=== PATIENT | male | born 1955 | race Caucasian/White ===

== ENCOUNTER 2019-03-10 09:21 | Outpatient (RCR) | payer MEDICAID, SELFPAY | END 2019-04-04 00:01 | LOC: WOUND 09:21 | PROVIDERS: Family Provider Nurse Practitioner; Visit Provider Surgery | DX: E11.622 Type 2 diabetes mellitus with other skin ulcer (principal); L97.822 Non-pressure chronic ulcer of other part of left lower leg with fat layer exposed | CPT/HCPCS: 99212 ==

== ENCOUNTER → 2019-05-24 13:19 | Outpatient (BNVA) | payer MEDICAID, SELFPAY | PROVIDERS: Family Provider Nurse Practitioner; PCP Nurse Practitioner; Visit Provider Nurse Practitioner | DX: E11.9 Type 2 diabetes mellitus without complications (principal); G47.00 Insomnia, unspecified; N40.0 Benign prostatic hyperplasia without lower urinary tract symptoms | CPT/HCPCS: 80053; 80061; 83036 ==

== ENCOUNTER 2019-05-31 11:53 | Emergency (ER) | payer MEDICAID, SELFPAY ==
[2019-05-31 11:55] VITALS: BP 115/76; PULSE 74; RESP 18; TEMP 36.4; O2SAT 95; BMI 27.1
--- NOTE | 2019-05-31 12:00 | ED_ITS ---
Entered by Kenya Saeed, acting as scribe for Michelle Mccormack MD HPI - Weakness General: Chief complaint: Weakness Stated complaint: WEAKNESS, POSSIBLE FLU Time Seen by Provider: 05/31/19 11:58 Source: patient and EMS Mode of arrival: EMS Limitations: no limitations History of Present Illness: HPI Narrative: 63 yo male presents with generalized weakness. pt states this started a few days ago but worsened this morning. [facility] but they called a ambulance from the parking lot and sent him to the ED. pt has had blurry vision. pt states he has had difficulty walking due to weakness. pt has been exposed to flu and having muscle aches. pt denies any other symptoms at this time. Complaint: generalized weakness Onset (ago): day(s) (2-3 days ago) Duration: progressively worsening Location: generalized Severity: moderate Relieving factors: none Exacerbating factors: movement and exertion Associated symptoms: Reports chills and short of breath; Denies chest pain, easy bruising, headache(s), nausea or vomiting Review of Systems General: Reports: 10 or more systems reviewed and unremarkable except in HPI and below Const: Reports: chills Eyes: Denies: change in vision ENMT: Denies: throat pain Card: Denies: chest pain Resp: Denies: shortness of breath GI: Denies: abdominal pain, nausea, vomiting or change in bowel habits Musc: Reports: muscle weakness Skin/Breast: Denies: rash Neuro: Denies: headache Psych: Denies: hopelessness or suicidal ideation Endo: Denies: excessive urination Marco/Lymph: Denies: easy bruising or easy bleeding All/Imm: Denies: hives PFSH ED PFSH: Medical History (Updated 05/31/19 @ 14:31 by Michelle Mccormack MD) Anxiety disorder BPH (benign prostatic hyperplasia) Controlled diabetes mellitus Dyslipidemia Essential (primary) hypertension GERD (gastroesophageal reflux disease) History of MRSA infection Vitamin D deficiency Surgical History (Updated 05/24/19 @ 13:18 by FÁTIMA Dugan) History of hip surgery right History of inguinal herniorrhaphy right History of vasectomy Social History Smoking and tobacco status: former smoker Second hand smoke exposure: No Smoking risk assessment/counseling performed?: No Alcohol intake: never Desire information about alcohol rehabilitation?: No Counseling given: No Desire information about substance/drug rehabilitation?: No Counseling given: No Adopted: No Lives independently: Yes Household members: other Housing: House Marital status: Single service: No Current occupational status: disabled History of recent travel: No Current gender identity: Male Physical Exam Const: COMMON NORMALS: no apparent distress, oriented x3, alert and well nourished HENMT: COMMON NORMALS: normocephalic and external nose normal HEAD & SCALP: normocephalic NOSE: external nose normal MOUTH: no trismus Eye: COMMON NORMALS: EOMs intact bilaterally and conjunctivae normal CONJUNCTIVA: Yes conjunctivae normal Neck/C-Spine: COMMON NORMALS: full ROM, no lymphadenopathy and supple CERVICAL SPINE: Yes cervical ROM normal Lymph: LYMPHATIC: no lymphadenopathy noted Resp: COMMON NORMALS: normal respiratory effort, no retractions, no use of accessory muscles and clear to auscultation bilaterally EFFORT & INSPECTION: Yes able to speak in complete sentences AUSCULTATION: clear to auscultation bilaterally Cardio: COMMON NORMALS: regular rate and regular rhythm RATE: regular rate RHYTHM: regular rhythm GI: COMMON NORMALS: normal to inspection, nondistended, normoactive bowel sounds, soft to palpation, non-tender and no masses INSPECTION: Yes normal to inspection AUSCULTATION: Yes normoactive bowel sounds PALPATION: Yes soft, No guarding and No rigid Back/Pelvis: OTHER: Normal range of motion Neuro: COMMON NORMALS: oriented x3 and CN's II-XII intact bilaterally SENSORIUM/ORIENTATION: Yes alert SPEECH: speech normal Psych: COMMON NORMALS: mental status grossly normal Skin: COMMON NORMALS: no rashes or lesions noted GENERAL SKIN EXAM: no rashes or lesions noted Course Vital Signs: Vital signs: Vital Signs Temperature 97.6 F 05/31/19 11:55 Pulse Rate 74 05/31/19 11:55 Respiratory Rate 18 05/31/19 11:55 Blood Pressure 115/76 05/31/19 11:55 Pulse Oximetry 95 05/31/19 11:55 MDM - Weakness MDM Narrative: Medical decision making narrative: 1350 updated patient on his test results. He is alert and oriented x3 no distress. He states he feels like he cannot go home winter has been rough on him and he is interested in pursuing long-term care facility. He uses a cane and feels like he cannot take care of himself very well alone his son lives in [place]. Will discuss with case management Case management came down to speak with the patient and now he has a friend that is here with him that says he will take care of him until arrangements can be made for him to go live with his son in [place] permanently. Will discharge this patient with his friend. Lab Data: Labs: Lab Results 05/31/19 05/31/19 05/31/19 Range/Units 12:26 12:26 12:31 WBC 7.8 (4.0-10.0) 10^3/ uL RBC 5.21 (4.1-5.3) 10^6/u L Hgb 14.9 (11.7-16.6) g/dL Hct 46.1 (42.0-52.0) % MCV 88.5 (80-94) fL MCH 28.6 (28.0-34.0) pg MCHC 32.3 (30.0-36.0) g/dL RDW 14.5 (12.1-15.1) % Plt Count 214 (130-400) 10^3/c mm MPV 10.4 (7.4-10.4) fL Total Counted 100 (0-100) Segmented Neutroph ils 63 % Lymphocytes (Manua l) 29 % Monocytes (Manual) 8.0 % Absolute Monocytes 0.6 (0.1-0.6) 10^3/c mm Platelet Estimate Normal (Normal) Sodium 141 (136-145) mmol/L Potassium 3.6 (3.5-5.1) mmol/L Chloride 102 (98-107) mmol/L Carbon Dioxide 24 (22-29) mmol/L Anion Gap 18.6 (5-19) BUN 22 (8-23) mg/dL Creatinine 0.8 (0.7-1.2) mg/dL GFR Calculation 98.3 (90-130) mL/min Glucose 136 H (65-115) mg/dL Calcium 10.0 (8.5-10.5) mg/dL Total Bilirubin 0.6 (0.15-1.2) mg/dL AST 13 (0-40) U/L ALT 17 (0-41) U/L Alkaline Phosphata se 87 (40-130) IU/L Total Protein 6.8 (6.6-8.7) g/dL Albumin 4.1 (3.5-5.2) g/dL Globulin 2.7 (1.3-4.6) g/dL Influenza Type A A g Negative (Negative) POC Influenza B Ag Negative (Negative) Imaging Data^: CXR: Radiologist's impression: [address] [address] XRay Report Signed Patient: Randy German #: [id number] : 8Acct#:[id number] Age/Sex: 63 / MADM Date: 05/31/19 Loc: ERRoom/Bed: Attending Dr: Ordering Provider/Ordering MD: Michelle Mccormack MD Date of Service: 05/31/19 Procedure(s): XR chest 1V portable [id number] Accession Number(s): [id number] Report Number: [id number] PROCEDURE INFORMATION: Exam: XR Chest, 1 View Exam date and time: 05/31/2019 12:36 PM Age: 63 years old Clinical indication: Cough and shortness of breath; Additional info: Cough, SOA TECHNIQUE: Imaging protocol: XR of the chest Views: 1 view. COMPARISON: CR Chest 1 [place] [id number] 12/24/2018 4:07 AM FINDINGS: Lungs: Somewhat reduced lung volumes with bibasilar bronchovascular crowding. Stable 1.4 cm right upper lobe nodule. Probable minor curvilinear atelectasis left lung base laterally. Pleural space: Unremarkable. No pleural effusion. No pneumothorax. Heart/Mediastinum: Unremarkable. No cardiomegaly. Bones/joints: Unremarkable. XR/XR chest 1V portable [id number] IMPRESSION: Stable 1.4 cm right upper lobe nodule. Probable minor atelectasis left lung base. Dictated By:Jose Rosado MD Signed By:Jose Rosado Date/Time:05/31/19 8089 Discharge Plan Discharge Patient Disposition: Home, Self-Care Clinical Impression: Muscle pain, Malaise Condition: Stable Prescriptions: No Action (DME) insulin syringe-needle U-100 [Easy Comfort Insulin Syringe] 0.5 mL 31 gauge x 5/16 syringe See Rx Instructions .ROUTE .MEDSUPPLY Qty: 10 RF: 0 magnesium oxide 400 mg magnesium capsule 400 mg PO TID RF: 0 methenamine hippurate 1 gram tablet 1 gm PO BID RF: 0 (DME) blood-glucose meter [Precision Xtra Monitor] Misc See Rx Instructions .ROUTE .MEDSUPPLY Qty: 1 RF: 0 Lantus U-100 Insulin 100 unit/mL solution 25 unit SUBCUT DAILY Qty: 10 RF: 5 zolpidem [Ambien] 10 mg tablet 10 mg PO .at bedtime Qty: 30 RF: 5 tamsulosin 0.4 mg capsule 0.4 mg PO BID Qty: 60 RF: 5 aspirin 81 mg Tablet,Delayed Release (Dr/Ec) 81 mg PO DAILY RF: 0 dexamethasone 0.5 mg Tablet 0.5 mg PO DAILY RF: 0 Vitamin C 500 mg Tablet Extended Release 500 mg PO DAILY RF: 0 Probiotic 1 cap PO DAILY RF: 0 Lantus U-100 Insulin 25 units INJECTION DAILY RF: 0 Referrals: Adela Alaniz, TIMBER MANAGEMENT ASSISTANT-C [Primary Care Provider] - Patient Instructions: Weakness (ED), Fatigue (ED) Coding Level of Care Code ED Metal Technician for Chg Fwd Exam Comprehensive The documentation recorded by the Christophe hastings Bridget Annette, accurately reflects the service I personally performed and the decisions made by Easton arriaga Megan, MD May 31, 2019 11:53
--- NOTE | 2019-05-31 12:12 | PC.NURSE ---
Patient c/o severe pain all over, states feet, back, legs, and chest all hurting, this started at sometime yesterday, patient was unsure of actual onset.
--- NOTE | 2019-05-31 12:14 | XRR_ITS ---
PROCEDURE INFORMATION: Exam: XR Chest, 1 View Exam date and time: 05/31/2019 12:36 PM Age: 63 years old Clinical indication: Cough and shortness of breath; Additional info: Cough, SOA TECHNIQUE: Imaging protocol: XR of the chest Views: 1 view. COMPARISON: CR Chest 1 [place] [id number] 12/24/2018 4:07 AM FINDINGS: Lungs: Somewhat reduced lung volumes with bibasilar bronchovascular crowding. Stable 1.4 cm right upper lobe nodule. Probable minor curvilinear atelectasis left lung base laterally. Pleural space: Unremarkable. No pleural effusion. No pneumothorax. Heart/Mediastinum: Unremarkable. No cardiomegaly. Bones/joints: Unremarkable. XR/XR chest 1V portable [id number] IMPRESSION: Stable 1.4 cm right upper lobe nodule. Probable minor atelectasis left lung base.
[2019-05-31] MEDS: sodium chloride 0.9% 1,000 ML 999 ML IV (12:24)
[2019-05-31] MEDS: ibuprofen 600 mg Tablet PO (12:24)
[2019-05-31 12:44] LABS: Hematocrit 46.1 % (42.0-52.0); Hemoglobin 14.9 g/dL (11.7-16.6); Mean Corpuscular HGB Conc 32.3 g/dL (30.0-36.0); Mean Corpuscular Hemoglobin 28.6 pg (28.0-34.0); Mean Corpuscular Volume 88.5 fL (80-94); Mean Platelet Volume 10.4 fL (7.4-10.4); Platelet Count 214 10^3/cmm (130-400); Red Blood Count 5.21 10^6/uL (4.1-5.3); Red Cell Distribution Width 14.5 % (12.1-15.1); White Blood Count 7.8 10^3/uL (4.0-10.0)
[2019-05-31 12:56] LABS: Alanine Aminotransferase 17 U/L (0-41); Albumin Level 4.1 g/dL (3.5-5.2); Alkaline Phosphatase 87 IU/L (40-130); Anion Gap 18.6 (5-19); Aspartate Amino Transferase 13 U/L (0-40); Blood Urea Nitrogen 22 mg/dL (8-23); Carbon Dioxide 24 mmol/L (22-29); Chloride 102 mmol/L (98-107); Globulin 2.7 g/dL (1.3-4.6); Glomerular Filtration Rate 98.3 mL/min (90-130); Glucose 136 mg/dL (65-115); Potassium 3.6 mmol/L (3.5-5.1); Sodium 141 mmol/L (136-145); Total Bilirubin 0.6 mg/dL (0.15-1.2); Total Protein 6.8 g/dL (6.6-8.7)
[2019-05-31 13:10] LABS: Influenza A by IFA Negative (Negative); Influenza B by IFA Negative (Negative)
[2019-05-31 13:17] LABS: Absolute Segmented Neutrophil 4.9 10/cmm (1.6-7.1); Lymphocytes 29 %; Monocytes Absolute 0.6 10^3/cmm (0.1-0.6); Platelet Estimate Normal (Normal); Segmented Neutrophils 63 %; Total Cells Counted 100 (0-100)
--- NOTE | 2019-05-31 14:21 | PC.SOCIAL ---
Was called to go see patient in ER 9 for SNF placement. Went in to speak with patient and he states he is not wanting to go to SNF at this time. Patient's friend, Randy Bolden ([phone]) is at bedside. They state the plan is for patient to go home with friend at this time, then they will be working on getting patient to a SNF in [place], where patient's son Gerry lives. Patient comes from home where he lives alone. He sees Adela Alaniz as his PCP as was last seen in the clinic about 2 weeks ago. He drives himself at time, but in the last few weeks, his friends have been taking him places. Patient has a cane, walker, and w/c at home. He currently has no in-home or HH services. I advised the patient and friend Randy to make sure and call/visit the Medicaid office (or equivalent) in [place] as he has [place] Medicaid and it will need to be switched to [place]'s version of Medicaid before he will be able to get into a SNF there. They appreciate the guidance. Updated provider of the plan and she is in agreeance. No other SS needs identified at this time.
[2019-05-31 15:23] VITALS: BP 144/77; PULSE 86; RESP 16; O2SAT 98
== END 2019-05-31 15:24 | disposition home or self-care (01) ==
PROVIDERS: Emergency Provider Emergency Medicine; Family Provider Nurse Practitioner; PCP Nurse Practitioner
DX: M79.10 Myalgia, unspecified site (principal); R53.81 Other malaise; E78.5 Hyperlipidemia, unspecified; I10 Essential (primary) hypertension; E11.9 Type 2 diabetes mellitus without complications; Z87.891 Personal history of nicotine dependence; Z79.4 Long term (current) use of insulin
CPT/HCPCS: 36415; 71045; 80053; 85007; 85027; 87804; 96360; 99281; 99283; J7030

== ENCOUNTER 2019-06-03 07:41 | Inpatient (IN) | payer MEDICAID, SELFPAY ==
[2019-06-03 07:47] VITALS: BP 114/84; PULSE 85; RESP 18; TEMP 36.5; O2SAT 96; BMI 27.1
--- NOTE | 2019-06-03 07:48 | ED_ITS ---
Entered by Kenya Saeed, acting as scribe for Yoan Ramos DO Documented by User: FERMÍN David 06/03/19 11:27 HPI - Psych General: Chief Complaint: Psychiatric Symptoms Stated Complaint: SI Time Seen by Provider: 06/03/19 07:49 Source: patient Mode of arrival: EMS Limitations: no limitations History of Present Illness: HPI Narrative: Patient is a 63-year-old male who presents to ED today with complaints of suicidal ideations. Patient tells me he suffers from chronic pain and lives alone and states the winter has gotten to me . He states earlier this morning he tried to cut his throat with a knife. He has sustained 2 small lacerations to the left anterior neck from this. Patient denies previous suicide attempts. He states he does not trust himself to go home and not harm himself. complaint: suicidal ideation Onset (ago): hour(s) History of same: No Associated psychiatric symptoms: depression Associated symptoms: Reports depression and suicidal ideation Review of Systems Const: Denies: fever, chills, body aches, change in appetite, change in weight, fatigue or malaise Eyes: Denies: change in vision or blurry vision ENMT: Denies: throat pain, enlarged tonsils or painful swallowing Card: Denies: chest pain, palpitations, irregular heart rhythm, edema, swelling of feet/ankles, lightheadedness, syncope or pre-syncope Resp: Denies: shortness of breath, productive cough, coughing up blood or chest congestion GI: Denies: abdominal pain, nausea, vomiting or diarrhea : Denies: flank pain, difficulty urinating, painful urination, urinary frequency or urinary urgency Musc: Reports: back pain (chronic ) and joint pain (chronic bilateral shoulder pain, chronic R hip pain, chronic L knee pain); Denies: neck pain Skin/Breast: Reports: other (two small superficial lacerations to L anterior neck ); Denies: rash Neuro: Denies: headache, numbness in extremities, weakness in extremities or changes in sensation Psych: Reports: depression and suicidal ideation COUNTS INCLUDE 234 BEDS AT THE [facility] ED PFSH: Medical History (Updated 06/04/19 @ 12:56 by Keaton Velez MD) Anxiety disorder BPH (benign prostatic hyperplasia) Chronic arthritis Chronic insomnia Controlled diabetes mellitus Dyslipidemia Essential (primary) hypertension GERD (gastroesophageal reflux disease) History of MRSA infection Suicidal ideation Superficial laceration of skin Vitamin D deficiency Surgical History (Updated 05/24/19 @ 13:18 by FÁTIMA Dugan) History of hip surgery right History of inguinal herniorrhaphy right History of vasectomy Social History Smoking and tobacco status: never smoked Second hand smoke exposure: No Smoking risk assessment/counseling performed?: No Alcohol intake: never Desire information about alcohol rehabilitation?: No Counseling given: No Desire information about substance/drug rehabilitation?: No Counseling given: No Adopted: No Lives independently: Yes Household members: other Housing: House Marital status: Single service: No Current occupational status: disabled History of recent travel: No Current gender identity: Male Physical Exam Const: COMMON NORMALS: no apparent distress, average body habitus, oriented x3, no limitations, alert and well nourished HENMT: COMMON NORMALS: normocephalic and head/scalp atraumatic HEAD & SCALP: normocephalic and atraumatic Neck/C-Spine: COMMON NORMALS: full ROM, no lymphadenopathy and no meningeal signs OTHER: two small 1-1.5cm superficial lacerations to L anterior neck that were irrigated and closed with tissue adhesive Resp: COMMON NORMALS: normal respiratory effort and clear to auscultation bilaterally AUSCULTATION: clear to auscultation bilaterally Cardio: COMMON NORMALS: regular rate and regular rhythm RATE: regular rate RHYTHM: regular rhythm Neuro: PILLO COMA SCALE: document GCS findings Pillo coma scale eye opening: Spontaneous Pillo coma scale verbal response: Orientated Pillo coma scale motor response: Obey commands Pillo coma scale total score: 15 COMMON NORMALS: oriented x3, moves all extremities, no focal motor deficits and no sensory deficits noted SENSORIUM/ORIENTATION: Yes alert MENINGEAL SIGNS: Yes no meningeal signs Psych: COMMON NORMALS: mental status grossly normal, cooperative, affect normal, speech normal and activity/motor behavior normal ATTITUDE: Yes calm SPEECH: Yes normal speech MEMORY/COGNITION: Yes memory grossly intact and Yes cognition grossly intact INSIGHT: fair JUDGEMENT: fair MDM - Psych MDM Narrative: Medical decision making narrative: Pt has DPOA (his sister). She was contacted and agrees with plan to send patient to [facility]. Lab Data: Labs: Lab Results 06/03/19 06/03/19 06/03/19 Range/Units 08:16 08:16 08:16 WBC 8.6 (4.0-10.0) 10^3/ uL RBC 4.98 (4.1-5.3) 10^6/u L Hgb 14.0 (11.7-16.6) g/dL Hct 43.0 (42.0-52.0) % MCV 86.3 (80-94) fL MCH 28.1 (28.0-34.0) pg MCHC 32.6 (30.0-36.0) g/dL RDW 14.5 (12.1-15.1) % Plt Count 167 (130-400) 10^3/c mm MPV 9.8 (7.4-10.4) fL Neut % (Auto) 62.8 % Lymph % (Auto) 27.7 % Page % (Auto) 8.1 % Eos % (Auto) 0.8 % Baso % (Auto) 0.3 % Neut # (Auto) 5.4 (1.8-7.7) 10^3/u L Lymph # (Auto) 2.4 (0.8-4.8) 10^3/u L Page # (Auto) 0.7 (0.2-0.9) 10^3/u L Eos # (Auto) 0.1 (0.0-0.8) 10^3/u L Baso # (Auto) 0.0 (0.0-0.1) 10^3/u L Nucleated RBC % (a uto) 0 % Nucleated RBCs # 0.0 /100WBC Sodium 140 (136-145) mmol/L Potassium 3.0 L (3.5-5.1) mmol/L Chloride 103 (98-107) mmol/L Carbon Dioxide 25 (22-29) mmol/L Anion Gap 15.0 (5-19) BUN 13 (8-23) mg/dL Creatinine 0.6 L (0.7-1.2) mg/dL GFR Calculation 137.0 H (90-130) mL/min Glucose 95 (65-115) mg/dL Calcium 9.4 (8.5-10.5) mg/dL Magnesium 2.0 (1.7-2.3) mg/dL Total Bilirubin 0.9 (0.15-1.2) mg/dL AST 13 (0-40) U/L ALT 16 (0-41) U/L Alkaline Phosphata se 81 (40-130) IU/L Total Protein 6.6 (6.6-8.7) g/dL Albumin 3.6 (3.5-5.2) g/dL Globulin 3.0 (1.3-4.6) g/dL Salicylates < 0.3 L (3-10) mg/dL Urine Opiates Scre en (Negative) ng/mL Acetaminophen < 5.0 L (10-30) ug/mL Ur Barbiturates Sc reen (Negative) ng/mL Ur Phencyclidine S crn (Negative) ng/mL Ur Amphetamines Sc reen (Negative) ng/mL U Benzodiazepines Scrn (Negative) ng/mL Urine Cocaine Scre en (Negative) ng/mL U Marijuana (THC) Screen (Negative) ng/mL Ethyl Alcohol < 10 (0-10) mg/dL 06/03/19 Range/Units 10:25 WBC (4.0-10.0) 10^3/ uL RBC (4.1-5.3) 10^6/u L Hgb (11.7-16.6) g/dL Hct (42.0-52.0) % MCV (80-94) fL MCH (28.0-34.0) pg MCHC (30.0-36.0) g/dL RDW (12.1-15.1) % Plt Count (130-400) 10^3/c mm MPV (7.4-10.4) fL Neut % (Auto) % Lymph % (Auto) % Page % (Auto) % Eos % (Auto) % Baso % (Auto) % Neut # (Auto) (1.8-7.7) 10^3/u L Lymph # (Auto) (0.8-4.8) 10^3/u L Page # (Auto) (0.2-0.9) 10^3/u L Eos # (Auto) (0.0-0.8) 10^3/u L Baso # (Auto) (0.0-0.1) 10^3/u L Nucleated RBC % (a uto) % Nucleated RBCs # /100WBC Sodium (136-145) mmol/L Potassium (3.5-5.1) mmol/L Chloride (98-107) mmol/L Carbon Dioxide (22-29) mmol/L Anion Gap (5-19) BUN (8-23) mg/dL Creatinine (0.7-1.2) mg/dL GFR Calculation (90-130) mL/min Glucose (65-115) mg/dL Calcium (8.5-10.5) mg/dL Magnesium (1.7-2.3) mg/dL Total Bilirubin (0.15-1.2) mg/dL AST (0-40) U/L ALT (0-41) U/L Alkaline Phosphata se (40-130) IU/L Total Protein (6.6-8.7) g/dL Albumin (3.5-5.2) g/dL Globulin (1.3-4.6) g/dL Salicylates (3-10) mg/dL Urine Opiates Scre en Negative (Negative) ng/mL Acetaminophen (10-30) ug/mL Ur Barbiturates Sc reen Negative (Negative) ng/mL Ur Phencyclidine S crn Negative (Negative) ng/mL Ur Amphetamines Sc reen Negative (Negative) ng/mL U Benzodiazepines Scrn Positive H (Negative) ng/mL Urine Cocaine Scre en Negative (Negative) ng/mL U Marijuana (THC) Screen Positive H (Negative) ng/mL Ethyl Alcohol (0-10) mg/dL Discharge Plan Discharge Patient Disposition: Xfer Psychiatric Hosp Clinical Impression: Suicidal ideation, Superficial laceration of skin Condition: Stable Discharge Date/Time: 06/03/19 12:02 Coding Level of Care Code ED Edger Technician for Chg Fwd Exam Detailed Documented by User: Yoan Ramos DO 06/07/19 08:46 HPI - Psych General: Chief Complaint: Psychiatric Symptoms Stated Complaint: SI Time Seen by Provider: 06/03/19 07:49 PFS ED PFS: Medical History (Updated 06/04/19 @ 12:56 by Keaton Velez MD) Anxiety disorder BPH (benign prostatic hyperplasia) Chronic arthritis Chronic insomnia Controlled diabetes mellitus Dyslipidemia Essential (primary) hypertension GERD (gastroesophageal reflux disease) History of MRSA infection Suicidal ideation Superficial laceration of skin Vitamin D deficiency Surgical History (Updated 05/24/19 @ 13:18 by FÁTIMA Dugan) History of hip surgery right History of inguinal herniorrhaphy right History of vasectomy Social History Smoking and tobacco status: never smoked Second hand smoke exposure: No Smoking risk assessment/counseling performed?: No Alcohol intake: never Desire information about alcohol rehabilitation?: No Counseling given: No Desire information about substance/drug rehabilitation?: No Counseling given: No Adopted: No Lives independently: Yes Household members: other Housing: House Marital status: Single service: No Current occupational status: disabled History of recent travel: No Current gender identity: Male MDM - Psych Lab Data: Labs: Lab Results 06/03/19 06/03/19 06/03/19 Range/Units 08:16 08:16 08:16 WBC 8.6 (4.0-10.0) 10^3/ uL RBC 4.98 (4.1-5.3) 10^6/u L Hgb 14.0 (11.7-16.6) g/dL Hct 43.0 (42.0-52.0) % MCV 86.3 (80-94) fL MCH 28.1 (28.0-34.0) pg MCHC 32.6 (30.0-36.0) g/dL RDW 14.5 (12.1-15.1) % Plt Count 167 (130-400) 10^3/c mm MPV 9.8 (7.4-10.4) fL Neut % (Auto) 62.8 % Lymph % (Auto) 27.7 % Page % (Auto) 8.1 % Eos % (Auto) 0.8 % Baso % (Auto) 0.3 % Neut # (Auto) 5.4 (1.8-7.7) 10^3/u L Lymph # (Auto) 2.4 (0.8-4.8) 10^3/u L Page # (Auto) 0.7 (0.2-0.9) 10^3/u L Eos # (Auto) 0.1 (0.0-0.8) 10^3/u L Baso # (Auto) 0.0 (0.0-0.1) 10^3/u L Nucleated RBC % (a uto) 0 % Nucleated RBCs # 0.0 /100WBC Sodium 140 (136-145) mmol/L Potassium 3.0 L (3.5-5.1) mmol/L Chloride 103 (98-107) mmol/L Carbon Dioxide 25 (22-29) mmol/L Anion Gap 15.0 (5-19) BUN 13 (8-23) mg/dL Creatinine 0.6 L (0.7-1.2) mg/dL GFR Calculation 137.0 H (90-130) mL/min Glucose 95 (65-115) mg/dL Calcium 9.4 (8.5-10.5) mg/dL Magnesium 2.0 (1.7-2.3) mg/dL Total Bilirubin 0.9 (0.15-1.2) mg/dL AST 13 (0-40) U/L ALT 16 (0-41) U/L Alkaline Phosphata se 81 (40-130) IU/L Total Protein 6.6 (6.6-8.7) g/dL Albumin 3.6 (3.5-5.2) g/dL Globulin 3.0 (1.3-4.6) g/dL Salicylates < 0.3 L (3-10) mg/dL Urine Opiates Scre en (Negative) ng/mL Acetaminophen < 5.0 L (10-30) ug/mL Ur Barbiturates Sc reen (Negative) ng/mL Ur Phencyclidine S crn (Negative) ng/mL Ur Amphetamines Sc reen (Negative) ng/mL U Benzodiazepines Scrn (Negative) ng/mL Urine Cocaine Scre en (Negative) ng/mL U Marijuana (THC) Screen (Negative) ng/mL Ethyl Alcohol < 10 (0-10) mg/dL 06/03/19 Range/Units 10:25 WBC (4.0-10.0) 10^3/ uL RBC (4.1-5.3) 10^6/u L Hgb (11.7-16.6) g/dL Hct (42.0-52.0) % MCV (80-94) fL MCH (28.0-34.0) pg MCHC (30.0-36.0) g/dL RDW (12.1-15.1) % Plt Count (130-400) 10^3/c mm MPV (7.4-10.4) fL Neut % (Auto) % Lymph % (Auto) % Page % (Auto) % Eos % (Auto) % Baso % (Auto) % Neut # (Auto) (1.8-7.7) 10^3/u L Lymph # (Auto) (0.8-4.8) 10^3/u L Page # (Auto) (0.2-0.9) 10^3/u L Eos # (Auto) (0.0-0.8) 10^3/u L Baso # (Auto) (0.0-0.1) 10^3/u L Nucleated RBC % (a uto) % Nucleated RBCs # /100WBC Sodium (136-145) mmol/L Potassium (3.5-5.1) mmol/L Chloride (98-107) mmol/L Carbon Dioxide (22-29) mmol/L Anion Gap (5-19) BUN (8-23) mg/dL Creatinine (0.7-1.2) mg/dL GFR Calculation (90-130) mL/min Glucose (65-115) mg/dL Calcium (8.5-10.5) mg/dL Magnesium (1.7-2.3) mg/dL Total Bilirubin (0.15-1.2) mg/dL AST (0-40) U/L ALT (0-41) U/L Alkaline Phosphata se (40-130) IU/L Total Protein (6.6-8.7) g/dL Albumin (3.5-5.2) g/dL Globulin (1.3-4.6) g/dL Salicylates (3-10) mg/dL Urine Opiates Scre en Negative (Negative) ng/mL Acetaminophen (10-30) ug/mL Ur Barbiturates Sc reen Negative (Negative) ng/mL Ur Phencyclidine S crn Negative (Negative) ng/mL Ur Amphetamines Sc reen Negative (Negative) ng/mL U Benzodiazepines Scrn Positive H (Negative) ng/mL Urine Cocaine Scre en Negative (Negative) ng/mL U Marijuana (THC) Screen Positive H (Negative) ng/mL Ethyl Alcohol (0-10) mg/dL Discharge Plan Discharge Patient Disposition: Xfer Psychiatric Hosp Clinical Impression: Suicidal ideation, Superficial laceration of skin Condition: Stable Discharge Date/Time: 06/03/19 12:02 Coding Level of Care Code ED Edger Technician for Chg Fwd Exam Detailed The documentation recorded by the Christophe hastings Bridget Annette, accurately reflects the service I personally performed and the decisions made by Richard arriaga Curtis L, Jun 03, 2019 07:41
[2019-06-03 07:55] VITALS: BP 109/88; PULSE 88; RESP 17; O2SAT 98
[2019-06-03 08:21] LABS: Basophils % 0.3 %; Eosinophils # 0.1 10^3/uL (0.0-0.8); Eosinophils % 0.8 %; Lymphocytes # 2.4 10^3/uL (0.8-4.8); Lymphocytes % 27.7 %; Mean Corpuscular HGB Conc 32.6 g/dL (30.0-36.0); Mean Corpuscular Hemoglobin 28.1 pg (28.0-34.0); Mean Corpuscular Volume 86.3 fL (80-94); Mean Platelet Volume 9.8 fL (7.4-10.4); Monocytes # 0.7 10^3/uL (0.2-0.9); Monocytes % 8.1 %; Neutrophils # 5.4 10^3/uL (1.8-7.7); Neutrophils % 62.8 %; Nucleated Red Blood Cells % 0 %; Platelet Count 167 10^3/cmm (130-400); Red Blood Count 4.98 10^6/uL (4.1-5.3); Red Cell Distribution Width 14.5 % (12.1-15.1); White Blood Count 8.6 10^3/uL (4.0-10.0)
[2019-06-03 08:42] LABS: Alanine Aminotransferase 16 U/L (0-41); Albumin Level 3.6 g/dL (3.5-5.2); Alkaline Phosphatase 81 IU/L (40-130); Aspartate Amino Transferase 13 U/L (0-40); Blood Urea Nitrogen 13 mg/dL (8-23); Calcium 9.4 mg/dL (8.5-10.5); Carbon Dioxide 25 mmol/L (22-29); Chloride 103 mmol/L (98-107); Glucose 95 mg/dL (65-115); Sodium 140 mmol/L (136-145); Total Bilirubin 0.9 mg/dL (0.15-1.2); Total Protein 6.6 g/dL (6.6-8.7)
[2019-06-03 08:44] LABS: Acetaminophen < 5.0 ug/mL (10-30); Alcohol Level < 10 mg/dL (0-10); Salicylate < 0.3 mg/dL (3-10)
[2019-06-03] MEDS: acetaminophen 500 mg Tablet 1000 MG PO (09:43)
[2019-06-03 11:02] LABS: Amphetamines Screen Urine Negative (Negative); Barbiturates Screen Urine Negative (Negative); Benzodiazepines Screen Urine Positive (Negative); Cocaine Screen Urine Negative (Negative); Opiate Screen Urine Negative (Negative); PCP Screen Urine Negative (Negative); THC Screen Urine Positive (Negative)
[2019-06-03 11:35] VITALS: BP 104/72; PULSE 69; RESP 18; O2SAT 96
[2019-06-03 12:30] VITALS: BP 114/74; PULSE 77; RESP 18; TEMP 36.7; O2SAT 96
[2019-06-03 14:00] VITALS: BP 114/74; PULSE 77; RESP 18; TEMP 36.7; O2SAT 95
[2019-06-03] MEDS: magnesium oxide 400 mg tablet PO ×2 (14:00→20:39)
[2019-06-03] MEDS: hyDROXYzine 25 mg Capsule 50 MG PO (14:00)
[2019-06-03 16:46] LABS: Glucose Point of Care 79 mg/dL (70-110)
[2019-06-03] MEDS: tamsulosin 0.4 mg Capsule PO (17:46)
[2019-06-03 22:00] VITALS: BP 123/84; PULSE 69; RESP 18; TEMP 37.1; O2SAT 97
[2019-06-04] MEDS: acetaminophen 325 mg Tablet 650 MG PO ×3 (02:07→17:52)
--- NOTE | 2019-06-04 02:09 | PC.NURSE ---
TYLENOL 650 MG PO GIVEN FOR PAIN IN BACK AND KNEES.
[2019-06-04 06:00] VITALS: BP 97/63; PULSE 86; RESP 16; TEMP 36.9; O2SAT 91
[2019-06-04 06:00] LABS: Glucose Point of Care 95 mg/dL (70-110)
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
[2019-06-04] MEDS: tamsulosin 0.4 mg Capsule PO ×2 (08:31→17:52)
[2019-06-04] MEDS: hyDROXYzine 25 mg Capsule 50 MG PO ×2 (08:31→22:55)
[2019-06-04] MEDS: magnesium oxide 400 mg tablet PO ×3 (08:31→21:31)
[2019-06-04] MEDS: aspirin 81 mg EC Tablet PO (08:31)
[2019-06-04] MEDS: NON-FORMULARY MEDICATION (Ascorbic Acid (Vitamin C) [Vitamin C] 500 MG) 500 EACH PO (08:34)
[2019-06-04] MEDS: PROBIOTIC 1 EACH PO (08:34)
[2019-06-04] MEDS: dexamethasone 4 mg Tablet 2 MG PO (11:09)
[2019-06-04 11:53] LABS: Glucose Point of Care 91 mg/dL (70-110)
[2019-06-04 13:35] VITALS: BP 108/70; PULSE 99; RESP 18; TEMP 37.3; O2SAT 96
[2019-06-04 16:53] LABS: Glucose Point of Care 113 mg/dL (70-110)
[2019-06-04 21:27] VITALS: BP 124/78; PULSE 104; RESP 18; TEMP 36.7; O2SAT 95
[2019-06-04] MEDS: insulin glargine 100 units/1 mL 25 UNIT SUBCUT ×2 (21:30→21:56)
--- NOTE | 2019-06-04 22:56 | PC.NURSE ---
PRN VISTARIL VISTARIL 50 MG PO PER PT C/O ANXIETY. WILL CONTINUE TO MONITOR FOR MEDICATION EFFECTIVENESS.
--- NOTE | 2019-06-05 | PC.NURSE ---
PRN VISTARIL FOLLOW UP MEDICATION EFFECTIVE. PATIENT LYING IN BED RESTING. RESPIRATIONS EVEN AND UNLABORED.
[2019-06-05 06:00] VITALS: BP 116/81; PULSE 70; RESP 20; TEMP 36.4; O2SAT 97
[2019-06-05 06:11] LABS: Glucose Point of Care 133 mg/dL (70-110)
[2019-06-05] MEDS: NON-FORMULARY MEDICATION (Ascorbic Acid (Vitamin C) [Vitamin C] 500 MG) 500 EACH PO (08:42)
[2019-06-05] MEDS: dexamethasone 4 mg Tablet 2 MG PO (08:43)
[2019-06-05] MEDS: aspirin 81 mg EC Tablet PO (08:43)
[2019-06-05] MEDS: tamsulosin 0.4 mg Capsule PO ×2 (08:43→17:15)
[2019-06-05] MEDS: PROBIOTIC 1 EACH PO (08:43)
[2019-06-05] MEDS: magnesium oxide 400 mg tablet PO ×2 (08:44→14:51)
[2019-06-05 14:00] VITALS: BP 119/82; PULSE 84; RESP 18; TEMP 36.8; O2SAT 92
--- NOTE | 2019-06-05 14:46 | P.PN_ITS ---
Subjective NPU Subjective: Interval history: Randy presents today reporting that he is doing okay. He reports that he is tolerating the antidepressant and is feeling optimistic about things going forward. He feels like part of the issue was that it was winter and he was hold up in his house and he feels like that with spring coming he will be able to get out and be more active and be able to avoid a repeat of his situation. He endorsed feeling the Ambien was part of the problem now having a couple nights off of that he feels a little better. Mental Status Exam MSE Comments: This is a well-nourished well-developed white male with limited dress grooming and eye contact. No abnormal movements except for psychomotor retardation. Cooperative with exam in no acute distress. Speech was decreased rate and volume. Mood described as a little better, affect congruent. Thought process organized. Thought content: Patient denied any suicidal or homicidal ideation, there were no delusions reported noted, he denied any auditory or visual hallucinations. Attention and concentration were intact and memory appeared mostly reliable but none were formally tested. He is alert and oriented ?3. Insight and judgment are improving. Vitals/I&O/Wt Last Vital Signs Temperature 97.6, pulse 70, respirations 20, pulse ox 97%, blood pressure 116/81. Home Medications blood-glucose meter #1 each 05/24/19 [History Confirmed 06/03/19] insulin glargine 100 unit/mL subcutaneous solution 25 unit SUBCUT DAILY #10 ml 05/24/19 [Rx Confirmed 06/03/19] insulin syringe-needle U-100 0.5 mL 31 gauge x 16 #10 each 05/24/19 [History Confirmed 06/03/19] magnesium oxide 400 mg PO TID cap 05/24/19 [History Confirmed 06/03/19] methenamine hippurate 1 gram tablet 1 gm PO BID 05/24/19 [History Confirmed 06/03/19] tamsulosin 0.4 mg capsule 0.4 mg PO BID #60 cap 05/24/19 [Rx Confirmed 06/03/19] Probiotic 1 cap PO DAILY 05/31/19 [History Confirmed 06/03/19] ascorbic acid (vitamin C) [Vitamin C] 500 mg PO DAILY 05/31/19 [History Confirmed 06/03/19] aspirin 81 mg PO DAILY 05/31/19 [History Confirmed 06/03/19] dexamethasone 2 mg PO DAILY 05/31/19 [History Confirmed 06/04/19] Ambien 10 mg PO BEDTIME 06/03/19 [History Confirmed 06/03/19] Active Medications Acetaminophen (Tylenol) 650 mg PO Q4H PRN PRN Reason: MILD PAIN Last Admin: 06/06/19 02:03 Dose: 650 mg Documented by: Aspirin (Aspirin Ec) 81 mg PO DAILY [facility] Last Admin: 06/05/19 08:43 Dose: 81 mg Documented by: Benztropine Mesylate (Cogentin) 1 mg PO BID PRN PRN Reason: Mild Extrapyramidal symptoms Camphor/Menthol/Phenol (Blistex) 1 applic TOPICAL Q1H PRN PRN Reason: DRYNESS Dexamethasone (Decadron) 2 mg PO DAILY [facility] Last Admin: 06/05/19 08:43 Dose: 2 mg Documented by: Diphenhydramine HCl (Benadryl) 50 mg IM ONCE PRN PRN Reason: Severe Extrapyramidal Symptoms Diphenhydramine HCl (Benadryl) 50 mg IM Q4H PRN PRN Reason: Severe Aggression Doxepin HCl (Sinequan) 10 mg PO BEDTIME [facility] Last Admin: 06/05/19 20:42 Dose: 10 mg Documented by: Fluoxetine HCl (Prozac) 20 mg PO DAILY [facility] Haloperidol (Haldol) 5 mg PO Q4H PRN PRN Reason: AGITATION Haloperidol Lactate (Haldol Inj) 5 mg IM Q4H PRN PRN Reason: Severe Aggression Hydroxyzine Pamoate (Vistaril) 50 mg PO Q6H PRN PRN Reason: ANXIETY Last Admin: 06/04/19 22:55 Dose: 50 mg Documented by: Insulin Glargine (Lantus) 25 unit SUBCUT BEDTIME [facility] Last Admin: 06/05/19 20:47 Dose: 25 unit Documented by: Loperamide HCl (Imodium Capsule) 2 mg PO Q6H PRN PRN Reason: DIARRHEA Lorazepam (Ativan) 2 mg IM Q4H PRN PRN Reason: Severe Aggression Magnesium Oxide (Magox) 400 mg PO TID [facility] Last Admin: 06/06/19 02:00 Dose: 400 mg Documented by: Nicotine (Nicoderm 21 Mg Patch) 1 patch TRANSDERMA DAILY PRN PRN Reason: NICOTINE WITHDRAWAL Nicotine Polacrilex (Nicorette) 2 mg BUCCAL Q2H PRN PRN Reason: NICOTINE WITHDRAWAL Non-Formulary Medication (Methenamine Hippurate) 1 gm PO BID [facility] Last Admin: 06/05/19 17:15 Dose: 1 gm Documented by: Non-Formulary Medication (Probiotic) 1 cap PO DAILY [facility] Last Admin: 06/05/19 08:43 Dose: 1 cap Documented by: Non-Formulary Medication (Ascorbic Acid (Vitamin C) [Vitamin C]) 500 mg PO DAILY [facility] Last Admin: 06/05/19 08:42 Dose: 500 mg Documented by: Olanzapine (Zyprexa Zydis) 5 mg PO Q4H PRN PRN Reason: Agitation/Psychosis Ondansetron HCl (Zofran) 4 mg PO Q6H PRN PRN Reason: NAUSEA AND VOMITING Tamsulosin HCl (Flomax) 0.4 mg PO BID [facility] Last Admin: 06/05/19 17:15 Dose: 0.4 mg Documented by: Data NPU : 06/03/19 08:16 06/03/19 08:16 A&P Additional A&P Information This is a 63-year-old white male with a recent history of depression against the backdrop of multiple medical comorbidities, isolation and poor sleep who presents off of any antidepressants and with reports of limited efficacy of his sleep-related. 1. Continue current medication. 2. Encourage individual, group and milieu therapy. 3. Continue every 15 minute checks for safety. Involuntary Hold Information 96 Hour Hold: 96 Hour Involuntary Admission: No Attestations NPU Medical Necessity Statement*: Inpatient hospitalization is medically necessary and the clinically appropriate intervention at this time. We will monitor medications and make changes indicated. Likely length of stay 1-3 days. Coding Level of Care Code Acute Human Resources Director for Imelda Rojas
[2019-06-05] MEDS: fluoxetine 20 mg Capsule PO (14:50)
[2019-06-05 18:51] LABS: Glucose Point of Care 191 mg/dL (70-110)
[2019-06-05] MEDS: doxepin 10 mg Capsule PO (20:42)
[2019-06-05] MEDS: insulin glargine 100 units/1 mL 25 UNIT SUBCUT (20:47)
[2019-06-05] MEDS: acetaminophen 325 mg Tablet 650 MG PO (20:51)
[2019-06-05 21:52] VITALS: BP 136/92; PULSE 74; RESP 17; TEMP 36.5; O2SAT 95
[2019-06-05] MEDS: trazodone 50 mg Tablet PO (22:10)
[2019-06-06] MEDS: trazodone 50 mg Tablet PO ×2 (02:00→20:54)
[2019-06-06] MEDS: magnesium oxide 400 mg tablet PO ×4 (02:00→20:52)
[2019-06-06] MEDS: acetaminophen 325 mg Tablet 650 MG PO ×2 (02:03→21:02)
[2019-06-06 05:17] LABS: Glucose Point of Care 108 mg/dL (70-110)
[2019-06-06 06:00] VITALS: BP 109/78; PULSE 62; RESP 17; TEMP 36.5; O2SAT 96
[2019-06-06] MEDS: tamsulosin 0.4 mg Capsule PO ×2 (09:19→17:51)
[2019-06-06] MEDS: fluoxetine 20 mg Capsule PO (09:19)
[2019-06-06] MEDS: dexamethasone 4 mg Tablet 2 MG PO (09:19)
[2019-06-06] MEDS: aspirin 81 mg EC Tablet PO (09:19)
[2019-06-06] MEDS: PROBIOTIC 1 EACH PO (09:20)
[2019-06-06] MEDS: NON-FORMULARY MEDICATION (Ascorbic Acid (Vitamin C) [Vitamin C] 500 MG) 500 EACH PO (09:20)
--- NOTE | 2019-06-06 11:09 | P.PN_ITS ---
Subjective NPU Subjective: Interval history: Brandon is feeling okay. He endorses having a protrusion in his abdominal area. Hospitalist consult was made, and it was determined that he has a umbilical hernia. Plan was made to get him a binder upon discharge and set him up with appropriate follow-up. We began discussing discharge in relation to his situation which is become clear he has been through before which is that he could go to some kind of skilled or even assisted living circumstance but economics are what he fights against. Mental Status Exam MSE Comments: This is a well-nourished well-developed white male with limited dress grooming and eye contact. No abnormal movements except for psychomotor retardation. Cooperative with exam in no acute distress. Speech was decreased rate and volume. Mood described as a fine, affect congruent and still subdued. Thought process organized. Thought content: Patient denied any suicidal or homicidal ideation, there were no delusions reported noted, he denied any auditory or visual hallucinations. Attention and concentration were intact and memory appeared mostly reliable but none were formally tested. He is alert and oriented ?3. Insight and judgment are improving. Vitals/I&O/Wt Last Vital Signs Temperature 97.7, pulse 62, respirations 17, pulse ox 96%, blood pressure 109/78. Data NPU : 06/03/19 08:16 06/03/19 08:16 A&P Additional A&P Information This is a 63-year-old white male with a recent history of depression against the backdrop of multiple medical comorbidities, isolation and poor sleep who presents off of any antidepressants and with reports of limited efficacy of his sleep-related. 1. Continue current medication. 2. Encourage individual, group and milieu therapy. 3. Continue every 15 minute checks for safety. 4. Need to explore discharge options outside of him going home. Involuntary Hold Information 96 Hour Hold: 96 Hour Involuntary Admission: No Attestations NPU Medical Necessity Statement*: Inpatient hospitalization is medically necessary and the clinically appropriate intervention at this time. We will monitor medications and make changes indicated. Likely length of stay 1-2 days. Coding Level of Care Code Acute Hotel Supplies Salesperson for Imelda Rojas
[2019-06-06 13:46] LABS: Glucose Point of Care 156 mg/dL (70-110)
[2019-06-06 14:00] VITALS: BP 130/86; PULSE 71; RESP 20; TEMP 37.2; O2SAT 97
--- NOTE | 2019-06-06 16:27 | PM.HP ---
Providers/Chief Complaint Admitting Physician: Keaton Velez MD Primary Care Provider: FÁTIMA Dugan Chief Complaint: SI History of Present Illness Randy German is a 63 year old male Medications/Allergies Home Medications Medication Instructions Recorded Confirmed Last Taken Type Ambien 10 mg PO BEDTIME 06/03/19 06/03/19 06/02/19 History Allergies Allergy/AdvReac Type Severity Reaction Status Date / Time hydromorphone [From Dilaudid] Allergy ADR-Confusi Verified 05/16/19 16:18 on Penicillins Allergy ALGY-Rash Verified 05/16/19 16:18 codeine AdvReac ADR-Nausea Verified 05/16/19 16:18 PFSH Acute PFSH: Medical History (Updated 06/04/19 @ 12:56 by Keaton Velez MD) Anxiety disorder BPH (benign prostatic hyperplasia) Chronic arthritis Chronic insomnia Controlled diabetes mellitus Dyslipidemia Essential (primary) hypertension GERD (gastroesophageal reflux disease) History of MRSA infection Suicidal ideation Superficial laceration of skin Vitamin D deficiency Surgical History (Updated 05/24/19 @ 13:18 by FÁTIMA Dugan) History of hip surgery right History of inguinal herniorrhaphy right History of vasectomy Social History Smoking and tobacco status: never smoked Second hand smoke exposure: No Smoking risk assessment/counseling performed?: No Alcohol intake: never Desire information about alcohol rehabilitation?: No Counseling given: No Desire information about substance/drug rehabilitation?: No Counseling given: No Adopted: No Lives independently: Yes Household members: other Housing: House Marital status: Single service: No Current occupational status: disabled History of recent travel: No Current gender identity: Male Vitals/I&O/Wt Last Vital Signs Temp 98.9 F 06/06/19 14:00 Pulse 71 06/06/19 14:00 Resp 20 H 06/06/19 14:00 BP 130/86 06/06/19 14:00 Pulse Ox 97 06/06/19 14:00 Data : 06/03/19 08:16 06/03/19 08:16 Coding Level of Care Code Acute Top Taper Machine for Imelda Rojas
[2019-06-06 16:55] LABS: Glucose Point of Care 107 mg/dL (70-110)
[2019-06-06] MEDS: hyDROXYzine 25 mg Capsule 50 MG PO (20:52)
[2019-06-06] MEDS: doxepin 10 mg Capsule PO (20:52)
[2019-06-06] MEDS: insulin glargine 100 units/1 mL 25 UNIT SUBCUT (21:19)
[2019-06-06 21:32] VITALS: BP 127/86; PULSE 73; RESP 20; TEMP 36.8; O2SAT 94
[2019-06-07 06:00] VITALS: BP 127/81; PULSE 61; RESP 20; TEMP 36.6; O2SAT 95
[2019-06-07 06:21] LABS: Glucose Point of Care 84 mg/dL (70-110)
[2019-06-07] MEDS: magnesium oxide 400 mg tablet PO ×2 (09:16→21:13)
[2019-06-07] MEDS: dexamethasone 4 mg Tablet 2 MG PO (09:17)
[2019-06-07] MEDS: acetaminophen 325 mg Tablet 650 MG PO ×2 (09:18→17:08)
[2019-06-07] MEDS: fluoxetine 20 mg Capsule PO (09:18)
[2019-06-07] MEDS: tamsulosin 0.4 mg Capsule PO ×2 (09:19→17:08)
[2019-06-07] MEDS: aspirin 81 mg EC Tablet PO (09:19)
--- NOTE | 2019-06-07 12:16 | P.PN_ITS ---
Subjective NPU Subjective: Interval history: Brandon presents today being very somatically focused. We had a conversation about his situation as well as held connecting with the social workers and essentially we agreed that where he is a simply this; he does not like the option that he has which is the surrender all of his autonomy and control and go to some facility versus going home and being alone. With all the risk factors for worsening physical and mental health circumstances including concerns for lethality. He endorsed that he would do what ever we thought was best but in some ways he is trying to abdicate his role in the decision making. We agreed that we would not plan for discharge tomorrow. Mental Status Exam MSE Comments: This is a well-nourished well-developed white male with limited dress grooming and eye contact. No abnormal movements except for psychomotor retardation. Cooperative with exam in no acute distress. Speech was decreased rate and volume. Mood described as i don't know what to do, affect congruent and still subdued. Thought process organized. Thought content: Patient denied any suicidal or homicidal ideation, there were no delusions reported noted, he denied any auditory or visual hallucinations. Attention and concentration were intact and memory appeared mostly reliable but none were formally tested. He is alert and oriented ?3. Insight and judgment are limited. Vitals/I&O/Wt Last Vital Signs Temp 97.7 F 06/07/19 22:00 Pulse 67 06/07/19 22:00 Resp 17 06/07/19 22:00 BP 129/84 06/07/19 22:00 Pulse Ox 95 06/07/19 22:00 Home Medications blood-glucose meter #1 each 05/24/19 [History Confirmed 06/03/19] insulin glargine 100 unit/mL subcutaneous solution 25 unit SUBCUT DAILY #10 ml 05/24/19 [Rx Confirmed 06/03/19] insulin syringe-needle U-100 0.5 mL 31 gauge x 08/18 #10 each 05/24/19 [History Confirmed 06/03/19] magnesium oxide 400 mg PO TID cap 05/24/19 [History Confirmed 06/03/19] methenamine hippurate 1 gram tablet 1 gm PO BID 05/24/19 [History Confirmed 06/03/19] tamsulosin 0.4 mg capsule 0.4 mg PO BID #60 cap 05/24/19 [Rx Confirmed 06/03/19] Probiotic 1 cap PO DAILY 05/31/19 [History Confirmed 06/03/19] ascorbic acid (vitamin C) [Vitamin C] 500 mg PO DAILY 05/31/19 [History Confirmed 06/03/19] aspirin 81 mg PO DAILY 05/31/19 [History Confirmed 06/03/19] dexamethasone 2 mg PO DAILY 05/31/19 [History Confirmed 06/04/19] Ambien 10 mg PO BEDTIME 06/03/19 [History Confirmed 06/03/19] Active Medications Acetaminophen (Tylenol) 650 mg PO Q4H PRN PRN Reason: MILD PAIN Last Admin: 06/07/19 17:08 Dose: 650 mg Documented by: Aspirin (Aspirin Ec) 81 mg PO DAILY [facility] Last Admin: 06/07/19 09:19 Dose: 81 mg Documented by: Benztropine Mesylate (Cogentin) 1 mg PO BID PRN PRN Reason: Mild Extrapyramidal symptoms Camphor/Menthol/Phenol (Blistex) 1 applic TOPICAL Q1H PRN PRN Reason: DRYNESS Dexamethasone (Decadron) 2 mg PO DAILY [facility] Last Admin: 06/07/19 09:17 Dose: 2 mg Documented by: Diphenhydramine HCl (Benadryl) 50 mg IM ONCE PRN PRN Reason: Severe Extrapyramidal Symptoms Diphenhydramine HCl (Benadryl) 50 mg IM Q4H PRN PRN Reason: Severe Aggression Doxepin HCl (Sinequan) 10 mg PO BEDTIME [facility] Last Admin: 06/07/19 21:13 Dose: 10 mg Documented by: Fluoxetine HCl (Prozac) 20 mg PO DAILY [facility] Last Admin: 06/07/19 09:18 Dose: 20 mg Documented by: Haloperidol (Haldol) 5 mg PO Q4H PRN PRN Reason: AGITATION Haloperidol Lactate (Haldol Inj) 5 mg IM Q4H PRN PRN Reason: Severe Aggression Hydroxyzine Pamoate (Vistaril) 50 mg PO Q6H PRN PRN Reason: ANXIETY Last Admin: 06/07/19 17:10 Dose: 50 mg Documented by: Insulin Glargine (Lantus) 25 unit SUBCUT BEDTIME [facility] Last Admin: 06/07/19 21:31 Dose: 25 unit Documented by: Loperamide HCl (Imodium Capsule) 2 mg PO Q6H PRN PRN Reason: DIARRHEA Magnesium Oxide (Magox) 400 mg PO TID [facility] Last Admin: 06/07/19 21:13 Dose: 400 mg Documented by: Nicotine (Nicoderm 21 Mg Patch) 1 patch TRANSDERMA DAILY PRN PRN Reason: NICOTINE WITHDRAWAL Nicotine Polacrilex (Nicorette) 2 mg BUCCAL Q2H PRN PRN Reason: NICOTINE WITHDRAWAL Non-Formulary Medication (Methenamine Hippurate) 1 gm PO BID [facility] Last Admin: 06/07/19 17:12 Dose: 1 gm Documented by: Non-Formulary Medication (Probiotic) 1 cap PO DAILY [facility] Last Admin: 06/07/19 10:00 Dose: Not Given Documented by: Non-Formulary Medication (Ascorbic Acid (Vitamin C) [Vitamin C]) 500 mg PO DAILY [facility] Last Admin: 06/07/19 10:00 Dose: Not Given Documented by: Olanzapine (Zyprexa Zydis) 5 mg PO Q4H PRN PRN Reason: Agitation/Psychosis Ondansetron HCl (Zofran) 4 mg PO Q6H PRN PRN Reason: NAUSEA AND VOMITING Tamsulosin HCl (Flomax) 0.4 mg PO BID [facility] Last Admin: 06/07/19 17:08 Dose: 0.4 mg Documented by: Trazodone HCl (Desyrel) 50 - 100 mg PO BEDTIME PRN PRN Reason: SLEEP Last Admin: 06/07/19 21:30 Dose: 50 mg Documented by: Data NPU : 06/03/19 08:16 06/03/19 08:16 A&P Additional A&P Information This is a 63-year-old white male with a recent history of depression against the backdrop of multiple medical comorbidities, isolation and poor sleep who presents off of any antidepressants and with reports of limited efficacy of his sleep-related. 1. Continue current medication. 2. Encourage individual, group and milieu therapy. 3. Continue every 15 minute checks for safety. 4. Need to explore discharge options outside of him going home. Involuntary Hold Information 96 Hour Hold: 96 Hour Involuntary Admission: No Attestations NPU Medical Necessity Statement*: Inpatient hospitalization is medically necessary and the clinically appropriate intervention at this time. We will monitor medications and make changes indicated. Likely length of stay 1-2 days.Tentative plan for discharge tomorrow. Coding Level of Care Code Acute Legal Support Manager for Imelda Rojas
[2019-06-07 14:00] VITALS: BP 127/81; PULSE 61; RESP 20; TEMP 36.6; O2SAT 95
--- NOTE | 2019-06-07 15:38 | PM.CONSULT ---
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 He had expressed concerns today about noticing abdominal swelling and umblicus pointing outwards for which I was asked to evaluate him. Examination was consistent with an abdominal hernia. Patient states that he is aware of having a hernia, however he never noticed how bad it was. Today he had a good chance to look in the mirror and realized that his abdomen was very distended and this is what got him concerned. He had previously never noticed his umbilicus to be pointing outwards. He denies any complaints of abdominal pain, color changes over the skin, bowel movements are unchanged over baseline, hernia is easily reducible without any signs of incarceration or SBO. He has had surgeries in the past including for an inguinal hernia on the right side. Multiple striae are noted over his abdomen and on pointing out specifically he states his weight has fluctuated significantly over the past years. He was on steroids for an extended. Of time for fungal meningitis, presumably cryptococcal meningitis and states he had lost a lot of weight during this time which accounted for the abdominal striate. He was previously told that there are muscle defects in his abdominal muscles. He also wears an abdominal binder from time to time, however states he did not know the indication, but may be for a known hernia. Review of Systems General: Reports: 10 or more systems reviewed and unremarkable except in HPI and below Const: Denies: fever, chills or body aches Eyes: Denies: change in vision, blurry vision or photophobia ENMT: Reports: hoarseness; Denies: throat pain, enlarged tonsils, painful swallowing or nasal congestion Card: Denies: chest pain, palpitations, irregular heart rhythm, edema, swelling of feet/ankles, lightheadedness, pre-syncope, shortness of breath on exertion or shortness of breath when lying down Resp: Denies: shortness of breath, productive cough, non-productive cough, wheezing, stridor, pain on inspiration, change in phlegm color, coughing up blood or chest congestion GI: Denies: abdominal pain, nausea, vomiting, vomiting blood, coffee grounds in vomit, difficulty swallowing, heartburn/indigestion, diarrhea, constipation, cramping, change in stool character, blood in stool or black tarry stool : Denies: flank pain, painful urination, urinary frequency, urinary urgency, urinary hesitancy or blood in urine Musc: Denies: neck pain, back pain, extremity pain, joint swelling, joint warmth or deformity Neuro: Denies: headache, numbness in extremities, weakness in extremities, changes in sensation, difficulty walking, frequent falls, dizziness, vertigo, behavioral changes, slurred speech or seizure-like activity Psych: Denies: anxiety, depression, suicidal ideation or homicidal ideation Endo: Denies: excessive urination, excessive thirst, tired all the time, cold intolerance or hot flashes Marco/Lymph: Denies: easy bruising or easy bleeding Meds/Allergies Home Medications and Allergies Home Medications Medication Instructions Recorded Confirmed Type blood-glucose meter #1 each 05/24/19 06/03/19 History insulin syringe-needle U-100 0.5 #10 each 05/24/19 06/03/19 History mL 31 gauge x 5/16 magnesium oxide 400 mg PO TID cap 05/24/19 06/03/19 History methenamine hippurate 1 gram tablet 1 gm PO BID 05/24/19 06/03/19 History Probiotic 1 cap PO DAILY 05/31/19 06/03/19 History ascorbic acid (vitamin C) [Vitamin 500 mg PO DAILY 05/31/19 06/03/19 History C] aspirin 81 mg PO DAILY 05/31/19 06/03/19 History dexamethasone 2 mg PO DAILY 05/31/19 06/04/19 History Ambien 10 mg PO BEDTIME 06/03/19 06/03/19 History Allergies Allergy/AdvReac Type Severity Reaction Status Date / Time hydromorphone [From Dilaudid] Allergy ADR-Confusi Verified 05/16/19 16:18 on Penicillins Allergy ALGY-Rash Verified 05/16/19 16:18 codeine AdvReac ADR-Nausea Verified 05/16/19 16:18 Current Medications Current Medications Generic Name Dose Route Start Last Admin Trade Name Freq PRN Reason Stop Dose Admin Acetaminophen 650 mg 06/03/19 11:58 06/07/19 09:18 Tylenol PO 650 mg Q4H PRN Administration MILD PAIN Aspirin 81 mg 06/04/19 09:00 06/07/19 09:19 Aspirin Ec PO 81 mg DAILY [facility] Administration Dexamethasone 2 mg 06/04/19 10:45 06/07/19 09:17 Decadron PO 2 mg DAILY [facility] Administration Doxepin HCl 10 mg 06/05/19 21:00 06/06/19 20:52 Sinequan PO 10 mg BEDTIME [facility] Administration Fluoxetine HCl 20 mg 06/06/19 09:00 06/07/19 09:18 Prozac PO 20 mg DAILY [facility] Administration Hydroxyzine Pamoate 50 mg 06/03/19 11:58 06/06/19 20:52 Vistaril PO 50 mg Q6H PRN Administration ANXIETY Insulin Glargine 25 unit 06/03/19 21:00 06/06/19 21:19 Lantus SUBCUT 25 unit BEDTIME [facility] Administration Magnesium Oxide 400 mg 06/03/19 15:00 06/07/19 15:10 Magox PO Not Given TID [facility] Non-Formulary Medication 1 gm 06/03/19 18:00 06/07/19 09:22 Methenamine Hippurate PO Not Given BID [facility] Non-Formulary Medication 1 cap 06/04/19 09:00 06/07/19 10:00 Probiotic PO Not Given DAILY [facility] Non-Formulary Medication 500 mg 06/04/19 09:00 06/07/19 10:00 Ascorbic Acid (Vitamin C) [Vitamin C] PO Not Given DAILY [facility] Tamsulosin HCl 0.4 mg 06/03/19 18:00 06/07/19 09:19 Flomax PO 0.4 mg BID [facility] Administration Trazodone HCl 50 - 100 mg 06/06/19 20:15 06/06/19 20:54 Desyrel PO 50 mg BEDTIME PRN Administration SLEEP PFSH Acute PFSH: Medical History Anxiety disorder BPH (benign prostatic hyperplasia) Chronic arthritis Chronic insomnia Controlled diabetes mellitus Dyslipidemia Essential (primary) hypertension GERD (gastroesophageal reflux disease) History of MRSA infection Suicidal ideation Superficial laceration of skin Vitamin D deficiency Surgical History History of hip surgery right History of inguinal herniorrhaphy right History of vasectomy Family History Grandmother Diabetes Denies family history of Bleeding disorder Social History Smoking and tobacco status: never smoked Second hand smoke exposure: No Smoking risk assessment/counseling performed?: No Alcohol intake: never Desire information about alcohol rehabilitation?: No Counseling given: No Desire information about substance/drug rehabilitation?: No Counseling given: No Adopted: No Lives independently: Yes Household members: other Housing: House Marital status: Single service: No Current occupational status: disabled History of recent travel: No Current gender identity: Male Vitals/I&O/Wt Last Vital Signs Temp 97.8 F 06/07/19 06:00 Pulse 61 06/07/19 06:00 Resp 20 H 06/07/19 06:00 BP 127/81 06/07/19 06:00 Pulse Ox 95 06/07/19 06:00 Physical Exam Narrative: EXAM NARRATIVE: GEN: Awake, alert and oriented, no acute distress CVS: S1S2 N RS: CTA B/L Abd: Soft, bowel sounds heard, distended with multiple intestine loops palpable in midline with patient in a standing position. These loops are also visible when patient coughs. Hernia is completely reducible on lying down. There is no abdominal pain. There are no incarcerated or obstructed loops of bowel. umblicus pointing out in a standing position and upon coughing, however completely reducible on lying down. No overlying skin changes. 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 He is completely asymptomatic from this point of view. He was just concerned because he was unaware of how prominent the hernia is at this point. For now recommend wearing his abdominal belt and we will try to arrange one for him while he is here inpatient. Overall since this is cosmetically significant, patient will benefit from surgical correction as an outpatient. This may be arranged upon discharge. Educated as to signs of obstruction and/or incarceration. IN case of pain, recurrent vomiting, absence of bowel movements or flatus, color changes, warmth, patient is to return to ER. Acknowldeg understanding Status: Acute Code(s): K43.9 - Ventral hernia without obstruction or gangrene Consult Attestations Medical Necessity Statement: per admitting team Coding Level of Care Code Acute Typecasting Machine Operator for Chg Fwd Diagnoses Abdominal wall hernia K43.9
[2019-06-07 16:44] LABS: Glucose Point of Care 126 mg/dL (70-110)
[2019-06-07] MEDS: hyDROXYzine 25 mg Capsule 50 MG PO (17:10)
[2019-06-07] MEDS: doxepin 10 mg Capsule PO (21:13)
[2019-06-07] MEDS: trazodone 50 mg Tablet PO (21:30)
--- NOTE | 2019-06-07 21:30 | PC.NURSE ---
Pt given HS meds doxepin, mag ox, lantus and trazadone this noc.
[2019-06-07] MEDS: insulin glargine 100 units/1 mL 25 UNIT SUBCUT (21:31)
[2019-06-07 22:00] VITALS: BP 129/84; PULSE 67; RESP 17; TEMP 36.5; O2SAT 95
[2019-06-08 06:00] VITALS: BP 97/63; PULSE 65; RESP 17; TEMP 36.8; O2SAT 95
[2019-06-08 06:17] LABS: Glucose Point of Care 86 mg/dL (70-110)
[2019-06-08] MEDS: NON-FORMULARY MEDICATION (Ascorbic Acid (Vitamin C) [Vitamin C] 500 MG) 500 EACH PO (09:27)
[2019-06-08] MEDS: PROBIOTIC 1 EACH PO (09:28)
[2019-06-08] MEDS: tamsulosin 0.4 mg Capsule PO (09:29)
[2019-06-08] MEDS: dexamethasone 4 mg Tablet 2 MG PO (09:29)
[2019-06-08] MEDS: magnesium oxide 400 mg tablet PO (09:29)
[2019-06-08] MEDS: fluoxetine 20 mg Capsule PO (09:29)
[2019-06-08] MEDS: aspirin 81 mg EC Tablet PO (09:29)
[2019-06-08] MEDS: acetaminophen 325 mg Tablet 650 MG PO (09:46)
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
[2019-06-08 11:11] VITALS: BP 97/63; PULSE 65; RESP 17; TEMP 36.8; O2SAT 95
[2019-06-08 11:12] VITALS: BP 97/63; PULSE 65; RESP 17; TEMP 36.8; O2SAT 95
--- NOTE | 2019-06-08 11:49 | PC.SOCIAL ---
Medicaid ride called, milk pickup driver time between now and 2:40pm. Trip ID# [id number].
[2019-06-08] MEDS: hyDROXYzine 25 mg Capsule 50 MG PO (12:30)
== END 2019-06-08 12:38 | disposition home or self-care (01) | DRG 881 ==
LOC: ER 10:46 → NP 11:46
PROVIDERS: Admitting Provider Psychiatry & Neurology Psychiatry; Emergency Provider Physician Assistant; Family Provider Nurse Practitioner; PCP Nurse Practitioner; Visit Provider Psychiatry & Neurology Psychiatry
DX: F32.9 Major depressive disorder, single episode, unspecified (principal); K46.9 Unspecified abdominal hernia without obstruction or gangrene; K42.9 Umbilical hernia without obstruction or gangrene; Z79.82 Long term (current) use of aspirin; Z79.899 Other long term (current) drug therapy; Z88.0 Allergy status to penicillin; Z88.5 Allergy status to narcotic agent; N40.0 Benign prostatic hyperplasia without lower urinary tract symptoms; E78.5 Hyperlipidemia, unspecified; I10 Essential (primary) hypertension; K21.9 Gastro-esophageal reflux disease without esophagitis; K43.9 Ventral hernia without obstruction or gangrene; S11.91XA Laceration without foreign body of unspecified part of neck, initial encounter; X78.9XXA Intentional self-harm by unspecified sharp object, initial encounter; G89.29 Other chronic pain; F51.04 Psychophysiologic insomnia; E11.9 Type 2 diabetes mellitus without complications; Z79.4 Long term (current) use of insulin
CPT/HCPCS: 12345; 36415; 36416; 80053; 80306; 80307; 82962; 83735; 85025; 96372; 97110; 97116; 97161; 97530; 99284; J1815; J8540

== ENCOUNTER 2019-06-03 07:41 | Emergency (ER) | payer MEDICAID, SELFPAY | END 2019-06-03 12:02 | disposition admitted as inpatient to this hospital (09) | LOC: ER 07-03 11:12 | PROVIDERS: Emergency Provider Physician Assistant; Family Provider Nurse Practitioner; PCP Nurse Practitioner | DX: R45.851 Suicidal ideations (principal); S11.91XA Laceration without foreign body of unspecified part of neck, initial encounter; W26.0XXA Contact with knife, initial encounter; N40.0 Benign prostatic hyperplasia without lower urinary tract symptoms; E11.9 Type 2 diabetes mellitus without complications; I10 Essential (primary) hypertension; E78.5 Hyperlipidemia, unspecified; K21.9 Gastro-esophageal reflux disease without esophagitis; Z86.14 Personal history of Methicillin resistant Staphylococcus aureus infection; F32.9 Major depressive disorder, single episode, unspecified | CPT/HCPCS: 36415; 80053; 80306; 80307; 83735; 85025; 99284; 99285 ==

== ENCOUNTER 2019-07-18 12:35 | Observation (INO) | payer MEDICAID, SELFPAY ==
[2019-07-18] VITALS (7 sets, daily range): BP systolic 80–115; BP diastolic 52–79; PULSE 72–179; RESP 16–20; TEMP 36.4–37.6; O2SAT 94–97; BMI 27.1
--- NOTE | 2019-07-18 12:40 | W.ED.ABDPA2 ---
HPI - Abdominal Pain General: Chief Complaint: Abdominal Pain Stated Complaint: ABD PAIN/POSS SEIZURE Time Seen by Provider: 07/18/19 12:36 History of Present Illness: Associated Symptoms: Reports change in bowel habits, constipation and nausea Review of Systems General: Reports: 10 or more systems reviewed and unremarkable except in HPI and below GI: Reports: abdominal pain, nausea, constipation and change in bowel habits PFSH ED PFSH: Medical History Anxiety disorder BPH (benign prostatic hyperplasia) Chronic arthritis Chronic insomnia Controlled diabetes mellitus Dyslipidemia Essential (primary) hypertension GERD (gastroesophageal reflux disease) History of MRSA infection Suicidal ideation Superficial laceration of skin Vitamin D deficiency Surgical History History of hip surgery right History of inguinal herniorrhaphy right History of vasectomy Family History Grandmother Diabetes Denies family history of Bleeding disorder Social History Smoking and tobacco status: former smoker Second hand smoke exposure: No Smoking risk assessment/counseling performed?: No Alcohol intake: never Desire information about alcohol rehabilitation?: No Counseling given: No Desire information about substance/drug rehabilitation?: No Counseling given: No Adopted: No Lives independently: Yes Household members: other Housing: House Marital status: Single service: No Current occupational status: disabled History of recent travel: No Current gender identity: Male Physical Exam Const: COMMON NORMALS: no apparent distress, average body habitus, oriented x3, no limitations, healthy appearing, alert and well nourished HENMT: COMMON NORMALS: normocephalic, head/scalp atraumatic, hearing grossly normal bilaterally, external ears normal, EAC's normal, TM's normal bilaterally, external nose normal, nasal mucous membranes and turbinates normal, moist oral mucous membranes, oropharynx normal, dentition normal and gingiva normal HEAD & SCALP: normocephalic and atraumatic NOSE: external nose normal and nasal mucous membranes and turbinates normal EXTERNAL EAR: Yes external ears normal EXTERNAL AUDITORY CANAL: EAC's normal TYMPANIC MEMBRANE: TM's normal bilaterally Eye: COMMON NORMALS: PERRL, EOMs intact bilaterally, conjunctivae normal, no scleral icterus, no papilledema, normal visual ma by confrontation and fundi normal bilaterally CONJUNCTIVA: Yes conjunctivae normal PUPIL: Yes PERRL DIRECT OPHTHALMOSCOPY: Yes no papilledema and Yes fundi normal bilaterally Neck/C-Spine: COMMON NORMALS: full ROM, no lymphadenopathy, supple, no meningeal signs, no JVD, thyroid normal and no carotid bruits THYROID: thyroid normal Chest: COMMONS NORMALS: inspection of chest normal and palpation of chest normal Resp: COMMON NORMALS: normal respiratory effort, no retractions, no use of accessory muscles, clear to auscultation bilaterally and percussion normal AUSCULTATION: clear to auscultation bilaterally PERCUSSION: percussion normal Cardio: COMMON NORMALS: no JVD, regular rate, regular rhythm, S1 normal heart sound, S2 normal heart sound, no gallops, no clicks, no murmurs, no rub and peripheral pulses 2+ throughout RATE: regular rate RHYTHM: regular rhythm HEART SOUNDS: S1 normal and S2 normal PERIPHERAL PULSES: pulses 2+ throughout GI: COMMON NORMALS: no hepatosplenomegaly, no masses and no bruits INSPECTION: Yes abdominal distension and No fluid wave present AUSCULTATION: Yes hypoactive bowel sounds PALPATION: Yes firm and Yes no hepatosplenomegaly PERCUSSION: dullness to percussion and no fluid wave : COMMON NORMALS: Yes no CVA tenderness BLADDER/KIDNEY EXAM: Yes no CVA tenderness Back/Pelvis: COMMON NORMALS: no CVA tenderness, thoracic and lumbar spine normal to inspection, no thoracic nor lumbar tenderness, thoraco-lumbar ROM normal and straight leg raise negative bilaterally Extremity: COMMON NORMALS: normal to inspection, full ROM, normal capillary refill, no joint enlargement, no clubbing, cyanosis or edema, no calf tenderness and no pedal edema Neuro: COMMON NORMALS: oriented x3 SENSORIUM/ORIENTATION: Yes alert MENINGEAL SIGNS: Yes no meningeal signs Skin: COMMON NORMALS: no rashes or lesions noted, no wounds, skin turgor normal, no jaundice, no petechiae and no mottling GENERAL SKIN EXAM: no rashes or lesions noted and turgor normal Course Vital Signs: Vital signs: Vital Signs Temperature 97.8 F 07/18/19 12:42 Pulse Rate 179 H 04/14/20 12:42 Respiratory Rate 20 H 07/18/19 12:42 Blood Pressure 102/56 07/18/19 12:42 Pulse Oximetry 96 07/18/19 12:42 MDM - Abdominal Pain Lab Data: Labs: Lab Results 07/18/19 07/18/19 07/18/19 Range/Units 12:50 12:52 12:52 WBC 9.6 (4.0-10.0) 10^3/ uL RBC 5.43 H (4.1-5.3) 10^6/u L Hgb 15.8 (11.7-16.6) g/dL Hct 48.0 (42.0-52.0) % MCV 88.4 (80-94) fL MCH 29.1 (28.0-34.0) pg MCHC 32.9 (30.0-36.0) g/dL RDW 13.9 (12.1-15.1) % Plt Count 210 (130-400) 10^3/c mm MPV 9.9 (7.4-10.4) fL Neut % (Auto) 53.5 % Lymph % (Auto) 37.0 % Blanco % (Auto) 7.8 % Eos % (Auto) 0.7 % Baso % (Auto) 0.6 % Neut # (Auto) 5.1 (1.8-7.7) 10^3/u L Lymph # (Auto) 3.5 (0.8-4.8) 10^3/u L Blanco # (Auto) 0.8 (0.2-0.9) 10^3/u L Eos # (Auto) 0.1 (0.0-0.8) 10^3/u L Baso # (Auto) 0.1 (0.0-0.1) 10^3/u L Nucleated RBC % (a uto) 0 % Nucleated RBCs # 0.0 /100WBC Specimen Type Arterial Sample Site Radial, right ABG pH 7.51 H (7.35-7.45) ABG pCO2 23.0 L (35-45) mmHg ABG pO2 82.1 (80.0-100.0) mmH g ABG HCO3 18.2 L (22-26) mmol/L ABG Base Excess -2.7 L (-2.0-2.0) mmol/ L Gael Test Pos Hematocrit 47.5 (42-52) % O2 Delivery Device Room air Procurement Specialist ID broma Sodium 135 L (136-145) mmol/L Potassium 4.1 (3.5-5.1) mmol/L Chloride 96 L (98-107) mmol/L Carbon Dioxide 22 (22-29) mmol/L Anion Gap 21.1 H (5-19) BUN 16 (8-23) mg/dL Creatinine 1.0 (0.7-1.2) mg/dL GFR Calculation 75.7 L (90-130) mL/min Glucose 123 H (65-115) mg/dL Calculated Osmolal ity 278 L (285-295) mOsm/k g Lactate (0.5-2.2) mmol/L Calcium 10.2 (8.5-10.5) mg/dL Magnesium 2.3 (1.7-2.3) mg/dL Total Bilirubin 0.6 (0.15-1.2) mg/dL AST 35 (0-40) U/L ALT 80 H (0-41) U/L Alkaline Phosphata se 79 (40-130) IU/L Ammonia (16-60) umol/L Troponin T Baselin e (0-15) ng/mL Troponin T 120 Min [place] (0-15) ng/mL NT-Pro-B Natriuret Pep 84 (0-125) pg/mL Total Protein 7.2 (6.6-8.7) g/dL Albumin 4.2 (3.5-5.2) g/dL Globulin 3.0 (1.3-4.6) g/dL TSH 1.83 (0.27-4.20) uIU/ mL Urine Color (Yellow) Urine Appearance (CLEAR) Urine pH (5-7) Ur Specific Gravit y (1.005-1.030) Urine Protein (Negative) Urine Glucose (UA) (Normal) Urine Ketones (Negative) Urine Blood (Negative) Urine Nitrate (Negative) Urine Bilirubin (NEGATIVE) Urine Urobilinogen (Negative) mg/dL Ur Leukocyte Claudia ase (Negative) Urine Opiates Scre en (Negative) ng/mL Ur Barbiturates Sc reen (Negative) ng/mL Ur Phencyclidine S crn (Negative) ng/mL Ur Amphetamines Sc reen (Negative) ng/mL U Benzodiazepines Scrn (Negative) ng/mL Urine Cocaine Scre en (Negative) ng/mL U Marijuana (THC) Screen (Negative) ng/mL Serum Ketones (Negative) 07/18/19 07/18/19 07/18/19 Range/Units 12:52 12:52 13:08 WBC (4.0-10.0) 10^3/ uL RBC (4.1-5.3) 10^6/u L Hgb (11.7-16.6) g/dL Hct (42.0-52.0) % MCV (80-94) fL MCH (28.0-34.0) pg MCHC (30.0-36.0) g/dL RDW (12.1-15.1) % Plt Count (130-400) 10^3/c mm MPV (7.4-10.4) fL Neut % (Auto) % Lymph % (Auto) % Blanco % (Auto) % Eos % (Auto) % Baso % (Auto) % Neut # (Auto) (1.8-7.7) 10^3/u L Lymph # (Auto) (0.8-4.8) 10^3/u L Blanco # (Auto) (0.2-0.9) 10^3/u L Eos # (Auto) (0.0-0.8) 10^3/u L Baso # (Auto) (0.0-0.1) 10^3/u L Nucleated RBC % (a uto) % Nucleated RBCs # /100WBC Specimen Type Sample Site ABG pH (7.35-7.45) ABG pCO2 (35-45) mmHg ABG pO2 (80.0-100.0) mmH g ABG HCO3 (22-26) mmol/L ABG Base Excess (-2.0-2.0) mmol/ L Gael Test Hematocrit (42-52) % O2 Delivery Device Procurement Specialist ID Sodium (136-145) mmol/L Potassium (3.5-5.1) mmol/L Chloride (98-107) mmol/L Carbon Dioxide (22-29) mmol/L Anion Gap (5-19) BUN (8-23) mg/dL Creatinine (0.7-1.2) mg/dL GFR Calculation (90-130) mL/min Glucose (65-115) mg/dL Calculated Osmolal ity (285-295) mOsm/k g Lactate 2.8 H (0.5-2.2) mmol/L Calcium (8.5-10.5) mg/dL Magnesium (1.7-2.3) mg/dL Total Bilirubin (0.15-1.2) mg/dL AST (0-40) U/L ALT (0-41) U/L Alkaline Phosphata se (40-130) IU/L Ammonia (16-60) umol/L Troponin T Baselin e 27 H (0-15) ng/mL Troponin T 120 Min [place] (0-15) ng/mL NT-Pro-B Natriuret Pep (0-125) pg/mL Total Protein (6.6-8.7) g/dL Albumin (3.5-5.2) g/dL Globulin (1.3-4.6) g/dL TSH (0.27-4.20) uIU/ mL Urine Color (Yellow) Urine Appearance (CLEAR) Urine pH (5-7) Ur Specific Gravit y (1.005-1.030) Urine Protein (Negative) Urine Glucose (UA) (Normal) Urine Ketones (Negative) Urine Blood (Negative) Urine Nitrate (Negative) Urine Bilirubin (NEGATIVE) Urine Urobilinogen (Negative) mg/dL Ur Leukocyte Claudia ase (Negative) Urine Opiates Scre en (Negative) ng/mL Ur Barbiturates Sc reen (Negative) ng/mL Ur Phencyclidine S crn (Negative) ng/mL Ur Amphetamines Sc reen (Negative) ng/mL U Benzodiazepines Scrn (Negative) ng/mL Urine Cocaine Scre en (Negative) ng/mL U Marijuana (THC) Screen (Negative) ng/mL Serum Ketones Negative (Negative) 07/18/19 07/18/19 07/18/19 Range/Units 13:53 13:53 14:24 WBC (4.0-10.0) 10^3/ uL RBC (4.1-5.3) 10^6/u L Hgb (11.7-16.6) g/dL Hct (42.0-52.0) % MCV (80-94) fL MCH (28.0-34.0) pg MCHC (30.0-36.0) g/dL RDW (12.1-15.1) % Plt Count (130-400) 10^3/c mm MPV (7.4-10.4) fL Neut % (Auto) % Lymph % (Auto) % Blanco % (Auto) % Eos % (Auto) % Baso % (Auto) % Neut # (Auto) (1.8-7.7) 10^3/u L Lymph # (Auto) (0.8-4.8) 10^3/u L Blanco # (Auto) (0.2-0.9) 10^3/u L Eos # (Auto) (0.0-0.8) 10^3/u L Baso # (Auto) (0.0-0.1) 10^3/u L Nucleated RBC % (a uto) % Nucleated RBCs # /100WBC Specimen Type Sample Site ABG pH (7.35-7.45) ABG pCO2 (35-45) mmHg ABG pO2 (80.0-100.0) mmH g ABG HCO3 (22-26) mmol/L ABG Base Excess (-2.0-2.0) mmol/ L Gael Test Hematocrit (42-52) % O2 Delivery Device Procurement Specialist ID Sodium (136-145) mmol/L Potassium (3.5-5.1) mmol/L Chloride (98-107) mmol/L Carbon Dioxide (22-29) mmol/L Anion Gap (5-19) BUN (8-23) mg/dL Creatinine (0.7-1.2) mg/dL GFR Calculation (90-130) mL/min Glucose (65-115) mg/dL Calculated Osmolal ity (285-295) mOsm/k g Lactate (0.5-2.2) mmol/L Calcium (8.5-10.5) mg/dL Magnesium (1.7-2.3) mg/dL Total Bilirubin (0.15-1.2) mg/dL AST (0-40) U/L ALT (0-41) U/L Alkaline Phosphata se (40-130) IU/L Ammonia (16-60) umol/L Troponin T Baselin e (0-15) ng/mL Troponin T 120 Min [place] 36.17 H (0-15) ng/mL NT-Pro-B Natriuret Pep (0-125) pg/mL Total Protein (6.6-8.7) g/dL Albumin (3.5-5.2) g/dL Globulin (1.3-4.6) g/dL TSH (0.27-4.20) uIU/ mL Urine Color Yellow (Yellow) Urine Appearance Clear (CLEAR) Urine pH 6 (5-7) Ur Specific Gravit y 1.010 (1.005-1.030) Urine Protein Neg (Negative) Urine Glucose (UA) Norm (Normal) Urine Ketones 1+ H (Negative) Urine Blood Neg (Negative) Urine Nitrate Negative (Negative) Urine Bilirubin Neg (NEGATIVE) Urine Urobilinogen Norm (Negative) mg/dL Ur Leukocyte Claudia ase Negative (Negative) Urine Opiates Scre en Negative (Negative) ng/mL Ur Barbiturates Sc reen Negative (Negative) ng/mL Ur Phencyclidine S crn Negative (Negative) ng/mL Ur Amphetamines Sc reen Negative (Negative) ng/mL U Benzodiazepines Scrn Positive H (Negative) ng/mL Urine Cocaine Scre en Negative (Negative) ng/mL U Marijuana (THC) Screen Negative (Negative) ng/mL Serum Ketones (Negative) 07/18/19 Range/Units 14:24 WBC (4.0-10.0) 10^3/ uL RBC (4.1-5.3) 10^6/u L Hgb (11.7-16.6) g/dL Hct (42.0-52.0) % MCV (80-94) fL MCH (28.0-34.0) pg MCHC (30.0-36.0) g/dL RDW (12.1-15.1) % Plt Count (130-400) 10^3/c mm MPV (7.4-10.4) fL Neut % (Auto) % Lymph % (Auto) % Blanco % (Auto) % Eos % (Auto) % Baso % (Auto) % Neut # (Auto) (1.8-7.7) 10^3/u L Lymph # (Auto) (0.8-4.8) 10^3/u L Blanco # (Auto) (0.2-0.9) 10^3/u L Eos # (Auto) (0.0-0.8) 10^3/u L Baso # (Auto) (0.0-0.1) 10^3/u L Nucleated RBC % (a uto) % Nucleated RBCs # /100WBC Specimen Type Sample Site ABG pH (7.35-7.45) ABG pCO2 (35-45) mmHg ABG pO2 (80.0-100.0) mmH g ABG HCO3 (22-26) mmol/L ABG Base Excess (-2.0-2.0) mmol/ L Gael Test Hematocrit (42-52) % O2 Delivery Device Procurement Specialist ID Sodium (136-145) mmol/L Potassium (3.5-5.1) mmol/L Chloride (98-107) mmol/L Carbon Dioxide (22-29) mmol/L Anion Gap (5-19) BUN (8-23) mg/dL Creatinine (0.7-1.2) mg/dL GFR Calculation (90-130) mL/min Glucose (65-115) mg/dL Calculated Osmolal ity (285-295) mOsm/k g Lactate (0.5-2.2) mmol/L Calcium (8.5-10.5) mg/dL Magnesium (1.7-2.3) mg/dL Total Bilirubin (0.15-1.2) mg/dL AST (0-40) U/L ALT (0-41) U/L Alkaline Phosphata se (40-130) IU/L Ammonia 44 (16-60) umol/L Troponin T Baselin e (0-15) ng/mL Troponin T 120 Min la [place]a (0-15) ng/mL NT-Pro-B Natriuret Pep (0-125) pg/mL Total Protein (6.6-8.7) g/dL Albumin (3.5-5.2) g/dL Globulin (1.3-4.6) g/dL TSH (0.27-4.20) uIU/ mL Urine Color (Yellow) Urine Appearance (CLEAR) Urine pH (5-7) Ur Specific Gravit y (1.005-1.030) Urine Protein (Negative) Urine Glucose (UA) (Normal) Urine Ketones (Negative) Urine Blood (Negative) Urine Nitrate (Negative) Urine Bilirubin (NEGATIVE) Urine Urobilinogen (Negative) mg/dL Ur Leukocyte Claudia ase (Negative) Urine Opiates Scre en (Negative) ng/mL Ur Barbiturates Sc reen (Negative) ng/mL Ur Phencyclidine S crn (Negative) ng/mL Ur Amphetamines Sc reen (Negative) ng/mL U Benzodiazepines Scrn (Negative) ng/mL Urine Cocaine Scre en (Negative) ng/mL U Marijuana (THC) Screen (Negative) ng/mL Serum Ketones (Negative) Discharge Plan Discharge Patient Disposition: Admitted As Inpatient Clinical Impression: PSVT (paroxysmal supraventricular tachycardia) Abdominal pain Qualifiers: Abdominal location: generalized Qualified Code(s): R10.84 - Generalized abdominal pain Constipation Qualifiers: Constipation type: unspecified constipation type Qualified Code(s): K59.00 - Constipation, unspecified Pneumonia Qualifiers: Pneumonia type: due to unspecified organism Laterality: unspecified laterality Lung location: unspecified part of lung Qualified Code(s): J18.9 - Pneumonia, unspecified organism Condition: Fair Referrals: Adela Alaniz, [employer] [Primary Care Provider] - Coding Level of Care Code ED Trenching Machine Operator for Chg Fwd Exam Comprehensive
--- NOTE | 2019-07-18 12:44 | CT_ITS ---
WS: [id number] CT ABDOMEN AND PELVIS WITH CONTRAST HISTORY: Abdominal pain with severe nausea for 4 days. TECHNIQUE: Imaging performed of the abdomen and pelvis with IV contrast. Single phase imaging of the abdomen. Coronal and sagittal reformats are submitted. All CT scans at [facility] use at least one of these dose optimization techniques: automated exposure control; mA and/or kV adjustment per patient size (includes targeted exams where dose is matched to clinical indication); or iterativ e reconstruction. IV CONTRAST: Omnipaque 300; 95 mL IV. Oral contrast: No DLP: 1276.87 mGy.cm COMPARISON: 12/24/2018 Lower thorax: Long-term stability 13 mm ovoid nodule at the RIGHT lung base. There is mild pleural th ickening also at the lung bases and increased pleural fat. Moderate cardiomegaly. Small hiatal hernia . Liver/biliary system: Normal size with no intrahepatic dilatation. Gallbladder: Normal. No gallstones or wall thickening. No pericholecystic fluid. Pancreas: Normal. Spleen: Normal. Adrenal glands: Normal. Right kidney: Mild perinephric stranding around the RIGHT kidney. Mild renal atrophy and cortical thi nning. Perinephric stranding has increased since 12/24/2018. Left kidney: Mild atrophy and mild perinephric stranding. Aorta: Mild atherosclerosis. No aneurysm. Lymphadenopathy: None. Free fluid: None. GI tract: Moderate fecal impaction at the rectum. Transverse diameter 6.6 cm. No focal soft tissue th ickening. No obstruction. Abdominal wall: Small umbilical hernia contains fat only. Pelvis: Marked distention of the urinary bladder. Urinary bladder extends over a length of 14 cm. No free fluid in the pelvis. Bones: Beam hardening artifact from the patient's RIGHT hip arthroplasty causing limitation for evalu ation of the pelvis. Deformity of the RIGHT ilium and bilateral pubic rami. Probably from prior traum a. Partial fusion at the LEFT SI joint. CT/CT abdomen pelvis w con* [id number] IMPRESSION: 1. Increased perinephric stranding around the RIGHT kidney with no obstruction . Correlate for possible urinary tract infection. 2. Marked distention of the urinary bladder. Urinary bladder outlet obstructio n should be considered as a possible etiology. 3. Marked fecal impaction with a transverse diameter of the rectum measuring 6 .6 cm.
--- NOTE | 2019-07-18 12:44 | XR_ITS ---
WS: [id number] PORTABLE CHEST HISTORY: abd pain / seizure COMPARISON: 12/24/2018 and 05/31/2019. Long-term stability of a 12 mm nodule in the RIGHT upper lobe. Linear atelectasis at the costophrenic angle with blunting. Increasing hazy opacification in the RIGH T lower lobe. No pneumothorax. Cardiac size: Normal. Mediastinum/Aorta: Mild atherosclerosis aorta. No osseous abnormality seen. XR/XR chest 1V portable [id number] IMPRESSION: 1. Small LEFT pleural effusion and LEFT subsegmental atelectasis. 2. Increasing hazy opacification at the RIGHT lung base. Suspect developing pn eumonia.
--- NOTE | 2019-07-18 12:44 | CT_ITS ---
WS: [id number] CT HEAD NONCONTRAST HISTORY: ams TECHNIQUE: Contiguous axial imaging performed through the brain in 2.5 mm imaging. Bone and soft tiss ue windows. Sagittal and coronal reformats reviewed. All CT scans at [facility] use at ast one of these dose optimization techniques: automated exposure control; mA and/or kV adjustment pe r patient size (includes targeted exams where dose is matched to clinical indication); or iterative r econstruction. DLP: 1244.68 mGy.cm COMPARISON: 11/22/2018 No acute intracranial hemorrhage, midline shift or mass effect. Mild cerebral and cerebellar atrophy is similar to the prior study with chronic microvascular ischemi c changes. Small lacunar infarcts in the external capsules bilaterally. Ventricles: Normal size with no hydrocephalus. No inferior displacement of cerebellar tonsils. Paranasal sinuses: Mucous retention cyst sphenoid sinuses. Mastoid air cells: Well pneumatized. Calvarium and scalp: Skull is intact with no soft tissue edema or swelling. Moderate atherosclerosis intracranial carotid arteries and distal vertebral arteries. CT/CT head wo con* [id number] IMPRESSION: 1. No acute intracranial hemorrhage or edema. 2. Chronic atrophy and lacunar infarcts. No interval change since 11/22/2018.
--- NOTE | 2019-07-18 12:46 | ECG_ITS ---
Measurements Intervals [place] Rate: 174 P: NC: 0 QRS: -60 QRSD: 138 T: 26 QT: 282 QTc: 480 SUPRAVENTRICULAR TACHYCARDIA RIGHT BUNDLE BRANCH BLOCK LEFT ANTERIOR FASCICULAR BLOCK Compared to ECG 12/24/2018 10:31:56 Sinus rhythm no longer present Electronically Signed On 07-18-2019 19:17:25 CDT by Viki Walden M.D. [email or web address]
[2019-07-18] MEDS: adenosine 3 mg/mL SDV 2mL 6 MG IVP (12:58)
[2019-07-18] MEDS: adenosine 3 mg/mL SDV 2mL 12 MG IVP (13:00)
[2019-07-18 13:01] LABS: ABG PH Result 7.51 (7.35-7.45); Arterial Blood Gas Hematocrit 47.5 % (42-52); Base Excess ABG -2.7 mmol/L (-2.0-2.0); Blood Gas Allen Test Pos; Blood Gas Sample Site Radial, right; Blood Gas Sample Type Arterial; HCO3 ABG 18.2 mmol/L (22-26); Oxygen Device ROOM AIR; PO2 ABG 82.1 mmHg (80.0-100.0)
[2019-07-18 13:02] LABS: Basophils # 0.1 10^3/uL (0.0-0.1); Basophils % 0.6 %; Eosinophils # 0.1 10^3/uL (0.0-0.8); Eosinophils % 0.7 %; Hemoglobin 15.8 g/dL (11.7-16.6); Lymphocytes # 3.5 10^3/uL (0.8-4.8); Mean Corpuscular HGB Conc 32.9 g/dL (30.0-36.0); Mean Corpuscular Hemoglobin 29.1 pg (28.0-34.0); Mean Corpuscular Volume 88.4 fL (80-94); Mean Platelet Volume 9.9 fL (7.4-10.4); Monocytes # 0.8 10^3/uL (0.2-0.9); Monocytes % 7.8 %; Neutrophils # 5.1 10^3/uL (1.8-7.7); Neutrophils % 53.5 %; Nucleated Red Blood Cells % 0 %; Platelet Count 210 10^3/cmm (130-400); Red Blood Count 5.43 10^6/uL (4.1-5.3); Red Cell Distribution Width 13.9 % (12.1-15.1); White Blood Count 9.6 10^3/uL (4.0-10.0)
[2019-07-18 13:12] LABS: Ketone (Acetest) Serum Negative (Negative)
[2019-07-18] MEDS: sodium chloride 0.9% 500 ML IV (13:13)
[2019-07-18 13:20] LABS: Troponin(5th) Baseline 27 ng/mL (0-15)
[2019-07-18 13:30] LABS: Alanine Aminotransferase 80 U/L (0-41); Albumin Level 4.2 g/dL (3.5-5.2); Alkaline Phosphatase 79 IU/L (40-130); Anion Gap 21.1 (5-19); Aspartate Amino Transferase 35 U/L (0-40); Blood Urea Nitrogen 16 mg/dL (8-23); Calcium 10.2 mg/dL (8.5-10.5); Carbon Dioxide 22 mmol/L (22-29); Chloride 96 mmol/L (98-107); Glomerular Filtration Rate 75.7 mL/min (90-130); Glucose 123 mg/dL (65-115); Magnesium 2.3 mg/dL (1.7-2.3); NT Pro B Type Natriuretic Pept 84 pg/mL (0-125); Osmolality Calculated 278 mOsm/kg (285-295); Potassium 4.1 mmol/L (3.5-5.1); Sodium 135 mmol/L (136-145); Thyroid Stimulating Hormone 1.83 uIU/mL (0.27-4.20); Total Bilirubin 0.6 mg/dL (0.15-1.2); Total Protein 7.2 g/dL (6.6-8.7)
[2019-07-18 13:33] LABS: Lactate (Lactic Acid level) 2.8 mmol/L (0.5-2.2)
[2019-07-18] MEDS: cefTRIAXone 1,000 MG in sodium chloride 0.9% (plus) 50 ML 100 MG IV (14:24)
[2019-07-18 14:25] LABS: Add Urine Microscopic? NO
[2019-07-18] MEDS: ondansetron 2 mg/ML SDV 2 mL 4 MG IVP (14:25)
[2019-07-18 14:30] LABS: Bilirubin Urine Neg (NEGATIVE); Blood Urine Neg (Negative); Glucose Urine UA Norm (Normal); Ketones Urine 1+ (Negative); Leukocyte Esterase Urine Negative (Negative); Nitrate Urine Negative (Negative); Protein Urine Neg (Negative); Urine Appearance Clear (CLEAR); Urine Color Yellow (Yellow); Urobilinogen Urine Norm (Negative); pH Urine 6 (5-7)
[2019-07-18 14:36] LABS: Amphetamines Screen Urine Negative (Negative); Barbiturates Screen Urine Negative (Negative); Benzodiazepines Screen Urine Positive (Negative); Cocaine Screen Urine Negative (Negative); Opiate Screen Urine Negative (Negative); PCP Screen Urine Negative (Negative); THC Screen Urine Negative (Negative)
--- NOTE | 2019-07-18 14:46 | ECG_ITS ---
Measurements Intervals [place] Rate: 86 P: 56 MO: 186 QRS: -65 QRSD: 142 T: 16 QT: 342 QTc: 409 SINUS RHYTHM WITH SINUS ARRHYTHMIA RIGHT BUNDLE BRANCH BLOCK [120+ ms QRS DURATION, UPRIGHT V1, 40+ ms S IN I I/aVL/V4/V5/V6] LEFT ANTERIOR FASCICULAR BLOCK [QRS AXIS <= -45, QR IN I, RS IN II] POSSIBLE SEPTAL MYOCARDIAL INFARCTION , AGE INDETERMINATE Compared to ECG 12/24/2018 10:31:56 Myocardial infarct finding now present Electronically Signed On 07-18-2019 19:55:15 CDT by Viki Walden M.D. [email or web address]
[2019-07-18] MEDS: iohexol 300 mg/mL 100 mL Btl IV (14:49)
[2019-07-18 14:51] LABS: Ammonia 44 umol/L (16-60)
[2019-07-18 14:55] LABS: Troponin 5 2HR 36.17 ng/mL (0-15); Troponin 5 2HR Delta 9.17 ABS# (0-10)
[2019-07-18] MEDS: fluconazole premix 200 MG/100 ML PREMIX 100 MG IV (16:50)
[2019-07-18] MEDS: sodium chloride 0.9% 1,000 ML 100 ML IV (16:50)
--- NOTE | 2019-07-18 17:45 | P.HP_ITS ---
Providers/Chief Complaint Admitting Physician: Librado Stacy Primary Care Provider: VINCENT Dugan-C Chief Complaint: ABD PAIN/POSS SEIZURE History of Present Illness Randy German is a 64 year old male with history of multiple chronic medical conditions including diabetes, BPH, hypertension, GERD, depression, seizures, hemorrhoids, lower GI bleeding secondary to hemorrhoids, bullous pemphigoid, on chronic steroids who presents with complaints of ongoing constipation, associated abdominal pain, and multiple episodes of seizures. The abdominal pain is generalized. Constipation was present for last 4 days. It is a recurrent issue. He has hemorrhoids and occasionally has blood with bowel movements. He has not taken any specific medications for constipation at home for last several days. CT of the abdomen confirmed this. Also it was positive for urinary retention. No other acute abnormalities. The patient reports similar episodes in the past. Denies nausea or vomiting. No fevers or chills. Regarding the seizures. I reviewed his chart. It seems that he had extensive work-up done previously which was negative. Dr. Tompkins previously did not f eel that the patient needed any specific treatments. The patient confirms this. However he is complaining that he regularly has seizures. Last episodes were today. He reports associated confusion but denies any falls or traumas. Seizures were generalized tonic and clonic. No incontinence with it. The patient denies any shortness of breath or cough. He reports generalized aches and pains. It includes also the chest and abdomen. On presentation to the emergency room the patient was found to have supraventricular tachycardia. It resolved with the second dose of adenosine. Currently he is in sinus rhythm. He denies any similar episodes in the past. Cardiology was consulted. Review of Systems General: Reports: 10 or more systems reviewed and unremarkable except in HPI and below Medications/Allergies Home Medications Medication Instructions Recorded Confirmed Last Taken Type Citrate of Magnesia 150 ml PO PRN PRN 07/18/19 07/18/19 07/18/19 History Allergies Allergy/AdvReac Type Severity Reaction Status Date / Time hydromorphone [From Dilaudid] Allergy ADR-Confusi Verified 05/16/19 16:18 on Penicillins Allergy ALGY-Rash Verified 05/16/19 16:18 codeine AdvReac ADR-Nausea Verified 05/16/19 16:18 PFSH Acute PFSH: Medical History Anxiety disorder BPH (benign prostatic hyperplasia) Chronic arthritis Chronic insomnia Controlled diabetes mellitus Dyslipidemia Essential (primary) hypertension GERD (gastroesophageal reflux disease) History of MRSA infection Suicidal ideation Superficial laceration of skin Vitamin D deficiency Surgical History History of hip surgery right History of inguinal herniorrhaphy right History of vasectomy Family History Grandmother Diabetes Denies family history of Bleeding disorder Social History Smoking and tobacco status: former smoker Second hand smoke exposure: No Smoking risk assessment/counseling performed?: No Alcohol intake: never Desire information about alcohol rehabilitation?: No Counseling given: No Desire information about substance/drug rehabilitation?: No Counseling given: No Adopted: No Lives independently: Yes Household members: other Housing: House Marital status: Single service: No Current occupational status: disabled History of recent travel: No Current gender identity: Male Vitals/I&O/Wt Last Vital Signs Temp 97.8 F 07/18/19 12:42 Pulse 179 H 07/18/19 12:42 Resp 20 H 07/18/19 12:42 BP 102/56 07/18/19 12:42 Pulse Ox 96 07/18/19 12:42 Weight last 48 hrs Weight 90.718 kg Physical Exam Narrative: EXAM NARRATIVE: The patient is awake alert and oriented x4. No acute distress. Mood and affect are appropriate. Responses are adequate. The patient reports chronic depression but denies hopelessness, suicidal or homicidal ideations. He reports that his symptoms are currently well controlled. Skin is warm and dry. Moist mucous membranes. He has multiple superficial erosions on his tongue and inside the lips secondary to his pemphigoid. No recent changes with this. Heart currently S1, S2, regular Lungs mildly decreased breath sounds bibasilarly, no crackles or wheezes. No respiratory distress Abdomen is soft, nontender, bowel sounds are present no distention. Extremities. Normal capillary refill. No peripheral cyanosis or calf te nderness bilaterally. He has chronic venous stasis changes in the lower extremities as well as bilateral pedal edema, 1+. Cranial nerves II through XII are grossly intact. No facial asymmetry. Normal speech. No weakness in the arms or legs grossly. Data : 07/18/19 12:52 07/18/19 12:52 Micro: Microbiology 07/18/19 13:08 Blood Culture - Preliminary Blood SPECIMEN COLLECTED 07/18/19 12:52 Blood Culture - Preliminary Blood SPECIMEN COLLECTED A&P Additional A&P Information The patient is being admitted to [facility] with telemetry due to below listed problems. Supraventricular tachycardia. Currently in sinus after 2 doses of adenosine. Cardiology is consulted. Will await further further recommendations. Suspected dehydration. I will hydrate him gently and reassess tomorrow. Abdominal pain and constipation. I will order bowel regiment and Fleet enema. Reported hemorrhoids and rectal blood. We will closely monitor him. We will monitor H&H. No evidence of any hemodynamic instability or uncontrolled bleeding. Probably control of constipation will help to minimize hemorrhoidal bleedings. He will need further outpatient follow-up with his primary care physician and possible GI or surgical referral. Will defer this to his PCP. Urinary retention. We will place Alaniz catheter for now. This will probably help with abdominal discomfort and constipation as well. We will continue his Flomax. No evidence of infection currently including pneumonia. He received Rocephin in the emergency room. I will check his procalcitonin level. No antibiotics for now. Reported seizures, multiple. I will order prolactin level for future diagnostic evaluations. I will start him on small dose of Keppra and order as needed lorazepam. 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 He will need further neurology evaluation which can be done in outpatient settings. We do not have a neurologist currently. Dr. Tompkins he is on vacation. DVT prophylaxis. Teds and SCDs. No anticoagulation due to concerns of GI bleeding. Diabetes. Continue home medication. Insulin sliding scale. Hypertension. Continue current management. Stable. Mild hyponatremia. We will monitor this. History of pemphigoid. 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 He will continue outpatient follow-up with his primary care physician and specialists. The patient was to be DNR. We discussed this in length. I explained him different components of resuscitation. He fully understands the concepts and process. However he is adamant that he wants to be DNR. His wishes will be respected. Attestations Medical Necessity Statement*: Observation Coding Level of Care Code Acute Director Geothermal Operations for Imelda Rojas
--- NOTE | 2019-07-18 18:17 | PM.CONSULT ---
Providers/Reason For Consult Consulting Physican/Specialty*: Cardiology Reason for Consult*: Supraventricular tachycardia Requesting Physcian: Librado Stacy Attending Physician: Librado Stacy Primary Care Provider: FÁTIMA Dugan History of Present Illness History of Present Illness Randy German is a 64 year old male past medical history significant for history of diabetes mellitus, fungal meningitis, depression, pain disorder, hemorrhoids who was needed not eating drinking well had lost weight was struggling with constipation for the last few days. He is not a good historian but claims that he has widespread arthritis and back pains. He says because he did not have good teeth therefore cannot eat well. He denies any fever chills nausea vomiting but admits to severe constipation. He was noted to be impacted in the ER heart rate was in the 150s. Adenosine second dose of 12 mg broke SVT as he converted to sinus rhythm. Since then patient stays in sinus rhythm. Patient denies any prior history of heart problem. He was given IV fluid in the ER. Review of Systems General: Reports: 10 or more systems reviewed and unremarkable except in HPI and below Eyes: Denies: photophobia ENMT: Denies: enlarged tonsils GI: Reports: abdominal pain, nausea, constipation and change in bowel habits Musc: Denies: joint warmth Meds/Allergies Home Medications and Allergies Home Medications Medication Instructions Recorded Confirmed Type blood-glucose meter #1 each 05/24/19 07/18/19 History insulin glargine 100 unit/mL 25 unit SUBCUT DAILY #10 ml 05/24/19 07/18/19 Rx subcutaneous solution insulin syringe-needle U-100 0.5 #10 each 05/24/19 07/18/19 History mL 31 gauge x 16 magnesium oxide 400 mg PO TID cap 05/24/19 07/18/19 History methenamine hippurate 1 gram tablet 1 gm PO BID 05/24/19 07/18/19 History tamsulosin 0.4 mg capsule 0.4 mg PO BID #60 cap 05/24/19 07/18/19 Rx Probiotic 1 cap PO DAILY 05/31/19 07/18/19 History ascorbic acid (vitamin C) [Vitamin 500 mg PO BID 05/31/19 07/18/19 History C] aspirin 81 mg PO DAILY 05/31/19 07/18/19 History dexamethasone 0.5 mg PO DAILY 05/31/19 07/18/19 History doxepin 10 mg PO BEDTIME 30 Days #30 cap 06/08/19 07/18/19 Rx fluoxetine 20 mg PO DAILY 30 Days #30 cap 06/08/19 07/18/19 Rx trazodone 100 mg PO BEDTIME PRN 30 Days #30 06/08/19 07/18/19 Rx tab Citrate of Magnesia 150 ml PO PRN PRN 07/18/19 07/18/19 History hydrocortisone 2.5 % topical cream 1 applic SD DAILY PRN #30 gm 07/18/19 07/18/19 Rx with perineal applicator Allergies Allergy/AdvReac Type Severity Reaction Status Date / Time hydromorphone [From Dilaudid] Allergy ADR-Confusi Verified 05/16/19 16:18 on Penicillins Allergy ALGY-Rash Verified 05/16/19 16:18 codeine AdvReac ADR-Nausea Verified 05/16/19 16:18 Current Medications Current Medications Generic Name Dose Route Start Last Admin Trade Name Freq PRN Reason Stop Dose Admin Fluconazole 200 mg in 100 mls @ 100 mls/hr 07/18/19 16:30 07/18/19 16:50 Diflucan Premix IV 100 mls/hr Q24H JESUS Administration Sodium Chloride 1,000 mls @ 100 mls/hr 07/18/19 16:00 07/18/19 16:50 Sodium Chloride 0.9% IV 100 mls/hr .Q10H JESUS Administration PFSH Acute PFSH: Medical History (Updated 07/18/19 @ 19:06 by Alexia Almazan MD) Anxiety disorder BPH (benign prostatic hyperplasia) Chronic arthritis Chronic insomnia Controlled diabetes mellitus Dyslipidemia Essential (primary) hypertension GERD (gastroesophageal reflux disease) History of MRSA infection Suicidal ideation Superficial laceration of skin Vitamin D deficiency Surgical History History of hip surgery right History of inguinal herniorrhaphy right History of vasectomy Family History Grandmother Diabetes Denies family history of Bleeding disorder Social History Smoking and tobacco status: former smoker Second hand smoke exposure: No Smoking risk assessment/counseling performed?: No Alcohol intake: never Desire information about alcohol rehabilitation?: No Counseling given: No Desire information about substance/drug rehabilitation?: No Counseling given: No Adopted: No Lives independently: Yes Household members: other Housing: House Marital status: Single service: No Current occupational status: disabled History of recent travel: No Current gender identity: Male Dietary Habits: Current diet type/program: diabetic Caffeine: Yes Exercise: What type of physical activity do you participate in?: walking Safety: Seatbelt use: always Helmet use: No Drive intoxicated or ride with intoxicated dedicated regional driver?: never Vitals/I&O/Wt Last Vital Signs Temp 97.6 F 07/18/19 18:12 Pulse 77 07/18/19 18:12 Resp 16 07/18/19 18:12 BP 110/79 07/18/19 18:12 Pulse Ox 97 07/18/19 18:12 Weight last 48 hrs Weight 200 lb Physical Exam Narrative: EXAM NARRATIVE: GENERAL: Patient is alert, awake and oriented x3, but appear to be NECK: No jugular vein distension. HEENT: No cyanosis. No icterus. No pallor. HEART: Regular S1 and S2. No murmur, rub or gallop. LUNGS: Clear to auscultate bilaterally. ABDOMEN: Soft, nontender and nondistended. Positive bowel sounds. No guarding, rebound or tenderness. EXTREMITIES: Lower extremities without edema bilaterally. Data Labs: Other Labs: SINUS RHYTHM WITH SINUS ARRHYTHMIA RIGHT BUNDLE BRANCH BLOCK [120+ ms QRS DURATION, UPRIGHT V1, 40+ ms S IN I I/aVL/V4/V5/V6] LEFT ANTERIOR FASCICULAR BLOCK [QRS AXIS <= -45, QR IN I, RS IN II] When compared to the prior EKG patient is in sinus rhythm now. Micro: Micro: Microbiology 07/18/19 13:08 Blood Culture - Pr eliminary Blood SPECIMEN DARSHANA SAMUEL 07/18/19 12:52 Blood Culture - Pr eliminary Blood SPECIMEN [facility] A&P Assessment and plan (1) PSVT (paroxysmal supraventricular tachycardia): This is her first episode of supraventricular tachycardia most likely secondary to hyperadrenergic state due to dehydration pain/constipation. Since patient is converted to sinus rhythm we will closely monitor him on the telemetry. For now no medicine needed. I will ask for echocardiogram to rule out structural heart problem Status: Acute (2) Constipation: As per medicine Status: Acute Qualifiers: Constipation type: unspecified constipation type Qualified Code(s): K59.00 - Constipation, unspecified (3) Essential (primary) hypertension: Well-controlled. Status: Chronic (4) Controlled diabetes mellitus: As per medicine Status: Chronic Qualifiers: Diabetes mellitus type: type 2 Diabetes mellitus terminal press operator insulin use: with detention use (5) Dehydration: Patient has already been given 1 IV fluid. Encourage p.o. intake if needed IV fluid can be given again Status: Acute Consult Attestations Medical Necessity Statement: Patient require continuation hospitalization for above defined problems. Coding Level of Care Code New Pt Acute Oil Paint Shader for [facility] Fwd Patient Type New Medical Decision Making Moderate Complexity Diagnoses PSVT (paroxysmal supraventricular tachycardia) I47.1 Constipation K59.00 Constipation type: unspecified constipation type Essential (primary) hypertension I10 Controlled diabetes mellitus E11.9 Diabetes mellitus type: type 2 Diabetes mellitus detention insulin use: with terminal press operator use Dehydration E86.0
--- NOTE | 2019-07-18 18:46 | ECG_ITS ---
Measurements Intervals [place] Rate: 72 P: 32 NH: 185 QRS: -59 QRSD: 153 T: 13 QT: 401 QTc: 442 SINUS RHYTHM RIGHT BUNDLE BRANCH BLOCK [120+ ms QRS DURATION, UPRIGHT V1, 40+ ms S IN I/aVL/V4/V5/V6] LEFT ANTERIOR FASCICULAR BLOCK [QRS AXIS <= -45, QR IN I, RS IN II] Compared to ECG 07/18/2019 13:06:57 Sinus arrhythmia no longer present Myocardial infarct finding no longer present Electronically Signed On 07-19-2019 19:08:16 CDT by Alexia Almazan M.D. [email or web address]
[2019-07-18 18:55] LABS: Glucose Point of Care 92 mg/dL (70-110)
[2019-07-18] MEDS: sodium chloride 0.9% 1,000 ML 75 ML IV (18:57)
[2019-07-18 20:29] LABS: Glucose Point of Care 88 mg/dL (70-110)
[2019-07-18 20:39] LABS: Troponin 5 6HR 73.81 ng/mL (0-15)
[2019-07-18 20:47] LABS: Troponin 5 6HR Delta 46.81 ng/L (0-12)
[2019-07-18] MEDS: TRAMadol 50 mg Tablet PO (21:02)
[2019-07-18] MEDS: levETIRAcetam 500 mg Tablet 250 MG PO (21:02)
[2019-07-18] MEDS: doxepin 10 mg Capsule PO (21:02)
[2019-07-18] MEDS: magnesium oxide 400 mg tablet PO (21:02)
[2019-07-18] MEDS: Fleet Enema 133 mL Enema PR (21:05)
[2019-07-18 21:13] LABS: Procalcitonin 0.05 ng/mL (0-0.5)
[2019-07-18 22:08] LABS: Prolactin 39.95 ng/mL (4.0-15.2)
[2019-07-18] MEDS: enoxaparin 100 mg/mL Syringe 90 MG SUBCUT (22:33)
--- NOTE | 2019-07-18 22:43 | PC.NURSE ---
patient tolerated the fleet enema well, however he was loosing control before all was squeezed in. had him remain on left side another 5 to 8 minutes and get up to the bedside commode where he was able to release a large long og of a light brown compact pasty feces. patient says he still feels some discomfort in his abdomen and said wed try again to see if can get more out naturally and told him t drink plenty of water.
[2019-07-18] MEDS: trazodone 100 mg Tablet PO (23:31)
[2019-07-19] VITALS (7 sets, daily range): BP systolic 93–115; BP diastolic 58–82; PULSE 69–86; RESP 16–20; TEMP 36.6–37.1; O2SAT 90–95
[2019-07-19 04:49] LABS: Basophils % 0.5 %; Eosinophils # 0.1 10^3/uL (0.0-0.8); Hematocrit 39.9 % (42.0-52.0); Hemoglobin 13.2 g/dL (11.7-16.6); Lymphocytes # 2.7 10^3/uL (0.8-4.8); Lymphocytes % 33.8 %; Mean Corpuscular HGB Conc 33.1 g/dL (30.0-36.0); Mean Corpuscular Hemoglobin 29.3 pg (28.0-34.0); Mean Corpuscular Volume 88.5 fL (80-94); Monocytes # 0.7 10^3/uL (0.2-0.9); Monocytes % 9.2 %; Neutrophils # 4.4 10^3/uL (1.8-7.7); Neutrophils % 55.2 %; Nucleated Red Blood Cells % 0 %; Platelet Count 169 10^3/cmm (130-400); Red Blood Count 4.51 10^6/uL (4.1-5.3); Red Cell Distribution Width 14.2 % (12.1-15.1); White Blood Count 7.9 10^3/uL (4.0-10.0)
[2019-07-19 05:03] LABS: Estmated Average Glucose 111; Hemoglobin A1C 5.5 % (4.0-6.0)
[2019-07-19 05:09] LABS: Anion Gap 17.4 (5-19); Blood Urea Nitrogen 16 mg/dL (8-23); Calcium 9.7 mg/dL (8.5-10.5); Carbon Dioxide 22 mmol/L (22-29); Chloride 102 mmol/L (98-107); Creatinine Clr Calc Pharmacy 128.2159; Glomerular Filtration Rate 114.3 mL/min (90-130); Glucose 87 mg/dL (65-115); Magnesium 1.9 mg/dL (1.7-2.3); Osmolality Calculated 282 mOsm/kg (285-295); Phosphorus 3.9 mg/dL (2.5-4.5); Potassium 3.4 mmol/L (3.5-5.1); Sodium 138 mmol/L (136-145)
[2019-07-19] MEDS: ondansetron 2 mg/ML SDV 2 mL 4 MG IVP (05:12)
[2019-07-19] MEDS: acetaminophen 325 mg Tablet 650 MG PO (05:26)
[2019-07-19 06:35] LABS: Glucose Point of Care 74 mg/dL (70-110)
[2019-07-19] MEDS: levETIRAcetam 500 mg Tablet 250 MG PO ×2 (09:05→17:33)
[2019-07-19] MEDS: aspirin 81 mg EC Tablet PO (09:06)
[2019-07-19] MEDS: fluoxetine 20 mg Capsule PO (09:06)
[2019-07-19] MEDS: magnesium oxide 400 mg tablet PO ×3 (09:06→20:48)
[2019-07-19] MEDS: insulin glargine 100 units/1 mL 25 UNIT SUBCUT (09:06)
[2019-07-19] MEDS: tamsulosin 0.4 mg Capsule PO ×2 (09:06→17:33)
[2019-07-19] MEDS: docusate sodium 100 mg Capsule PO ×2 (09:06→17:33)
[2019-07-19] MEDS: enoxaparin 100 mg/mL Syringe 90 MG SUBCUT ×2 (09:06→20:49)
--- NOTE | 2019-07-19 10:47 | PC.CHAP ---
Pastoral Care Encounter/Spiritual Assessment Type of Contact [] Declined fueler visit [] Patient/Family/Request visit [] Outpatient visit [] Follow-up visit [] Physician referral [] Code/Alert [x Routine visit [] Staff referral [] Actively dying [] Patient sleeping [] Family support [] [] Out of room [] Palliative care [] [] Receiving care in room [] Pre-surgical visit [] Trauma [] Long length of stay [] ICU visit [] Other: Relational/Emotional Strength [] Patient feels connected with others/family/visitors/staff [] Distress [] Loneliness/isolation [] Abandonment Spirituality of Patient [] Person of Marva [] Attends Uatsdin of their Marva [x] Believes in Prayer [] Reads Bible or Yazidi materials [] There are Spiritual issues to be addressed Gas Compressor Operator Interventions [x] Prayer [] Active listening [] Non-anxious presence [] Spiritual/emotional support [] Crisis/trauma care [] Spiritual counseling [] Bereavement support [] Provided bereavement packet [] Provided Bible/devotional materials [] Provided toy/stuffed animal, coloring book to patient or family member [] Provided Communion [] Anointing/[place] [] Salvation [x] Completed spiritual assessment [] Other: Impact on Illness or Injury [] Angry [] Fearful [] Anxious [] Often cries [] Exhaustion [] Unable to work [] Unable to attend yazdanism [] Unable to walk/stand [] Unable to read [] Unable to drive [] Unable to eat/drink [] Unable to sleep [] Unable to be with family [] Patient intubated [] Other: Summary Patient working with physical therapist, weakness in shoulders and difficulty in walking with walker. Patient lives alone and the only entertainment is TV...over thinking the negative news reports. Time spent with patient 20min
[2019-07-19 11:25] LABS: Glucose Point of Care 80 mg/dL (70-110)
[2019-07-19] MEDS: glycerin adult supp 1 EACH PR (13:04)
[2019-07-19] MEDS: magnesium hydroxide 30 mL UDC PO ×2 (13:04→21:41)
--- NOTE | 2019-07-19 15:02 | P.PN_ITS ---
Subjective Subjective: Interval history: The patient is doing well today. Denies any new events. No chest pain or palpitations. No weakness or dizziness. No seizures. He had a nice big bowel movement after enema and medications. Denies any abdominal pain today. Medications: Reviewed: Yes Medication Review Details: Current Medications Generic Name Dose Route Start Last Admin Trade Name Freq PRN Reason Stop Dose Admin Acetaminophen 650 mg 07/18/19 17:32 07/19/19 05:26 Tylenol PO 650 mg Q6H PRN Administration Mild/Mod Pain Or Temp >/= 101 Aspirin 81 mg 07/19/19 09:00 07/19/19 09:06 Aspirin Ec PO 81 mg DAILY JESUS Administration Docusate Sodium 100 mg 07/18/19 18:00 07/19/19 09:06 Colace PO 100 mg BID JESUS Administration Doxepin HCl 10 mg 07/18/19 21:00 07/18/19 21:02 Sinequan PO 10 mg BEDTIME JESUS Administration Enoxaparin Sodium 90 mg 07/18/19 22:00 07/19/19 09:06 Lovenox 1 mg/kg (90 mg) 90 mg SUBCUT Administration Q12H JESUS Fluoxetine HCl 20 mg 07/19/19 09:00 07/19/19 09:06 Prozac PO 20 mg DAILY JESUS Administration Fluconazole 200 mg in 100 mls @ 100 mls/hr 07/18/19 16:30 07/18/19 16:50 Diflucan Premix IV 100 mls/hr Q24H JESUS Administration Insulin Aspart 0 unit 07/18/19 18:00 07/19/19 11:32 Novolog SUBCUT Not Given WM&BEDTIME [facility] Protocol Insulin Glargine 25 unit 07/19/19 09:00 07/19/19 09:06 Lantus SUBCUT 25 unit DAILY JESUS Administration Levetiracetam 250 mg 07/18/19 18:00 07/19/19 09:05 Keppra PO 250 mg BID JESUS Administration Magnesium Hydroxid e 30 ml 07/18/19 17:32 07/19/19 13:04 Milk Of Magnesia PO 30 ml BID PRN Administration CONSTIPA Magnesium Oxide 400 mg 07/18/19 21:00 07/19/19 09:06 Magox PO 400 mg TID JESUS Administration Non-Formulary Medi cation 0.5 mg 07/19/19 09:00 07/19/19 08:50 Dexamethasone PO Not Given DAILY [facility] Non-Formulary Medi cation 1 gm 07/18/19 18:00 07/19/19 08:50 Methenamine Rylan urate PO Not Given BID JESUS Ondansetron HCl 4 mg 07/18/19 17:32 07/19/19 05:12 Zofran IVP 4 mg Q8H PRN Administration vomiting, or N/V if npo Tamsulosin HCl 0.4 mg 07/18/19 18:00 07/19/19 09:06 Flomax PO 0.4 mg BID JESUS Administration Tramadol HCl 50 mg 07/18/19 20:30 07/18/19 21:02 Ultram PO 50 mg ONCE PRN Administration MODERATE PAIN Trazodone HCl 100 mg 07/18/19 17:41 07/18/19 23:31 Desyrel PO 100 mg BEDTIME PRN Administration Sleep Vitals/I&O/Wt Last Vital Signs Temp 98.2 F 07/19/19 10:46 Pulse 80 07/19/19 10:46 Resp 18 07/19/19 10:46 BP 98/66 07/19/19 10:46 Pulse Ox 95 07/19/19 10:46 07/19/19 07/19/19 07/19/19 06:59 14:59 22:59 Intake Total 360 / 600 720 / 720 Output Total 300 / 1300 Balance 60 / -700 720 / 720 Weight last 48 hrs Weight 90.718 kg Physical Exam Narrative: EXAM NARRATIVE: The patient is awake alert and oriented x4. No acute distress. Mood and affect are appropriate. Responses are adequate. The patient reports chronic depression but denies hopelessness, suicidal or homicidal ideations. He reports that his symptoms are currently well controlled. Skin is warm and dry. Moist mucous membranes. He has multiple superficial erosions on his tongue and inside the lips secondary to his pemphigoid. No recent changes with this. Heart currently S1, S2, regular Lungs mildly decreased breath sounds bibasilarly, no crackles or wheezes. No respiratory distress Abdomen is soft, nontender, bowel sounds are present no distention. Extremities. Normal capillary refill. No peripheral cyanosis or calf tend erness bilaterally. He has chronic venous stasis changes in the lower extremities as well as bilateral pedal edema, 1+. Cranial nerves II through XII are grossly intact. No facial asymmetry. Normal speech. No weakness in the arms or legs grossly. Urinary Catheter Management^: Alaniz: Cath Placed During This Visit: yes Reason for Continuing Indwelling Catheter: Other Urinary Catheter Date of Insertion: 07/18/19 Urinary Catheter Time of Insertion: 19:14 Data : 07/19/19 04:32 07/19/19 04:32 Micro: Microbiology 07/18/19 13:08 Blood Culture - Preliminary Blood NEGATIVE TO DATE 07/18/19 12:52 Blood Culture - Preliminary Blood NEGATIVE TO DATE A&P Additional A&P Information Supraventricular tachycardia. Currently in sinus. Received 2 doses of adenosine in ED. Appreciate Dr. Almazan's help. Continue close monitoring. Suspected dehydration. Resolved. We will stop the IV fluids. Abdominal pain and constipation. Resolving. Continue aggressive bowel regiment. Discussed with the nursing staff. Reported hemorrhoids and rectal blood. No evidence of acute blood loss or worsening anemia. STORM dynamically stable. Probably control of constipation will help to minimize hemorrhoidal bleedings. He will need further outpatient follow-up with his primary care physician and possible GI or surgical referral. Will defer this to his PCP. Urinary retention. Flomax is resumed. Currently has Alaniz. I asked the nurses to try to remove it and let him urinate on his own. I asked them to perform bladder scan if he has difficulties emptying his bladder and let me know. No evidence of infection currently including pneumonia. He received Rocephin in the emergency room. Procalcitonin is normal Multiple seizures. Prolactin is elevated which makes it more likely that the seizures where real. Started on Keppra. No evidence of more seizures. Will provide with neurology referral at discharge. His MRI from 6 months ago was reviewed. There were no findings that would explain his seizures at that time. He might need more testing in the future in outpatient settings if his neurol ogist feels appropriate.. DVT prophylaxis. Teds and SCDs. No anticoagulation due to concerns of GI bleeding. Diabetes. Continue home medication. Insulin sliding scale. Hypertension. Continue current management. Stable. Mild hyponatremia. We will monitor this. History of pemphigoid. 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 He will continue outpatient follow-up with his primary care physician and specialists. The patient was to be DNR. We discussed this in length. I explained him different components of resuscitation. He fully understands the concepts and process. However he is adamant that he wants to be DNR. His wishes will be respected. Attestations Medical Necessity Statement*: We are currently working on his discharge needs. We will discharge him as soon as possible. Coding Level of Care Code Acute Welt Trimming Machine Operator for Imelda Rojas
[2019-07-19] MEDS: fluconazole premix 200 MG/100 ML PREMIX 100 MG IV (15:41)
--- NOTE | 2019-07-19 18:43 | PM.PN ---
Subjective Subjective: Interval history: Remains in sinus rhythm. Denies any complaint Medications: Reviewed: Yes Medication Review Details: Current Medications Generic Name Dose Route Start Last Admin Trade Name Freq PRN Reason Stop Dose Admin Acetaminophen 650 mg 07/18/19 17:32 07/19/19 05:26 Tylenol PO 650 mg Q6H PRN Administration Mild/Mod Pain Or Temp >/= 101 Aspirin 81 mg 07/19/19 09:00 07/19/19 09:06 Aspirin Ec PO 81 mg DAILY JESUS Administration Docusate Sodium 100 mg 07/18/19 18:00 07/19/19 09:06 Colace PO 100 mg BID JESUS Administration Doxepin HCl 10 mg 07/18/19 21:00 07/18/19 21:02 Sinequan PO 10 mg BEDTIME JESUS Administration Enoxaparin Sodium 90 mg 07/18/19 22:00 07/19/19 09:06 Lovenox 1 mg/kg (90 mg) 90 mg SUBCUT Administration Q12H JESUS Fluoxetine HCl 20 mg 07/19/19 09:00 07/19/19 09:06 Prozac PO 20 mg DAILY JESUS Administration Fluconazole 200 mg in 100 mls @ 100 mls/hr 07/18/19 16:30 07/18/19 16:50 Diflucan Premix IV 100 mls/hr Q24H JESUS Administration Insulin Aspart 0 unit 07/18/19 18:00 07/19/19 11:32 Novolog SUBCUT Not Given WM&BEDTIME [facility] Protocol Insulin Glargine 25 unit 07/19/19 09:00 07/19/19 09:06 Lantus SUBCUT 25 unit DAILY JESUS Administration Levetiracetam 250 mg 07/18/19 18:00 07/19/19 09:05 Keppra PO 250 mg BID JESUS Administration Magnesium Hydroxid e 30 ml 07/18/19 17:32 07/19/19 13:04 Milk Of Magnesia PO 30 ml BID PRN Administration CONSTIPA Magnesium Oxide 400 mg 07/18/19 21:00 07/19/19 09:06 Magox PO 400 mg TID JESUS Administration Non-Formulary Medi cation 0.5 mg 07/19/19 09:00 07/19/19 08:50 Dexamethasone PO Not Given DAILY JESUS Non-Formulary Medi cation 1 gm 07/18/19 18:00 07/19/19 08:50 Methenamine Rylan urate PO Not Given BID JESUS Ondansetron HCl 4 mg 07/18/19 17:32 07/19/19 05:12 Zofran IVP 4 mg Q8H PRN Administration vomiting, or N/V if npo Tamsulosin HCl 0.4 mg 07/18/19 18:00 07/19/19 09:06 Flomax PO 0.4 mg BID JESUS Administration Tramadol HCl 50 mg 07/18/19 20:30 07/18/19 21:02 Ultram PO 50 mg ONCE PRN Administration MODERATE PAIN Trazodone HCl 100 mg 07/18/19 17:41 07/18/19 23:31 Desyrel PO 100 mg BEDTIME PRN Administration Sleep Vitals/I&O/Wt Last Vital Signs Temp 97.8 F 07/19/19 15:28 Pulse 72 07/19/19 15:28 Resp 18 07/19/19 15:28 BP 93/58 07/19/19 15:28 Pulse Ox 94 07/19/19 15:28 07/19/19 07/19/19 07/19/19 06:59 14:59 22:59 Intake Total 360 / 700 720 / 720 240 / 960 Output Total 300 / 1300 400 / 400 Balance 60 / -600 720 / 720 -160 / 560 Weight last 48 hrs Weight 200 lb Physical Exam Narrative: EXAM NARRATIVE: GENERAL: Patient is alert, awake and oriented x3, but appear to be NECK: No jugular vein distension. HEENT: No cyanosis. No icterus. No pallor. HEART: Regular S1 and S2. No murmur, rub or gallop. LUNGS: Clear to auscultate bilaterally. ABDOMEN: Soft, nontender and nondistended. Positive bowel sounds. No guarding, rebound or tenderness. EXTREMITIES: Lower extremities without edema bilaterally. Urinary Catheter Management^: Alaniz: Cath Placed During This Visit: yes Reason for Continuing Indwelling Catheter: Other Urinary Catheter Date of Insertion: 07/18/19 Urinary Catheter Time of Insertion: 19:14 Data : 07/19/19 04:32 07/19/19 04:32 Micro: Microbiology 07/18/19 13:08 Blood Culture - Preliminary Blood NEGATIVE TO DATE 07/18/19 12:52 Blood Culture - Preliminary Blood NEGATIVE TO DATE A&P Assessment and plan (1) PSVT (paroxysmal supraventricular tachycardia): No more SVT. Continue to monitor. Status: Acute (2) Constipation: As per medicine Status: Acute Qualifiers: Constipation type: unspecified constipation type Qualified Code(s): K59.00 - Constipation, unspecified (3) Essential (primary) hypertension: Well-controlled. Status: Chronic (4) Controlled diabetes mellitus: As per medicine Status: Chronic Qualifiers: Diabetes mellitus type: type 2 Diabetes mellitus mcc insulin use: with mcc use (5) Dehydration: Appears to be euvolemic. Continue current regimen Status: Acute Attestations Medical Necessity Statement*: Patient require continuation hospitalization for above defined care Coding Level of Care Code Established Pt Acute Vc++ Developer for Chg Fwd Patient Type Established History Expanded Problem Focused Exam Expanded Problem Focused Medical Decision Making Moderate Complexity Diagnoses PSVT (paroxysmal supraventricular tachycardia) I47.1 Constipation K59.00 Constipation type: unspecified constipation type Essential (primary) hypertension I10 Controlled diabetes mellitus E11.9 Diabetes mellitus type: type 2 Diabetes mellitus terminal carman insulin use: with terminal carman use Dehydration E86.0
[2019-07-19] MEDS: doxepin 10 mg Capsule PO (20:48)
[2019-07-19 21:26] LABS: Glucose Point of Care 100 mg/dL (70-110)
[2019-07-19] MEDS: trazodone 100 mg Tablet PO (21:41)
[2019-07-20] VITALS: BP 103/54; PULSE 70; RESP 14; TEMP 36.8; O2SAT 92
[2019-07-20 04:00] VITALS: BP 103/54; BP 113/69; PULSE 70; RESP 14; RESP 16; TEMP 36.8; O2SAT 91
[2019-07-20 05:08] LABS: Basophils % 0.7 %; Eosinophils % 0.5 %; Hematocrit 37.9 % (42.0-52.0); Hemoglobin 12.6 g/dL (11.7-16.6); Lymphocytes # 1.5 10^3/uL (0.8-4.8); Lymphocytes % 25.6 %; Mean Corpuscular HGB Conc 33.2 g/dL (30.0-36.0); Mean Corpuscular Hemoglobin 29.2 pg (28.0-34.0); Mean Corpuscular Volume 87.9 fL (80-94); Mean Platelet Volume 9.9 fL (7.4-10.4); Monocytes # 0.4 10^3/uL (0.2-0.9); Neutrophils # 3.9 10^3/uL (1.8-7.7); Nucleated Red Blood Cells % 0 %; Platelet Count 166 10^3/cmm (130-400); Red Blood Count 4.31 10^6/uL (4.1-5.3); Red Cell Distribution Width 13.7 % (12.1-15.1); White Blood Count 5.9 10^3/uL (4.0-10.0)
[2019-07-20 06:54] LABS: Glucose Point of Care 87 mg/dL (70-110)
[2019-07-20 07:36] VITALS: BP 145/89; PULSE 80; RESP 20; TEMP 36.6; O2SAT 93
[2019-07-20] MEDS: tamsulosin 0.4 mg Capsule PO ×2 (08:44→17:31)
[2019-07-20] MEDS: enoxaparin 100 mg/mL Syringe 90 MG SUBCUT ×2 (08:45→20:30)
[2019-07-20] MEDS: levETIRAcetam 500 mg Tablet 250 MG PO ×2 (08:45→17:30)
[2019-07-20] MEDS: magnesium oxide 400 mg tablet PO ×3 (08:45→20:30)
[2019-07-20] MEDS: aspirin 81 mg EC Tablet PO (08:45)
[2019-07-20] MEDS: fluoxetine 20 mg Capsule PO (08:45)
[2019-07-20] MEDS: docusate sodium 100 mg Capsule PO ×2 (08:45→17:31)
[2019-07-20] MEDS: insulin glargine 100 units/1 mL 25 UNIT SUBCUT (08:46)
--- NOTE | 2019-07-20 10:22 | P.PN_ITS ---
Subjective Subjective: Interval history: He reports feeling okay. Complains of constipation. Denies seizures since yesterday. No nausea or vomiting. No fevers or chills. No chest pain, shortness of breath, cough, palpitations. Vitals/I&O/Wt Last Vital Signs Temp 97.8 F 07/20/19 07:36 Pulse 80 07/20/19 07:36 Resp 20 H 07/20/19 07:36 BP 145/89 07/20/19 07:36 Pulse Ox 93 07/20/19 07:36 07/19/19 07/20/19 07/20/19 22:59 06:59 14:59 Intake Total 580 / 1300 220 / 1520 480 / 480 Output Total 800 / 800 1100 / 1900 Balance -220 / 500 -880 / -380 480 / 480 Weight last 48 hrs Weight 90.718 kg Physical Exam Narrative: EXAM NARRATIVE: The patient is awake alert and oriented x4. No acute distress. Mood and affect are appropriate. Responses are adequate. The patient reports chronic depression but denies hopelessness, suicidal or homicidal ideations. He reports that his symptoms are currently well controlled. Skin is warm and dry. Moist mucous membranes. He has multiple superficial erosions on his tongue and inside the lips secondary to his pemphigoid. No recent changes with this. Heart currently S1, S2, regular Lungs mildly decreased breath sounds bibasilarly, no crackles or wheezes. No respiratory distress Abdomen is soft, nontender, bowel sounds are present no distention. Extremities. Normal capillary refill. No peripheral cyanosis or calf tenderness bilaterally. He has chronic venous stasis changes in the lower extremities as well as bilateral pedal edema, 1+. Cranial nerves II through XII are grossly intact. No facial asymmetry. Normal speech no weakness in the arms or legs grossly. Urinary Catheter Management^: Alnaiz: Cath Placed During This Visit: yes Reason for Continuing Indwelling Catheter: Other Urinary Catheter Date of Insertion: 07/18/19 Urinary Catheter Time of Insertion: 19:14 Data : 07/20/19 04:42 07/19/19 04:32 Micro: Microbiology 07/18/19 13:08 Blood Culture - Preliminary Blood NEGATIVE TO DATE 07/18/19 12:52 Blood Culture - Preliminary Blood NEGATIVE TO DATE A&P Additional A&P Information Supraventricular tachycardia. Currently in sinus. Received 2 doses of adenosine in ED. Appreciate Dr. Almazan's help. Continue close monitoring. [facility] will discharge him tomorrow. Unfortunately he refused [facility] facility placement. He is adamant that he wants to go home. He will have home health care. Suspected dehydration. Resolved. IV fluids are stopped. Abdominal pain and constipation. We will give him another enema today. We will continue aggressive bowel regimen. Reported hemorrhoids and rectal blood. No evidence of acute blood loss or worsening anemia. STORM dynamically stable. Probably control of constipation w ill help to minimize hemorrhoidal bleedings. He will need further outpatient follow-up with his primary care physician and possible GI or surgical referral. Will defer this to his PCP. Urinary retention. Flomax is resumed. Alaniz is removed and he is urinating without any difficulties. No evidence of infection currently including pneumonia. He received Rocephin in the emergency room. Procalcitonin is normal Multiple seizures. Prolactin is elevated which makes it more likely that the s eizures where real. Started on Keppra. No evidence of more seizures. Will provide with neurology referral at discharge. His MRI from 6 months ago was reviewed. There were no findings that would explain his seizures at that time. He might need more testing in the future in outpatient settings if his neurologist feels appropriate.. DVT prophylaxis. Teds and SCDs. No anticoagulation due to concerns of GI bleeding. Diabetes. Continue home medication. Insulin sliding scale. Hypertension. Continue current management. Stable. Mild hyponatremia. We will monitor this. Hypokalemia. Mild. Will replace p.o. History of pemphigoid. 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 He will continue outpatient follow-up with his primary care physician and specialists. The patient was to be DNR. We discussed this in length. I explained him different components of resuscitation. He fully understands the concepts and process. However he is adamant that he wants to be DNR. His wishes will be respected. Attestations Medical Necessity Statement*: The patient still has symptomatic constipation. Will need additional treatments for this. Hoping to discharge him tomorrow. Coding Level of Care Code Acute Housekeeping Aide for Imelda Rojas
[2019-07-20 10:59] LABS: Glucose Point of Care 112 mg/dL (70-110)
[2019-07-20 11:32] VITALS: BP 131/87; PULSE 93; RESP 22; TEMP 36.7; O2SAT 95
[2019-07-20] MEDS: acetaminophen 325 mg Tablet 650 MG PO (11:41)
[2019-07-20] MEDS: Fleet Enema 133 mL Enema PR (12:37)
[2019-07-20 15:42] VITALS: BP 132/68; PULSE 68; RESP 22; TEMP 36.8; O2SAT 95
[2019-07-20] MEDS: fluconazole premix 200 MG/100 ML PREMIX 100 MG IV (15:59)
[2019-07-20 16:31] LABS: Glucose Point of Care 93 mg/dL (70-110)
--- NOTE | 2019-07-20 18:33 | P.PN_ITS ---
Subjective Subjective: Interval history: No more SVT noted Medications: Reviewed: Yes Medication Review Details: Current Medications Generic Name Dose Route Start Last Admin Trade Name Freq PRN Reason Stop Dose Admin Acetaminophen 650 mg 07/18/19 17:32 07/19/19 05:26 Tylenol PO 650 mg Q6H PRN Administration Mild/Mod Pain Or Temp >/= 101 Aspirin 81 mg 07/19/19 09:00 07/19/19 09:06 Aspirin Ec PO 81 mg DAILY JESUS Administration Docusate Sodium 100 mg 07/18/19 18:00 07/19/19 09:06 Colace PO 100 mg BID JESUS Administration Doxepin HCl 10 mg 07/18/19 21:00 07/18/19 21:02 Sinequan PO 10 mg BEDTIME JESUS Administration Enoxaparin Sodium 90 mg 07/18/19 22:00 07/19/19 09:06 Lovenox 1 mg/kg (90 mg) 90 mg SUBCUT Administration Q12H JESUS Fluoxetine HCl 20 mg 07/19/19 09:00 07/19/19 09:06 Prozac PO 20 mg DAILY JESUS Administration Fluconazole 200 mg in 100 mls @ 100 mls/hr 07/18/19 16:30 07/18/19 16:50 Diflucan Premix IV 100 mls/hr Q24H JESUS Administration Insulin Aspart 0 unit 07/18/19 18:00 07/19/19 11:32 Novolog SUBCUT Not Given WM&BEDTIME [facility] Protocol Insulin Glargine 25 unit 07/19/19 09:00 07/19/19 09:06 Lantus SUBCUT 25 unit DAILY JESUS Administration Levetiracetam 250 mg 07/18/19 18:00 07/19/19 09:05 Keppra PO 250 mg BID JESUS Administration Magnesium Hydroxid e 30 ml 07/18/19 17:32 07/19/19 13:04 Milk Of Magnesia PO 30 ml BID PRN Administration CONSTIPA Magnesium Oxide 400 mg 07/18/19 21:00 07/19/19 09:06 Magox PO 400 mg TID JESUS Administration Non-Formulary Medi cation 0.5 mg 07/19/19 09:00 07/19/19 08:50 Dexamethasone PO Not Given DAILY JESUS Non-Formulary Medi cation 1 gm 07/18/19 18:00 04/15/20 08:50 Methenamine Rylan urate PO Not Given BID JESUS Ondansetron HCl 4 mg 07/18/19 17:32 07/19/19 05:12 Zofran IVP 4 mg Q8H PRN Administration vomiting, or N/V if npo Tamsulosin HCl 0.4 mg 07/18/19 18:00 07/19/19 09:06 Flomax PO 0.4 mg BID JESUS Administration Tramadol HCl 50 mg 07/18/19 20:30 07/18/19 21:02 Ultram PO 50 mg ONCE PRN Administration MODERATE PAIN Trazodone HCl 100 mg 07/18/19 17:41 07/18/19 23:31 Desyrel PO 100 mg BEDTIME PRN Administration Sleep Vitals/I&O/Wt Last Vital Signs Temp 98.2 F 07/20/19 15:42 Pulse 68 07/20/19 15:42 Resp 22 H 07/20/19 15:42 BP 132/68 07/20/19 15:42 Pulse Ox 95 07/20/19 15:42 07/20/19 07/20/19 07/20/19 06:59 14:59 22:59 Intake Total 220 / 1520 840 / 840 360 / 1200 Output Total 1100 / 1900 700 / 700 950 / 1650 Balance -880 / -380 140 / 140 -590 / -450 Physical Exam Narrative: EXAM NARRATIVE: GENERAL: Patient is alert, awake and oriented x3, but appear to be NECK: No jugular vein distension. HEENT: No cyanosis. No icterus. No pallor. HEART: Regular S1 and S2. No murmur, rub or gallop. LUNGS: Clear to auscultate bilaterally. ABDOMEN: Soft, nontender and nondistended. Positive bowel sounds. No guarding, rebound or tenderness. EXTREMITIES: Lower extremities without edema bilaterally. Urinary Catheter Management^: Alaniz: Cath Placed During This Visit: yes, but has since been removed by the nurse Reason for Continuing Indwelling Catheter: Other Urinary Catheter Date of Insertion: 07/18/19 Urinary Catheter Time of Insertion: 19:14 Date Urinary Catheter Removed: 07/20/19 Time Urinary Catheter Discontinued: 16:32 Data : 07/20/19 04:42 07/19/19 04:32 A&P Assessment and plan (1) PSVT (paroxysmal supraventricular tachycardia): No more SVT. No medicine needed at this point. Continue to monitor if in future patient had any more episode we will start patient on metoprolol Status: Acute (2) Constipation: As per medicine Status: Acute Qualifiers: Constipation type: unspecified constipation type Qualified Code(s): K59.00 - Constipation, unspecified (3) Essential (primary) hypertension: Well-controlled. Status: Chronic (4) Controlled diabetes mellitus: As per medicine Status: Chronic Qualifiers: Diabetes mellitus type: type 2 Diabetes mellitus terminal make up operator insulin use: with terminal make up operator use (5) Dehydration: Currently euvolemic. Status: Acute Attestations Medical Necessity Statement*: As per medicine Coding Level of Care Code Established Pt Acute Manufacturing Technology Analyst for Chg Fwd Patient Type Established History Expanded Problem Focused Exam Expanded Problem Focused Medical Decision Making Moderate Complexity Diagnoses PSVT (paroxysmal supraventricular tachycardia) I47.1 Constipation K59.00 Constipation type: unspecified constipation type Essential (primary) hypertension I10 Controlled diabetes mellitus E11.9 Diabetes mellitus type: type 2 Diabetes mellitus terminal make up operator insulin use: with jail use Dehydration E86.0
[2019-07-20 20:00] VITALS: BP 124/80; PULSE 73; RESP 18; TEMP 36.7; O2SAT 94
[2019-07-20] MEDS: doxepin 10 mg Capsule PO (20:30)
[2019-07-20 20:35] LABS: Glucose Point of Care 114 mg/dL (70-110)
[2019-07-20] MEDS: trazodone 100 mg Tablet PO (22:48)
[2019-07-21] VITALS (7 sets, daily range): BP systolic 108–132; BP diastolic 65–93; PULSE 41–73; RESP 16–20; TEMP 36.4–36.8; O2SAT 90–96
[2019-07-21 04:55] LABS: Basophils % 0.5 %; Eosinophils # 0.1 10^3/uL (0.0-0.8); Eosinophils % 1.4 %; Hematocrit 38.5 % (42.0-52.0); Hemoglobin 12.7 g/dL (11.7-16.6); Lymphocytes % 36.2 %; Mean Corpuscular Hemoglobin 28.9 pg (28.0-34.0); Mean Corpuscular Volume 87.5 fL (80-94); Mean Platelet Volume 9.7 fL (7.4-10.4); Monocytes # 0.4 10^3/uL (0.2-0.9); Monocytes % 7.7 %; Neutrophils % 53.7 %; Nucleated Red Blood Cells % 0 %; Platelet Count 171 10^3/cmm (130-400); Red Cell Distribution Width 13.4 % (12.1-15.1); White Blood Count 5.6 10^3/uL (4.0-10.0)
--- NOTE | 2019-07-21 06:10 | PC.NURSE ---
DR WAS NOTIFIED ABOUT PT HR GOING DOWN TO 38-39. PT IS ASYMPTOMATIC AND HR GOES BACK UP TO 60'S ONCE AWAKE. NO NEW ORDERS FROM THE DR. WILL CONTINUE TO MONITOR.
[2019-07-21 06:41] LABS: Glucose Point of Care 92 mg/dL (70-110)
[2019-07-21 08:36] LABS: Albumin Level 3.5 g/dL (3.5-5.2); Anion Gap 13.9 (5-19); Blood Urea Nitrogen 8 mg/dL (8-23); Calcium 9.5 mg/dL (8.5-10.5); Carbon Dioxide 27 mmol/L (22-29); Chloride 100 mmol/L (98-107); Creatinine Clr Calc Pharmacy 149.5852; Glomerular Filtration Rate 136.5 mL/min (90-130); Glucose 97 mg/dL (65-115); Potassium 3.9 mmol/L (3.5-5.1); Sodium 137 mmol/L (136-145)
[2019-07-21] MEDS: tamsulosin 0.4 mg Capsule PO (08:38)
[2019-07-21] MEDS: magnesium oxide 400 mg tablet PO ×2 (08:38→15:50)
[2019-07-21] MEDS: levETIRAcetam 500 mg Tablet 250 MG PO (08:39)
[2019-07-21] MEDS: aspirin 81 mg EC Tablet PO (08:39)
[2019-07-21] MEDS: fluoxetine 20 mg Capsule PO (08:39)
--- NOTE | 2019-07-21 09:36 | PC.CHAP ---
Pastoral Care Encounter/Spiritual Assessment Type of Contact [] Declined requirements engineer visit [] Patient/Family/Request visit [] Outpatient visit [] Follow-up visit [] Physician referral [] Code/Alert [x] Routine visit [] Staff referral [] Actively dying [] Patient sleeping [] Family support [] [] Out of room [] Palliative care [] [] Receiving care in room [] Pre-surgical visit [] Trauma [] Long length of stay [] ICU visit [] Other: Relational/Emotional Strength [] Patient feels connected with others/family/visitors/staff [] Distress [] Loneliness/isolation [] Abandonment Spirituality of Patient [] Person of Marva [] Attends Mosque of their Marva [x] Believes in Prayer [] Reads Bible or Episcopal materials [] There are Spiritual issues to be addressed Support Manager Interventions [x] Prayer [] Active listening [] Non-anxious presence [] Spiritual/emotional support [] Crisis/trauma care [] Spiritual counseling [] Bereavement support [] Provided bereavement packet [] Provided Bible/devotional materials [] Provided toy/stuffed animal, coloring book to patient or family member [] Provided Communion [] Anointing/[place] [] Salvation [x] Completed spiritual assessment [] Other: Impact on Illness or Injury [] Angry [] Fearful [] Anxious [] Often cries [] Exhaustion [] Unable to work [] Unable to attend confucianism [] Unable to walk/stand [] Unable to read [] Unable to drive [] Unable to eat/drink [] Unable to sleep [] Unable to be with family [] Patient intubated [] Other: Summary [place] check in on patient. Patient resting well today, feeling somewhat better. Time spent with patient 5 min
[2019-07-21 10:44] LABS: Glucose Point of Care 116 mg/dL (70-110)
[2019-07-21] MEDS: acetaminophen 325 mg Tablet 650 MG PO (13:24)
--- NOTE | 2019-07-21 15:30 | P.DS_ITS ---
Discharge Providers Date of Admission: 07/18/19 15:57 Date of Discharge: July 21, 2019 Attending Provider at Admission: Librado Stacy Attending Provider at Discharge: Librado Stacy Primary Care Provider: FÁTIMA Dugan Diagnoses at Discharge Discharge Diagnosis (1) PSVT (paroxysmal supraventricular tachycardia): Status: Acute (2) Constipation: Status: Acute Qualifiers: Constipation type: unspecified constipation type Qualified Code(s): K59.00 - Constipation, unspecified (3) Essential (primary) hypertension: Status: Chronic (4) Controlled diabetes mellitus: Status: Chronic Qualifiers: Diabetes mellitus type: type 2 Diabetes mellitus fpc insulin use: with intermediate school teacher use (5) Dehydration: Status: Acute Reason for Visit Reason for Visit: Reason For Visit: ABD PAIN/POSS SEIZURE Hospital Course Discharge Summary: Supraventricular tachycardia. Currently in sinus. Received 2 doses of adenosine in ED. Appreciate Dr. Almazan's help. No new episodes. He will continue outpatient follow-up with the estimator paperboard boxes. Additio nal testing might be necessary. Unfortunately he refused care home facility placement. He is adamant that he wants to go home. He will have home health care. The patient had short lasting episode of bradycardia last night which resolved when he woke up. Currently his heart rate at mid to high 60s. No dizziness or lightheadedness. Blood pressure 115/80. Suspected dehydration. Resolved. IV fluids are stopped. Abdominal pain and constipation. Had several large bowel movements after enema and with aggressive bowel regiment. No more abdominal pain or complaints. Reported hemorrhoids and rectal blood. No evidence of acute blood loss or worsening anemia. He is hemodynamically stable. Probably control of constipation will help to minimize hemorrhoidal bleedings. He will need further outpatient follow-up with his primary care physician and possible GI or surgical referral. Will defer this to his PCP. Urinary retention. Flomax is resumed. Alaniz is removed and he is urinating without any difficulties. He will continue follow-up with his outpatient Dr. Stewart. No evidence of infection currently including pneumonia. He received Rocephin in the emergency room. Procalcitonin is normal Multiple seizures. Prolactin is elevated which makes it more likely that the seizures where real. Started on Keppra. No evidence of more seizures. Will provide with neurology referral at discharge. His MRI from 6 months ago was reviewed. There were no findings that would explain his seizures at that time. He might need more testing in the future in outpatient settings if his neurologist feels appropriate. Referral is provided to see Dr. Tompkins DVT prophylaxis. Teds and SCDs. Diabetes. Continue home medication. Hypertension. Continue current management. Stable. Mild hyponatremia. Resolved. Hypokalemia. Replace. History of pemphigoid. 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 He will continue outpatient follow-up with his primary care physician and specialists. The patient is being discharged in stable condition. He is eager to go home. Discharge instructions are discussed. He verbalized understanding and agreement. Physical Exam Narrative: EXAM NARRATIVE: The patient is awake alert and oriented x4. No acute distress. Mood and affect are appropriate. Responses are adequate. No suicidal or homicidal ideations. Skin is warm and dry. Moist mucous membranes. He has multiple superficial erosions on his tongue and inside the lips secondary to his pemphigoid. No recent changes with this. Heart currently S1, S2, regular Clear to auscultation bilaterally. No crackles or wheezes. No respiratory distress Abdomen is soft, nontender, bowel sounds are present, no distention. Extremities. Normal capillary refill. No peripheral cyanosis or calf tenderness bilaterally. He has chronic venous stasis changes in the lower extremities as well as bilateral pedal edema, 1+. Cranial nerves II through XII are grossly intact. No facial asymmetry. Normal speech no weakness in the arms or legs grossly. Urinary Catheter Management^: Alaniz: Cath Placed During This Visit: yes, but has since been removed by the nurse Reason for Continuing Indwelling Catheter: Other Urinary Catheter Date of Insertion: 07/18/19 Urinary Catheter Time of Insertion: 19:14 Date Urinary Catheter Removed: 07/20/19 Time Urinary Catheter Discontinued: 16:32 Discharge Data 2 Data Completed and Pending: Completed Studies During Hospitalization Category Date Time Status CT abdomen pelvis w con* [id number] Urge nt Cat Scan 07/18/19 12:[address] head wo con* [id number] Urgent Cat Scan 07/18/19 12:44 Completed XR chest 1V sebastian ble [id number] Urgent Exams 07/18/19 12:44 Completed Pending at discharge Category Date Time Status Blood Culture Sta t Lab 07/18/19 13:08 Results Complete Blood Co unt w/Auto AM LABS Lab 07/22/19 04:00 Ordered Magnesium AM LABS Lab 07/22/19 04:00 Ordered Renal Function Pa eduardo AM LABS Lab 07/22/19 04:00 Ordered Labs from last 24 hours 07/21/19 07/21/19 07/21/19 10:38 06:29 04:18 WBC RBC Hgb Hct MCV MCH MCHC RDW Plt Count MPV Neut % (Auto) Lymph % (Auto) [place] % (Auto) Eos % (Auto) Baso % (Auto) Neut # (Auto) Lymph # (Auto) [place] # (Auto) Eos # (Auto) Baso # (Auto) Nucleated RBC % (a uto) Nucleated RBCs # Sodium 137 Potassium 3.9 Chloride 100 Carbon Dioxide 27 Anion Gap 13.9 BUN 8 Creatinine 0.6 L GFR Calculation 136.5 H Glucose 97 POC Glucose 116 92 Calcium 9.5 Phosphorus 3.0 Magnesium 2.0 Albumin 3.5 07/21/19 07/20/19 07/20/19 04:18 20:26 16:23 WBC 5.6 RBC 4.40 Hgb 12.7 Hct 38.5 L MCV 87.5 MCH 28.9 MCHC 33.0 RDW 13.4 Plt Count 171 MPV 9.7 Neut % (Auto) 53.7 Lymph % (Auto) 36.2 [place] % (Auto) 7.7 Eos % (Auto) 1.4 Baso % (Auto) 0.5 Neut # (Auto) 3.0 Lymph # (Auto) 2.0 [place] # (Auto) 0.4 Eos # (Auto) 0.1 Baso # (Auto) 0.0 Nucleated RBC % (a uto) 0 Nucleated RBCs # 0.0 Sodium Potassium Chloride Carbon Dioxide Anion Gap BUN Creatinine GFR Calculation Glucose POC Glucose 114 93 Calcium Phosphorus Magnesium Albumin Vitals: Last Vital Signs Temp 98.2 F 07/21/19 11:22 Pulse 67 07/21/19 11:22 Resp 18 07/21/19 11:22 BP 115/80 07/21/19 11:22 Pulse Ox 94 07/21/19 11:22 Discharge Plan Discharge Patient Disposition: Home, Self-Care Condition: Stable Prescriptions: New levetiracetam 500 mg Tablet 250 mg PO BID Qty: 30 RF: 0 Continued (DME) insulin syringe-needle U-100 [Easy Comfort Insulin Syringe] 0.5 mL 31 gauge x 5/16 syringe See Rx Instructions .ROUTE .MEDSUPPLY Qty: 10 RF: 0 magnesium oxide 400 mg magnesium capsule 400 mg PO TID RF: 0 methenamine hippurate 1 gram tablet 1 gm PO BID RF: 0 (DME) blood-glucose meter [Precision Xtra Monitor] Misc See Rx Instructions .ROUTE .MEDSUPPLY Qty: 1 RF: 0 Lantus U-100 Insulin 100 unit/mL solution 25 unit SUBCUT DAILY Qty: 10 RF: 5 tamsulosin 0.4 mg capsule 0.4 mg PO BID Qty: 60 RF: 5 hydrocortisone [Anusol-HC] 2.5 % cream with perineal applicator 1 applic HI DAILY PRN (Reason: hemorrhoids) Qty: 30 RF: 0 aspirin 81 mg Tablet,Delayed Release (Dr/Ec) 81 mg PO DAILY RF: 0 ascorbic acid (vitamin C) [Vitamin C] 500 mg Tablet Extended Release 500 mg PO BID RF: 0 Probiotic 1 cap PO DAILY RF: 0 trazodone 100 mg tablet 100 mg PO BEDTIME PRN (Reason: Sleep) 30 Days Qty: 30 RF: 1 doxepin 10 mg Capsule 10 mg PO BEDTIME 30 Days Qty: 30 RF: 1 fluoxetine 20 mg Capsule 20 mg PO DAILY 30 Days Qty: 30 RF: 1 Citrate of Magnesia Solution 150 ml PO PRN PRN (Reason: Constipation) RF: 0 dexamethasone 1 mg Tablet 1 mg PO DAILY RF: 0 Discharge Orders: Discharge Order (Routine); Ordered 07/21/19 Ordered By: Librado Stacy Referrals: Dorcas Tompkins MD [Physician] - 4-7 days Adela Alaniz FNP-C [Primary Care Provider] - Alexia Almazan MD [Physician] - 4-7 days Discharge Activity: Increase activity as tolerated Patient Instructions: Epilepsy (DC), Seizures Activity Restrictions/Additional Instructions: No driving! Do not operate any machinery! Do not engage in any activities which can be risky in case if you have seizures or loss of consciousness! Follow-up with neurologist, Dr. Tompkins. It is important!. You will need additional testing for seizures! Come back to emergency room if develop any new symptoms such as chest pain, palpitations, diaphoresis, sweats, cough, fevers or chills, abdominal pain, diarrhea, new constipation, problems with urination, new seizures, confusion, weakness, dizziness, lightheadedness, or any other new complaints. Discharge Attestations Time Spent in Discharge Care*: greater than 30 min Quality Metrics Clinical Quality Measures During this hospital stay, did patient experience: None Coding Level of Care Code Acute Prenatal Nurse for [facility] Fwd Diagnoses PSVT (paroxysmal supraventricular tachycardia) I47.1 Constipation K59.00 Constipation type: unspecified constipation type Essential (primary) hypertension I10 Controlled diabetes mellitus E11.9 Diabetes mellitus type: type 2 Diabetes mellitus fpc insulin use: with intermediate school teacher use Dehydration E86.0
--- NOTE | 2019-07-21 15:33 | PM.PN ---
Subjective Subjective: Interval history: Patient has episode of bradycardia last night heart rate dropped down into 30s however during the daytime he remains in sinus rhythm. Medications: Reviewed: Yes Medication Review Details: Current Medications Generic Name Dose Route Start Last Admin Trade Name Freq PRN Reason Stop Dose Admin Acetaminophen 650 mg 07/18/19 17:32 07/19/19 05:26 Tylenol PO 650 mg Q6H PRN Administration Mild/Mod Pain Or Temp >/= 101 Aspirin 81 mg 07/19/19 09:00 07/19/19 09:06 Aspirin Ec PO 81 mg DAILY JESUS Administration Docusate Sodium 100 mg 07/18/19 18:00 07/19/19 09:06 Colace PO 100 mg BID JESUS Administration Doxepin HCl 10 mg 07/18/19 21:00 07/18/19 21:02 Sinequan PO 10 mg BEDTIME JESUS Administration Enoxaparin Sodium 90 mg 07/18/19 22:00 07/19/19 09:06 Lovenox 1 mg/kg (90 mg) 90 mg SUBCUT Administration Q12H JESUS Fluoxetine HCl 20 mg 07/19/19 09:00 07/19/19 09:06 Prozac PO 20 mg DAILY JESUS Administration Fluconazole 200 mg in 100 mls @ 100 mls/hr 07/18/19 16:30 07/18/19 16:50 Diflucan Premix IV 100 mls/hr Q24H JESUS Administration Insulin Aspart 0 unit 07/18/19 18:00 07/19/19 11:32 Novolog SUBCUT Not Given WM&BEDTIME JESUS Protocol Insulin Glargine 25 unit 07/19/19 09:00 07/19/19 09:06 Lantus SUBCUT 25 unit DAILY JESUS Administration Levetiracetam 250 mg 07/18/19 18:00 07/19/19 09:05 Keppra PO 250 mg BID JESUS Administration Magnesium Hydroxid e 30 ml 07/18/19 17:32 07/19/19 13:04 Milk Of Magnesia PO 30 ml BID PRN Administration CONSTIPA Magnesium Oxide 400 mg 07/18/19 21:00 07/19/19 09:06 Magox PO 400 mg TID JESUS Administration Non-Formulary Medi cation 0.5 mg 07/19/19 09:00 07/19/19 08:50 Dexamethasone PO Not Given DAILY JESUS Non-Formulary Medi cation 1 gm 07/18/19 18:00 07/19/19 08:50 Methenamine Rylan urate PO Not Given BID JESUS Ondansetron HCl 4 mg 07/18/19 17:32 07/19/19 05:12 Zofran IVP 4 mg Q8H PRN Administration vomiting, or N/V if npo Tamsulosin HCl 0.4 mg 07/18/19 18:00 07/19/19 09:06 Flomax PO 0.4 mg BID JESUS Administration Tramadol HCl 50 mg 07/18/19 20:30 07/18/19 21:02 Ultram PO 50 mg ONCE PRN Administration MODERATE PAIN Trazodone HCl 100 mg 07/18/19 17:41 07/18/19 23:31 Desyrel PO 100 mg BEDTIME PRN Administration Sleep Vitals/I&O/Wt Last Vital Signs Temp 98.2 F 07/21/19 11:22 Pulse 67 07/21/19 11:22 Resp 18 07/21/19 11:22 BP 115/80 07/21/19 11:22 Pulse Ox 94 07/21/19 11:22 07/21/19 07/21/19 07/21/19 06:59 14:59 22:59 Intake Total 1000 / 2200 820 / 820 Output Total 2520 / 4170 1000 / 1000 Balance -1520 / -1970 -180 / -180 Physical Exam Narrative: EXAM NARRATIVE: GENERAL: Patient is alert, awake and oriented x3, but appear to be NECK: No jugular vein distension. HEENT: No cyanosis. No icterus. No pallor. HEART: Regular S1 and S2. No murmur, rub or gallop. LUNGS: Clear to auscultate bilaterally. ABDOMEN: Soft, nontender and nondistended. Positive bowel sounds. No guarding, rebound or tenderness. EXTREMITIES: Lower extremities without edema bilaterally. Urinary Catheter Management^: Alaniz: Cath Placed During This Visit: yes, but has since been removed by the nurse Reason for Continuing Indwelling Catheter: Other Urinary Catheter Date of Insertion: 07/18/19 Urinary Catheter Time of Insertion: 19:14 Date Urinary Catheter Removed: 07/20/19 Time Urinary Catheter Discontinued: 16:32 Data : 07/21/19 04:18 07/21/19 04:18 A&P Assessment and plan (1) PSVT (paroxysmal supraventricular tachycardia): No more SVT. No medicine needed at this point. Not having any significant bradycardia most likely due to possible sleep apnea. Status: Acute (2) Constipation: As per medicine Status: Acute Qualifiers: Constipation type: unspecified constipation type Qualified Code(s): K59.00 - Constipation, unspecified (3) Essential (primary) hypertension: Well-controlled. Status: Chronic (4) Controlled diabetes mellitus: As per medicine Status: Chronic Qualifiers: Diabetes mellitus type: type 2 Diabetes mellitus [facility] insulin use: with intermediate accountant use (5) Dehydration: Currently euvolemic. Status: Acute Coding Level of Care Code Acute Sterile Supply Technician for [facility] Fwd Diagnoses PSVT (paroxysmal supraventricular tachycardia) I47.1 Constipation K59.00 Constipation type: unspecified constipation type Essential (primary) hypertension I10 Controlled diabetes mellitus E11.9 Diabetes mellitus type: type 2 Diabetes mellitus intermediate accountant insulin use: with intermediate accountant use Dehydration E86.0
== END 2019-07-21 17:17 | disposition home or self-care (01) ==
LOC: ER 15:54 → MEDSURG 07-19 13:16
PROVIDERS: Admitting Provider Internal Medicine; Emergency Provider Family Medicine; Family Provider Nurse Practitioner; PCP Nurse Practitioner; Visit Provider Internal Medicine
DX: I47.1 Supraventricular tachycardia (principal); K59.00 Constipation, unspecified; I10 Essential (primary) hypertension; E11.9 Type 2 diabetes mellitus without complications; E86.0 Dehydration; Z79.4 Long term (current) use of insulin; R56.9 Unspecified convulsions; Z66 Do not resuscitate; N40.0 Benign prostatic hyperplasia without lower urinary tract symptoms; Z86.14 Personal history of Methicillin resistant Staphylococcus aureus infection; Z87.891 Personal history of nicotine dependence
CPT/HCPCS: 12345; 36415; 36416; 36600; 51702; 70450; 71045; 74177; 80048; 80053; 80069; 80306; 81003; 82009; 82140; 82803; 82962; 83036; 83605; 83735; 83880; 84100; 84145; 84146; 84443; 84484; 85025; 87040; 93005; 96365; 96366; 96372; 96374; 96375; 97110; 97116; 97161; 97165; 97530; 99284; 99285; G0378; J0153; J0696; J1450; J1650; J1815; J2405; J7030; J7040; Q9967

== ENCOUNTER → 2019-08-07 14:12 | Outpatient (BNVA) | payer MEDICAID, SELFPAY | PROVIDERS: Family Provider Nurse Practitioner; PCP Nurse Practitioner; Visit Provider Specialist | DX: G40.409 Other generalized epilepsy and epileptic syndromes, not intractable, without status epilepticus (principal); Z87.891 Personal history of nicotine dependence | CPT/HCPCS: 99214 ==

== ENCOUNTER → 2019-09-25 13:58 | Outpatient (BNVA) | payer MEDICAID, SELFPAY | PROVIDERS: Family Provider Nurse Practitioner; PCP Nurse Practitioner; Visit Provider Nurse Practitioner Family | DX: R33.9 Retention of urine, unspecified (principal); N40.1 Benign prostatic hyperplasia with lower urinary tract symptoms | CPT/HCPCS: 81001 ==

== ENCOUNTER → 2019-10-10 14:41 | Outpatient (BNVA) | payer MEDICAID, SELFPAY | PROVIDERS: Family Provider Nurse Practitioner; PCP Nurse Practitioner; Visit Provider Specialist | DX: G40.109 Localization-related (focal) (partial) symptomatic epilepsy and epileptic syndromes with simple partial seizures, not intractable, without status epilepticus (principal) | CPT/HCPCS: 99214 ==

== ENCOUNTER → 2020-01-10 10:52 | Outpatient (BNVA) | payer MEDICAID, SELFPAY | PROVIDERS: Family Provider Nurse Practitioner; PCP Nurse Practitioner; Visit Provider Specialist | DX: G40.909 Epilepsy, unspecified, not intractable, without status epilepticus (principal); M19.011 Primary osteoarthritis, right shoulder; M48.061 Spinal stenosis, lumbar region without neurogenic claudication; M25.511 Pain in right shoulder; M54.2 Cervicalgia | CPT/HCPCS: 99215 ==

== ENCOUNTER 2020-01-10 16:08 | Inpatient (IN) | payer MEDICAID, SELFPAY ==
[2020-01-10] VITALS (9 sets, daily range): BP systolic 91–124; BP diastolic 58–76; PULSE 59–103; RESP 15–20; TEMP 36.8; O2SAT 90–99; BMI 30.5
--- NOTE | 2020-01-10 16:20 | CTR_ITS ---
PROCEDURE INFORMATION: Exam: CT Cervical Spine Without Contrast Exam date and time: 01/10/2020 4:27 PM Age: 64 years old Clinical indication: Injury or trauma; Blunt trauma; Injury details: Fall down stairs. PT ETOH; Patient HX: PT does not stay still; Additional info: Fall/pain/trauma TECHNIQUE: Imaging protocol: Computed tomography images of the cervical spine without contrast. Radiation optimization: All CT scans at this facility use at least one of these dose optimization techniques: automated exposure control; mA and/or kV adjustment per patient size (includes targeted exams where dose is matched to clinical indication); or iterative reconstruction. COMPARISON: No relevant prior studies available. RADIATION DOSE METRICS: Total DLP (mGy-cm): 1012.41 FINDINGS: Vertebrae: The vertebral body stature is normal. Mild degenerative subluxation of C3 on C4. The facets are intact with hypertrophic degenerative changes. C2-C3: No significant disc protrusion. No severe spinal canal stenosis. No significant neural foraminal narrowing. C3-C4: No significant disc protrusion. No severe spinal canal stenosis. No significant neural foraminal narrowing. C4-C5: No significant disc protrusion. No severe spinal canal stenosis. No significant neural foraminal narrowing. C5-C6: Disc space narrowing with degenerative endplate spurring. Mild bilateral foraminal stenosis. C6-C7: Disc space narrowing with degenerative endplate spurring. Moderate bilateral bony foraminal stenosis. C7-T1: No significant disc protrusion. No severe spinal canal stenosis. No significant neural foraminal narrowing. Soft tissues: Unremarkable. Thyroid: 1.7 cm low-density nodule in the right thyroid lobe. Ultrasound follow-up is recommended. Lungs: Lung apices are normal. CT/CT cervical spin wo con* [id number] IMPRESSION: 1. No fracture or acute finding. COMMENTS: Consistent with the [place] [employer]'s Incidental Findings Committee white paper (J Am Jae Radiol 2015): In patients aged 35 years and older with an incidental thyroid nodule equal to or greater than 1.[address], MRI or extrathyroidal US, further evaluation with dedicated thyroid US is recommended for patients with normal life expectancy and without comorbidities. For smaller nodules without suspicious features, no further evaluation or follow up is recommended. Radiation Dose CTDIVOL = (mGy): DLP = 1012.41 (mGy-cm)
--- NOTE | 2020-01-10 16:21 | XR_ITS ---
WS: [id number] XR chest 1V portable [id number] REASON FOR EXAM: dyspnea/cough FINDINGS: Moderate tortuosity and ectasia of the thoracic aorta. Mild cardiomegaly. No active pulmonary parenchymal or pleural disease. Bony thorax is intact. XR/XR chest 1V portable [id number] IMPRESSION: No acute chest abnormality.
--- NOTE | 2020-01-10 16:21 | CTR_ITS ---
PROCEDURE INFORMATION: Exam: CT Head Without Contrast Exam date and time: 01/10/2020 4:27 PM Age: 64 years old Clinical indication: Injury or trauma; Blunt trauma (contusions or hematomas); Injury details: Fall down stairs. PT ETOH; Patient HX: Scanned twice. PT does not stay still; Additional info: Fall/pain/trauma TECHNIQUE: Imaging protocol: Computed tomography of the head without contrast. Radiation optimization: All CT scans at this facility use at least one of these dose optimization techniques: automated exposure control; mA and/or kV adjustment per patient size (includes targeted exams where dose is matched to clinical indication); or iterative reconstruction. COMPARISON: CT head wo con* [id number] 07/18/2019 2:38 PM RADIATION DOSE METRICS: Total DLP (mGy-cm): 1508.02 FINDINGS: Brain: Moderate cortical volume loss. Mild hypodensities in supratentorial periventricular white matter. Chronic lacunar infarcts in the bilateral basal ganglia. No intracranial hemorrhage. Cerebral ventricles: No ventriculomegaly. Bones/joints: Unremarkable. No acute fracture. Paranasal sinuses: Retention cyst or polyp in the right sphenoid sinus. Otherwise clear. Mastoid air cells: Visualized mastoid air cells are well aerated. Vasculature: No hyperdense artery. Soft tissues: Unremarkable. CT/CT head wo con* [id number] IMPRESSION: 1. No acute intracranial abnormality. 2. Mild microangiopathy. Radiation Dose CTDIVOL = (mGy): DLP = 1508.02 (mGy-cm)
--- NOTE | 2020-01-10 16:31 | CTR_ITS ---
PROCEDURE INFORMATION: Exam: CT Lumbar Spine Without Contrast Exam date and time: 01/10/2020 4:38 PM Age: 64 years old Clinical indication: Injury or trauma; Blunt trauma (contusions or hematomas); Injury details: Fall down stairs. PT ETOH; Prior surgery; Surgery type: RT hip; Patient HX: PT does not stay still; Additional info: Pain TECHNIQUE: Imaging protocol: Computed tomography images of the lumbar spine without contrast. Sagittal and coronal reformatted images were created and reviewed. Radiation optimization: All CT scans at this facility use at least one of these dose optimization techniques: automated exposure control; mA and/or kV adjustment per patient size (includes targeted exams where dose is matched to clinical indication); or iterative reconstruction. COMPARISON: No relevant prior studies available. RADIATION DOSE METRICS: Total DLP (mGy-cm): 2320.95 FINDINGS: Vertebrae: There is a transitional vertebra at the lumbosacral junction. This is designated as L5. Vertebral body height is maintained. No subluxation. Bones are diffusely osteopenic. No acute fracture. Discs/Spinal canal/Neural foramina: Small broad-based posterior disc bulges at L2-L3 through L4-L5. Mild to moderate facet hypertrophy and ligamentum flavum thickening at all lumbar spine levels. Mild spinal canal stenosis at L2-L3, L3-L4, and L4-L5. Multilevel foraminal stenosis of varying severity in the lumbar spine. Epidural space: No evidence for an epidural hematoma. Sacrum/coccyx: There is near complete fusion of the left sacroiliac joint, consistent with a remote episode of seronegative sacroiliitis versus sequela of degenerative change. Vasculature: Mild atherosclerotic changes in the visualized arteries. Soft tissues: The patient has had a previous right hip arthroplasty. No paravertebral soft tissue abnormality. No radiopaque foreign body. CT/CT lumbar spine wo con* [id number] IMPRESSION: 1. No acute fracture of the lumbar spine. 2. Multilevel degenerative changes of varying severity in the visualized spine. Mild spinal canal stenosis at L2-L3, L3-L4, and L4-L5. Multilevel foraminal stenosis of varying severity in the lumbar spine. 3. There is near complete fusion of the left sacroiliac joint, consistent with a remote episode of seronegative sacroiliitis versus sequela of degenerative change. 4. Incidental/nonacute findings are listed in the report. Radiation Dose CTDIVOL = (mGy): DLP = 2320.95 (mGy-cm)
--- NOTE | 2020-01-10 16:31 | XR_ITS ---
WS: [id number] XR hip LT 2-3V wo/w pel* [id number] REASON FOR EXAM: pain FINDINGS: Fracture of the inferior left pubic ramus which appears to be old and healed. This is associated with an old healed fracture of the left superior pubic ramus at the level of the anterior column. The superior left hip articular interval is relatively well preserved. There is significant narrowing of the of the inferior portion of the left hip joint. There is osteophytic spurring of the acetabulu m and the femoral head and neck junction. No fracture is identified. Incidentally noted is complete right hip arthroplasty with extensive chronic findings related to the femoral portion. XR/XR hip LT 2-3V wo/w pel* [id number] IMPRESSION: Old healed fractures of the left pelvis as above. Degenerative arthropathy in the left hip joint as above. No acute fracture or d islocation of the left hip is identified.
--- NOTE | 2020-01-10 16:31 | XR_ITS ---
WS: [id number] XR shoulder RT min 2V* [id number] REASON FOR EXAM: pain FINDINGS: Severe degenerative arthropathy of the right glenohumeral joint with marked deformity with marked fla ttening of the right humeral head with extensive sclerosis. Position of the humeral head in relations hip to the acromial process indicates complete rupture of the rotator cuff tendon, chronic. There is a fracture through the right acromial process and a portion of the glenoid. This is associated with a vertical fracture through the very distal clavicle parallel to the AC joint. Fracture fragments are not significantly displaced. XR/XR shoulder RT min 2V* [id number] IMPRESSION: Severe degenerative arthropathy as above. Fracture involving the right acromial process, glenoid, and distal aspect of th e clavicle as above.
--- NOTE | 2020-01-10 16:31 | XR_ITS ---
WS: [id number] XR ankle RT min 3V* [id number] REASON FOR EXAM: pain FINDINGS: Fractures through the distal right fibula and right medial malleolus with minimal displacement. The m edial malleolar fracture extends into the superior medial ankle mortise. There appears to be extensiv e calcification in the medial collateral ligament, presumably from old injury. No fracture is identified within the talus or posterior malleolus. XR/XR ankle RT min 3V* [id number] IMPRESSION: Bimalleolar fracture as above. The medial malleolar fracture extends into the s uperior medial aspect of the ankle mortise.
--- NOTE | 2020-01-10 16:44 | ED_ITS ---
Documented by User: Yoan Ramos DO 01/15/20 15:52 HPI - Fall General: Chief Complaint: Fall Stated Complaint: FALL, R HIP R SHOULDER PAIN Time Seen by Provider: 01/10/20 16:09 History of Present Illness: HPI Narrative: 64-year-old male presents via EMS. He admits to having been drinking and he fell down a flight of stairs will he states he has not been drinking that much he fell down 13 stairs. He has multiple complaints including bilateral hip pain right shoulder pain right ankle pain is abrasions bilaterally on the hands and above the left supraorbital ridge. He states he has last tetanus shot within the last 5 to 7 years. He thinks he lost consciousness for around 30 seconds. He denies any vomiting or diarrhea since the incident. MD complaint: fall Onset (ago): minute(s) Fall from: standing Fall witnessed: yes, by family Place fall occurred: home Loss of consciousness: Yes Length of LOC: second(s) Prolonged down time: no Symptoms prior to fall: none Context: tripped/slipped and alcohol use Location of injury: head Location of injury - extremities: Right: shoulder and lower leg and Bilateral: thigh (Lateral hip pain) Quality: sharp and aching Associated symptoms-after fall: Reports headache(s) and neck pain; Denies abdominal pain, chest pain, confusion, hematuria, lightheadedness, numbness, short of breath, vertigo or weakness Review of Systems Const: Denies: fever(s), chills, body aches, change in appetite, fatigue or malaise ENMT: Denies: throat pain, ear or mastoid pain, nasal discharge or nasal congestion Card: Denies: chest pain or lightheadedness Resp: Denies: dyspnea, productive cough or non-productive cough GI: Denies: abdominal pain : Denies: hematuria Musc: Reports: neck pain Skin/Breast: Denies: rash or pruritus Neuro: Reports: headache(s); Denies: vertigo or confusion [facility] ED PFSH: Medical History Anxiety disorder BPH (benign prostatic hyperplasia) Chronic arthritis Chronic insomnia Controlled diabetes mellitus Dyslipidemia Essential (primary) hypertension GERD (gastroesophageal reflux disease) History of MRSA infection Incomplete emptying of bladder Lower urinary tract symptoms (LUTS) Suicidal ideation Superficial laceration of skin Vitamin D deficiency Surgical History History of hip surgery right History of inguinal herniorrhaphy right History of vasectomy Family History Grandmother Diabetes Father CAD (coronary artery disease) Denies family history of Bleeding disorder Social History Smoking and tobacco status: former smoker Second hand smoke exposure: No Smoking risk assessment/counseling performed?: No Alcohol intake: never Desire information about alcohol rehabilitation?: No Counseling given: No Desire information about substance/drug rehabilitation?: No Counseling given: No Adopted: No Lives independently: Yes Household members: other Housing: House Marital status: Single service: No Current occupational status: disabled History of recent travel: No Current gender identity: Male Physical Exam Const: COMMON NORMALS: no acute distress GENERAL APPEARANCE: cooperative and comfortable HENMT: COMMON NORMALS: normocephalic, atraumatic and hearing grossly normal bilaterally HEAD & SCALP: normocephalic and atraumatic Eye: COMMON NORMALS: Equal, round and reactive pupils present, EOMs intact bilaterally, conjunctivae normal and no scleral icterus CONJUNCTIVA: Yes conjunctivae normal PUPIL: Yes Equal, round and reactive pupils present Neck/C-Spine: COMMON NORMALS: full ROM, no lymphadenopathy, supple and no JVD Lymph: LYMPHATIC: no lymphadenopathy noted and no lymphedema noted Resp: COMMON NORMALS: normal respiratory effort, No retractions, No use of accessory muscles and clear to auscultation bilaterally AUSCULTATION: clear to auscultation bilaterally Cardio: COMMON NORMALS: no JVD, regular rate, regular rhythm and No murmurs present (Cardio) RATE: regular rate RHYTHM: regular rhythm GI: COMMON NORMALS: Soft to palpation and No hepatosplenomegaly present AUSCULTATION: Yes normoactive bowel sounds PALPATION: Yes Soft to palpation, No Tenderness to palpation present (GI), No Guarding due to palpation present (GI) and Yes No hepatosplenomegaly present Extremity: NARRATIVE EXTREMITY EXAM: Pain with palpation of the right shoulder. Swelling and moderate deformity of the right ankle. Pain with palpation bilaterally at the hips. There is abrasions on the knuckles bilaterally and a small skin abrasion above the left eye above the supraorbital ridge. Skin: COMMON NORMALS: no rashes or lesions noted GENERAL SKIN EXAM: no rashes or lesions noted Course Vital Signs: Vital signs: Vital Signs Temperature 99.4 F 01/15/20 15:39 Pulse Rate 88 01/15/20 15:39 Respiratory Rate 15 01/15/20 15:39 Blood Pressure 77/48 01/15/20 15:39 Pulse Oximetry 92 01/15/20 15:39 MDM - Fall MDM Narrative: Medical decision making narrative: Care signed out to Dr. Avelar at change of shift see his note for definitive diagnosis and disposition. Lab Data: Labs: Lab Results 01/10/20 01/10/20 01/10/20 Range/Units 16:39 16:39 16:39 WBC 4.2 (4.0-10.0) 10^3/ uL RBC 4.07 L (4.1-5.3) 10^6/u L Hgb 11.5 L (11.7-16.6) g/dL Hct 36.1 L (42.0-52.0) % MCV 88.7 (80-94) fL MCH 28.3 (28.0-34.0) pg MCHC 31.9 (30.0-36.0) g/dL RDW 14.1 (12.1-15.1) % Plt Count 152 (130-400) 10^3/c mm MPV 9.7 (7.4-10.4) fL Neut % (Auto) 48.3 % Lymph % (Auto) 41.1 % [place] % (Auto) 7.4 % Eos % (Auto) 1.7 % Baso % (Auto) 0.5 % Neut # (Auto) 2.04 (1.8-7.7) 10^3/u L Lymph # (Auto) 1.7 (0.8-4.8) 10^3/u L [place] # (Auto) 0.3 (0.2-0.9) 10^3/u L Eos # (Auto) 0.1 (0.0-0.8) 10^3/u L Baso # (Auto) 0.0 (0.0-0.1) 10^3/u L Nucleated RBC % (a uto) 0 % Nucleated RBCs # 0.0 /100WBC Sodium 134 L (136-145) mmol/L Potassium 4.2 (3.5-5.1) mmol/L Chloride 96 L (98-107) mmol/L Carbon Dioxide 25 (22-29) mmol/L Anion Gap 17.2 (5-19) BUN 8 (8-23) mg/dL Creatinine 0.7 (0.7-1.2) mg/dL GFR Calculation 114.3 (90-130) mL/min Glucose 105 (65-115) mg/dL Calculated Osmolal ity 277 L (285-295) mOsm/k g Calcium 9.5 (8.5-10.5) mg/dL Total Bilirubin 0.2 (0.15-1.2) mg/dL AST 13 (0-40) U/L ALT 7 (0-41) U/L Alkaline Phosphata se 49 (40-130) IU/L Creatine Kinase (39-308) U/L Total Protein 6.1 L (6.6-8.7) g/dL Albumin 3.5 (3.5-5.2) g/dL Globulin 2.6 (1.3-4.6) g/dL TSH 1.75 (0.27-4.20) uIU/ mL Ethyl Alcohol 11 H (0-10) mg/dL 01/10/20 Range/Units 16:39 WBC (4.0-10.0) 10^3/ uL RBC (4.1-5.3) 10^6/u L Hgb (11.7-16.6) g/dL Hct (42.0-52.0) % MCV (80-94) fL MCH (28.0-34.0) pg MCHC (30.0-36.0) g/dL RDW (12.1-15.1) % Plt Count (130-400) 10^3/c mm MPV (7.4-10.4) fL Neut % (Auto) % Lymph % (Auto) % [place] % (Auto) % Eos % (Auto) % Baso % (Auto) % Neut # (Auto) (1.8-7.7) 10^3/u L Lymph # (Auto) (0.8-4.8) 10^3/u L [place] # (Auto) (0.2-0.9) 10^3/u L Eos # (Auto) (0.0-0.8) 10^3/u L Baso # (Auto) (0.0-0.1) 10^3/u L Nucleated RBC % (a uto) % Nucleated RBCs # /100WBC Sodium (136-145) mmol/L Potassium (3.5-5.1) mmol/L Chloride (98-107) mmol/L Carbon Dioxide (22-29) mmol/L Anion Gap (5-19) BUN (8-23) mg/dL Creatinine (0.7-1.2) mg/dL GFR Calculation (90-130) mL/min Glucose (65-115) mg/dL Calculated Osmolal ity (285-295) mOsm/k g Calcium (8.5-10.5) mg/dL Total Bilirubin (0.15-1.2) mg/dL AST (0-40) U/L ALT (0-41) U/L Alkaline Phosphata se (40-130) IU/L Creatine Kinase 79 (39-308) U/L Total Protein (6.6-8.7) g/dL Albumin (3.5-5.2) g/dL Globulin (1.3-4.6) g/dL TSH (0.27-4.20) uIU/ mL Ethyl Alcohol (0-10) mg/dL Discharge Plan Discharge Patient Disposition: Admitted As Inpatient Admit Provider: Carl Hobson Clinical Impression: Closed fracture of right clavicle, Fall Bimalleolar fracture of right ankle Qualifiers: Encounter type: initial encounter Fracture type: closed Qualified Code(s): S82.841A - Displaced bimalleolar fracture of right lower leg, initial encounter for closed fracture Closed fracture of glenoid cavity of right scapula Qualifiers: Encounter type: initial encounter Fracture alignment: nondisplaced Qualified Code(s): S42.144A - Nondisplaced fracture of glenoid cavity of scapula, right shoulder, initial encounter for closed fracture Closed displaced fracture of right acromial process Qualifiers: Encounter type: initial encounter Qualified Code(s): S42.121A - Displaced fracture of acromial process, right shoulder, initial encounter for closed fracture Condition: Stable Referrals: Corbin,Glennette R, Y[facility] ASSOCIATE-C [Primary Care Provider] - Sera New MD [Physician] - 2 weeks Discharge Activity: Limit activity as instructed, Wheelchair as instructed and As per PT/OT instructions Additional Instructions: Nonweightbearing right upper extremity and right lower extremity. Elevate right lower extremity above the level of your heart. Ice to right lower extremity. Maintain splint in place. Discharge Date/Time: 01/10/20 21:43 Coding Level of Care Code ED Licensed Nursing Assistant for Chg Fwd Exam Comprehensive Documented by User: Rand Lyons 01/10/20 23:27 HPI - Fall General: Chief Complaint: Fall Stated Complaint: FALL, R HIP R SHOULDER PAIN Time Seen by Provider: 01/10/20 16:09 PFSH ED PFSH: Medical History Anxiety disorder BPH (benign prostatic hyperplasia) Chronic arthritis Chronic insomnia Controlled diabetes mellitus Dyslipidemia Essential (primary) hypertension GERD (gastroesophageal reflux disease) History of MRSA infection Incomplete emptying of bladder Lower urinary tract symptoms (LUTS) Suicidal ideation Superficial laceration of skin Vitamin D deficiency Surgical History History of hip surgery right History of inguinal herniorrhaphy right History of vasectomy Family History Grandmother Diabetes Father CAD (coronary artery disease) Denies family history of Bleeding disorder Social History Smoking and tobacco status: former smoker Second hand smoke exposure: No Smoking risk assessment/counseling performed?: No Alcohol intake: never Desire information about alcohol rehabilitation?: No Counseling given: No Desire information about substance/drug rehabilitation?: No Counseling given: No Adopted: No Lives independently: Yes Household members: other Housing: House Marital status: Single service: No Current occupational status: disabled History of recent travel: No Current gender identity: Male Course Vital Signs: Vital signs: Vital Signs Temperature 99.4 F 01/15/20 15:39 Pulse Rate 88 01/15/20 15:39 Respiratory Rate 15 01/15/20 15:39 Blood Pressure 77/48 01/15/20 15:39 Pulse Oximetry 92 01/15/20 15:39 MDM - Fall MDM Narrative: Medical decision making narrative: Patient CT scans were reviewed with Dr. Hobson and Dr. Carrera. Dr. Carrera does not believe a consult is necessary but is available if needed. Patient has intractable pain. CT scans and fractures were reviewed with Dr. Pichardo as well. She will consult. Patient be admitted for pain control and for definitive fixation of his ankle. For CTs and other imaging prior to my arrival please see Dr. Ramos's note. Lab Data: Attestation: I reviewed the patient's lab results. Labs: Lab Results 01/10/20 01/10/20 01/10/20 Range/Units 16:39 16:39 16:39 WBC 4.2 (4.0-10.0) 10^3/ uL RBC 4.07 L (4.1-5.3) 10^6/u L Hgb 11.5 L (11.7-16.6) g/dL Hct 36.1 L (42.0-52.0) % MCV 88.7 (80-94) fL MCH 28.3 (28.0-34.0) pg MCHC 31.9 (30.0-36.0) g/dL RDW 14.1 (12.1-15.1) % Plt Count 152 (130-400) 10^3/c mm MPV 9.7 (7.4-10.4) fL Neut % (Auto) 48.3 % Lymph % (Auto) 41.1 % [place] % (Auto) 7.4 % Eos % (Auto) 1.7 % Baso % (Auto) 0.5 % Neut # (Auto) 2.04 (1.8-7.7) 10^3/u L Lymph # (Auto) 1.7 (0.8-4.8) 10^3/u L [place] # (Auto) 0.3 (0.2-0.9) 10^3/u L Eos # (Auto) 0.1 (0.0-0.8) 10^3/u L Baso # (Auto) 0.0 (0.0-0.1) 10^3/u L Nucleated RBC % (a uto) 0 % Nucleated RBCs # 0.0 /100WBC Sodium 134 L (136-145) mmol/L Potassium 4.2 (3.5-5.1) mmol/L Chloride 96 L (98-107) mmol/L Carbon Dioxide 25 (22-29) mmol/L Anion Gap 17.2 (5-19) BUN 8 (8-23) mg/dL Creatinine 0.7 (0.7-1.2) mg/dL GFR Calculation 114.3 (90-130) mL/min Glucose 105 (65-115) mg/dL Calculated Osmolal ity 277 L (285-295) mOsm/k g Calcium 9.5 (8.5-10.5) mg/dL Total Bilirubin 0.2 (0.15-1.2) mg/dL AST 13 (0-40) U/L ALT 7 (0-41) U/L Alkaline Phosphata se 49 (40-130) IU/L Creatine Kinase (39-308) U/L Total Protein 6.1 L (6.6-8.7) g/dL Albumin 3.5 (3.5-5.2) g/dL Globulin 2.6 (1.3-4.6) g/dL TSH 1.75 (0.27-4.20) uIU/ mL Ethyl Alcohol 11 H (0-10) mg/dL 01/10/20 Range/Units 16:39 WBC (4.0-10.0) 10^3/ uL RBC (4.1-5.3) 10^6/u L Hgb (11.7-16.6) g/dL Hct (42.0-52.0) % MCV (80-94) fL MCH (28.0-34.0) pg MCHC (30.0-36.0) g/dL RDW (12.1-15.1) % Plt Count (130-400) 10^3/c mm MPV (7.4-10.4) fL Neut % (Auto) % Lymph % (Auto) % [place] % (Auto) % Eos % (Auto) % Baso % (Auto) % Neut # (Auto) (1.8-7.7) 10^3/u L Lymph # (Auto) (0.8-4.8) 10^3/u L [place] # (Auto) (0.2-0.9) 10^3/u L Eos # (Auto) (0.0-0.8) 10^3/u L Baso # (Auto) (0.0-0.1) 10^3/u L Nucleated RBC % (a uto) % Nucleated RBCs # /100WBC Sodium (136-145) mmol/L Potassium (3.5-5.1) mmol/L Chloride (98-107) mmol/L Carbon Dioxide (22-29) mmol/L Anion Gap (5-19) BUN (8-23) mg/dL Creatinine (0.7-1.2) mg/dL GFR Calculation (90-130) mL/min Glucose (65-115) mg/dL Calculated Osmolal ity (285-295) mOsm/k g Calcium (8.5-10.5) mg/dL Total Bilirubin (0.15-1.2) mg/dL AST (0-40) U/L ALT (0-41) U/L Alkaline Phosphata se (40-130) IU/L Creatine Kinase 79 (39-308) U/L Total Protein (6.6-8.7) g/dL Albumin (3.5-5.2) g/dL Globulin (1.3-4.6) g/dL TSH (0.27-4.20) uIU/ mL Ethyl Alcohol (0-10) mg/dL Imaging Data^: CT Abd/Pel: Radiologist's impression: [address] [address] [address] Scan Report Signed Patient: Randy German Unit #: [id number] : 1955 Age/Sex: 64 / M ADM Date: 01/10/20 Loc: ER Room/Bed: Attending Dr: Ordering Provider/Ordering MD: Rand Lyons DO Date of Service: 01/10/20 Procedure(s): CT chest abd pel w con* Accession Number(s): [id number] Report Number: [id number] PROCEDURE INFORMATION: Exam: CT Chest With Contrast Exam date and time: 01/10/2020 6:54 PM Age: 64 years old Clinical indication: Abdominal pain; Chest pain; Patient HX: Trauma, fell down stairs, best images possible, PT unable to raise arms TECHNIQUE: Imaging protocol: Computed tomography of the chest with intravenous contrast. Sagittal and coronal reformatted images were created and reviewed. Radiation optimization: All CT scans at this facility use at least one of these dose optimization techniques: automated exposure control; mA and/or kV adjustment per patient size (includes targeted exams where dose is matched to clinical indication); or iterative reconstruction. Contrast material: [id number]; Contrast volume: 95 ml; Contrast route: INTRAVENOUS (IV); COMPARISON: CT abdomen pelvis w con* [id number] 07/18/2019 2:46 PM RADIATION DOSE METRICS: Total DLP (mGy-cm): 2519.83 FINDINGS: Thyroid: Noncalcified nodules in both thyroid lobes, the larger is on the right and measures 1.5 cm (series 2, image 6). Lungs: Tracheobronchial structures are patent. There are three noncalcified nodules in the right right lung (series 4, images 20, 29, and 47). The largest nodule has an average measurement of 1.4 cm (series 4, image 29). No focal consolidation. No pulmonary edema. Dependent atelectasis in the lungs bilaterally. Pleural space: No pleural effusion. No pneumothorax. Heart: Mild enlargement of the heart. Mild atherosclerotic calcification in the coronary arteries. Mediastinal space: No mediastinal hematoma. No pneumomediastinum. Pulmonary arteries: Pulmonary arteries are unremarkable. Aorta: No evidence for aortic aneurysm or aortic dissection. Great vessels off aortic arch: No extravasation of contrast from the thoracic vessels. Other arteries: The pulmonary arteries are unremarkable. Veins: Pulmonary veins are unremarkable. Lymph nodes: Calcified mediastinal and right hilar lymph nodes. No lymphadenopathy. Bones/joints: Bones are diffusely osteopenic. Marked degenerative changes at the visualized right shoulder and mild degenerative change at the visualized left shoulder. There is a partially visualized, mildly displaced fracture of the the base of the right acromion/right scapular spine. There is a partially visualized, nondisplaced fracture of the posterior right glenoid. Multiple old right-sided rib fractures. Multilevel degenerative changes of varying severity in the visualized spine. Mild scoliosis in the visualized spine. Age indeterminate, mild compression deformity of T5. Soft tissues: No acute abnormality in the extrathoracic soft tissues. IMPRESSION: 1. There is a partially visualized, mildly displaced fracture of the the base of the right acromion/right scapular spine. 2. There is a partially visualized, nondisplaced fracture of the posterior right glenoid. 3. Age indeterminate, mild compression deformity of T5. Recommend correlation with symptoms of pain in this area. 4. Three noncalcified nodules with in the right lung. For patients at low risk (minimal or absent history of smoking and of other known risk factors), recommend CT Chest at 3-6 months, then consider CT Chest at 18-24 months. For patients at high risk (history of smoking or of other known risk factors), recommend CT Chest at 3-6 months, then CT Chest at 18-24 months. (Reference: Jean) References: Jean Moreno, et al. Guidelines for Management of Incidental Pulmonary Nodules Detected on CT Images: From the Fleischner Society 2017. Radiology. 2017;284(1):228-243. Low-density nodules in the thyroid gland. Recommend follow-up thyroid ultrasound. 5. Dependent atelectasis in the lungs bilaterally. 6. Incidental/nonacute findings are listed in the report. COMMENTS: Consistent with the [employer]'s Incidental Findings Committee white paper (J Am Jae Radiol 2015): In patients aged 35 years and older with an incidental thyroid nodule equal to or greater than 1.[address], MRI or extrathyroidal US, further evaluation with dedicated thyroid US is recommended for patients with normal life expectancy and without comorbidities. For smaller nodules without suspicious features, no further evaluation or follow up is recommended. PROCEDURE INFORMATION: Exam: CT Abdomen And Pelvis With Contrast Exam date and time: 01/10/2020 6:54 PM Age: 64 years old Clinical indication: Abdominal pain; Chest pain; Patient HX: Trauma, fell down stairs, best images possible, PT unable to raise arms TECHNIQUE: Imaging protocol: Computed tomography of the abdomen and pelvis with intravenous contrast. Sagittal and coronal reformatted images were created and reviewed. Radiation optimization: All CT scans at this facility use at least one of these dose optimization techniques: automated exposure control; mA and/or kV adjustment per patient size (includes targeted exams where dose is matched to clinical indication); or iterative reconstruction. Contrast material: [id number]; Contrast volume: 95 ml; Contrast route: INTRAVENOUS (IV); COMPARISON: CT abdomen pelvis w con* [id number] 07/18/2019 2:46 PM RADIATION DOSE METRICS: Total DLP (mGy-cm): 2519.83 FINDINGS: Limitations: Streak artifact from the patient's arms which can limit evaluation. Liver: The liver is unremarkable. Gallbladder and bile ducts: The gallbladder is unremarkable. No biliary ductal dilatation. Pancreas: The pancreas is unremarkable. No pancreatic ductal dilatation. Spleen: The spleen is unremarkable. Small splenule in the left upper quadrant. Adrenals: The right and left adrenal glands are unremarkable. Kidneys and ureters: The right and left kidneys are unremarkable. The right and left ureters are unremarkable. Stomach and bowel: Ingested contents in the stomach. Appendix: Appendix not definitely visualized. No inflammatory changes in the pericecal region however. Intraperitoneal space: No extravasation of contrast from the abdominopelvic vessels. Vasculature: Mild atherosclerotic changes in the visualized arteries. No evidence for aortic aneurysm or aortic dissection. Lymph nodes: No lymphadenopathy. Urinary bladder: Unremarkable as visualized. Reproductive: Unremarkable as visualized. Bones/joints: Stable deformities of the right iliac wing and right and left inferior pubic rami consistent with old, healed fractures. Serpinginous area of sclerosis in the left femoral head consistent with avascular necrosis. There are 2 small avulsed bone fragments from the right iliac wing (series 3, images 52-56). Multilevel degenerative changes of varying severity in the visualized spine. Mild degenerative change at the left hip. Stable postsurgical changes consistent with a right hip arthroplasty. Lucency around the proximal femoral component with associated cerclage wires are unchanged. Soft tissues: Small, fat-containing umbilical hernia. No evidence for strangulation. There is an intramuscular hematoma in the upper right gluteus medius muscle with overlying subcutaneous contusion/small subcutaneous hematoma. The subcutaneous hematoma measures 3.1 x 1.6 cm (series 3, image 59). CT/CT chest abd pel w con* IMPRESSION: 1. There are 2 small avulsed bone fragments from the right iliac wing (series 3, images 52-56). 2. There is an intramuscular hematoma in the upper right gluteus medius muscle with overlying subcutaneous contusion/small subcutaneous hematoma. No evidence for active bleeding. 3. 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 4. Stable postsurgical changes consistent with a right hip arthroplasty. Lucency around the proximal femoral component with associated cerclage wires are unchanged. 5. Incidental/nonacute findings are listed in the report. Radiation Dose CTDIVOL = (mGy): DLP = 2519.83 2519.83 (mGy-cm) Dictated By: Liza Jeong MD Signed By: Liza Jeong MD Signed Date/Time: 01/10/202004 DD/ 04 Discharge Plan Discharge Patient Disposition: Admitted As Inpatient Admit Provider: Carl Hobson Clinical Impression: Closed fracture of right clavicle, Fall Bimalleolar fracture of right ankle Qualifiers: Encounter type: initial encounter Fracture type: closed Qualified Code(s): S82.841A - Displaced bimalleolar fracture of right lower leg, initial encounter for closed fracture Closed fracture of glenoid cavity of right scapula Qualifiers: Encounter type: initial encounter Fracture alignment: nondisplaced Qualified Code(s): S42.144A - Nondisplaced fracture of glenoid cavity of scapula, right shoulder, initial encounter for closed fracture Closed displaced fracture of right acromial process Qualifiers: Encounter type: initial encounter Qualified Code(s): S42.121A - Displaced fracture of acromial process, right shoulder, initial encounter for closed fracture Condition: Stable Referrals: Adela Alaniz, Y[facility] ASSOCIATE-C [Primary Care Provider] - Sera New MD [Physician] - 2 weeks Discharge Activity: Limit activity as instructed, Wheelchair as instructed and As per PT/OT instructions Additional Instructions: Nonweightbearing right upper extremity and right lower extremity. Elevate right lower extremity above the level of your heart. Ice to right lower extremity. Maintain splint in place. Discharge Date/Time: 01/10/20 21:43 Coding Level of Care Code ED Licensed Nursing Assistant for g Fwd Exam Comprehensive
[2020-01-10 16:52] LABS: Basophils % 0.5 %; Eosinophils # 0.1 10^3/uL (0.0-0.8); Eosinophils % 1.7 %; Hematocrit 36.1 % (42.0-52.0); Hemoglobin 11.5 g/dL (11.7-16.6); Lymphocytes # 1.7 10^3/uL (0.8-4.8); Lymphocytes % 41.1 %; Mean Corpuscular HGB Conc 31.9 g/dL (30.0-36.0); Mean Corpuscular Hemoglobin 28.3 pg (28.0-34.0); Mean Corpuscular Volume 88.7 fL (80-94); Mean Platelet Volume 9.7 fL (7.4-10.4); Monocytes # 0.3 10^3/uL (0.2-0.9); Monocytes % 7.4 %; Neutrophils # 2.04 10^3/uL (1.8-7.7); Neutrophils % 48.3 %; Nucleated Red Blood Cells % 0 %; Platelet Count 152 10^3/cmm (130-400); Red Blood Count 4.07 10^6/uL (4.1-5.3); Red Cell Distribution Width 14.1 % (12.1-15.1); White Blood Count 4.2 10^3/uL (4.0-10.0)
--- NOTE | 2020-01-10 16:56 | XR_ITS ---
WS: [id number] XR hip RT 2-3V wo/w pel* [id number] REASON FOR EXAM: r hip pain FINDINGS: The total left hip arthroplasty has been revised since the last plain film examination of 06/15/2018. More recent CT scans of the abdomen and pelvis include this region however the metallic artifact cody es evaluation difficult. There is protrusion of the acetabular portion of the left hip arthroplasty into the pelvis. This was seen and appears unchanged compared to 06/15/2018. The proximal femur in relation to the femoral post shows extensive fragmentation some of which have b ecome ossified into the bony mass contiguous with the proximal femur. There are multiple wire fixatio n loops which all appear intact. There is some lucency along the proximal most lateral aspect of the femoral post. Along the medial side of the proximal portion of the femoral post does not appear to pimentel ve bony support. The femoral post extends deeply into the femoral shaft and below the last wire suppo rt lube there is a fracture of the femur laterally. Likely this is healed. There is an old healed fracture of the right inferior and superior pubic ramus. XR/XR hip RT 2-3V wo/w pel* [id number] IMPRESSION: Complicated right total hip arthroplasty with extensive chronic changes as connie e.
[2020-01-10 17:05] LABS: Alanine Aminotransferase 7 U/L (0-41); Albumin Level 3.5 g/dL (3.5-5.2); Alcohol Level 11 mg/dL (0-10); Alkaline Phosphatase 49 IU/L (40-130); Anion Gap 17.2 (5-19); Aspartate Amino Transferase 13 U/L (0-40); Blood Urea Nitrogen 8 mg/dL (8-23); Calcium 9.5 mg/dL (8.5-10.5); Carbon Dioxide 25 mmol/L (22-29); Chloride 96 mmol/L (98-107); Globulin 2.6 g/dL (1.3-4.6); Glomerular Filtration Rate 114.3 mL/min (90-130); Glucose 105 mg/dL (65-115); Osmolality Calculated 277 mOsm/kg (285-295); Potassium 4.2 mmol/L (3.5-5.1); Sodium 134 mmol/L (136-145); Total Bilirubin 0.2 mg/dL (0.15-1.2); Total Protein 6.1 g/dL (6.6-8.7)
[2020-01-10] MEDS: HYDROmorphone 1 mg/mL INJ 1 mL IVP ×2 (18:10→21:36)
--- NOTE | 2020-01-10 18:31 | CTR_ITS ---
PROCEDURE INFORMATION: Exam: CT Chest With Contrast Exam date and time: 01/10/2020 6:54 PM Age: 64 years old Clinical indication: Abdominal pain; Chest pain; Patient HX: Trauma, fell down stairs, best images possible, PT unable to raise arms TECHNIQUE: Imaging protocol: Computed tomography of the chest with intravenous contrast. Sagittal and coronal reformatted images were created and reviewed. Radiation optimization: All CT scans at this facility use at least one of these dose optimization techniques: automated exposure control; mA and/or kV adjustment per patient size (includes targeted exams where dose is matched to clinical indication); or iterative reconstruction. Contrast material: [id number]; Contrast volume: 95 ml; Contrast route: INTRAVENOUS (IV); COMPARISON: CT abdomen pelvis w con* [id number] 07/18/2019 2:46 PM RADIATION DOSE METRICS: Total DLP (mGy-cm): 2519.83 FINDINGS: Thyroid: Noncalcified nodules in both thyroid lobes, the larger is on the right and measures 1.5 cm (series 2, image 6). Lungs: Tracheobronchial structures are patent. There are three noncalcified nodules in the right right lung (series 4, images 20, 29, and 47). The largest nodule has an average measurement of 1.4 cm (series 4, image 29). No focal consolidation. No pulmonary edema. Dependent atelectasis in the lungs bilaterally. Pleural space: No pleural effusion. No pneumothorax. Heart: Mild enlargement of the heart. Mild atherosclerotic calcification in the coronary arteries. Mediastinal space: No mediastinal hematoma. No pneumomediastinum. Pulmonary arteries: Pulmonary arteries are unremarkable. Aorta: No evidence for aortic aneurysm or aortic dissection. Great vessels off aortic arch: No extravasation of contrast from the thoracic vessels. Other arteries: The pulmonary arteries are unremarkable. Veins: Pulmonary veins are unremarkable. Lymph nodes: Calcified mediastinal and right hilar lymph nodes. No lymphadenopathy. Bones/joints: Bones are diffusely osteopenic. Marked degenerative changes at the visualized right shoulder and mild degenerative change at the visualized left shoulder. There is a partially visualized, mildly displaced fracture of the the base of the right acromion/right scapular spine. There is a partially visualized, nondisplaced fracture of the posterior right glenoid. Multiple old right-sided rib fractures. Multilevel degenerative changes of varying severity in the visualized spine. Mild scoliosis in the visualized spine. Age indeterminate, mild compression deformity of T5. Soft tissues: No acute abnormality in the extrathoracic soft tissues. IMPRESSION: 1. There is a partially visualized, mildly displaced fracture of the the base of the right acromion/right scapular spine. 2. There is a partially visualized, nondisplaced fracture of the posterior right glenoid. 3. Age indeterminate, mild compression deformity of T5. Recommend correlation with symptoms of pain in this area. 4. Three noncalcified nodules with in the right lung. For patients at low risk (minimal or absent history of smoking and of other known risk factors), recommend CT Chest at 3-6 months, then consider CT Chest at 18-24 months. For patients at high risk (history of smoking or of other known risk factors), recommend CT Chest at 3-6 months, then CT Chest at 18-24 months. (Reference: Jean) References: Jean Moreno et al. Guidelines for Management of Incidental Pulmonary Nodules Detected on CT Images: From the Fleischner Society 2017. Radiology. 2017;284(1):228-243. Low-density nodules in the thyroid gland. Recommend follow-up thyroid ultrasound. 5. Dependent atelectasis in the lungs bilaterally. 6. Incidental/nonacute findings are listed in the report. COMMENTS: Consistent with the [employer]'s Incidental Findings Committee white paper (J Am Jae Radiol 2015): In patients aged 35 years and older with an incidental thyroid nodule equal to or greater than 1.[address], MRI or extrathyroidal US, further evaluation with dedicated thyroid US is recommended for patients with normal life expectancy and without comorbidities. For smaller nodules without suspicious features, no further evaluation or follow up is recommended. PROCEDURE INFORMATION: Exam: CT Abdomen And Pelvis With Contrast Exam date and time: 01/10/2020 6:54 PM Age: 64 years old Clinical indication: Abdominal pain; Chest pain; Patient HX: Trauma, fell down stairs, best images possible, PT unable to raise arms TECHNIQUE: Imaging protocol: Computed tomography of the abdomen and pelvis with intravenous contrast. Sagittal and coronal reformatted images were created and reviewed. Radiation optimization: All CT scans at this facility use at least one of these dose optimization techniques: automated exposure control; mA and/or kV adjustment per patient size (includes targeted exams where dose is matched to clinical indication); or iterative reconstruction. Contrast material: [id number]; Contrast volume: 95 ml; Contrast route: INTRAVENOUS (IV); COMPARISON: CT abdomen pelvis w con* [id number] 07/18/2019 2:46 PM RADIATION DOSE METRICS: Total DLP (mGy-cm): 2519.83 FINDINGS: Limitations: Streak artifact from the patient's arms which can limit evaluation. Liver: The liver is unremarkable. Gallbladder and bile ducts: The gallbladder is unremarkable. No biliary ductal dilatation. Pancreas: The pancreas is unremarkable. No pancreatic ductal dilatation. Spleen: The spleen is unremarkable. Small splenule in the left upper quadrant. Adrenals: The right and left adrenal glands are unremarkable. Kidneys and ureters: The right and left kidneys are unremarkable. The right and left ureters are unremarkable. Stomach and bowel: Ingested contents in the stomach. Appendix: Appendix not definitely visualized. No inflammatory changes in the pericecal region however. Intraperitoneal space: No extravasation of contrast from the abdominopelvic vessels. Vasculature: Mild atherosclerotic changes in the visualized arteries. No evidence for aortic aneurysm or aortic dissection. Lymph nodes: No lymphadenopathy. Urinary bladder: Unremarkable as visualized. Reproductive: Unremarkable as visualized. Bones/joints: Stable deformities of the right iliac wing and right and left inferior pubic rami consistent with old, healed fractures. Serpinginous area of sclerosis in the left femoral head consistent with avascular necrosis. There are 2 small avulsed bone fragments from the right iliac wing (series 3, images 52-56). Multilevel degenerative changes of varying severity in the visualized spine. Mild degenerative change at the left hip. Stable postsurgical changes consistent with a right hip arthroplasty. Lucency around the proximal femoral component with associated cerclage wires are unchanged. Soft tissues: Small, fat-containing umbilical hernia. No evidence for strangulation. There is an intramuscular hematoma in the upper right gluteus medius muscle with overlying subcutaneous contusion/small subcutaneous hematoma. The subcutaneous hematoma measures 3.1 x 1.6 cm (series 3, image 59). CT/CT chest abd pel w con* IMPRESSION: 1. There are 2 small avulsed bone fragments from the right iliac wing (series 3, images 52-56). 2. There is an intramuscular hematoma in the upper right gluteus medius muscle with overlying subcutaneous contusion/small subcutaneous hematoma. No evidence for active bleeding. 3. 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 4. Stable postsurgical changes consistent with a right hip arthroplasty. Lucency around the proximal femoral component with associated cerclage wires are unchanged. 5. Incidental/nonacute findings are listed in the report. Radiation Dose CTDIVOL = (mGy): DLP = 2519.83~2519.83 (mGy-cm)
--- NOTE | 2020-01-10 18:35 | CTR_ITS ---
PROCEDURE INFORMATION: Exam: CT Right Upper Extremity Without Contrast, Shoulder Exam date and time: 01/10/2020 6:54 PM Age: 64 years old Clinical indication: Patient HX: Fall down stairs, right shoulder pain, PT shaking uncontrolably; Additional info: Injury TECHNIQUE: Imaging protocol: CT of the Right upper extremity without contrast was performed. Exam focused on the shoulder. Sagittal and coronal reformatted images were created and reviewed. Radiation optimization: All CT scans at this facility use at least one of these dose optimization techniques: automated exposure control; mA and/or kV adjustment per patient size (includes targeted exams where dose is matched to clinical indication); or iterative reconstruction. COMPARISON: No relevant prior studies available. RADIATION DOSE METRICS: Total DLP (mGy-cm): 2445.57 FINDINGS: Bones/joints: Large right shoulder joint effusion. Superior subluxation of the right humeral head. There is also moderate atrophy of the right supraspinatus and infraspinatus muscles, findings suggest a chronic right rotator cuff tear. Multilevel degenerative changes of varying severity in the visualized spine. Mild scoliosis in the visualized spine. There is a mildly comminuted and displaced acute fracture of the base of the right acromion extending medially to the lateral aspect of the right scapular spine. Large osteophytes, subchondral sclerosis, and subchondral cyst formation at the glenoid and at the right humeral head. Moderate hypertrophic changes at the right acromioclavicular joint. There is a flattened appearance of the medial aspect of the right humeral head with multiple small subchondral bone fragments, findings suggest a chronic osteochondral fracture. Linear lucencies with sclerotic border at the posterior aspect of the glenoid and at the distal right clavicle, suggesting subacute/chronic fractures. Soft tissues: No radiopaque foreign body. Small amount of hemorrhage around the acromion. Lymph nodes: No lymphadenopathy. Lungs: There is a noncalcified nodule in the right upper lobe. Dependent atelectasis in the right lung. CT/CT shoulder RT wo con* [id number] IMPRESSION: 1. There is a mildly comminuted and displaced acute fracture of the base of the right acromion extending medially to the lateral aspect of the right scapular spine. Small amount of hemorrhage around the acromion. 2. There is a flattened appearance of the medial aspect of the right humeral head with multiple small subchondral bone fragments, findings suggest a chronic osteochondral fracture. 3. Linear lucencies with sclerotic border at the posterior aspect of the glenoid and at the distal right clavicle, suggesting subacute/chronic fractures. 4. Marked degenerative change at the right glenohumeral joint and moderate degenerative change at the right acromioclavicular joint. 5. Large right shoulder joint effusion. 6. Superior subluxation of the right humeral head. There is also moderate atrophy of the right supraspinatus and infraspinatus muscles, findings suggest a chronic right rotator cuff tear. 7. There is a noncalcified nodule in the right upper lobe. CT scan of the chest dated 01/10/2020 also show 2 additional nodules in the right lung. Please refer to dictation for CT scan of the chest for full description and recommendations. 8. Incidental/nonacute findings are listed in the report. Radiation Dose CTDIVOL = (mGy): DLP = 2445.57 (mGy-cm)
[2020-01-10] MEDS: sodium chloride 0.9% 1,000 ML 999 ML IV (18:36)
[2020-01-10] MEDS: iohexol 300 mg/mL 100 mL Btl IV (19:12)
[2020-01-10] MEDS: sodium chloride 0.9% 1,000 ML 100 ML IV (19:34)
[2020-01-10 21:05] LABS: SARS Covid-2 Antigen Negative (Negative)
--- NOTE | 2020-01-10 21:39 | P.HP_ITS ---
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 Patient states that he had a mechanical fall and fell down 15 steps, he has pain over his back, pain over his gluteus, left ankle pain, right shoulder pain. Denies headaches, blurry vision, nausea, vomiting, denies loss of consciousness. Denies any seizure-like activities. Denies any preceding lightheadedness, dizziness, chest pain, shortness of breath. Denies any fevers, chills exposure to COVID-19. Review of Systems Const: Denies: fever(s), chills, fatigue or malaise Eyes: Denies: change in vision or blurry vision ENMT: Denies: nasal congestion Resp: Denies: dyspnea, productive cough, non-productive cough or wheezing GI: Denies: abdominal pain, nausea, vomiting, hematemesis, diarrhea, constipation, hematochezia or melena : Denies: flank pain, difficulty urinating, dysuria or urinary frequency Musc: Reports: neck pain, back pain, extremity pain and joint pain Skin/Breast: Denies: rash Neuro: Denies: headache(s), dizziness or vertigo Psych: Denies: anxiety or depression Endo: Denies: polyuria or polydipsia Medications/Allergies Home Medications Medication Instructions Recorded Confirmed Last Taken Type methenamine hippurate 1 gram tablet 1 gm PO BID 05/24/19 01/10/20 07/17/19 History Probiotic 1 cap PO DAILY 05/31/19 01/10/20 07/17/19 History dexamethasone 1 mg PO DAILY 07/19/19 01/10/20 07/18/19 History fluconazole 100 mg tablet 200 mg PO DAILY tab 08/07/19 01/10/20 Unknown History aspirin 81 mg tablet,delayed 81 mg PO DAILY #30 tab 09/16/19 01/10/20 Unknown Rx release insulin syringe-needle U-100 0.5 #100 each 09/16/19 01/10/20 Unknown Rx mL 31 gauge x 16 ascorbic acid (vitamin C) 500 mg 1,000 mg PO DAILY tab 09/25/19 01/10/20 Unknown History tablet,extended release loratadine 10 mg tablet 10 mg PO DAILY 10/10/19 01/10/20 Unknown History doxepin 10 mg capsule 10 mg PO DAILY #30 cap 10/21/19 01/10/20 Unknown Rx fluoxetine 20 mg capsule 20 mg PO QAM #30 cap 10/21/19 01/10/20 Unknown Rx magnesium oxide 400 mg PO BID #60 tab 10/21/19 01/10/20 Unknown Rx trazodone 100 mg tablet 100 mg PO BEDTIME PRN 30 Days #30 10/21/19 01/10/20 Unknown Rx tab gabapentin 300 mg capsule 600 mg PO BID #120 cap 10/23/19 01/10/20 Unknown Rx divalproex 500 mg tablet,delayed 500 mg PO BID #60 tab 10/31/19 01/10/20 Unknown Rx release tamsulosin 0.4 mg capsule 0.4 mg PO BID #60 cap 11/10/19 01/10/20 Unknown Rx blood sugar diagnostic #50 each 12/03/19 01/10/20 Unknown Rx blood-glucose meter #1 each 12/03/19 01/10/20 Unknown Rx lancets 33 gauge #100 each 12/03/19 01/10/20 Unknown Rx insulin glargine 100 unit/mL 25 unit SUBCUT DAILY #10 ml 12/06/19 01/10/20 Unknown Rx subcutaneous solution oxycodone 10 mg tablet 10 mg PO Q8H PRN 30 Days #90 tab 12/28/19 01/10/20 Unknown Rx Allergies Allergy/AdvReac Type Severity Reaction Status Date / Time hydromorphone [From Dilaudid] Allergy ADR-Confusi Verified 01/10/20 11:30 on Penicillins Allergy ALGY-Rash Verified 01/10/20 11:30 codeine AdvReac ADR-Nausea Verified 01/10/20 11:30 PFSH Acute PFSH: Medical History Anxiety disorder BPH (benign prostatic hyperplasia) Chronic arthritis Chronic insomnia Controlled diabetes mellitus Dyslipidemia Essential (primary) hypertension GERD (gastroesophageal reflux disease) History of MRSA infection Incomplete emptying of bladder Lower urinary tract symptoms (LUTS) Suicidal ideation Superficial laceration of skin Vitamin D deficiency Surgical History History of hip surgery right History of inguinal herniorrhaphy right History of vasectomy Family History Grandmother Diabetes Father CAD (coronary artery disease) Denies family history of Bleeding disorder Social History Smoking and tobacco status: former smoker Second hand smoke exposure: No Smoking risk assessment/counseling performed?: No Alcohol intake: never Desire information about alcohol rehabilitation?: No Counseling given: No Desire information about substance/drug rehabilitation?: No Counseling given: No Adopted: No Lives independently: Yes Household members: other Housing: House Marital status: Single service: No Current occupational status: disabled History of recent travel: No Current gender identity: Male Vitals/I&O/Wt Last Vital Signs Temp 98.2 F 01/10/20 16:09 Pulse 82 01/10/20 20:30 Resp 18 01/10/20 20:30 BP 91/58 01/10/20 20:30 Pulse Ox 90 01/10/20 20:30 Weight last 48 hrs Weight 102.058 kg Physical Exam Const: COMMON NORMALS: no acute distress and patient oriented x3 GENERAL APPEARANCE: cooperative and comfortable HENMT: COMMON NORMALS: normocephalic HEAD & SCALP: normocephalic Eye: COMMON NORMALS: Equal, round and reactive pupils present and EOMs intact bilaterally GENERAL EYE: appearance normal, both eyes and all related structures PUPIL: Yes Equal, round and reactive pupils present DIRECT OPHTHALMOSCOPY: Yes no papilledema Neck/C-Spine: COMMON NORMALS: full ROM, no lymphadenopathy, no JVD and Thyroid normal THYROID: Thyroid normal Lymph: LYMPHATIC: no lymphadenopathy noted Resp: COMMON NORMALS: normal respiratory effort, No retractions, No use of accessory muscles and clear to auscultation bilaterally AUSCULTATION: clear to auscultation bilaterally Cardio: COMMON NORMALS: no JVD, regular rate, regular rhythm, S1 normal heart sound present, S2 normal heart sound present, No gallops present (Cardio), No clicks present (Cardio) and No murmurs present (Cardio) RATE: regular rate RHYTHM: regular rhythm HEART SOUNDS: S1 normal heart sound present and S2 normal heart sound present GI: COMMON NORMALS: Normal to inspection, nondistended, normoactive bowel sounds present, Soft to palpation, non-tender and No hepatosplenomegaly present PALPATION: Yes Soft to palpation and Yes No hepatosplenomegaly present Extremity: COMMON NORMALS: normal to inspection and no pedal edema OTHER: Right shoulder and is in a sling, left ankle in an immobilizer Neuro: COMMON NORMALS: patient oriented x3, CN's II-XII intact bilaterally, moves all extremities and no focal motor deficits Psych: COMMON NORMALS: mental status grossly normal, Normal thought process present and cooperative THOUGHT PROCESS: Normal thought process present Data : 01/10/20 16:39 01/10/20 16:39 A&P Assessment and plan (1) Bimalleolar fracture of right ankle: -Orthopedics has been consulted, Dr. New consulted -Pain control with Dilaudid -DVT prophylaxis SCDs, after surgery Lovenox Status: Acute (2) Closed fracture of glenoid cavity of right scapula: -Currently in a sling, medically managed Status: Acute (3) Avascular necrosis of left femoral head: -Incidentally found on CT of the abdomen pelvis -Chronicity unknown -Patient has pain all over, but does have left hip pain with palpation -We will defer further imaging studies and surgical versus medical management up to orthopedic team Status: Acute (4) Closed displaced fracture of right acromial process: Status: Acute (5) Closed fracture of right clavicle: Status: Acute (6) Fall: -With significant trauma, multiple imaging studies any significant findings of internal bleed, continue to monitor Status: Acute (7) Partial epilepsy secondarily generalized: -Continue home Depakote Status: Acute (8) Anxiety disorder: Status: Chronic (9) Abdominal wall hernia: Status: Acute (10) Major depressive disorder: Status: Acute (11) BPH (benign prostatic hyperplasia): Status: Chronic (12) Dyslipidemia: Status: Chronic (13) Essential (primary) hypertension: Status: Chronic (14) Controlled diabetes mellitus: Status: Chronic Qualifiers: Diabetes mellitus type: type 2 Diabetes mellitus group home insulin use: with group home use Additional A&P Information SCDs for DVT prophylaxis PT OT Patient is DNR/DNI, is okay with reversing DNI for surgery Attestations Medical Necessity Statement*: Patient requires hospitalization, inpatient, greater than 2 midnights, for right ankle fracture, right shoulder fracture, avascular necrosis of left femoral head, fall, trauma Coding Level of Care Code 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 [facility] Fwd Diagnoses Bimalleolar fracture of right ankle S82.841A Closed fracture of glenoid cavity of right scapula S42.141A Avascular necrosis of left femoral head M87.052 Closed displaced fracture of right acromial process S42.121A Closed fracture of right clavicle S42.001A Fall W19.XXXA Partial epilepsy secondarily generalized Anxiety disorder F41.9 Abdominal wall hernia K43.9 Major depressive disorder F32.9 BPH (benign prostatic hyperplasia) N40.0 Dyslipidemia E78.5 Essential (primary) hypertension I10 Controlled diabetes mellitus E11.9 Diabetes mellitus type: type 2 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
--- NOTE | 2020-01-10 22:16 | ECG_ITS ---
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 Measurements Intervals [place] Rate: 77 P: MD: -1 QRS: -46 QRSD: 144 T: 16 QT: 353 QTc: 402 Interpretive Statements Sinus rhythm with a frequent PVCs RIGHT BUNDLE BRANCH BLOCK [120+ ms QRS DURATION, UPRIGHT V1, 40+ ms S IN I/aVL/V4/V5/V6] LEFT ANTERIOR FASCICULAR BLOCK [QRS AXIS <= -45, QR IN I, RS IN II] Compared to ECG 07/18/2019 23:18:59 Sinus rhythm no longer present Electronically Signed On 01-11-2020 21:35:33 CDT by Mary Grimm M.D. [id number]
[2020-01-10 22:34] LABS: Glucose Point of Care 115 mg/dL (70-110)
[2020-01-10 22:38] LABS: Creatine Phosphokinase 79 U/L (39-308)
[2020-01-10 22:48] LABS: Thyroid Stimulating Hormone 1.75 uIU/mL (0.27-4.20)
[2020-01-11] VITALS (17 sets, daily range): BP systolic 96–116; BP diastolic 60–70; PULSE 63–87; RESP 16–24; TEMP 37–37.6; O2SAT 84–96
[2020-01-11] MEDS: dextrose 5%-sod chloride 0.45% 1,000 ML 75 ML IV ×2 (00:55→17:33)
[2020-01-11] MEDS: tetanus-dipt-pertussis 0.5 mL SDV IM (01:00)
[2020-01-11] MEDS: morphine 4 mg/mL SDV 1 mL IVP ×2 (01:05→05:49)
[2020-01-11] MEDS: HYDROmorphone 1 mg/mL INJ 1 mL 0.5 MG IVP ×2 (04:05→08:27)
[2020-01-11 05:41] LABS: Basophils % 0.4 %; Eosinophils # 0.1 10^3/uL (0.0-0.8); Eosinophils % 1.5 %; Hemoglobin 10.9 g/dL (11.7-16.6); Lymphocytes % 13.8 %; Mean Corpuscular HGB Conc 32.1 g/dL (30.0-36.0); Mean Corpuscular Hemoglobin 28.1 pg (28.0-34.0); Mean Corpuscular Volume 87.6 fL (80-94); Mean Platelet Volume 10.7 fL (7.4-10.4); Monocytes # 0.7 10^3/uL (0.2-0.9); Monocytes % 9.6 %; Neutrophils # 5.43 10^3/uL (1.8-7.7); Neutrophils % 74.4 %; Nucleated Red Blood Cells % 0 %; Platelet Count 138 10^3/cmm (130-400); Red Blood Count 3.88 10^6/uL (4.1-5.3); Red Cell Distribution Width 14.5 % (12.1-15.1); White Blood Count 7.3 10^3/uL (4.0-10.0)
[2020-01-11 06:28] LABS: Alanine Aminotransferase 7 U/L (0-41); Alkaline Phosphatase 48 IU/L (40-130); Aspartate Amino Transferase 13 U/L (0-40); Blood Urea Nitrogen 11 mg/dL (8-23); Calcium 9.1 mg/dL (8.5-10.5); Carbon Dioxide 24 mmol/L (22-29); Chloride 99 mmol/L (98-107); Globulin 2.7 g/dL (1.3-4.6); Glucose 134 mg/dL (65-115); Magnesium 1.7 mg/dL (1.7-2.3); Osmolality Calculated 281 mOsm/kg (285-295); Phosphorus 4.3 mg/dL (2.5-4.5); Sodium 135 mmol/L (136-145); Total Bilirubin 0.3 mg/dL (0.15-1.2); Total Protein 5.7 g/dL (6.6-8.7)
[2020-01-11 06:33] LABS: Glucose Point of Care 141 mg/dL (70-110)
[2020-01-11] MEDS: phenol oral Spray 177 mL 2 SPRAY MUCOUS MEM ×2 (06:35→12:57)
[2020-01-11 06:37] LABS: Chol HDL Ratio 4.03 mg/dL (1.0-5.00); Cholesterol 125 mg/dL (0-200); HDL Cholesterol 31 mg/dL (60-100); LDL Cholesterol Calculated 62 mg/dL (50-129); Triglycerides 160 mg/dL (0-150)
[2020-01-11 06:51] LABS: Estmated Average Glucose 120; Hemoglobin A1C 5.8 % (4.0-6.0)
[2020-01-11 07:34] LABS: Add Urine Microscopic? NO
[2020-01-11 07:48] LABS: Bilirubin Urine Neg (Negative); Blood Urine Neg (Negative); Glucose Urine UA Norm (Normal); Ketones Urine Negative (Negative); Leukocyte Esterase Urine Negative (Negative); Nitrate Urine Negative (Negative); Protein Urine Neg (Negative); Specific Gravity, Urine 1.005 (1.005-1.030); Urine Appearance Clear (CLEAR); Urine Color Yellow (Yellow); Urobilinogen Urine Norm (Negative); pH Urine 7 (5-7)
[2020-01-11] MEDS: ascorbic acid 500 mg Tablet 1000 MG PO (08:22)
[2020-01-11] MEDS: tamsulosin 0.4 mg Capsule PO ×2 (08:22→17:30)
[2020-01-11] MEDS: gabapentin 300 mg Capsule 600 MG PO ×2 (08:22→17:30)
[2020-01-11] MEDS: divalproex DR 500 mg Tablet PO ×2 (08:22→17:30)
[2020-01-11] MEDS: magnesium oxide 400 mg tablet PO ×2 (08:22→17:30)
--- NOTE | 2020-01-11 09:59 | CT_ITS ---
WS: [id number] NONCONTRAST CT OF THE RIGHT ANKLE WITH CORONAL AND SAGITTAL REFORMATTED IMAGES. TECHNIQUE: Noncontrast CT right ankle with coronal and sagittal reformatted images. CLINICAL INFORMATION: pain COMPARISON: None. DLP: 177.[address] scans at use at least one of these dose optimization techniques: automat ed exposure control; mA and/or kV adjustment per patient size (includes targeted exams where dose is matched to clinical indication); or iterative reconstruction. FINDINGS: Comminuted fracture involving the medial malleolus. Fracture extends into the articular surface of th e tibial plafond. Minimal displacement of the medial malleolar fracture. Additional nondisplaced frac ture involving the distal fibula. Additional nondisplaced fracture involving the tip of the lateral m alleolus. Talar dome appears normal. Normal appearing calcaneus. Navicular and visualized tarsal bones appear n ormal. Hypertrophic spurring along the dorsal navicular. Normal-appearing calcaneus. Diffuse osteopenia. Soft tissue edema lower leg and ankle. Vascular calcification. CT/CT ankle RT wo con* [id number] IMPRESSION: 1. Comminuted fractures involving the medial malleolus. Fracture extends into the articular surface of the tibial plafond. Minimal displacement. 2. Nondisplaced fracture involving the distal fibula best seen on the coronal imaging. Additional tiny nondisplaced fracture involving the tip of the lateral malleolus. 3. Normal talar dome. 4. Diffuse soft tissue edema lower leg and ankle. Vascular calcification.
[2020-01-11 11:08] LABS: Glucose Point of Care 115 mg/dL (70-110)
[2020-01-11] MEDS: morphine 4 mg/mL SDV 1 mL 2 MG IVP ×3 (12:53→21:36)
--- NOTE | 2020-01-11 14:00 | P.CONIM_ITS ---
Providers/Reason For Consult Consulting Physican/Specialty*: Dr. Sera New - Orthopedics Reason for Consult*: Right ankle tibial plafond and bimalleolar ankle fracture (posterior and lateral) Requesting Physcian: Dr. Ramos - emergency department Attending Physician: Brent Little MD Primary Care Provider: NOVA DuganP-C History of Present Illness History of Present Illness Randy German is a 64 year old male who presented to the emergency department after a fall down approximately 15 stairs. At the time the patient was seen in the emergency department, he had significant right ankle and right shoulder pain. This was unable to be controlled and the patient was admitted. At the time of admission, he was noted to have epilepsy as well as a history of fungal meningitis, anxiety disorder, chronic arthritis, insulin-dependent type 2 diabetes, hypertension, abdominal wall hernia, chronically on steroids, hepatitis C by history, and hyperlipidemia. The patient denied any reason for his fall other than falling down the stairs. He denied any headache, nausea, vomiting, or most importantly seizure-like activities. Patient denies COVID exposure. Review of Systems Const: Denies: fever(s), chills, body aches, change in appetite, fatigue or malaise Eyes: Denies: change in vision, blurry vision or photophobia ENMT: Denies: throat pain, enlarged tonsils, ear or mastoid pain, nasal discharge or nasal congestion Card: Denies: chest pain or lightheadedness Resp: Denies: dyspnea, productive cough, non-productive cough or wheezing GI: Denies: abdominal pain, nausea, vomiting, hematemesis, diarrhea, constipation, hematochezia or melena : Denies: flank pain, difficulty urinating, dysuria, urinary frequency or hematuria Musc: Reports: neck pain, back pain, extremity pain and joint pain; Denies: joint warmth Skin/Breast: Denies: rash or pruritus Neuro: Denies: headache(s), dizziness, vertigo or confusion Psych: Denies: anxiety or depression Endo: Denies: polyuria or polydipsia Meds/Allergies Home Medications and Allergies Home Medications Medication Instructions Recorded Confirmed Last Taken Type methenamine hippurate 1 gram tablet 1 gm PO BID 05/24/19 01/11/20 07/17/19 History Probiotic 1 cap PO DAILY 05/31/19 01/11/20 07/17/19 History fluconazole 100 mg tablet 400 mg PO DAILY tab 08/07/19 01/11/20 Unknown History aspirin 81 mg tablet,delayed 81 mg PO DAILY #30 tab 09/16/19 01/11/20 Unknown Rx release insulin syringe-needle U-100 0.5 #100 each 09/16/19 01/11/20 Unknown Rx mL 31 gauge x /16 ascorbic acid (vitamin C) 500 mg 1,000 mg PO DAILY tab 09/25/19 01/11/20 Unknown History tablet,extended release loratadine 10 mg tablet 10 mg PO DAILY 10/10/19 01/11/20 Unknown History magnesium oxide 400 mg PO BID #60 tab 10/21/19 01/11/20 Unknown Rx trazodone 100 mg tablet 100 mg PO BEDTIME PRN 30 Days #30 10/21/19 01/11/20 Unknown Rx tab gabapentin 300 mg capsule 600 mg PO BID #120 cap 10/23/19 01/11/20 Unknown Rx divalproex 500 mg tablet,delayed 500 mg PO BID #60 tab 10/31/19 01/11/20 Unknown Rx release tamsulosin 0.4 mg capsule 0.4 mg PO BID #60 cap 11/10/19 01/11/20 Unknown Rx blood sugar diagnostic #50 each 12/03/19 01/11/20 Unknown Rx blood-glucose meter #1 each 12/03/19 01/11/20 Unknown Rx lancets 33 gauge #100 each 12/03/19 01/11/20 Unknown Rx insulin glargine 100 unit/mL 25 unit SUBCUT DAILY #10 ml 12/06/19 01/11/20 Unknown Rx subcutaneous solution oxycodone 10 mg tablet 10 mg PO Q8H PRN 30 Days #90 tab 12/28/19 01/11/20 Unknown Rx Allergies Allergy/AdvReac Type Severity Reaction Status Date / Time hydromorphone [From Dilaudid] Allergy ADR-Confusi Verified 01/10/20 11:30 on Penicillins Allergy ALGY-Rash Verified 01/10/20 11:30 codeine AdvReac ADR-Nausea Verified 01/10/20 11:30 Current Medications Current Medications Generic Name Dose Route Start Last Admin Trade Name Freq PRN Reason Stop Dose Admin Ascorbic Acid 1,000 mg 01/11/20 09:00 10/08/20 08:22 Vitamin C PO 1,000 mg DAILY JESUS Administration Divalproex Sodium 500 mg 01/11/20 09:00 01/11/20 08:[address] PO 500 mg BID JESUS Administration Fluoxetine HCl 20 mg 01/11/20 06:00 01/11/20 05:39 Prozac PO Not Given QAM JESUS Gabapentin 600 mg 01/11/20 09:00 01/11/20 08:22 Neurontin PO 600 mg BID JESUS Administration Dextrose/Sodium Chloride 1,000 mls @ 75 mls/hr 01/10/20 22:16 01/11/20 00:55 Dextrose 5%-Sod Chloride 0.45% IV 75 mls/hr .[id number] JESUS Administration Insulin Aspart 0 unit 01/11/20 08:00 01/11/20 12:58 Novolog SUBCUT Not Given TIDWM [facility] Protocol Magnesium Oxide 400 mg 01/11/20 09:00 01/11/20 08:22 Magox PO 400 mg BID JESUS Administration Morphine Sulfate 2 mg 01/11/20 12:34 01/11/20 12:53 Morphine IVP 2 mg Q4H PRN Administration SEVERE PAIN Non-Formulary Medication 1 gm 01/11/20 09:00 01/11/20 08:23 Methenamine Hippurate PO Not Given BID [facility] Phenol 2 spray 01/11/20 06:13 01/11/20 12:57 Phenaseptic MUCOUS MEM 2 spray Q2H PRN Administration SORE THROAT Tamsulosin HCl 0.4 mg 01/11/20 09:00 01/11/20 08:22 Flomax PO 0.4 mg BID JESUS Administration PFSH Acute PFSH: Medical History Anxiety disorder BPH (benign prostatic hyperplasia) Chronic arthritis Chronic insomnia Controlled diabetes mellitus Dyslipidemia Essential (primary) hypertension GERD (gastroesophageal reflux disease) History of MRSA infection Incomplete emptying of bladder Lower urinary tract symptoms (LUTS) Suicidal ideation Superficial laceration of skin Vitamin D deficiency Surgical History History of hip surgery right History of inguinal herniorrhaphy right History of vasectomy Family History Grandmother Diabetes Father CAD (coronary artery disease) Denies family history of Bleeding disorder Social History Smoking and tobacco status: former smoker Second hand smoke exposure: No Smoking risk assessment/counseling performed?: No Alcohol intake: never Desire information about alcohol rehabilitation?: No Counseling given: No Desire information about substance/drug rehabilitation?: No Counseling given: No Adopted: No Lives independently: Yes Household members: other Housing: House Marital status: Single service: No Current occupational status: disabled History of recent travel: No Current gender identity: Male Dietary Habits: Current diet type/program: regular Caffeine: Yes Exercise: What type of physical activity do you participate in?: walking Safety: Seatbelt use: always Helmet use: No Drive intoxicated 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 Vitals/I&O/Wt Last Vital Signs Temp 98.6 F 01/11/20 11:20 Pulse 79 01/11/20 11:20 Resp 16 01/11/20 12:53 BP 102/66 01/11/20 11:20 Pulse Ox 96 01/11/20 11:20 01/10/20 01/11/20 01/11/20 22:59 06:59 14:59 Intake Total 1999 Output Total 0 / 0 Balance 0 / 0 1999 Weight last 48 hrs Weight 225 lb Physical Exam Const: COMMON NORMALS: no acute distress, average body habitus, patient oriented x3 and alert GENERAL APPEARANCE: cooperative and comfortable ORIENTATION/CONSCIOUSNESS: Yes awake HENMT: COMMON NORMALS: normocephalic and atraumatic HEAD & SCALP: normocephalic and atraumatic Eye: GENERAL EYE: appearance normal, both eyes and all related structures Chest: COMMONS NORMALS: normal inspection of the chest Resp: COMMON NORMALS: normal respiratory effort EFFORT & INSPECTION: Yes able to speak in complete sentences and Yes symmetric chest movement Extremity: RIGHT UPPER EXTREMITY: Yes shoulder joint (The patient is in a sling.) Right shoulder: Yes Right shoulder joint inspection exam (There is bruising and tenderness to any range of motion.), Yes Right shoulder joint ROM exam (Not evaluated.), Yes Right shoulder joint neurovascular exam (Intact distal to the shoulder.) and Yes Right shoulder joint other findings (There are multiple abrasions and ecchymoses on the hand secondary to the patient's fall.) RIGHT LOWER EXTREMITY: Yes foot & digits Right ankle: Yes inspection (The ankle is in a splint at the moment. The patient still complains of discomfort.), Yes palpation (There is no tenderness to palpation over the foot, but the patient complains of pain with minimal palpation over his splint.), Yes ROM (Not evaluated secondary to fracture and splint) and Yes neurovascular exam (Patient is able to move his toes with intact capillary refill. Sensation is normal.) Neuro: COMMON NORMALS: patient oriented x3 SENSORIUM/ORIENTATION: Yes alert Psych: COMMON NORMALS: mental status grossly normal APPEARANCE: Yes grossly normal ATTITUDE: Yes calm and Yes engaged ATTENTION/CONCENTRATION: Yes attention grossly intact Skin: COMMON NORMALS: no rashes or lesions noted GENERAL SKIN EXAM: no rashes or lesions noted Urinary Catheter Management^: Alaniz: Cath Placed During This Visit: yes Reason for Continuing Indwelling Catheter: Required Immobilization for Trauma or Surgery or Anesthesia Urinary Catheter Date of Insertion: 01/11/20 Urinary Catheter Time of Insertion: 06:30 Data Imaging^: Xray Ortho: I personally reviewed and interpreted this imaging study as follows: My impression: The patient's right ankle were obtained in the emergency department. These are personally interpreted by me. There is an obvious bimalleolar ankle fracture with involvement of the distal fibula and medial malleolus, but there is also involvement of the posterior malleolus which is nondisplaced. I do have some concern regarding the medial aspect of the distal tibia. A CT will be ordered. Other CT: I personally reviewed and interpreted this imaging study as follows: My impression: Ankle CT is reviewed and interpreted in detail. There does appear to be intra-articular involvement extending across a significant portion of the distal tibia. On the most medial aspect, there is significant depression of the articular surface as well. There is involvement of the posterior malleolus in addition to the other findings on CT. Overall, the CT is consistent with a tibial plafond fracture with medial malleolar involvement and involvement of the intra-articular surface. Additionally, there is a distal fibula fracture and a nondisplaced posterior malleolar fracture. Other Xray: I personally reviewed and interpreted this imaging study as follows: My impression: Shoulder x-rays are interpreted, and these images demonstrate possible fracture of the humeral head. There is also irregularity at the base of the glenoid. The shoulder does not appear to be dislocated. There is significant flattening of the articular surface visualized in the humeral head as well. Other Imaging: I personally reviewed and interpreted this imaging study as follows: My impression: Shoulder CT is reviewed in detail. There are multiple findings. This is personally interpreted by me and the radiologist report is reviewed as well. Findings on the CT are significant. There is a comminuted and minimally displaced fracture at the base of the right acromion which extends to the lateral aspect of the scapular spine. There is some hemorrhage in this area, but there is no significant displacement. There is flattening of the medial aspect of the humeral head with multiple subchondral fragments suggesting chronic issues. There also appear to be what may be subacute fracturing along the posterior glenoid and distal clavicle. There are marked degenerative changes within the glenohumeral joint as well as the acromioclavicular joint consistent with degenerative osteoarthritis. There is a large shoulder effus ion. The humeral head is superiorly subluxated both on x-ray and CT imaging consistent with rotator cuff tear chronically. Overall, there are multiple findings within the shoulder consistent with chronic and acute change and severe degenerative osteoarthritis. A&P Assessment and plan (1) Closed pilon fracture of right tibia: Initially, the patient appeared to have a nondisplaced posterior malleolar fracture as well as a distal fibula fracture in addition to a displaced medial malleolar fracture. CT scan confirmed that the medial fracture is actually a pilon fracture with significant intra-articular involvement and depression. Therefore, the patient has a bimalleolar fracture involving the posterior and lateral malleoli with an additional pilon fracture which is of more significance. This is discussed with the patient. We will plan for operative intervention. There is some concern regarding his oxygenation and overall medical status. Currently, he is on the schedule for tomorrow, however, we will reevaluate to see whether or not we proceed. Status: Acute Qualifiers: Encounter type: initial encounter Fracture alignment: displaced Qualified Code(s): S82.871A - Displaced pilon fracture of right tibia, initial encounter for closed fracture (2) Bimalleolar fracture of right ankle: This fracture involves the posterior malleolus as well as the distal fibula. This fracture will be addressed at the same time as the pilon fracture. Status: Acute Qualifiers: Encounter type: initial encounter Fracture type: closed Qualified Code(s): S82.841A - Displaced bimalleolar fracture of right lower leg, initial encounter for closed fracture (3) Closed fracture of glenoid cavity of right scapula: Surgical intervention will not be required for this fracture Status: Acute Qualifiers: Encounter type: initial encounter Fracture alignment: nondisplaced Qualified Code(s): S42.144A - Nondisplaced fracture of glenoid cavity of scapula, right shoulder, initial encounter for closed fracture (4) Closed displaced fracture of right acromial process: Closed treatment for this fracture to be accomplished without surgical intervention. Status: Acute Qualifiers: Encounter type: initial encounter Qualified Code(s): S42.121A - Displaced fracture of acromial process, right shoulder, initial encounter for closed fracture Consult Attestations Medical Necessity Statement: Patient requires medical optimization and fracture fixation with an open reduction internal fixation of the right ankle. Time Spent in Patient Care: 16 - 35 minutes Coding Level of Care Code Acute [place] [employer] for [facility] Fwd Diagnoses Closed pilon fracture of right tibia S82.871A Encounter type: initial encounter Fracture alignment: displaced Bimalleolar fracture of right ankle S82.841A Encounter type: initial encounter Fracture type: closed Closed fracture of glenoid cavity of right scapula S42.144A Encounter type: initial encounter Fracture alignment: nondisplaced Closed displaced fracture of right acromial process S42.121A Encounter type: initial encounter
--- NOTE | 2020-01-11 15:08 | PC.OT ---
OT ORDERS RECEIVED BY HOSPITALIST. WILL AWAIT ORTHOPEDIC RECOMMENDATIONS.
--- NOTE | 2020-01-11 15:55 | PC.PT ---
PT intervention on hold awaiting Ortho consult out come for R ankle FX
[2020-01-11 18:02] LABS: Glucose Point of Care 117 mg/dL (70-110)
[2020-01-11 19:01] LABS: ABG PCO2 37.6 mmHg (35-45); ABG PH Result 7.47 (7.35-7.45); Alveolar-Arterial Oxygen Gradi 14.6 mmHg (5-10); Arterial Blood Gas Hematocrit 34.1 % (42-52); Base Excess ABG 3.3 mmol/L (-2.0-2.0); Blood Gas Allen Test Pos; Blood Gas Operator Identificat ED; Blood Gas Sample Site Radial, left; Blood Gas Sample Type Arterial; Carboxyhemoglobin 1.5 %THgb (0.4-20.1); HCO3 ABG 27.1 mmol/L (22-26); HGB O2 Sat 93.5 % (95-100); Ionized Calcium Level - ABG 1.2 mmol/L (1.1-1.4); Methemoglobin 0.8 % (0.4-1.5); Oxygen Device NC; Oxygen Saturation ABG 95.7; Potassium Level - ABG 3.6 mmol/L (3.5-5.0); Total Hemoglobin 11.1 g/dL (14-18)
[2020-01-11 19:43] LABS: D Dimer 12.65 ug/mIFEU (0-0.59)
[2020-01-11 19:49] LABS: Procalcitonin 0.77 ng/mL (0-0.5)
[2020-01-11 20:00] LABS: C Reactive Protein 175.5 mg/L (0.0-4.9); Ferritin 316 ng/mL (30-400)
--- NOTE | 2020-01-11 20:03 | PM.PN ---
Subjective Subjective: Interval history: Patient had an episode of desaturation today in the morning he desaturated acutely to 80s but responded fairly well to supplemental oxygen through nasal cannula, further work-up, likely points out that he was in pain due to the current fracture and hence was hypoventilating. Once his pain was better controlled, his oxygen requirement has gone down, currently he is requiring 3 L of oxygen through nasal cannula to maintain a saturation greater than 95%. Rapid COVID antigen testing is negative, x-ray chest is not suggestive of any infiltrate, or any typical COVID findings. Serum d-dimer is expected to be high given his fracture and inflammatory condition. Ferritin, ESR CRP interleukin-6, is awaited. ABG has been done: pH 7.47, PO2: 69, PCO2 37, at FiO2 32% Medications: Reviewed: Yes Vitals/I&O/Wt Last Vital Signs Temp 98.6 F 01/11/20 15:27 Pulse 63 01/11/20 15:27 Resp 16 01/11/20 17:30 BP 103/66 01/11/20 15:27 Pulse Ox 95 01/11/20 15:27 01/11/20 01/11/20 01/11/20 06:59 14:59 22:59 Intake Total 3000 / 3000 Output Total 0 / 0 1000 / 1000 Balance 0 / 0 3000 / 3000 -1000 / 2000 Weight last 48 hrs Weight 102.058 kg Physical Exam Narrative: EXAM NARRATIVE: COMMON NORMALS: no acute distress, average body habitus, patient oriented x3 and alert GENERAL APPEARANCE: cooperative and comfortable ORIENTATION/CONSCIOUSNESS: Yes awake HENFL COMMON NORMALS: normocephalic and atraumatic HEAD & SCALP: normocephalic and atraumatic Eye GENERAL EYE: appearance normal, both eyes and all related structures Chest COMMONS NORMALS: normal inspection of the chest Resp COMMON NORMALS: normal respiratory effort EFFORT & INSPECTION: Yes able to speak in complete sentences and Yes symmetric chest movement Extremity RIGHT UPPER EXTREMITY: Yes shoulder joint (The patient is in a sling.) Right shoulder: Yes Right shoulder joint inspection exam (There is bruising and tenderness to any range of motion.), Yes Right shoulder joint ROM exam (Not evaluated.), Yes Right shoulder joint neurovascular exam (Intact distal to the shoulder.) and Yes Right shoulder joint other findings (There are multiple abrasions and ecchymoses on the hand secondary to the patient's fall.) RIGHT LOWER EXTREMITY: Yes foot & digits Right ankle: Yes inspection (The ankle is in a splint at the moment. The patient still complains of discomfort.), Yes palpation (There is no tenderness to palpation over the foot, but the patient complains of pain with minimal palpation over his splint.), Yes ROM (Not evaluated secondary to fracture and splint) and Yes neurovascular exam (Patient is able to move his toes with intact capillary refill. Sensation is normal.) Neuro COMMON NORMALS: patient oriented x3 SENSORIUM/ORIENTATION: Yes alert Psych COMMON NORMALS: mental status grossly normal APPEARANCE: Yes grossly normal ATTITUDE: Yes calm and Yes engaged ATTENTION/CONCENTRATION: Yes attention grossly intact Skin COMMON NORMALS: no rashes or lesions noted GENERAL SKIN EXAM: no rashes or lesions noted Urinary Catheter Management^: Alaniz: Cath Placed During This Visit: yes Reason for Continuing Indwelling Catheter: Required Immobilization for Trauma or Surgery or Anesthesia Urinary Catheter Date of Insertion: 01/11/20 Urinary Catheter Time of Insertion: 06:30 Data : 01/11/20 04:30 01/11/20 04:30 A&P Assessment and plan (1) Bimalleolar fracture of right ankle: -Orthopedics has been consulted, Dr. New consulted -Pain control with Dilaudid -DVT prophylaxis SCDs, after surgery Lovenox Status: Acute Qualifiers: Encounter type: initial encounter Fracture type: closed Qualified Code(s): S82.841A - Displaced bimalleolar fracture of right lower leg, initial encounter for closed fracture (2) Closed fracture of glenoid cavity of right scapula: -Currently in a sling, medically managed Status: Acute Qualifiers: Encounter type: initial encounter Fracture alignment: nondisplaced Qualified Code(s): S42.144A - Nondisplaced fracture of glenoid cavity of scapula, right shoulder, initial encounter for closed fracture (3) Avascular necrosis of left femoral head: -Incidentally found on CT of the abdomen pelvis -Chronicity unknown -Patient has pain all over, but does have left hip pain with palpation -We will defer further imaging studies and surgical versus medical management up to orthopedic team Status: Acute (4) Closed displaced fracture of right acromial process: Status: Acute Qualifiers: Encounter type: initial encounter Qualified Code(s): S42.121A - Displaced fracture of acromial process, right shoulder, initial encounter for closed fracture (5) Closed fracture of right clavicle: Status: Deleted Qualifiers: Clavicle location: lateral end Encounter type: initial encounter Fracture alignment: nondisplaced Qualified Code(s): S42.034A - Nondisplaced fracture of lateral end of right clavicle, initial encounter for closed fracture (6) Fall: -With significant trauma, multiple imaging studies any significant findings of internal bleed, continue to monitor Status: Acute (7) Partial epilepsy secondarily generalized: -Continue home Depakote Status: Acute (8) Anxiety disorder: Status: Chronic (9) Abdominal wall hernia: Status: Acute (10) Major depressive disorder: Status: Acute (11) BPH (benign prostatic hyperplasia): Status: Chronic (12) Dyslipidemia: Status: Chronic (13) Essential (primary) hypertension: Status: Chronic (14) Controlled diabetes mellitus: Status: Chronic Qualifiers: Diabetes mellitus type: type 2 Diabetes mellitus custodial insulin use: with custodial use Additional A&P Information SCDs for DVT prophylaxis PT OT Patient is DNR/DNI, is okay with reversing DNI for surgery Attestations Medical Necessity Statement*: Patient needs to be in hospital for management of a bimalleolar fracture of right ankle. Coding Level of Care Code Acute [employer] Professor for [facility] Diagnoses Bimalleolar fracture of right ankle S82.841A Encounter type: initial encounter Fracture type: closed Closed fracture of glenoid cavity of right scapula S42.144A Encounter type: initial encounter Fracture alignment: nondisplaced Avascular necrosis of left femoral head M87.052 Closed displaced fracture of right acromial process S42.121A Encounter type: initial encounter Closed fracture of right clavicle S42.034A Clavicle location: lateral end Encounter type: initial encounter Fracture alignment: nondisplaced Fall W19.XXXA Partial epilepsy secondarily generalized Anxiety disorder F41.9 Abdominal wall hernia K43.9 Major depressive disorder F32.9 BPH (benign prostatic hyperplasia) N40.0 Dyslipidemia E78.5 Essential (primary) hypertension I10 Controlled diabetes mellitus E11.9 Diabetes mellitus type: type 2 Diabetes mellitus adjunct faculty for medical terminology insulin use: with adjunct faculty for medical terminology use
[2020-01-11 20:07] LABS: Erythrocyte Sedimentation Rate 50 mm/hr (0-10)
[2020-01-11] MEDS: trazodone 100 mg Tablet PO (21:22)
[2020-01-11 21:25] LABS: Glucose Point of Care 128 mg/dL (70-110)
--- NOTE | 2020-01-11 22:16 | USCV_ITS ---
Randy German Age: 64 Gender: M : 1955 Exam Date: 01/11/2020 07:00 Ordering Phys: Carl Hobson MD Technologist: Flores Drew Exam Location: [facility] – [place] Indication: PREOP BP: / HR: 81 Rhythm: Sinus Technical Quality: Technically difficult study MEASUREMENTS (Male / Female) Normal Values 2D ECHO LV Diastolic Diameter PLAX 3.0 cm 4.2 - 5.9 / 3.9 - 5.3 cm LV Systolic Diameter PLAX 2.3 cm LV Chamber Size 4.2 cm IVS Diastolic Thickness 2.0 cm 0.6 - 1.0 / 0.6 - 0.9 cm IVS Systolic Thickness 1.9 cm LVPW Diastolic Thickness 1.1 cm 0.6 - 1.0 / 0.6 - 0.9 cm LVPW Systolic Thickness 1.5 cm RV Chamber Size 3.1 cm LVOT Diameter 2.2 cm LV Ejection Fraction 2D Teich 50.6 % LA Diameter 4.1 cm LA Width 3.5 cm LA Height 7.0 cm RA Width 2.6 cm RA Height 5.7 cm Aorta at Sinotubular Diameter 4.1 cm M-MODE LV Diastolic Diameter MM 5.7 cm 4.2 - 5.9 / 3.9 - 5.3 cm LV Systolic Diameter MM 4.0 cm LV Ejection Fraction MM Teich 55.6 % IVS Diastolic Thickness MM 1.0 cm 0.6 - 1.0 / 0.6 - 0.9 cm IVS Systolic Thickness MM 1.4 cm LVPW Diastolic Thickness MM 1.5 cm 0.6 - 1.0 / 0.6 - 0.9 cm LVPW Systolic Thickness MM 1.7 cm RV Diastolic Diameter MM 2.2 cm Aortic Annulus Diameter 4.1 cm LA Ao Ratio MM 1.1 MV E Point Septal Separation 0.4 cm DOPPLER AV Peak Velocity 204.0 cm/s LVOT Peak Velocity 80.0 cm/s AV Area Cont Eq vti 1.6 cm squared AV Area Cont Eq pk 1.4 cm squared MV Area PHT 3.7 cm squared Mitral E to A Ratio 1.3 MV E' Velocity 41.2 cm/s Mitral E to MV E' Ratio 6.0 Mitral E to LV E' Lateral Ratio 4.4 Mitral E to LV E' Septal Ratio 9.5 TR Peak Velocity 283.0 cm/s TR Peak Gradient 32.0 mmHg TV Peak E Velocity 45.0 cm/s Right Atrial Pressure 3.0 mmHg Pulmonary Artery Systolic Pressu 35.0 mmHg PV Peak Velocity 97.0 cm/s RV Acceleration Time 0.1 s RV Ejection Time 0.2 s RV AcT/ET 0.5 FINDINGS Left Ventricle Normal left ventricular size. Left ventricular hypertrophy is noted. This is technically difficult study with limited visualization. Grossly LV systolic function is mildly reduced with EF of 40 to 45%. Abnormalities cannot be assessed because of limited visualization. Diastolic function is indeterminate. Right Ventricle The right ventricle is normal in size and function. Right Atrium The right atrium is normal in size. Left Atrium The left atrium is enlarged. Mitral Valve Structurally normal mitral valve without significant stenosis or prolapse. There is no mitral regurgitation. Aortic Valve Aortic valve is thickened and calcified. Mild aortic stenosis is noted with aortic valve area of 1.4 cm squared with continuity equation. Mean gradient is 10 mmHg. There is no aortic regurgitation. Tricuspid Valve Structurally normal tricuspid valve without significant stenosis or regurgitation. Insufficient TR jet to calculate RVSP. RA pressure is normal and is 0 to 5 mmHg. Pulmonic Valve Structurally normal pulmonic valve without significant stenosis. There is no pulmonic regurgitation. Pericardium Normal pericardium without effusion. Aorta Aortic root is dilated. CONCLUSIONS Study is technically poor in quality. Limited visualization. LV systolic function appears to be mildly reduced with EF of 40 to 45%. Diastolic function is indeterminate. Aortic valve is thickened and calcified with mild aortic stenosis noted with aortic valve area of 1.4 cm squared and mean gradient of 10 mmHg. Compared to prior study from 12/06/2018, no significant changes are noted. Darinel Ma MD (Electronically Signed) Final Date: 11 January 2020 11:52 S
[2020-01-12] VITALS (26 sets, daily range): BP systolic 85–115; BP diastolic 48–70; PULSE 74–99; RESP 16–20; TEMP 36.8–39.4; O2SAT 90–98
--- NOTE | 2020-01-12 | XR_ITS ---
WS: [id number] Right ankle, 3 views C-arm fluoroscopy, 01/12/2020 Clinical Data: OR PICS Comparison: Right ankle, 01/10/2020. Findings: The patient is had been internal fixation of the bimalleolar fracture. There is a lateral plate on th e fibula with 8 orthopedic screws and a medial plate with 4 orthopedic screws on the on the medial ma lleolus.Surgical andre are present over the lateral subcutaneous tissue of the distal right leg. XR/XR ankle RT 2V [id number] Impression: Internal fixation of bimalleolar fracture.
--- NOTE | 2020-01-12 | SCC_ITS ---
Procedure Done: Open reduction internal fixation right bimalleolar ankle fracture including the lateral and posterior malleolar fractures. Open reduction internal fixation with Hydroset XT supplementation of the plafond and fracture of the distal right tibia. 145.5 seconds of fluoroscopic guidance, for a cumulative dose of 1.63 mGy, was provided to Dr. New by the radiology department. C-arm images of the RIGHT ankle were saved for the patient's permanent record. EBONY
[2020-01-12] MEDS: morphine 4 mg/mL SDV 1 mL 2 MG IVP ×2 (01:41→05:46)
[2020-01-12 05:39] LABS: Basophils % 0.5 %; Eosinophils # 0.3 10^3/uL (0.0-0.8); Eosinophils % 4.6 %; Hematocrit 32.6 % (42.0-52.0); Hemoglobin 10.3 g/dL (11.7-16.6); Lymphocytes # 1.3 10^3/uL (0.8-4.8); Lymphocytes % 20.4 %; Mean Corpuscular HGB Conc 31.6 g/dL (30.0-36.0); Mean Corpuscular Hemoglobin 28.1 pg (28.0-34.0); Mean Corpuscular Volume 88.8 fL (80-94); Mean Platelet Volume 10.4 fL (7.4-10.4); Monocytes # 0.6 10^3/uL (0.2-0.9); Monocytes % 9.6 %; Neutrophils # 4.18 10^3/uL (1.8-7.7); Neutrophils % 64.6 %; Nucleated Red Blood Cells % 0 %; Platelet Count 100 10^3/cmm (130-400); Red Blood Count 3.67 10^6/uL (4.1-5.3); Red Cell Distribution Width 14.4 % (12.1-15.1); White Blood Count 6.5 10^3/uL (4.0-10.0)
--- NOTE | 2020-01-12 06:02 | XR_ITS ---
WS: [id number] Portable AP upright chest, 01/12/2020 Clinical Data: SOB Comparison: Portable chest, 01/10/2020. Findings: No nodules, masses or effusions are seen. The heart is normal. The pulmonary vascularity is not increased. No pneumonia or pneumothorax is seen. There is patchy atelectasis over the surface of the left diaphragm. The patient has a poor inspiratory effort. Monitor leads are on the chest wall. There is osteoarthritic change of the right shoulder. XR/XR chest 1V portable [id number] Impression: Minimal patchy atelectasis or surface of left diaphragm and report chest x-ray in one to 2 days is recommended.
[2020-01-12 06:04] LABS: Alanine Aminotransferase 6 U/L (0-41); Alkaline Phosphatase 55 IU/L (40-130); Anion Gap 13.6 (5-19); Aspartate Amino Transferase 9 U/L (0-40); Blood Urea Nitrogen 10 mg/dL (8-23); Calcium 9.1 mg/dL (8.5-10.5); Carbon Dioxide 25 mmol/L (22-29); Chloride 97 mmol/L (98-107); Globulin 2.7 g/dL (1.3-4.6); Glucose 137 mg/dL (65-115); Magnesium 1.7 mg/dL (1.7-2.3); Osmolality Calculated 275 mOsm/kg (285-295); Phosphorus 3.3 mg/dL (2.5-4.5); Potassium 3.6 mmol/L (3.5-5.1); Sodium 132 mmol/L (136-145); Total Bilirubin 0.5 mg/dL (0.15-1.2); Total Protein 5.7 g/dL (6.6-8.7)
[2020-01-12] MEDS: acetaminophen 325 mg Tablet 650 MG PO (06:10)
[2020-01-12 07:23] LABS: Glucose Point of Care 127 mg/dL (70-110)
--- NOTE | 2020-01-12 07:52 | PC.OT ---
OT EVALUATION ORDERS RECEIVED. WILL AWAIT ORDERS AFTER ORTHOPEDIC SURGERY
[2020-01-12] MEDS: dextrose 5%-sod chloride 0.45% 1,000 ML 75 ML IV (08:50)
--- NOTE | 2020-01-12 11:11 | W.PM.OPSUD ---
Surgery/Procedure H&P Update DATE OF PROCEDURE: January 12, 2020 DATE H&P PERFORMED: 01/10/20 H&P UPDATE INFORMATION: I have reviewed H&P completed within last 30 days, I have examined patient prior to procedure and Changes to prior documentation as noted here CHANGES TO PREVIOUS DOCUMENTATION: Since initial history and physical, the patient has required oxygen where he previously did not. His rapid COVID test was negative, however, his inflammatory markers are elevated. He therefore will be treated as COVID-19 for the aspects of the surgical procedure. PREOP DIAGNOSIS: Right tibial plafond and distal fibula fracture PLANNED PROCEDURE: Operation Date: 01/12/20 12:50 Proposed Procedures p ORIF Tibia/Fibula(Right) - Sera New MD Related Problem List Diagnoses (1) Closed pilon fracture of right tibia: Qualifiers: Encounter type: initial encounter Fracture alignment: displaced Qualified Code(s): S82.871A - Displaced pilon fracture of right tibia, initial encounter for closed fracture (2) Bimalleolar fracture of right ankle: Qualifiers: Encounter type: initial encounter Fracture type: closed Qualified Code(s): S82.841A - Displaced bimalleolar fracture of right lower leg, initial encounter for closed fracture
[2020-01-12] MEDS: sodium chloride 0.9% 1,000 ML 30 ML IV (11:15)
[2020-01-12] MEDS: CELEcoxib 200 mg Capsule 400 MG PO (11:15)
--- NOTE | 2020-01-12 11:15 | P.ANESASSM_ITS ---
Pre-Anesthetic Assessment Pre-Anesthetic Assessment: Height/Weight: Height 1.83 m Weight 102.058 kg Temp Pulse Resp BP Pulse Ox 100.4 F H 90 18 101/60 95 01/12/20 11:14 01/12/20 11:14 01/12/20 11:14 01/12/20 11:14 01/12/20 11:14 Preop Diagnosis: Right tibial plafond and distal fibula fracture Proposed Procedure: Operation Date: 01/12/20 12:50 Proposed Procedures p ORIF Tibia/Fibula(Right) - Sera New MD Was Beta Curt taken within 24 hours: N/A Last intake: Intake Last Liquid Date 01/11/20 Last Liquid Time 23:59 Last Solid Date 01/11/20 Last Solid Time 19:00 Social: Social History: No alcohol and No tobacco Exam: Pre-Anes Outpt Exam: alert, oriented x 3, clear to auscultation bilaterally and regular rate & rhythm Additional Exam Findings (including area of procedure): Soft Systolic Murmur noted (ECHO shows Mild Aortic Stenosis) Airway: Submandibular: WNL Cervical ROM: WNL MP: 2 Dentition: Full History/ROS: No significant complaints Pulmonary: Pulmonary: None reported CV/HEM: CV/HEM: HTN : : None reported Hepatic: Hepatic: None reported GI: GI: None reported Metabolic: Metabolic: DM Neuropsych: Neuropsych: None reported Anesthetic Plan: ASA status: 3 Meds/Allergies Current Medications: Current Medications Generic Name Dose Route Start Last Admin Trade Name Freq PRN Reason Stop Dose Admin Acetaminophen 650 mg 01/10/20 22:16 01/12/20 06:10 Tylenol PO 650 mg Q6H PRN Administration Mild/Mod Pain Or Temp >/= 101 Ascorbic Acid 1,000 mg 01/11/20 09:00 01/12/20 09:36 Vitamin C PO Not Given DAILY JESUS Divalproex Sodium 500 mg 01/11/20 09:00 01/12/20 09:[address] PO Not Given BID JESUS Doxepin HCl 10 mg 01/11/20 21:00 01/11/20 21:22 Sinequan PO Not Given BEDTIME JESUS Fluoxetine HCl 20 mg 01/11/20 06:00 01/12/20 05:58 Prozac PO Not Given QAM JESUS Gabapentin 600 mg 01/11/20 09:00 01/12/20 09:36 Neurontin PO Not Given BID [facility] Dextrose/Sodium Ch loride 1,000 mls @ 75 ml s/hr 01/10/20 22:16 01/12/20 08:50 Dextrose 5%-Sod Chloride 0.45% IV 75 mls/hr .[id number] JESUS Administration Insulin Aspart 0 unit 01/11/20 08:00 01/12/20 09:35 Novolog SUBCUT Not Given TIDWM [facility] Protocol Magnesium Oxide 400 mg 01/11/20 09:00 01/12/20 09:36 Magox PO Not Given BID [facility] Morphine Sulfate 2 mg 01/11/20 12:34 01/12/20 05:46 Morphine IVP 2 mg Q4H PRN Administration SEVERE PAIN Non-Formulary Medi cation 1 gm 01/11/20 09:00 01/12/20 09:37 Methenamine Rylan urate PO Not Given BID [facility] Phenol 2 spray 01/11/20 06:13 01/11/20 12:57 Phenaseptic MUCOUS MEM 2 spray Q2H PRN Administration SORE THROAT Tamsulosin HCl 0.4 mg 01/11/20 09:00 01/12/20 09:37 Flomax PO Not Given BID [facility] Trazodone HCl 100 mg 01/10/20 22:16 01/11/20 21:22 Desyrel PO 100 mg BEDTIME PRN Administration Sleep PFSH Anesthesia PFSH: Medical History Anxiety disorder BPH (benign prostatic hyperplasia) Chronic arthritis Chronic insomnia Controlled diabetes mellitus Dyslipidemia Essential (primary) hypertension GERD (gastroesophageal reflux disease) History of MRSA infection Incomplete emptying of bladder Lower urinary tract symptoms (LUTS) Suicidal ideation Superficial laceration of skin Vitamin D deficiency Surgical History History of hip surgery right History of inguinal herniorrhaphy right History of vasectomy Family History Grandmother Diabetes Father CAD (coronary artery disease) Denies family history of Bleeding disorder Social History Smoking and tobacco status: former smoker Second hand smoke exposure: No Smoking risk assessment/counseling performed?: No Alcohol intake: never Desire information about alcohol rehabilitation?: No Counseling given: No Desire information about substance/drug rehabilitation?: No Counseling given: No Adopted: No Lives independently: Yes Household members: other Housing: House Marital status: Single service: No Current occupational status: disabled History of recent travel: No Current gender identity: Male Data Anesthesia CBC & Chem 7: 01/12/20 04:45 01/12/20 04:45 Other Labs: Laboratory Results - last 48 hr 01/10/20 01/10/20 01/10/20 16:39 16:39 16:39 WBC 4.2 RBC 4.07 L Hgb 11.5 L Hct 36.1 L MCV 88.7 MCH 28.3 MCHC 31.9 RDW 14.1 Plt Count 152 MPV 9.7 Neut % (Auto) 48.3 Lymph % (Auto) 41.1 Pettis % (Auto) 7.4 Eos % (Auto) 1.7 Baso % (Auto) 0.5 Neut # (Auto) 2.04 Lymph # (Auto) 1.7 Pettis # (Auto) 0.3 Eos # (Auto) 0.1 Baso # (Auto) 0.0 Nucleated RBC % (auto) 0 Nucleated RBCs # 0.0 ESR D-Dimer Specimen Type Sample Site ABG pH ABG pCO2 ABG pO2 ABG HCO3 ABG O2 Saturation ABG Base Excess Gael Test A-a O2 Gradient Hematocrit Hgb O2 Saturation Carboxyhemoglobin Methemoglobin Total Hemoglobin Ionized Calcium O2 Delivery Device O2 Liters/Min FiO2 Hook And Eye Attacher ID Sodium 134 L Potassium 4.2 Chloride 96 L Carbon Dioxide 25 Anion Gap 17.2 BUN 8 Creatinine 0.7 GFR Calculation 114.3 Glucose 105 POC Glucose Estimat Average Glucose Hemoglobin A1c Calculated Osmolality 277 L Calcium 9.5 Phosphorus Magnesium Ferritin Total Bilirubin 0.2 AST 13 ALT 7 Alkaline Phosphatase 49 Creatine Kinase C-Reactive Protein Total Protein 6.1 L Albumin 3.5 Globulin 2.6 Triglycerides Cholesterol LDL Cholesterol, Calc HDL Cholesterol LDL/HDL Ratio Cholesterol/HDL Ratio Procalcitonin TSH 1.75 Urine Color Urine Appearance Urine pH Ur Specific Eagle Urine Protein Urine Glucose (UA) Urine Ketones Urine Blood Urine Nitrate Urine Bilirubin Urine Urobilinogen Ur Leukocyte Esterase Ethyl Alcohol 11 H SARS-CoV-2 Ag (Rapid) 01/10/20 01/10/20 01/10/20 16:39 20:42 22:31 WBC RBC Hgb Hct MCV MCH MCHC RDW Plt Count MPV Neut % (Auto) Lymph % (Auto) Pettis % (Auto) Eos % (Auto) Baso % (Auto) Neut # (Auto) Lymph # (Auto) Pettis # (Auto) Eos # (Auto) Baso # (Auto) Nucleated RBC % (auto) Nucleated RBCs # ESR D-Dimer Specimen Type Sample Site ABG pH ABG pCO2 ABG pO2 ABG HCO3 ABG O2 Saturation ABG Base Excess Gael Test A-a O2 Gradient Hematocrit Hgb O2 Saturation Carboxyhemoglobin Methemoglobin Total Hemoglobin Ionized Calcium O2 Delivery Device O2 Liters/Min FiO2 Hook And Eye Attacher ID Sodium Potassium Chloride Carbon Dioxide Anion Gap BUN Creatinine GFR Calculation Glucose POC Glucose 115 Estimat Average Glucose Hemoglobin A1c Calculated Osmolality Calcium Phosphorus Magnesium Ferritin Total Bilirubin AST ALT Alkaline Phosphatase Creatine Kinase 79 C-Reactive Protein Total Protein Albumin Globulin Triglycerides Cholesterol LDL Cholesterol, Calc HDL Cholesterol LDL/HDL Ratio Cholesterol/HDL Ratio Procalcitonin TSH Urine Color Urine Appearance Urine pH Ur Specific [place] Urine Protein Urine Glucose (UA) Urine Ketones Urine Blood Urine Nitrate Urine Bilirubin Urine Urobilinogen Ur Leukocyte Esterase Ethyl Alcohol SARS-CoV-2 Ag (Rapid) Negative 01/11/20 01/11/20 01/11/20 04:30 04:30 04:30 WBC 7.3 RBC 3.88 L Hgb 10.9 L Hct 34.0 L MCV 87.6 MCH 28.1 MCHC 32.1 RDW 14.5 Plt Count 138 MPV 10.7 H Neut % (Auto) 74.4 Lymph % (Auto) 13.8 Pettis % (Auto) 9.6 Eos % (Auto) 1.5 Baso % (Auto) 0.4 Neut # (Auto) 5.43 Lymph # (Auto) 1.0 Pettis # (Auto) 0.7 Eos # (Auto) 0.1 Baso # (Auto) 0.0 Nucleated RBC % (auto) 0 Nucleated RBCs # 0.0 ESR D-Dimer Specimen Type Sample Site ABG pH ABG pCO2 ABG pO2 ABG HCO3 ABG O2 Saturation ABG Base Excess Gael Test A-a O2 Gradient Hematocrit Hgb O2 Saturation Carboxyhemoglobin Methemoglobin Total Hemoglobin Ionized Calcium O2 Delivery Device O2 Liters/Min FiO2 Hook And Eye Attacher ID Sodium 135 L Potassium 4.0 Chloride 99 Carbon Dioxide 24 Anion Gap 16.0 BUN 11 Creatinine 0.8 GFR Calculation 98.0 Glucose 134 H POC Glucose Estimat Average Glucose 120 Hemoglobin A1c 5.8 Calculated Osmolality 281 L Calcium 9.1 Phosphorus 4.3 Magnesium 1.7 Ferritin Total Bilirubin 0.3 AST 13 ALT 7 Alkaline Phosphatase 48 Creatine Kinase C-Reactive Protein Total Protein 5.7 L Albumin 3.0 L Globulin 2.7 Triglycerides Cholesterol LDL Cholesterol, Calc HDL Cholesterol LDL/HDL Ratio Cholesterol/HDL Ratio Procalcitonin TSH Urine Color Urine Appearance Urine pH Ur Specific Eagle Urine Protein Urine Glucose (UA) Urine Ketones Urine Blood Urine Nitrate Urine Bilirubin Urine Urobilinogen Ur Leukocyte Esterase Ethyl Alcohol SARS-CoV-2 Ag (Rapid) 01/11/20 01/11/20 01/11/20 04:30 06:06 06:50 WBC RBC Hgb Hct MCV MCH MCHC RDW Plt Count MPV Neut % (Auto) Lymph % (Auto) Pettis % (Auto) Eos % (Auto) Baso % (Auto) Neut # (Auto) Lymph # (Auto) Pettis # (Auto) Eos # (Auto) Baso # (Auto) Nucleated RBC % (auto) Nucleated RBCs # ESR D-Dimer Specimen Type Sample Site ABG pH ABG pCO2 ABG pO2 ABG HCO3 ABG O2 Saturation ABG Base Excess Gael Test A-a O2 Gradient Hematocrit Hgb O2 Saturation Carboxyhemoglobin Methemoglobin Total Hemoglobin Ionized Calcium O2 Delivery Device O2 Liters/Min FiO2 Hook And Eye Attacher ID Sodium Potassium Chloride Carbon Dioxide Anion Gap BUN Creatinine GFR Calculation Glucose POC Glucose 141 Estimat Average Glucose Hemoglobin A1c Calculated Osmolality Calcium Phosphorus Magnesium Ferritin Total Bilirubin AST ALT Alkaline Phosphatase Creatine Kinase C-Reactive Protein Total Protein Albumin Globulin Triglycerides 160 H Cholesterol 125 LDL Cholesterol, Calc 62 HDL Cholesterol 31 L LDL/HDL Ratio 2.00 Cholesterol/HDL Ratio 4.03 Procalcitonin TSH Urine Color Yellow Urine Appearance Clear Urine pH 7 Ur Specific Eagle 1.005 Urine Protein Neg Urine Glucose (UA) Norm Urine Ketones Negative Urine Blood Neg Urine Nitrate Negative Urine Bilirubin Neg Urine Urobilinogen Norm Ur Leukocyte Esterase Negative Ethyl Alcohol SARS-CoV-2 Ag (Rapid) 01/11/20 01/11/20 01/11/20 10:42 17:01 18:48 WBC RBC Hgb Hct MCV MCH MCHC RDW Plt Count MPV Neut % (Auto) Lymph % (Auto) Pettis % (Auto) Eos % (Auto) Baso % (Auto) Neut # (Auto) Lymph # (Auto) Pettis # (Auto) Eos # (Auto) Baso # (Auto) Nucleated RBC % (auto) Nucleated RBCs # ESR D-Dimer Specimen Type Arterial Sample Site Radial, left ABG pH 7.47 H ABG pCO2 37.6 ABG pO2 69.0 L ABG HCO3 27.1 H ABG O2 Saturation 95.7 ABG Base Excess 3.3 H Gael Test Pos A-a O2 Gradient 14.6 H Hematocrit 34.1 L Hgb O2 Saturation 93.5 L Carboxyhemoglobin 1.5 Methemoglobin 0.8 Total Hemoglobin 11.1 L Ionized Calcium 1.2 O2 Delivery Device Nc O2 Liters/Min 3.0 FiO2 32.0 Hook And Eye Attacher ID Ed Sodium 134.0 Potassium 3.6 Chloride Carbon Dioxide Anion Gap BUN Creatinine GFR Calculation Glucose 118.0 H POC Glucose 115 117 Estimat Average Glucose Hemoglobin A1c Calculated Osmolality Calcium Phosphorus Magnesium Ferritin Total Bilirubin AST ALT Alkaline Phosphatase Creatine Kinase C-Reactive Protein Total Protein Albumin Globulin Triglycerides Cholesterol LDL Cholesterol, Calc HDL Cholesterol LDL/HDL Ratio Cholesterol/HDL Ratio Procalcitonin TSH Urine Color Urine Appearance Urine pH Ur Specific [place] Urine Protein Urine Glucose (UA) Urine Ketones Urine Blood Urine Nitrate Urine Bilirubin Urine Urobilinogen Ur Leukocyte Esterase Ethyl Alcohol SARS-CoV-2 Ag (Rapid) 01/11/20 01/11/20 01/11/20 19:05 19:05 19:05 WBC RBC Hgb Hct MCV MCH MCHC RDW Plt Count MPV Neut % (Auto) Lymph % (Auto) Pettis % (Auto) Eos % (Auto) Baso % (Auto) Neut # (Auto) Lymph # (Auto) Pettis # (Auto) Eos # (Auto) Baso # (Auto) Nucleated RBC % (auto) Nucleated RBCs # ESR 50 H D-Dimer 12.65 H Specimen Type Sample Site ABG pH ABG pCO2 ABG pO2 ABG HCO3 ABG O2 Saturation ABG Base Excess Gael Test A-a O2 Gradient Hematocrit Hgb O2 Saturation Carboxyhemoglobin Methemoglobin Total Hemoglobin Ionized Calcium O2 Delivery Device O2 Liters/Min FiO2 Hook And Eye Attacher ID Sodium Potassium Chloride Carbon Dioxide Anion Gap BUN Creatinine GFR Calculation Glucose POC Glucose Estimat Average Glucose Hemoglobin A1c Calculated Osmolality Calcium Phosphorus Magnesium Ferritin 316 Total Bilirubin AST ALT Alkaline Phosphatase Creatine Kinase C-Reactive Protein 175.5 H Total Protein Albumin Globulin Triglycerides Cholesterol LDL Cholesterol, Calc HDL Cholesterol LDL/HDL Ratio Cholesterol/HDL Ratio Procalcitonin 0.77 H TSH Urine Color Urine Appearance Urine pH Ur Specific [place] Urine Protein Urine Glucose (UA) Urine Ketones Urine Blood Urine Nitrate Urine Bilirubin Urine Urobilinogen Ur Leukocyte Esterase Ethyl Alcohol SARS-CoV-2 Ag (Rapid) 01/11/20 01/12/20 01/12/20 20:55 04:45 04:45 WBC 6.5 RBC 3.67 L Hgb 10.3 L Hct 32.6 L MCV 88.8 MCH 28.1 MCHC 31.6 RDW 14.4 Plt Count 100 L MPV 10.4 Neut % (Auto) 64.6 Lymph % (Auto) 20.4 Pettis % (Auto) 9.6 Eos % (Auto) 4.6 Baso % (Auto) 0.5 Neut # (Auto) 4.18 Lymph # (Auto) 1.3 Pettis # (Auto) 0.6 Eos # (Auto) 0.3 Baso # (Auto) 0.0 Nucleated RBC % (auto) 0 Nucleated RBCs # 0.0 ESR D-Dimer Specimen Type Sample Site ABG pH ABG pCO2 ABG pO2 ABG HCO3 ABG O2 Saturation ABG Base Excess Gael Test A-a O2 Gradient Hematocrit Hgb O2 Saturation Carboxyhemoglobin Methemoglobin Total Hemoglobin Ionized Calcium O2 Delivery Device O2 Liters/Min FiO2 Hook And Eye Attacher ID Sodium 132 L Potassium 3.6 Chloride 97 L Carbon Dioxide 25 Anion Gap 13.6 BUN 10 Creatinine 0.8 GFR Calculation 98.0 Glucose 137 H POC Glucose 128 Estimat Average Glucose Hemoglobin A1c Calculated Osmolality 275 L Calcium 9.1 Phosphorus 3.3 Magnesium 1.7 Ferritin Total Bilirubin 0.5 AST 9 ALT 6 Alkaline Phosphatase 55 Creatine Kinase C-Reactive Protein Total Protein 5.7 L Albumin 3.0 L Globulin 2.7 Triglycerides Cholesterol LDL Cholesterol, Calc HDL Cholesterol LDL/HDL Ratio Cholesterol/HDL Ratio Procalcitonin TSH Urine Color Urine Appearance Urine pH Ur Specific [place] Urine Protein Urine Glucose (UA) Urine Ketones Urine Blood Urine Nitrate Urine Bilirubin Urine Urobilinogen Ur Leukocyte Esterase Ethyl Alcohol SARS-CoV-2 Ag (Rapid) 01/12/20 07:17 WBC RBC Hgb Hct MCV MCH MCHC RDW Plt Count MPV Neut % (Auto) Lymph % (Auto) Pettis % (Auto) Eos % (Auto) Baso % (Auto) Neut # (Auto) Lymph # (Auto) Pettis # (Auto) Eos # (Auto) Baso # (Auto) Nucleated RBC % (auto) Nucleated RBCs # ESR D-Dimer Specimen Type Sample Site ABG pH ABG pCO2 ABG pO2 ABG HCO3 ABG O2 Saturation ABG Base Excess Gael Test A-a O2 Gradient Hematocrit Hgb O2 Saturation Carboxyhemoglobin Methemoglobin Total Hemoglobin Ionized Calcium O2 Delivery Device O2 Liters/Min FiO2 Hook And Eye Attacher ID Sodium Potassium Chloride Carbon Dioxide Anion Gap BUN Creatinine GFR Calculation Glucose POC Glucose 127 Estimat Average Glucose Hemoglobin A1c Calculated Osmolality Calcium Phosphorus Magnesium Ferritin Total Bilirubin AST ALT Alkaline Phosphatase Creatine Kinase C-Reactive Protein Total Protein Albumin Globulin Triglycerides Cholesterol LDL Cholesterol, Calc HDL Cholesterol LDL/HDL Ratio Cholesterol/HDL Ratio Procalcitonin TSH Urine Color Urine Appearance Urine pH Ur Specific [place] Urine Protein Urine Glucose (UA) Urine Ketones Urine Blood Urine Nitrate Urine Bilirubin Urine Urobilinogen Ur Leukocyte Esterase Ethyl Alcohol SARS-CoV-2 Ag (Rapid) Cardiac Studies: No Data to Display
[2020-01-12] MEDS: vancomycin 1,000 MG in sodium chloride 0.9% 250 ML 250 MG IV (11:20)
[2020-01-12] MEDS: vancomycin 1,000 MG SDV 1000 MG IRRIGATION (12:15)
--- NOTE | 2020-01-12 13:36 | P.PN_ITS ---
Subjective Subjective: Interval history: Patient had temperature spike of in the morning. When I examined the patient after he returned from the surgery, he was complaining pain in right leg. He denied any other complaint. Vitals and labs reviewed. Medications: Reviewed: Yes Vitals/I&O/Wt Last Vital Signs Temp 100.4 F H 01/12/20 11:14 Pulse 90 01/12/20 11:14 Resp 18 01/12/20 11:14 BP 101/60 01/12/20 11:14 Pulse Ox 95 01/12/20 11:14 01/11/20 01/12/20 01/12/20 22:59 06:59 14:59 Intake Total 0 / 3000 1000 / 4000 350 / 350 Output Total 1000 / 1000 500 / 1500 Balance -1000 / 2000 500 / 2500 350 / 350 Weight last 48 hrs Weight 102.058 kg Physical Exam Narrative: EXAM NARRATIVE: EXAM NARRATIVE: COMMON NORMALS: no acute distress, average body habitus, patient oriented x3 and alert GENERAL APPEARANCE: cooperative and comfortable ORIENTATION/CONSCIOUSNESS: Yes awake HENMT COMMON NORMALS: normocephalic and atraumatic HEAD & SCALP: normocephalic and atraumatic Eye GENERAL EYE: appearance normal, both eyes and all related structures Chest COMMONS NORMALS: normal inspection of the chest Resp COMMON NORMALS: normal respiratory effort EFFORT & INSPECTION: Yes able to speak in complete sentences and Yes symmetric chest movement Extremity RIGHT UPPER EXTREMITY: Yes shoulder joint (The patient is in a sling.) Right shoulder: Yes Right shoulder joint inspection exam (There is bruising and tenderness to any range of motion.), Yes Right shoulder joint ROM exam (Not evaluated.), Yes Right shoulder joint neurovascular exam (Intact distal to the shoulder.) and Yes Right shoulder joint other findings (There are multiple abrasions and ecchymoses on the hand secondary to the patient's fall.) RIGHT LOWER EXTREMITY: Yes foot & digits Right ankle: Yes inspection (The ankle is in a splint at the moment. The patient still complains of discomfort.), Yes palpation (There is no tenderness to palpation over the foot, but the patient complains of pain with minimal palpation over his splint.), Yes ROM (Not evaluated secondary to fracture and splint) and Yes neurovascular exam (Patient is able to move his toes with intact capillary refill. Sensation is normal.) Neuro COMMON NORMALS: patient oriented x3 SENSORIUM/ORIENTATION: Yes alert Psych COMMON NORMALS: mental status grossly normal APPEARANCE: Yes grossly normal ATTITUDE: Yes calm and Yes engaged ATTENTION/CONCENTRATION: Yes attention grossly intact Skin COMMON NORMALS: no rashes or lesions noted GENERAL SKIN EXAM: no rashes or lesions noted Urinary Catheter Management^: Alaniz: Cath Placed During This Visit: yes Reason for Continuing Indwelling Catheter: Accurate Measurement of Urinary Output in Critically Ill Patients Urinary Catheter Date of Insertion: 01/11/20 Urinary Catheter Time of Insertion: 06:30 Data : 01/12/20 04:45 01/12/20 04:45 A&P Assessment and plan (1) Pneumonia: Patient is requiring 6 L supplemental oxygen, he has cough, spiked temperature overnight, he is under PUI work-up. Rapid COVID test is negative. Influenza a and B is negative. Procalcitonin is: 0.77, lactic acid is pending, pancultures ordered. Repeat x-ray chest: No acute findings. Started on antibiotic (currently on Vanco and imipenem). MRSA PCR ordered Status: Acute (2) Bimalleolar fracture of right ankle: -Orthopedics has been consulted, -Pain control with Dilaudid -DVT prophylaxis SCDs, after surgery Lovenox Status: Acute Qualifiers: Encounter type: initial encounter Fracture type: closed Qualified Code(s): S82.841A - Displaced bimalleolar fracture of right lower leg, initial encounter for closed fracture (3) Closed fracture of glenoid cavity of right scapula: -Currently in a sling, medically managed Status: Acute Qualifiers: Encounter type: initial encounter Fracture alignment: nondisplaced Qualified Code(s): S42.144A - Nondisplaced fracture of glenoid cavity of scapula, right shoulder, initial encounter for closed fracture (4) Avascular necrosis of left femoral head: -Incidentally found on CT of the abdomen pelvis -Chronicity unknown -Patient has pain all over, but does have left hip pain with palpation -We will defer further imaging studies and surgical versus medical management up to orthopedic team Status: Acute (5) Closed displaced fracture of right acromial process: Status: Acute Qualifiers: Encounter type: initial encounter Qualified Code(s): S42.121A - Displaced fracture of acromial process, right shoulder, initial encounter for closed fracture (6) Closed fracture of right clavicle: Status: Deleted Qualifiers: Clavicle location: lateral end Encounter type: initial encounter Fracture alignment: nondisplaced Qualified Code(s): S42.034A - Nondisplaced fracture of lateral end of right clavicle, initial encounter for closed fracture (7) Fall: -With significant trauma, multiple imaging studies any significant findings of internal bleed, continue to monitor Status: Acute (8) Partial epilepsy secondarily generalized: -Continue home Depakote Status: Acute (9) Anxiety disorder: Status: Chronic (10) Abdominal wall hernia: Status: Acute (11) Major depressive disorder: Status: Acute (12) BPH (benign prostatic hyperplasia): Status: Chronic (13) Dyslipidemia: Status: Chronic (14) Essential (primary) hypertension: Status: Chronic (15) Controlled diabetes mellitus: Status: Chronic Qualifiers: 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 [facility] Diagnoses Pneumonia J18.9 Bimalleolar fracture of right ankle S82.841A Encounter type: initial encounter Fracture type: closed Closed fracture of glenoid cavity of right scapula S42.144A Encounter type: initial encounter Fracture alignment: nondisplaced Avascular necrosis of left femoral head M87.052 Closed displaced fracture of right acromial process S42.121A Encounter type: initial encounter Closed fracture of right clavicle S42.034A Clavicle location: lateral end Encounter type: initial encounter Fracture alignment: nondisplaced Fall W19.XXXA Partial epilepsy secondarily generalized Anxiety disorder F41.9 Abdominal wall hernia K43.9 Major depressive disorder F32.9 BPH (benign prostatic hyperplasia) N40.0 Dyslipidemia E78.5 Essential (primary) hypertension I10 Controlled diabetes mellitus E11.9 Diabetes mellitus snf insulin use: with terminal operations supervisor use Diabetes mellitus type: type 2
--- NOTE | 2020-01-12 14:11 | SUR.PHASEI ---
1357 PT RECOVERED IN OR PT EXTUBATED IN OR 2 PT WITH GOOD RESP EFFORT ORAL AIRWAY IN PLACE VSS BP LOW, LOWER LEGS ELEVATED MONITOR SAME PRE SURGERY WITH BBB WITH OCC PVCS UNIFOCAL. ADDISON TO DD WITH LT LUKAS URINE, IV PATENT DRESSING TO RT LOWER FOOT MATT OVER SPLINT DRESSING D/I 1400 PT AWAKE ORAL AIRWAY OUT PT ON MASK 1410 PT ON NC AT 4 LITER SATS 92%
[2020-01-12 14:49] LABS: Glucose Point of Care 140 mg/dL (70-110)
--- NOTE | 2020-01-12 14:50 | P.OP_ITS ---
Operative Report Date of procedure: January 12, 2020 Pre-op Diagnosis: Right tibial plafond and distal fibula fracture Post-op diagnosis: same Post-op Findings: Comminuted tibial plafond fracture with elevated intra- articular space, also comminuted. Lateral fibular fracture, oblique Procedure Done: Open reduction internal fixation right bimalleolar ankle fracture including the lateral and posterior malleolar fractures. Open reduction internal fixation with Hydroset XT supplementation of the plafond and fracture of the distal right tibia. Implants: A 4-hole lateral fibular plate laterally and a 5 hole straight plate, contoured, medially. Hydroset XT 5 mL as structural graft Specimens removed/disposition: None Pathology: none sent Surgeon: Sera [facility] Ii Farmworker: [facility] OR technicians Anesthesia: General (General intubated) Estimated blood loss (mL): 50 Tourniquet time (min): 99 Tourniquet time: 250 mmHg IV fluids (mL): 1,000 Urine output (mL): 100 Complications: None Findings: Significant comminution of the medial malleolus and distal tibial plafond and with elevation of joint space. Bimalleolar fracture including the lateral and posterior malleoli. Condition: stable Disposition: PACU (Then return to floor) Brief History: This 64-year-old gentleman fell suffering the above injuries. He also has a significant shoulder injury including a base of the scapular fracture which precludes him from comfortable ambulation. This will complicate his rehabilitation, however, this is not a surgical fracture. With regard to his ankle, fracture is as outlined above. This was confirmed with CT scan. Procedure: Patient was seen in the preoperative holding area and leg was marked. Patient was brought to the operating theater and placed on the operating room table. After undergoing adequate general intubated anesthesia, the patient's right lower extremity was prepped and draped in usual fashion utilizing DuraPrep. The leg was draped free. Fluoroscopy was used throughout the surgical procedure. We did have a tourniquet high on the right lower extremity. This was elevated to 250 mmHg and total tourniquet time was 99 minutes. Tourniquet elevation followed exsanguination of the leg. A surgical pause was performed. At the time of the surgical pause we identified the site and side of surgery as well as the patient's identity and availability of equipment. We also confirmed appropriate administration of IV antibiotics, vancomycin 1 g. Following the above, an incision was made centering over the patient's lateral malleolar, distal fibular fracture. The incision was continued proximally and distally as necessary to allow access to the fracture. We were able to reduce the fracture anatomically. This was held with a clamp while we contoured a plate to appropriately fit the patient's lateral malleolus. The Manjinder 4-hole fibular plate plate was attached with standard technique. We used a combination of locking as well as one nonlocking screw. Once the plate was appropriately attached, we irrigated the wound. We then closed the wound with 0 Vicryl in the fascial tissues, 2-0 Monocryl in the subcutaneous tissues, and the skin was closed with skin andre. Attention was then directed to the medial aspect of the ankle. Once again, we used fluoroscopy to determine the appropriate level of the incision as well as palpation over the fracture. An incision was made over the site of the fracture. The fracture was evaluated. We were able to make a window at the level of the fracture to allow us to place a Brusly into the distal tibia and elevate the joint surface to a more congruent level. This left a void which was subsequently filled with the HydroSet. A 5 hole one third tubular straight plate was contoured to fit the medial malleolus. This was attached under fluoroscopic guidance with a combination of locking and nonlocking screws. We had excellent reduction and confucianism of joint space with this technique. Throughout the surgical procedure and at the conclusion of the procedure we did use fluoroscopy. Fluoroscopy was utilized to determine appropriate positioning of the plate as well as the fractures. At the conclusion we did obtain AP and lateral images demonstrating the fracture was anatomically reduced. The medial incision was closed with a combination of 0 Vicryl deep and 2-0 Monocryl in the subcutaneous tissues. The skin was then closed with skin andre. Sterile dressing was placed consisting of Xeroform gauze, 4 x 4's, sterile soft roll and an Hieu wrap. The patient was placed in a posterior splint and is to remain nonweightbearing. The procedure was well tolerated without complication. Tourniquet time was 99 minutes at 250 mmHg. The patient will be discharged home to follow-up in my office as scheduled. Associated Problem List Diagnoses (1) Closed pilon fracture of right tibia: Qualifiers: Encounter type: initial encounter Fracture alignment: displaced Qualified Code(s): S82.871A - Displaced pilon fracture of right tibia, initial encounter for closed fracture (2) Bimalleolar fracture of right ankle: Qualifiers: Encounter type: initial encounter Fracture type: closed Qualified Code(s): S82.841A - Displaced bimalleolar fracture of right lower leg, initial encounter for closed fracture
--- NOTE | 2020-01-12 15:06 | SUR.PHASEI ---
1440 PT TO FLOOR AWAKE ALERT TALKATIVE REQUESTS SOMETHING TO DRINK AND PO PAIN MED NURSE SOPHIA UPDATED AND PT BLOOD SUGAR CHECK DONE AT BEDSIDE. RESP WILL BE HERE SHORTLY PT IS ALERT NOT SHORT OF BREATH, SATS 98% ON 8 LITERS, RESP TO BEDSIDE. HANDOFF TO NURSE CORTES.
--- NOTE | 2020-01-12 16:21 | XRR_ITS ---
PROCEDURE INFORMATION: Exam: XR Chest, 1 View Exam date and time: 01/12/2020 4:24 PM Age: 64 years old Clinical indication: Condition or disease; Other: Sepsis TECHNIQUE: Imaging protocol: XR of the chest Views: 1 view. COMPARISON: CR XR chest 1V portable [id number] 01/12/2020 6:10 AM FINDINGS: Lungs: Shallow inspiration. Stable linear atelectasis or scarring in the lung bases. No focal consolidation. Pleural space: Unremarkable. No pleural effusion. No pneumothorax. Heart/Mediastinum: Unremarkable. No cardiomegaly. Bones/joints: Degenerative right shoulder. XR/XR chest 1V portable [id number] IMPRESSION: No acute findings.
--- NOTE | 2020-01-12 17:11 | PC.PT ---
PT note; patient declines PT intervention today, states will participate tomorrow
[2020-01-12] MEDS: gabapentin 300 mg Capsule 600 MG PO (17:18)
[2020-01-12] MEDS: docusate sodium 100 mg Capsule PO (17:19)
[2020-01-12] MEDS: tamsulosin 0.4 mg Capsule PO (17:19)
[2020-01-12] MEDS: divalproex DR 500 mg Tablet PO (17:19)
[2020-01-12] MEDS: magnesium oxide 400 mg tablet PO (17:19)
[2020-01-12 17:28] LABS: Glucose Point of Care 132 mg/dL (70-110)
[2020-01-12] MEDS: acetaminophen 500 mg Tablet 1000 MG PO (19:06)
[2020-01-12] MEDS: oxyCODONE 5 mg IR Tab/Cap PO (19:06)
[2020-01-12] MEDS: TRAMadol 50 mg Tablet PO (21:10)
[2020-01-12] MEDS: trazodone 100 mg Tablet PO (21:10)
[2020-01-12 21:15] LABS: Glucose Point of Care 127 mg/dL (70-110)
[2020-01-13] VITALS (15 sets, daily range): BP systolic 91–138; BP diastolic 58–83; PULSE 63–116; RESP 16–20; TEMP 36.8–37.3; O2SAT 90–97
[2020-01-13] MEDS: dextrose 5%-sod chloride 0.45% 1,000 ML 75 ML IV (01:27)
[2020-01-13] MEDS: oxyCODONE 5 mg IR Tab/Cap PO ×3 (01:31→18:29)
[2020-01-13] MEDS: TRAMadol 50 mg Tablet PO (05:00)
[2020-01-13 05:32] LABS: Basophils % 0.1 %; Eosinophils # 0.3 10^3/uL (0.0-0.8); Eosinophils % 4.9 %; Hematocrit 30.1 % (42.0-52.0); Hemoglobin 9.4 g/dL (11.7-16.6); Lymphocytes # 0.7 10^3/uL (0.8-4.8); Lymphocytes % 9.7 %; Mean Corpuscular HGB Conc 31.2 g/dL (30.0-36.0); Mean Corpuscular Hemoglobin 27.9 pg (28.0-34.0); Mean Corpuscular Volume 89.3 fL (80-94); Mean Platelet Volume 10.5 fL (7.4-10.4); Monocytes # 0.5 10^3/uL (0.2-0.9); Monocytes % 6.9 %; Neutrophils # 5.42 10^3/uL (1.8-7.7); Neutrophils % 78.1 %; Nucleated Red Blood Cells % 0 %; Platelet Count 89 10^3/cmm (130-400); Red Blood Count 3.37 10^6/uL (4.1-5.3); Red Cell Distribution Width 13.9 % (12.1-15.1); White Blood Count 6.9 10^3/uL (4.0-10.0)
[2020-01-13 06:02] LABS: Alanine Aminotransferase < 5 U/L (0-41); Albumin Level 2.6 g/dL (3.5-5.2); Alkaline Phosphatase 46 IU/L (40-130); Anion Gap 11.2 (5-19); Aspartate Amino Transferase 11 U/L (0-40); Blood Urea Nitrogen 10 mg/dL (8-23); Carbon Dioxide 26 mmol/L (22-29); Chloride 98 mmol/L (98-107); Globulin 2.7 g/dL (1.3-4.6); Glomerular Filtration Rate 114.3 mL/min (90-130); Glucose 136 mg/dL (65-115); Magnesium 1.7 mg/dL (1.7-2.3); Osmolality Calculated 273 mOsm/kg (285-295); Phosphorus 4.3 mg/dL (2.5-4.5); Potassium 4.2 mmol/L (3.5-5.1); Sodium 131 mmol/L (136-145); Total Bilirubin 0.5 mg/dL (0.15-1.2); Total Protein 5.3 g/dL (6.6-8.7)
--- NOTE | 2020-01-13 06:30 | USR_ITS ---
PROCEDURE INFORMATION: Exam: US Retroperitoneal; Complete; Kidneys and Bladder Exam date and time: 01/13/2020 10:56 AM Age: 64 years old Clinical indication: Other: Low urine output after surger y; Additional info: Low urine output after surgery TECHNIQUE: Imaging protocol: Real-time ultrasound of the retroperitoneum with image documentation. Complete exam focused on the kidneys and bladder. COMPARISON: 1. CT chest abd pel w con* 01/10/2020 7:04 PM 2. . FINDINGS: Right kidney: Normal. No stones. No hydronephrosis. Left kidney: Normal. No stones. No hydronephrosis. Aorta: The abdominal aorta was obscured by bowel gas Bladder: The urinary bladder is collapsed around a Alaniz an obscured by bowel gas. US/US renal BI* [id number] IMPRESSION: Normal kidneys.
[2020-01-13 06:39] LABS: Glucose Point of Care 134 mg/dL (70-110)
[2020-01-13] MEDS: ascorbic acid 500 mg Tablet 1000 MG PO (08:04)
[2020-01-13] MEDS: gabapentin 300 mg Capsule 600 MG PO ×2 (08:04→18:26)
[2020-01-13] MEDS: tamsulosin 0.4 mg Capsule PO ×2 (08:04→18:26)
[2020-01-13] MEDS: magnesium oxide 400 mg tablet PO ×2 (08:04→18:26)
[2020-01-13] MEDS: divalproex DR 500 mg Tablet PO ×2 (08:05→18:26)
[2020-01-13] MEDS: aspirin 325 mg EC Tablet PO (08:05)
[2020-01-13 11:12] LABS: Glucose Point of Care 125 mg/dL (70-110)
[2020-01-13 11:42] LABS: Lactic Sepsis W/Reflex 1.6 mmol/L (0.5-2.2)
[2020-01-13] MEDS: sodium chloride 0.9% 1,000 ML 30 ML IV (11:45)
[2020-01-13] MEDS: acetaminophen 500 mg Tablet 1000 MG PO ×2 (11:45→18:29)
--- NOTE | 2020-01-13 12:25 | PM.PN ---
Subjective Subjective: Interval history: The patient complains of right ankle pain, however, this is improved. He has been keeping the ankle elevated since his surgery. He is still in his postoperative splint and will remain so until he is seen in the office. He will struggle with maintaining nonweightbearing on the right upper extremity and the right lower extremity. It is likely that he will require ongoing nursing care until these fractures heal enough to allow him to ambulate. Medications: Reviewed: Yes Vitals/I&O/Wt Last Vital Signs Temp 98.9 F 01/13/20 12:00 Pulse 63 01/13/20 12:00 Resp 20 H 01/13/20 12:00 BP 91/58 01/13/20 12:00 Pulse Ox 93 01/13/20 11:35 01/12/20 01/13/20 01/13/20 22:59 06:59 14:59 Intake Total 1570 / 3020 470 / 3490 Output Total 300 / 750 400 / 1150 Balance 1270 / 2270 70 / 2340 Physical Exam Const: COMMON NORMALS: no acute distress, average body habitus, patient oriented x3 and alert GENERAL APPEARANCE: cooperative and comfortable ORIENTATION/CONSCIOUSNESS: Yes awake HENMT: COMMON NORMALS: normocephalic and atraumatic HEAD & SCALP: normocephalic and atraumatic Eye: GENERAL EYE: appearance normal, both eyes and all related structures Chest: COMMONS NORMALS: normal inspection of the chest Resp: COMMON NORMALS: normal respiratory effort EFFORT & INSPECTION: Yes able to speak in complete sentences and Yes symmetric chest movement Extremity: RIGHT UPPER EXTREMITY: Yes shoulder joint (Patient continues to wear a sling to address his glenoid fracture. He also has known other chronic issues in the shoulder which caused him significant discomfort and inability to use crutches or a walker.) Right shoulder: Yes Right shoulder joint neurovascular exam (Intact) RIGHT LOWER EXTREMITY: Yes foot & digits (The ankle is in his postoperative splint. The toes are pink and he is able to move them. He has intact sensation. There is bruising over the toes.) Neuro: COMMON NORMALS: patient oriented x3 SENSORIUM/ORIENTATION: Yes alert Psych: COMMON NORMALS: mental status grossly normal APPEARANCE: Yes grossly normal ATTITUDE: Yes calm and Yes engaged ATTENTION/CONCENTRATION: Yes attention grossly intact Skin: COMMON NORMALS: no rashes or lesions noted GENERAL SKIN EXAM: no rashes or lesions noted Urinary Catheter Management^: Alaniz: Cath Placed During This Visit: yes Reason for Continuing Indwelling Catheter: Accurate Measurement of Urinary Output in Critically Ill Patients Urinary Catheter Date of Insertion: 01/11/20 Urinary Catheter Time of Insertion: 06:30 Data : 01/13/20 04:48 01/13/20 04:48 Micro: Microbiology 01/13/20 11:09 Blood Culture - Preliminary Blood SPECIMEN COLLECTED 01/13/20 11:14 Blood Culture - Preliminary Blood SPECIMEN COLLECTED A&P Assessment and plan (1) Closed pilon fracture of right tibia: Patient underwent the following procedure last evening: Open reduction internal fixation right bimalleolar ankle fracture including the lateral and posterior malleolar fractures. Open reduction internal fixation with Hydroset XT supplementation of the plafond and fracture of the distal right tibia. Implants: A 4-hole lateral fibular plate laterally and a 5 hole straight plate, contoured, medially. Hydroset XT 5 mL as structural graft. Patient is unable to participate in aggressive physical therapy at this time secondary to inability to weight-bear on the right upper and right lower extremities. He has an acute shoulder fracture involving the base of the glenoid along with his ankle fracture. He would not be able to weight-bear on this ankle fracture for between 4 and 6 weeks. He will likely require nursing care through this time. Currently, he does not have significant physical therapy needs as he is limited in his ability to participate. He would likely benefit from nursing care to prevent significant medical comorbidities. Status: Acute Qualifiers: Encounter type: initial encounter Fracture alignment: displaced Qualified Code(s): S82.871A - Displaced pilon fracture of right tibia, initial encounter for closed fracture (2) Bimalleolar fracture of right ankle: This fracture involves the posterior malleolus as well as the distal fibula. This fracture will be addressed at the same time as the pilon fracture. Status: Acute Qualifiers: Encounter type: initial encounter Fracture type: closed Qualified Code(s): S82.841A - Displaced bimalleolar fracture of right lower leg, initial encounter for closed fracture Attestations Medical Necessity Statement*: Patient continues to require inpatient nursing care secondary to inability to care for himself due to inability to weight-bear on the right upper and right lower extremities. 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
--- NOTE | 2020-01-13 15:50 | P.PN_ITS ---
Subjective Subjective: Interval history: No acute events overnight.Patient has remained afebrile. Vitals and labs have been reviewed. MRSA DNA DETECTED: Medications: Reviewed: Yes Vitals/I&O/Wt Last Vital Signs Temp 98.9 F 01/13/20 12:00 Pulse 63 01/13/20 12:00 Resp 20 H 01/13/20 12:00 BP 91/58 01/13/20 12:00 Pulse Ox 93 01/13/20 11:35 01/13/20 01/13/20 01/13/20 06:59 14:59 22:59 Intake Total 470 / 3490 340 / 340 Output Total 400 / 1150 Balance 70 / 2340 340 / 340 Physical Exam Narrative: EXAM NARRATIVE: EXAM NARRATIVE: EXAM NARRATIVE: COMMON NORMALS: no acute distress, average body habitus, patient oriented x3 and alert GENERAL APPEARANCE: cooperative and comfortable ORIENTATION/CONSCIOUSNESS: Yes awake HENMT COMMON NORMALS: normocephalic and atraumatic HEAD & SCALP: normocephalic and atraumatic Eye GENERAL EYE: appearance normal, both eyes and all related structures Chest COMMONS NORMALS: normal inspection of the chest Resp COMMON NORMALS: normal respiratory effort EFFORT & INSPECTION: Yes able to speak in complete sentences and Yes symmetric chest movement Extremity RIGHT UPPER EXTREMITY: Yes shoulder joint (The patient is in a sling.) Right shoulder: Yes Right shoulder joint inspection exam (There is bruising and tenderness to any range of motion.), Yes Right shoulder joint ROM exam (Not evaluated.), Yes Right shoulder joint neurovascular exam (Intact distal to the shoulder.) and Yes Right shoulder joint other findings (There are multiple enzo sions and ecchymoses on the hand secondary to the patient's fall.) RIGHT LOWER EXTREMITY: Yes foot & digits Right ankle: Yes inspection (The ankle is in a splint at the moment. The patient still complains of discomfort.), Yes palpation (There is no tenderness to palpation over the foot, but the patient complains of pain with minimal palpation over his splint.), Yes ROM (Not evaluated secondary to fracture and splint) and Yes neurovascular exam (Patient is able to move his toes with intact capillary refill. Sensation is normal.) Neuro COMMON NORMALS: patient oriented x3 SENSORIUM/ORIENTATION: Yes alert Psych COMMON NORMALS: mental status grossly normal APPEARANCE: Yes grossly normal ATTITUDE: Yes calm and Yes engaged ATTENTION/CONCENTRATION: Yes attention grossly intact Skin COMMON NORMALS: no rashes or lesions noted GENERAL SKIN EXAM: no rashes or lesions noted Urinary Catheter Management^: Alaniz: Cath Placed During This Visit: yes Reason for Continuing Indwelling Catheter: Accurate Measurement of Urinary Output in Critically Ill Patients Urinary Catheter Date of Insertion: 01/11/20 Urinary Catheter Time of Insertion: 06:30 Data : 01/13/20 04:48 01/13/20 04:48 Micro: Microbiology 01/13/20 06:44 MRSA Culture - Final Nose 01/13/20 11:09 Blood Culture - Preliminary Blood SPECIMEN COLLECTED 01/13/20 11:14 Blood Culture - Preliminary Blood SPECIMEN COLLECTED A&P Assessment and plan (1) Pneumonia: Currently on 6 L supplemental oxygen, had no temperatures spike in last 24h. Rapid COVID test is negative. COVID PCR is negative influenza a and B is negative. Procalcitonin is: 0.77, lactic acid is:1.6 Nasal MRSA screen:Is positive. pancultures ordered. Repeat x-ray chest: No acute findings. We will continue with vancomycin for now. We will continue with imipenem. Status: Acute (2) Bimalleolar fracture of right ankle: -Orthopedics has been consulted, -Pain control with Dilaudid -DVT prophylaxis SCDs, after surgery Lovenox Status: Acute Qualifiers: Encounter type: initial encounter Fracture type: closed Qualified Code(s): S82.841A - Displaced bimalleolar fracture of right lower leg, initial encounter for closed fracture (3) Closed fracture of glenoid cavity of right scapula: -Currently in a sling, medically managed Status: Acute Qualifiers: Encounter type: initial encounter Fracture alignment: nondisplaced Qualified Code(s): S42.144A - Nondisplaced fracture of glenoid cavity of scapula, right shoulder, initial encounter for closed fracture (4) Avascular necrosis of left femoral head: -Incidentally found on CT of the abdomen pelvis -Chronicity unknown -Patient has pain all over, but does have left hip pain with palpation -We will defer further imaging studies and surgical versus medical management up to orthopedic team Status: Acute (5) Closed displaced fracture of right acromial process: Status: Acute Qualifiers: Encounter type: initial encounter Qualified Code(s): S42.121A - Displac ed fracture of acromial process, right shoulder, initial encounter for closed fracture (6) Closed fracture of right clavicle: Status: Deleted Qualifiers: Clavicle location: lateral end Encounter type: initial encounter Fracture alignment: nondisplaced Qualified Code(s): S42.034A - Nondisplaced fracture of lateral end of right clavicle, initial encounter for closed fracture (7) Fall: -With significant trauma, multiple imaging studies any significant findings of internal bleed, continue to monitor Status: Acute (8) Partial epilepsy secondarily generalized: -Continue home Depakote Status: Acute (9) Anxiety disorder: Status: Chronic (10) Abdominal wall hernia: Status: Acute (11) Major depressive disorder: Status: Acute (12) BPH (benign prostatic hyperplasia): Status: Chronic (13) Dyslipidemia: Status: Chronic (14) Essential (primary) hypertension: Status: Chronic (15) Controlled diabetes mellitus: Status: Chronic Qualifiers: Diabetes mellitus type: type 2 Diabetes mellitus [employer] insulin use: with [employer] use Additional A&P Information SCDs for DVT prophylaxis PT OT Patient is DNR/DNI, is okay with reversing DNI for surgery Attestations Medical Necessity Statement*: Patient needs to be in hospital for management of pneumonia. Coding Level of Care Code Acute Cook Helper Vegetable for [facility] Fwd Diagnoses Pneumonia J18.9 Bimalleolar fracture of right ankle S82.841A Encounter type: initial encounter Fracture type: closed Closed fracture of glenoid cavity of right scapula S42.144A Encounter type: initial encounter Fracture alignment: nondisplaced Avascular necrosis of left femoral head M87.052 Closed displaced fracture of right acromial process S42.121A Encounter type: initial encounter Closed fracture of right clavicle S42.034A Clavicle location: lateral end Encounter type: initial encounter Fracture alignment: nondisplaced Fall W19.XXXA Partial epilepsy secondarily generalized Anxiety disorder F41.9 Abdominal wall hernia K43.9 Major depressive disorder F32.9 BPH (benign prostatic hyperplasia) N40.0 Dyslipidemia E78.5 Essential (primary) hypertension I10 Controlled diabetes mellitus E11.9 Diabetes mellitus type: type 2 Diabetes mellitus [employer] intermedi[employer] insulin use: with group home use
[2020-01-13 16:08] LABS: Coronavirus Lab Test PTC Negative
[2020-01-13 16:54] LABS: Glucose Point of Care 113 mg/dL (70-110)
[2020-01-13] MEDS: docusate sodium 100 mg Capsule PO (18:26)
[2020-01-13 19:17] LABS: Vancomycin Trough 19.7 ug/mL (10-15)
[2020-01-13 20:37] LABS: Glucose Point of Care 124 mg/dL (70-110)
[2020-01-13] MEDS: morphine 4 mg/mL SDV 1 mL 2 MG IVP (23:26)
[2020-01-13] MEDS: phenol oral Spray 177 mL 2 SPRAY MUCOUS MEM (23:33)
[2020-01-13] MEDS: nystatin 100,000 unit/mL UDC 5 mL 100000 UNIT PO (23:52)
[2020-01-14] VITALS (10 sets, daily range): BP systolic 94–111; BP diastolic 56–67; PULSE 72–83; RESP 16–20; TEMP 36.7–37.5; O2SAT 91–95
[2020-01-14] MEDS: oxyCODONE 5 mg IR Tab/Cap PO ×3 (03:19→17:59)
[2020-01-14] MEDS: acetaminophen 500 mg Tablet 1000 MG PO ×3 (03:27→19:56)
[2020-01-14] MEDS: phenol oral Spray 177 mL 2 SPRAY MUCOUS MEM (03:28)
[2020-01-14] MEDS: dextrose 5%-sod chloride 0.45% 1,000 ML 75 ML IV ×2 (05:26→18:01)
[2020-01-14 06:56] LABS: Glucose Point of Care 104 mg/dL (70-110)
[2020-01-14] MEDS: nystatin 100,000 unit/mL UDC 5 mL 100000 UNIT PO ×4 (09:10→21:11)
[2020-01-14] MEDS: docusate sodium 100 mg Capsule PO ×2 (09:11→17:59)
[2020-01-14] MEDS: gabapentin 300 mg Capsule 600 MG PO ×2 (09:11→18:00)
[2020-01-14] MEDS: divalproex DR 500 mg Tablet PO ×2 (09:11→17:59)
[2020-01-14] MEDS: ascorbic acid 500 mg Tablet 1000 MG PO (09:11)
[2020-01-14] MEDS: aspirin 325 mg EC Tablet PO (09:11)
[2020-01-14] MEDS: tamsulosin 0.4 mg Capsule PO ×2 (09:11→17:59)
[2020-01-14] MEDS: magnesium oxide 400 mg tablet PO ×2 (09:11→18:00)
--- NOTE | 2020-01-14 11:23 | PC.NURSE ---
I reported the low pb 99/62 to the nurse. the patient at this time is requesting pain meds also
--- NOTE | 2020-01-14 11:36 | P.PN_ITS ---
Subjective Subjective: Interval history: No acute events overnight. Patient has remained afebrile. His pain is improving in his right lower extremity. He still complains of shoulder pain. MRSA DNA DETECTED. Medications: Reviewed: Yes Vitals/I&O/Wt Last Vital Signs Temp 98.0 F 01/14/20 11:23 Pulse 77 01/14/20 11:23 Resp 16 01/14/20 11:23 BP 99/62 01/14/20 11:23 Pulse Ox 91 01/14/20 11:23 01/13/20 01/14/20 01/14/20 22:59 06:59 14:59 Intake Total 350 / 1890 300 / 2190 590 / 590 Output Total 350 / 350 450 / 800 Balance 0 / 1540 -150 / 1390 590 / 590 Physical Exam Const: COMMON NORMALS: no acute distress, average body habitus, patient oriented x3 and alert GENERAL APPEARANCE: cooperative and comfortable ORIENTATION/CONSCIOUSNESS: Yes awake HENMT: COMMON NORMALS: normocephalic and atraumatic HEAD & SCALP: normocephalic and atraumatic Eye: GENERAL EYE: appearance normal, both eyes and all related structures Chest: COMMONS NORMALS: normal inspection of the chest Resp: COMMON NORMALS: normal respiratory effort EFFORT & INSPECTION: Yes able to speak in complete sentences and Yes symmetric chest movement Extremity: RIGHT UPPER EXTREMITY: Yes shoulder joint (Patient continues to complain of pain in the right upper extremity. He is in a sling and appears comfortable. He remains neurologically intact.) RIGHT LOWER EXTREMITY: Yes foot & digits (Patient remains in his postoperative dressing and splint. He is neurologically intact in his toes. Capillary refill is good. There is no significant swelling. He has minimal complaints of pain.) Neuro: COMMON NORMALS: patient oriented x3 SENSORIUM/ORIENTATION: Yes alert Psych: COMMON NORMALS: mental status grossly normal APPEARANCE: Yes grossly normal ATTITUDE: Yes calm and Yes engaged ATTENTION/CONCENTRATION: Yes attention grossly intact Skin: COMMON NORMALS: no rashes or lesions noted GENERAL SKIN EXAM: no rashes or lesions noted Urinary Catheter Management^: Alaniz: Cath Placed During This Visit: yes Reason for Continuing Indwelling Catheter: Required Immobilization for Trauma or Surgery or Anesthesia Urinary Catheter Date of Insertion: 01/11/20 Urinary Catheter Time of Insertion: 06:30 Data : 01/13/20 04:48 01/13/20 04:48 Micro: Microbiology 01/13/20 11:14 Blood Culture - Preliminary Blood NEGATIVE TO DATE 01/13/20 11:09 Blood Culture - Preliminary Blood NEGATIVE TO DATE 01/13/20 06:44 MRSA Culture - Final Nose A&P Assessment and plan (1) Closed pilon fracture of right tibia: Patient underwent the open reduction internal fixation of a complex right distal tibia and bimalleolar fracture. The patient is unable to participate in aggressive physical therapy at this time secondary to inability to weight-bear on the right upper and right lower extremities. He has an acute shoulder fracture involving the base of the glenoid along with his ankle fracture. He would not be able to weight-bear on this ankle fracture for between 4 and 6 weeks. He will likely require nursing care through this time. Currently, he does not have significant physical therapy needs as he is limited in his ability to participate. He would likely benefit from nursing care to prevent significant medical comorbidities. Status: Acute Qualifiers: Encounter type: initial encounter Fracture alignment: displaced Qualified Code(s): S82.871A - Displaced pilon fracture of right tibia, initial encounter for closed fracture (2) Bimalleolar fracture of right ankle: This fracture involves the posterior malleolus as well as the distal fibula. This fracture will be addressed at the same time as the pilon fracture. Status: Acute Qualifiers: Encounter type: initial encounter Fracture type: closed Qualified Code(s): S82.841A - Displaced bimalleolar fracture of right lower leg, initial encounter for closed fracture Attestations Medical Necessity Statement*: Patient is requiring ongoing medical management for multiple problems. Coding Level of Care Code Acute Document Control Associate for [facility] Diagnoses Closed pilon fracture of right tibia S82.871A Encounter type: initial encounter Fracture alignment: displaced Bimalleolar fracture of right ankle S82.841A Encounter type: initial encounter Fracture type: closed
[2020-01-14] MEDS: levofloxacin-dextrose 5 % 500 MG/100 ML PREMIX 100 MG IV (11:57)
[2020-01-14] MEDS: fixodent 39 gm Tube 1 APPLIC DENTAL (11:58)
[2020-01-14 17:16] LABS: Glucose Point of Care 99 mg/dL (70-110)
[2020-01-14] MEDS: mupirocin oint 22 gm 1 APPLIC NASAL (18:00)
--- NOTE | 2020-01-14 21:09 | PM.PN ---
Subjective Subjective: Interval history: No acute event overnight.Vitals and labs reviewed.Oxygen requirement is going down.Currently on 4L oxygen via [place] to maintain o2 sat greater then 90 %. Medications: Reviewed: Yes Vitals/I&O/Wt Last Vital Signs Temp 99.5 F 01/14/20 20:00 Pulse 83 01/14/20 20:00 Resp 18 01/14/20 20:00 BP 111/63 01/14/20 20:00 Pulse Ox 92 01/14/20 20:00 01/14/20 01/14/20 01/14/20 06:59 14:59 22:59 Intake Total 300 / 2190 830 / 830 943.75 / 1773.75 Output Total 450 / 800 Balance -150 / 1390 830 / 830 943.75 / 1773.75 Physical Exam Narrative: EXAM NARRATIVE: COMMON NORMALS: no acute distress, average body habitus, patient oriented x3 and alert GENERAL APPEARANCE: cooperative and comfortable ORIENTATION/CONSCIOUSNESS: Yes awake HENMT COMMON NORMALS: normocephalic and atraumatic HEAD & SCALP: normocephalic and atraumatic Eye GENERAL EYE: appearance normal, both eyes and all related structures Chest COMMONS NORMALS: normal inspection of the chest Resp COMMON NORMALS: normal respiratory effort EFFORT & INSPECTION: Yes able to speak in complete sentences and Yes symmetric chest movement Extremity RIGHT UPPER EXTREMITY: Yes shoulder joint (Patient continues to complain of pain in the right upper extremity. He is in a sling and appears comfortable. He remains neurologically intact.) RIGHT LOWER EXTREMITY: Yes foot & digits (Patient remains in his postoperative dressing and splint. He is neurologically intact in his toes. Capillary refill is good. There is no significant swelling. He has minimal complaints of pain.) Neuro COMMON NORMALS: patient oriented x3 SENSORIUM/ORIENTATION: Yes alert Urinary Catheter Management^: Alaniz: Cath Placed During This Visit: yes Reason for Continuing Indwelling Catheter: Other Urinary Catheter Date of Insertion: 01/11/20 Urinary Catheter Time of Insertion: 06:30 Data : 01/13/20 04:48 01/13/20 04:48 Micro: Microbiology 01/13/20 11:14 Blood Culture - Preliminary Blood NEGATIVE TO DATE 01/13/20 11:09 Blood Culture - Preliminary Blood NEGATIVE TO DATE A&P Assessment and plan (1) Pneumonia: Currently on 4 L supplemental oxygen, had no temperatures spike in last 48h. Rapid COVID test is negative. COVID PCR is negative influenza a and B is negative. Procalcitonin is: 0.77, lactic acid is:1.6 Nasal MRSA screen:Is positive. pancultures ordered. Repeat x-ray chest: No acute findings. Discontinue vancomycin and imipenam. Start Levofloxacin daily Status: Acute (2) Bimalleolar fracture of right ankle: -Orthopedics has been consulted, -Pain control with Dilaudid -DVT prophylaxis SCDs, after surgery Lovenox Status: Acute Qualifiers: Encounter type: initial encounter Fracture type: closed Qualified Code(s): S82.841A - Displaced bimalleolar fracture of right lower leg, initial encounter for closed fracture (3) Closed fracture of glenoid cavity of right scapula: -Currently in a sling, medically managed Status: Acute Qualifiers: Encounter type: initial encounter Fracture alignment: nondisplaced Qualified Code(s): S42.144A - Nondisplaced fracture of glenoid cavity of scapula, right shoulder, initial encounter for closed fracture (4) Avascular necrosis of left femoral head: -Incidentally found on CT of the abdomen pelvis -Chronicity unknown -Patient has pain all over, but does have left hip pain with palpation -We will defer further imaging studies and surgical versus medical management up to orthopedic team Status: Acute (5) Closed displaced fracture of right acromial process: Status: Acute Qualifiers: Encounter type: initial encounter Qualified Code(s): S42.121A - Displaced fracture of acromial process, right shoulder, initial encounter for closed fracture (6) Closed fracture of right clavicle: Status: Deleted Qualifiers: Clavicle location: lateral end Encounter type: initial encounter Fracture alignment: nondisplaced Qualified Code(s): S42.034A - Nondisplaced fracture of lateral end of right clavicle, initial encounter for closed fracture (7) Fall: -With significant trauma, multiple imaging studies any significant findings of internal bleed, continue to monitor Status: Acute (8) Partial epilepsy secondarily generalized: -Continue home Depakote Status: Acute (9) Anxiety disorder: Status: Chronic (10) Abdominal wall hernia: Status: Acute (11) Major depressive disorder: Status: Acute (12) BPH (benign prostatic hyperplasia): Status: Chronic (13) Dyslipidemia: Status: Chronic (14) Essential (primary) hypertension: Status: Chronic (15) Controlled diabetes mellitus: Status: Chronic Qualifiers: Diabetes mellitus type: type 2 Diabetes mellitus [facility] insulin use: with [facility] use Additional A&P Information SCDs for DVT prophylaxis PT OT Patient is DNR/DNI, is okay with reversing DNI for surgery Attestations Medical Necessity Statement*: patient needs to be in hospital for management of PNA Coding Level of Care Code Acute Welfare Case Worker for g Fwd Diagnoses Pneumonia J18.9 Bimalleolar fracture of right ankle S82.841A Encounter type: initial encounter Fracture type: closed Closed fracture of glenoid cavity of right scapula S42.144A Encounter type: initial encounter Fracture alignment: nondisplaced Avascular necrosis of left femoral head M87.052 Closed displaced fracture of right acromial process S42.121A Encounter type: initial encounter Closed fracture of right clavicle S42.034A Clavicle location: lateral end Encounter type: initial encounter Fracture alignment: nondisplaced Fall W19.XXXA Partial epilepsy secondarily generalized Anxiety disorder F41.9 Abdominal wall hernia K43.9 Major depressive disorder F32.9 BPH (benign prostatic hyperplasia) N40.0 Dyslipidemia E78.5 Essential (primary) hypertension I10 Controlled diabetes mellitus E11.9 Diabetes mellitus type: type 2 Diabetes mellitus [facility] insulin use: with [facility] use
[2020-01-14] MEDS: trazodone 100 mg Tablet PO (21:11)
[2020-01-14 21:34] LABS: Glucose Point of Care 137 mg/dL (70-110)
[2020-01-15] VITALS (9 sets, daily range): BP systolic 77–104; BP diastolic 48–66; PULSE 71–94; RESP 15–20; TEMP 37–37.4; O2SAT 87–94
[2020-01-15] MEDS: oxyCODONE 5 mg IR Tab/Cap PO ×4 (01:12→20:27)
[2020-01-15] MEDS: acetaminophen 500 mg Tablet 1000 MG PO ×2 (03:19→11:55)
--- NOTE | 2020-01-15 04:58 | ECG_ITS ---
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 Measurements Intervals [place] Rate: 72 P: 77 MT: 160 QRS: -34 QRSD: 162 T: 5 QT: 426 QTc: 469 Interpretive Statements SINUS RHYTHM WITH OCCASIONAL VENTRICULAR PREMATURE COMPLEXES MARKED LEFT AXIS DEVIATION [QRS AXIS < -30] RIGHT BUNDLE BRANCH BLOCK [120+ ms QRS DURATION, UPRIGHT V1, 40+ ms S IN I/aVL/V4/V5/V6] Compared to ECG 01/11/2020 06:14:56 Left-axis deviation now present Left anterior fascicular block no longer present Electronically Signed On 01-15-2020 19:56:36 CDT by Viki Walden M.D. [email or web address]
[2020-01-15 05:19] LABS: Glucose Point of Care 141 mg/dL (70-110)
--- NOTE | 2020-01-15 06:20 | PC.NURSE ---
Patient had a good night, besides pain control. Patient had periods of sleeping. Repositioning appears to help the patient.
[2020-01-15 06:42] LABS: Glucose Point of Care 116 mg/dL (70-110)
[2020-01-15] MEDS: divalproex DR 500 mg Tablet PO ×2 (08:34→17:17)
[2020-01-15] MEDS: ascorbic acid 500 mg Tablet 1000 MG PO (08:34)
[2020-01-15] MEDS: tamsulosin 0.4 mg Capsule PO ×2 (08:34→17:17)
[2020-01-15] MEDS: docusate sodium 100 mg Capsule PO ×2 (08:34→17:17)
[2020-01-15] MEDS: nystatin 100,000 unit/mL UDC 5 mL 100000 UNIT PO ×4 (08:34→21:47)
[2020-01-15] MEDS: gabapentin 300 mg Capsule 600 MG PO ×2 (08:34→17:17)
[2020-01-15] MEDS: magnesium oxide 400 mg tablet PO ×2 (08:34→17:17)
[2020-01-15] MEDS: aspirin 325 mg EC Tablet PO (08:34)
[2020-01-15] MEDS: dextrose 5%-sod chloride 0.45% 1,000 ML 75 ML IV ×2 (08:35→21:46)
[2020-01-15] MEDS: mupirocin oint 22 gm 1 APPLIC NASAL (08:35)
[2020-01-15] MEDS: lactulose oral liq 20 gm/30 mL UDC 30 GM PO (11:54)
[2020-01-15] MEDS: polyethylene glycol 3350 Pkt 17 gm PO (11:55)
[2020-01-15] MEDS: levofloxacin-dextrose 5 % 500 MG/100 ML PREMIX 100 MG IV (11:55)
--- NOTE | 2020-01-15 13:34 | P.PN_ITS ---
Subjective Subjective: Interval history: Patient continues to improve. He does complain of hand pain today, and x-rays will be ordered for him. He is encouraged to move the fingers and wrist. His shoulder is limiting his ability to participate in physical therapy, but he appears comfortable when laying in bed. Vitals/I&O/Wt Last Vital Signs Temp 99.0 F 01/15/20 11:43 Pulse 88 01/15/20 11:43 Resp 17 01/15/20 11:43 BP 104/66 01/15/20 11:43 Pulse Ox 94 01/15/20 11:43 01/14/20 01/15/20 01/15/20 22:59 06:59 14:59 Intake Total 943.75 / 1873.75 1240 / 1240 Output Total 700 / 700 600 / 1300 Balance 243.75 / 1173.75 -600 / 573.75 1240 / 1240 Physical Exam Const: COMMON NORMALS: no acute distress, average body habitus, patient oriented x3 and alert GENERAL APPEARANCE: cooperative and comfortable ORIENTATION/CONSCIOUSNESS: Yes awake HENMT: COMMON NORMALS: normocephalic and atraumatic HEAD & SCALP: normocephalic and atraumatic Eye: GENERAL EYE: appearance normal, both eyes and all related structures Chest: COMMONS NORMALS: normal inspection of the chest Resp: COMMON NORMALS: normal respiratory effort EFFORT & INSPECTION: Yes able to speak in complete sentences and Yes symmetric chest movement Extremity: RIGHT UPPER EXTREMITY: Yes shoulder joint (Patient remains in an immobilizer and appears comfortable while resting.) and Yes hand & digits (There are multiple abrasions and some stiffness within the hand to range of motion. He has some slight discoloration in the form of ecchymosis as well.) Right hand and digits: Yes palpation (Tender over the digits.) and Yes ROM exam (Decreased and painful.) RIGHT LOWER EXTREMITY: Yes foot & digits (Patient's splint is removed today. There is minimal swelling. He notes that the foot feels better once the dressing is removed.) Right ankle: Yes inspection (There is swelling and ecchymosis, however, this is decreased from anticipated.), Yes ROM (Not evaluated secondary to fracture.) and Yes neurovascular exam (Intact distal to the surgical procedure.) Neuro: COMMON NORMALS: patient oriented x3 SENSORIUM/ORIENTATION: Yes alert Psych: COMMON NORMALS: mental status grossly normal APPEARANCE: Yes grossly normal ATTITUDE: Yes calm and Yes engaged ATTENTION/CONCENTRATION: Yes attention grossly intact Skin: COMMON NORMALS: no rashes or lesions noted GENERAL SKIN EXAM: no rashes or lesions noted Urinary Catheter Management^: Alaniz: Cath Placed During This Visit: yes Reason for Continuing Indwelling Catheter: Other Urinary Catheter Date of Insertion: 01/11/20 Urinary Catheter Time of Insertion: 06:30 Data : 01/13/20 04:48 01/13/20 04:48 Micro: Microbiology 01/13/20 11:14 Blood Culture - Preliminary Blood NEGATIVE TO DATE 01/13/20 11:09 Blood Culture - Preliminary Blood NEGATIVE TO DATE A&P Assessment and plan (1) Closed pilon fracture of right tibia: Patient underwent open reduction internal fixation of a complex right distal tibia and bimalleolar fracture. The patient is unable to participate in aggressive physical therapy at this time secondary to inability to weight-bear on the right upper and right lower extremities. He has an acute shoulder fracture involving the base of the glenoid along with his ankle fracture. Add itionally, he is developed pain in the right hand. We will order x-rays to further evaluate this. He is advised that he would not be able to weight-bear on this ankle fracture for between 4 and 6 weeks. He will likely require nursing care through this time. Currently, he does not have significant physical therapy needs as he is limited in his ability to participate. He would likely benefit from nursing care to prevent significant medical comorbidities. Status: Acute Qualifiers: Encounter type: initial encounter Fracture alignment: displaced Qualified Code(s): S82.871A - Displaced pilon fracture of right tibia, initial encounter for closed fracture (2) Bimalleolar fracture of right ankle: This fracture involves the posterior malleolus as well as the distal fibul a. This fracture will be addressed at the same time as the pilon fracture. Status: Acute Qualifiers: Encounter type: initial encounter Fracture type: closed Qualified Code(s): S82.841A - Displaced bimalleolar fracture of right lower leg, initial encounter for closed fracture Attestations Medical Necessity Statement*: Multiple medical comorbidities are maintaining the patient in the hospital. Coding Level of Care Code Acute Cashier Self Service [employer] for [facility] Fwd Exam Comprehensive Diagnoses Closed pilon fracture of right tibia S82.871A Encounter type: initial encounter Fracture alignment: displaced Bimalleolar fracture of right ankle S82.841A Encounter type: initial encounter Fracture type: closed
--- NOTE | 2020-01-15 13:40 | XRR_ITS ---
PROCEDURE INFORMATION: Exam: XR Right Hand Exam date and time: 01/15/2020 4:09 PM Age: 64 years old Clinical indication: Injury or trauma; Fall; Blunt trauma (contusions or hematomas); Injury date: 01/10/20; Injury details: PT unable to move arm, shoulder fracture, abrasions on right hand; Additional info: Multiple abrasions and pain, rule out fracture TECHNIQUE: Imaging protocol: XR Right hand. Views: 3 or more views. COMPARISON: CR Wrist 2 views, RIGHT [id number] 11/15/2018 6:28 AM FINDINGS: Bones/joints: There is chronic deformity seen in the distal radius and ulna which likely represent chronic injuries. There is narrowing of the interphalangeal articulation of multiple digits . These changes correspond to osteoarthritis Soft tissues: Soft tissue edema is seen 3rd digit. Vascular calcifications are seen in the forearm soft tissue edema is seen overlying the distal 4th and 5th metacarpals. XR/XR hand RT min 3V* [id number] IMPRESSION: 1. Chronic osteoarthritis. 2. Deformities distal radius and ulna. 3. Vascular calcifications in the forearm soft tissues. 4. Soft tissue edema 3rd digit, and dorsal hand
[2020-01-15 13:59] LABS: Glucose Point of Care 154 mg/dL (70-110)
--- NOTE | 2020-01-15 14:10 | PM.PN ---
Subjective Subjective: Interval history: Hospital course, chart reviewed. No acute events overnight. Continue to work appropriately with physical therapy. Physical therapy being a little difficult because of her nonweightbearing status and pain in his arm. He does complain of hand pain today, and x-rays will be ordered for him. He is encouraged to move the fingers and wrist. His shoulder is limiting his ability to participate in physical therapy, but he appears comfortable when laying in bed. Medications: Reviewed: Yes Vitals/I&O/Wt Last Vital Signs Temp 99.0 F 01/15/20 11:43 Pulse 88 01/15/20 11:43 Resp 17 01/15/20 11:43 BP 104/66 01/15/20 11:43 Pulse Ox 94 01/15/20 11:43 01/14/20 01/15/20 01/15/20 22:59 06:59 14:59 Intake Total 943.75 / 1873.75 1240 / 1240 Output Total 700 / 700 600 / 1300 Balance 243.75 / 1173.75 -600 / 573.75 1240 / 1240 Physical Exam Narrative: EXAM NARRATIVE: COMMON NORMALS: no acute distress, average body habitus, patient oriented x3 and alert GENERAL APPEARANCE: cooperative and comfortable ORIENTATION/CONSCIOUSNESS: Yes awake HENMT COMMON NORMALS: normocephalic and atraumatic HEAD & SCALP: normocephalic and atraumatic Eye GENERAL EYE: appearance normal, both eyes and all related structures Chest COMMONS NORMALS: normal inspection of the chest Resp COMMON NORMALS: normal respiratory effort EFFORT & INSPECTION: Yes able to speak in complete sentences and Yes symmetric chest movement Extremity RIGHT UPPER EXTREMITY: Yes shoulder joint (Patient continues to complain of pain in the right upper extremity. He is in a sling and appears comfortable. He remains neurologically intact.) RIGHT LOWER EXTREMITY: Yes foot & digits (Patient remains in his postoperative dressing and splint. He is neurologically intact in his toes. Capillary refill is good. There is no significant swelling. He has minimal complaints of pain.) Neuro COMMON NORMALS: patient oriented x3 SENSORIUM/ORIENTATION: Yes alert Urinary Catheter Management^: Alaniz: Cath Placed During This Visit: yes Reason for Continuing Indwelling Catheter: Other Urinary Catheter Date of Insertion: 01/11/20 Urinary Catheter Time of Insertion: 06:30 Data : 01/13/20 04:48 01/15/20 15:46 Micro: Microbiology 01/13/20 11:14 Blood Culture - Preliminary Blood NEGATIVE TO DATE 01/13/20 11:09 Blood Culture - Preliminary Blood NEGATIVE TO DATE A&P Assessment and plan (1) Hypoxia: Status: Acute (2) Pneumonia: Status: Acute (3) Fall: -With significant trauma, multiple imaging studies without any significant findings of internal bleed, continue to monitor Status: Acute (4) Avascular necrosis of left femoral head: -Incidentally found on CT of the abdomen pelvis -Chronicity unknown -Patient has pain all over, but does have left hip pain with palpation -We will defer further imaging studies and surgical versus medical management up to orthopedic team Status: Acute (5) Bimalleolar fracture of right ankle: As per orthopedics. Post ORIF. Pain med, PT, Weight bearing as per ortho Status: Acute Qualifiers: Encounter type: initial encounter Fracture type: closed Qualified Code(s): S82.841A - Displaced bimalleolar fracture of right lower leg, initial encounter for closed fracture (6) Closed fracture of glenoid cavity of right scapula: -Currently in a sling, medically managed Status: Acute Qualifiers: Encounter type: initial encounter Fracture alignment: nondisplaced Qualified Code(s): S42.144A - Nondisplaced fracture of glenoid cavity of scapula, right shoulder, initial encounter for closed fracture (7) Closed displaced fracture of right acromial process: Status: Acute Qualifiers: Encounter type: initial encounter Qualified Code(s): S42.121A - Displaced fracture of acromial process, right shoulder, initial encounter for closed fracture (8) Closed fracture of right clavicle: Status: Deleted Qualifiers: Clavicle location: lateral end Encounter type: initial encounter Fracture alignment: nondisplaced Qualified Code(s): S42.034A - Nondisplaced fracture of lateral end of right clavicle, initial encounter for closed fracture (9) Partial epilepsy secondarily generalized: -Continue home Depakote Status: Acute (10) Dyslipidemia: Status: Chronic (11) Essential (primary) hypertension: Goal BP loess than 140/90 mmhg. BP at goal. Status: Chronic (12) Controlled diabetes mellitus: C/w ISS. Carb consistent diet Status: Chronic Qualifiers: Diabetes mellitus buttermaker continuous churn insulin use: with fci use Diabetes mellitus type: type 2 (13) BPH (benign prostatic hyperplasia): Status: Chronic (14) Major depressive disorder: Status: Acute (15) Abdominal wall hernia: Status: Acute (16) Anxiety disorder: Status: Chronic Additional A&P Information Hypoxia: Postoperatively. Patient is been treated for possible pneumonia with oral levofloxacin. Patient continues to require oxygen supplementation to keep saturation over 90%. Check procalcitonin, proBNP. Echocardiogram done earlier in the admission shows an EF of 40 to 45%, mild left ear. Patient does not have any old echocardiogram in the system. MRSA positive. Patient has remained afebrile for last 48 to 72 hours. Because MRSA is positive we will switch levofloxacin to oral doxycycline and Keflex. Patient tolerated cefazolin well perioperatively. Patient will require a 5-day course of oral antibiotics. IV lasix 20 mg IV stat Monitor I/O Daily weight. Hypertension: Patient takes dexamethasone chronically 1 mg at home for bullous pemphigoid. Currently is not on dexamethasone. Check cortisol level. Start patient on dexamethasone 1 mg oral daily. Continue other chronic medications like Depakote, fluconazole, Flomax, methenamine hippurate, magnesium oxide, loratadine, gabapentin. History of seizure disorder. History of cryptococcal meningitis. SCDs for DVT prophylaxis PT OT Patient is DNR/DNI, is okay with reversing DNI for surgery Discharge planning: Patient most likely requires discharge to SNF for further rehabilitation given multiple injuries. Attestations Medical Necessity Statement*: Postoperative care, pneumonia hypoxia safe discharge planning Time Spent in Patient Care: Greater than 35 minutes (>than 50% of time spent in counselling and/or direct pt care on unit). Coding Level of Care Code Acute Law Firm Partner for [facility] Diagnoses Hypoxia R09.02 Pneumonia J18.9 Fall W19.XXXA Avascular necrosis of left femoral head M87.052 Bimalleolar fracture of right ankle S82.841A Encounter type: initial encounter Fracture type: closed Closed fracture of glenoid cavity of right scapula S42.144A Encounter type: initial encounter Fracture alignment: nondisplaced Closed displaced fracture of right acromial process S42.121A Encounter type: initial encounter Closed fracture of right clavicle S42.034A Clavicle location: lateral end Encounter type: initial encounter Fracture alignment: nondisplaced Partial epilepsy secondarily generalized Dyslipidemia E78.5 Essential (primary) hypertension I10 Controlled diabetes mellitus E11.9 Diabetes mellitus buttermaker continuous churn insulin use: with buttermaker continuous churn use Diabetes mellitus type: type 2 BPH (benign prostatic hyperplasia) N40.0 Major depressive disorder F32.9 Abdominal wall hernia K43.9 Anxiety disorder F41.9
--- NOTE | 2020-01-15 16:31 | PC.NURSE ---
patient has abrasion noted to right upper lateral back, medial lower back and buttocks. 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
[2020-01-15 16:32] LABS: Alanine Aminotransferase < 5 U/L (0-41); Albumin Level 2.5 g/dL (3.5-5.2); Alkaline Phosphatase 49 IU/L (40-130); Anion Gap 12.4 (5-19); Aspartate Amino Transferase 7 U/L (0-40); Blood Urea Nitrogen 6 mg/dL (8-23); Carbon Dioxide 26 mmol/L (22-29); Chloride 97 mmol/L (98-107); Globulin 2.6 g/dL (1.3-4.6); Glomerular Filtration Rate 168.5 mL/min (90-130); Glucose 116 mg/dL (65-115); Osmolality Calculated 273 mOsm/kg (285-295); Potassium 3.4 mmol/L (3.5-5.1); Sodium 132 mmol/L (136-145); Total Bilirubin 0.4 mg/dL (0.15-1.2); Total Protein 5.1 g/dL (6.6-8.7)
[2020-01-15 18:58] LABS: Glucose Point of Care 126 mg/dL (70-110)
[2020-01-15 21:02] LABS: Glucose Point of Care 121 mg/dL (70-110)
[2020-01-15] MEDS: doxepin 10 mg Capsule PO (21:46)
[2020-01-15] MEDS: trazodone 100 mg Tablet PO (21:51)
[2020-01-15] MEDS: FUROsemide 10 mg/mL SDV 2mL 20 MG IVP (23:48)
[2020-01-16] VITALS (9 sets, daily range): BP systolic 84–115; BP diastolic 53–74; PULSE 68–98; RESP 14–20; TEMP 36.6–38.1; O2SAT 92–96
[2020-01-16 01:18] LABS: Basophils % 0.3 %; Eosinophils # 0.5 10^3/uL (0.0-0.8); Eosinophils % 6.6 %; Hematocrit 28.3 % (42.0-52.0); Hemoglobin 8.9 g/dL (11.7-16.6); Lymphocytes % 13.1 %; Mean Corpuscular HGB Conc 31.4 g/dL (30.0-36.0); Mean Corpuscular Hemoglobin 27.8 pg (28.0-34.0); Mean Corpuscular Volume 88.4 fL (80-94); Mean Platelet Volume 9.6 fL (7.4-10.4); Monocytes # 0.9 10^3/uL (0.2-0.9); Monocytes % 12.4 %; Neutrophils # 4.96 10^3/uL (1.8-7.7); Neutrophils % 66.9 %; Nucleated Red Blood Cells % 0 %; Platelet Count 143 10^3/cmm (130-400); Red Cell Distribution Width 13.6 % (12.1-15.1); White Blood Count 7.4 10^3/uL (4.0-10.0)
[2020-01-16 02:01] LABS: Alanine Aminotransferase < 5 U/L (0-41); Albumin Level 2.6 g/dL (3.5-5.2); Alkaline Phosphatase 52 IU/L (40-130); Anion Gap 15.5 (5-19); Aspartate Amino Transferase 9 U/L (0-40); Blood Urea Nitrogen 5 mg/dL (8-23); Calcium 9.7 mg/dL (8.5-10.5); Carbon Dioxide 27 mmol/L (22-29); Chloride 95 mmol/L (98-107); Globulin 2.9 g/dL (1.3-4.6); Glomerular Filtration Rate 114.3 mL/min (90-130); Glucose 134 mg/dL (65-115); Osmolality Calculated 277 mOsm/kg (285-295); Potassium 3.5 mmol/L (3.5-5.1); Sodium 134 mmol/L (136-145); Total Bilirubin 0.5 mg/dL (0.15-1.2); Total Protein 5.5 g/dL (6.6-8.7)
[2020-01-16 02:07] LABS: NT Pro B Type Natriuretic Pept 1124 pg/mL (0-125)
[2020-01-16 02:12] LABS: Cortisol Random 2.92 ug/mL (2.47-19.5)
[2020-01-16 03:14] LABS: Procalcitonin 0.28 ng/mL (0-0.5)
[2020-01-16] MEDS: TRAMadol 50 mg Tablet PO (03:29)
[2020-01-16] MEDS: acetaminophen 500 mg Tablet 1000 MG PO ×3 (03:29→17:58)
[2020-01-16 06:47] LABS: Glucose Point of Care 110 mg/dL (70-110)
[2020-01-16] MEDS: dexamethasone 4 mg Tablet 1 MG PO (09:03)
[2020-01-16] MEDS: docusate sodium 100 mg Capsule PO ×2 (09:03→17:58)
[2020-01-16] MEDS: magnesium oxide 400 mg tablet PO ×2 (09:03→17:58)
[2020-01-16] MEDS: gabapentin 300 mg Capsule 600 MG PO ×2 (09:03→17:57)
[2020-01-16] MEDS: cephALEXin 500 mg Capsule PO ×2 (09:04→17:58)
[2020-01-16] MEDS: fluconazole 100 mg Tablet 400 MG PO (09:04)
[2020-01-16] MEDS: doxycycline 100 mg Tablet PO ×2 (09:04→17:58)
[2020-01-16] MEDS: tamsulosin 0.4 mg Capsule PO ×2 (09:04→17:57)
[2020-01-16] MEDS: divalproex DR 500 mg Tablet PO ×2 (09:05→17:58)
[2020-01-16] MEDS: potassium chloride ER 10 mEq Tablet 20 MEQ PO (09:05)
[2020-01-16] MEDS: aspirin 325 mg EC Tablet PO (09:05)
[2020-01-16] MEDS: nystatin 100,000 unit/mL UDC 5 mL 100000 UNIT PO ×4 (09:05→20:42)
[2020-01-16] MEDS: ascorbic acid 500 mg Tablet 1000 MG PO (09:05)
[2020-01-16] MEDS: mupirocin oint 22 gm 1 APPLIC NASAL (09:06)
[2020-01-16] MEDS: loratadine 10 mg Tablet PO (09:06)
--- NOTE | 2020-01-16 10:23 | PM.PN ---
Subjective Subjective: Interval history: Patient continues to attempt to get up with nonweightbearing on right upper and lower extremities. We are awaiting placement for nursing care as the patient will be unable to care for himself at home. Medications: Reviewed: Yes Vitals/I&O/Wt Last Vital Signs Temp 98.6 F 01/16/20 07:42 Pulse 77 01/16/20 07:42 Resp 18 01/16/20 07:42 BP 109/66 01/16/20 07:42 Pulse Ox 93 01/16/20 07:42 01/15/20 01/16/20 01/16/20 22:59 06:59 14:59 Intake Total 1188.75 / 2428.75 240 / 240 Output Total 850 / 850 1800 / 2650 Balance 338.75 / 1578.75 -1800 / -221.25 240 / 240 Weight last 48 hrs Weight 189 lb Physical Exam Const: COMMON NORMALS: no acute distress, average body habitus, patient oriented x3 and alert GENERAL APPEARANCE: cooperative and comfortable ORIENTATION/CONSCIOUSNESS: Yes awake HENMT: COMMON NORMALS: normocephalic and atraumatic HEAD & SCALP: normocephalic and atraumatic Eye: GENERAL EYE: appearance normal, both eyes and all related structures Chest: COMMONS NORMALS: normal inspection of the chest Resp: COMMON NORMALS: normal respiratory effort EFFORT & INSPECTION: Yes able to speak in complete sentences and Yes symmetric chest movement Extremity: RIGHT UPPER EXTREMITY: Yes shoulder joint (Patient continues in his shoulder immobilizer/sling for treatment of his base of the glenoid fracture.) and Yes hand & digits (X-rays obtained yesterday were negative for fracture within the hand. He is encouraged to participate with range of motion in his hand.) RIGHT LOWER EXTREMITY: Yes foot & digits (There is no drainage on the patient's dressing subsequent to his right lower extremity open reduction internal fixation. He is allowed to be out of the boot in bed.) Right ankle: Yes neurovascular exam (There is no evidence of DVT.) Neuro: COMMON NORMALS: patient oriented x3 SENSORIUM/ORIENTATION: Yes alert Psych: COMMON NORMALS: mental status grossly normal APPEARANCE: Yes grossly normal ATTITUDE: Yes calm and Yes engaged ATTENTION/CONCENTRATION: Yes attention grossly intact Skin: COMMON NORMALS: no rashes or lesions noted GENERAL SKIN EXAM: no rashes or lesions noted Urinary Catheter Management^: Alaniz: Cath Placed During This Visit: yes Reason for Continuing Indwelling Catheter: Other Urinary Catheter Date of Insertion: 01/11/20 Urinary Catheter Time of Insertion: 06:30 Data : 01/16/20 01:03 01/16/20 01:03 A&P Assessment and plan (1) Closed pilon fracture of right tibia: Patient underwent open reduction internal fixation of a complex right distal tibia and bimalleolar fracture. The patient is unable to participate in aggressive physical therapy at this time secondary to inability to weight-bear on the right upper and right lower extremities. He has an acute shoulder fracture involving the base of the glenoid along with his ankle fracture. He is advised that he would not be able to weight-bear on this ankle fracture for between 4 and 6 weeks. He will likely require nursing care through this time. Currently, he does not have significant physical therapy needs as he is limited in his ability to participate. He would likely benefit from nursing care to prevent significant medical comorbidities. Status: Acute Qualifiers: Encounter type: initial encounter Fracture alignment: displaced Qualified Code(s): S82.871A - Displaced pilon fracture of right tibia, initial encounter for closed fracture (2) Bimalleolar fracture of right ankle: Status: Acute Qualifiers: Encounter type: initial encounter Fracture type: closed Qualified Code(s): S82.841A - Displaced bimalleolar fracture of right lower leg, initial encounter for closed fracture (3) Right hand pain: X-rays were obtained yesterday. I have personally interpreted these as well. The patient's x-rays are negative for fracture. Status: Acute Attestations Medical Necessity Statement*: Patient continues inpatient status awaiting placement for nursing care. He also has multiple medical comorbidities which are evaluated by the hospitalist team. Coding Level of Care Code Acute Software Sales Representative for [facility] Diagnoses Closed pilon fracture of right tibia S82.871A Encounter type: initial encounter Fracture alignment: displaced Bimalleolar fracture of right ankle S82.841A Encounter type: initial encounter Fracture type: closed Right hand pain M79.641
[2020-01-16] MEDS: oxyCODONE 5 mg IR Tab/Cap PO ×2 (10:38→22:09)
[2020-01-16] MEDS: dextrose 5%-sod chloride 0.45% 1,000 ML 75 ML IV (10:41)
[2020-01-16 11:49] LABS: Glucose Point of Care 129 mg/dL (70-110)
--- NOTE | 2020-01-16 12:21 | PC.NURSE ---
rcvd order from Dr Pro to hold lasix for now
--- NOTE | 2020-01-16 15:11 | PM.PN ---
Subjective Subjective: Interval history: No acute event overnight. Patient continues to work with physical therapy though limited because of multiple injuries. He is trying to be nonweightbearing as recommendations. On examination lying comfortably in bed. Saturating 96% on nasal cannula. Documented urine output last 24 hours 2.8 L. Medications: Reviewed: Yes Vitals/I&O/Wt Last Vital Signs Temp 98.6 F 01/16/20 10:59 Pulse 74 01/16/20 10:59 Resp 14 01/16/20 10:59 BP 115/68 01/16/20 10:59 Pulse Ox 96 01/16/20 10:59 01/16/20 01/16/20 01/16/20 06:59 14:59 22:59 Intake Total 1448.75 / 1448.75 Output Total 1800 / 2650 200 / 200 Balance -1800 / -221.25 1248.75 / 1248.75 Weight last 48 hrs Weight 85.729 kg Physical Exam Narrative: EXAM NARRATIVE: COMMON NORMALS: no acute distress, average body habitus, patient oriented x3 and alert GENERAL APPEARANCE: cooperative and comfortable ORIENTATION/CONSCIOUSNESS: Yes awake HENMT COMMON NORMALS: normocephalic and atraumatic HEAD & SCALP: normocephalic and atraumatic Eye GENERAL EYE: appearance normal, both eyes and all related structures Chest COMMONS NORMALS: normal inspection of the chest Resp COMMON NORMALS: normal respiratory effort EFFORT & INSPECTION: Yes able to speak in complete sentences and Yes symmetric chest movement Extremity RIGHT UPPER EXTREMITY: Yes shoulder joint (Patient continues to complain of pain in the right upper extremity. He is in a sling and appears comfortable. He remains neurologically intact.) RIGHT LOWER EXTREMITY: Yes foot & digits (Patient remains in his postoperative dressing and splint. He is neurologically intact in his toes. Capillary refill is good. There is no significant swelling. He has minimal complaints of pain.) Neuro COMMON NORMALS: patient oriented x3 SENSORIUM/ORIENTATION: Yes alert Urinary Catheter Management^: Alaniz: Cath Placed During This Visit: yes Reason for Continuing Indwelling Catheter: Other Urinary Catheter Date of Insertion: 01/11/20 Urinary Catheter Time of Insertion: 06:30 Data : 01/16/20 01:03 01/16/20 01:03 A&P Assessment and plan (1) Hypoxia: Status: Acute (2) Pneumonia: Status: Acute (3) Fall: -With significant trauma, multiple imaging studies without any significant findings of internal bleed, continue to monitor Status: Acute (4) Avascular necrosis of left femoral head: -Incidentally found on CT of the abdomen pelvis -Chronicity unknown -Patient has pain all over, but does have left hip pain with palpation -We will defer further imaging studies and surgical versus medical management up to orthopedic team Status: Acute (5) Bimalleolar fracture of right ankle: As per orthopedics. Post ORIF. Pain med, PT, Weight bearing as per ortho Status: Acute Qualifiers: Encounter type: initial encounter Fracture type: closed Qualified Code(s): S82.841A - Displaced bimalleolar fracture of right lower leg, initial encounter for closed fracture (6) Closed fracture of glenoid cavity of right scapula: -Currently in a sling, medically managed Status: Acute Qualifiers: Encounter type: initial encounter Fracture alignment: nondisplaced Qualified Code(s): S42.144A - Nondisplaced fracture of glenoid cavity of scapula, right shoulder, initial encounter for closed fracture (7) Closed displaced fracture of right acromial process: Status: Acute Qualifiers: Encounter type: initial encounter Qualified Code(s): S42.121A - Displaced fracture of acromial process, right shoulder, initial encounter for closed fracture (8) Closed fracture of right clavicle: Status: Deleted Qualifiers: Clavicle location: lateral end Encounter type: initial encounter Fracture alignment: nondisplaced Qualified Code(s): S42.034A - Nondisplaced fracture of lateral end of right clavicle, initial encounter for closed fracture (9) Partial epilepsy secondarily generalized: -Continue home Depakote Status: Acute (10) Dyslipidemia: Status: Chronic (11) Essential (primary) hypertension: Goal BP loess than 140/90 mmhg. BP at goal. Status: Chronic (12) Controlled diabetes mellitus: C/w ISS. Carb consistent diet Status: Chronic Qualifiers: Diabetes mellitus type: type 2 Diabetes mellitus assisted insulin use: with assisted use (13) BPH (benign prostatic hyperplasia): Status: Chronic (14) Major depressive disorder: Status: Acute (15) Abdominal wall hernia: Status: Acute (16) Anxiety disorder: Status: Chronic Additional A&P Information Hypoxia: Postoperatively. Patient is been treated for possible pneumonia with oral levofloxacin. Patient continues to require oxygen supplementation to keep saturation over 90%. Check procalcitonin, proBNP. Echocardiogram done earlier in the admission shows an EF of 40 to 45%, mild left ear. Patient does not have any old echocardiogram in the system. MRSA positive. Has remained afebrile. Continue with Keflex and doxycycline to finish a 5-day course. Start patient on Lasix 20 mg oral daily. Stop IV fluids. Monitor I/O Daily weight. Hypertension: Patient takes dexamethasone chronically 1 mg at home for bullous pemphigoid. Continue with dexamethasone 1 mg oral daily. Patient's lab in past consistent with adrenal insufficiency. Blood pressure is better after starting dexamethasone. Continue to monitor for now. Continue other chronic medications like Depakote, fluconazole, Flomax, methenamine hippurate, magnesium oxide, loratadine, gabapentin. History of seizure disorder. History of cryptococcal meningitis. SCDs for DVT prophylaxis PT OT Patient is DNR/DNI, is okay with reversing DNI for surgery Discharge planning: Patient most likely requires discharge to SNF for further rehabilitation given multiple injuries. Attestations Medical Necessity Statement*: Awaiting safe discharge, postoperative care, hypoxia Time Spent in Patient Care: Greater than 35 minutes (>than 50% of time spent in counselling and/or direct pt care on unit). Coding Level of Care Code Acute Straightening Machine Feeder for [facility] Diagnoses Hypoxia R09.02 Pneumonia J18.9 Fall W19.XXXA Avascular necrosis of left femoral head M87.052 Bimalleolar fracture of right ankle S82.841A Encounter type: initial encounter Fracture type: closed Closed fracture of glenoid cavity of right scapula S42.144A Encounter type: initial encounter Fracture alignment: nondisplaced Closed displaced fracture of right acromial process S42.121A Encounter type: initial encounter Closed fracture of right clavicle S42.034A Clavicle location: lateral end Encounter type: initial encounter Fracture alignment: nondisplaced Partial epilepsy secondarily generalized Dyslipidemia E78.5 Essential (primary) hypertension I10 Controlled diabetes mellitus E11.9 Diabetes mellitus type: type 2 Diabetes mellitus assisted insulin use: with salvage determiner use BPH (benign prostatic hyperplasia) N40.0 Major depressive disorder F32.9 Abdominal wall hernia K43.9 Anxiety disorder F41.9
[2020-01-16] MEDS: doxepin 10 mg Capsule PO (20:42)
[2020-01-16 20:52] LABS: Glucose Point of Care 133 mg/dL (70-110)
[2020-01-16 20:52] LABS: Glucose Point of Care 118 mg/dL (70-110)
[2020-01-16] MEDS: trazodone 100 mg Tablet PO (22:11)
[2020-01-17] VITALS (8 sets, daily range): BP systolic 98–121; BP diastolic 61–74; PULSE 54–96; RESP 16–20; TEMP 36.6–37.4; O2SAT 90–94; BMI 25.6
[2020-01-17] MEDS: TRAMadol 50 mg Tablet PO ×3 (04:00→23:13)
[2020-01-17] MEDS: acetaminophen 500 mg Tablet 1000 MG PO ×3 (04:00→18:36)
[2020-01-17 07:06] LABS: Glucose Point of Care 117 mg/dL (70-110)
[2020-01-17] MEDS: cephALEXin 500 mg Capsule PO ×2 (08:17→18:36)
[2020-01-17] MEDS: FUROsemide 20 mg Tablet PO (08:17)
[2020-01-17] MEDS: gabapentin 300 mg Capsule 600 MG PO ×2 (08:17→18:36)
[2020-01-17] MEDS: potassium chloride ER 10 mEq Tablet 20 MEQ PO (08:17)
[2020-01-17] MEDS: magnesium oxide 400 mg tablet PO ×2 (08:17→18:35)
[2020-01-17] MEDS: docusate sodium 100 mg Capsule PO ×2 (08:17→18:36)
[2020-01-17] MEDS: divalproex DR 500 mg Tablet PO ×2 (08:17→18:36)
[2020-01-17] MEDS: tamsulosin 0.4 mg Capsule PO ×2 (08:17→18:36)
[2020-01-17] MEDS: doxycycline 100 mg Tablet PO ×2 (08:17→18:36)
[2020-01-17] MEDS: aspirin 325 mg EC Tablet PO (08:17)
[2020-01-17] MEDS: loratadine 10 mg Tablet PO (08:17)
[2020-01-17] MEDS: dexamethasone 4 mg Tablet 1 MG PO (08:18)
[2020-01-17] MEDS: nystatin 100,000 unit/mL UDC 5 mL 100000 UNIT PO ×4 (08:18→23:13)
[2020-01-17] MEDS: ascorbic acid 500 mg Tablet 1000 MG PO (08:18)
[2020-01-17] MEDS: fluconazole 100 mg Tablet 400 MG PO (08:18)
[2020-01-17] MEDS: oxyCODONE 5 mg IR Tab/Cap PO (08:19)
--- NOTE | 2020-01-17 08:51 | PC.NURSE ---
Patient is confused today, patient states he sees dogs and stairs outside. patient's rates pain 8/10. oxycodone given for pain. patient's dressing changed to right arm and right leg.
--- NOTE | 2020-01-17 10:04 | PC.NURSE ---
Rcvd call from Dr New for update on patient. Automotive Technician Instructor notified Dr New that patient is having hallucinations. Per Dr New, stop Oxycodone and use Tramadol for pain. Automotive Technician Instructor stopped Oxycodone order as requested.
[2020-01-17 11:08] LABS: Glucose Point of Care 134 mg/dL (70-110)
--- NOTE | 2020-01-17 14:20 | PM.PN ---
Subjective Subjective: Interval history: Overnight as per the nurse patient was having occasional visual hallucinations when he was seen a few dogs in his room or prior to moving. Today morning on examination he is trying to work with physical and Occupational Therapy. Which is a little difficult because of his multiple injuries. Though he is at his baseline mentation and not having any hallucinations at present. He continues to saturate well but requiring supplemental oxygenation. Medications: Reviewed: Yes Vitals/I&O/Wt Last Vital Signs Temp 97.8 F 01/17/20 11:24 Pulse 60 01/17/20 11:24 Resp 18 01/17/20 11:24 BP 121/70 01/17/20 11:24 Pulse Ox 90 01/17/20 11:24 01/16/20 01/17/20 01/17/20 22:59 06:59 14:59 Intake Total 440 / 1888.75 360 / 360 Output Total 100 / 300 1350 / 1650 250 / 250 Balance 340 / 1588.75 -1350 / 238.75 110 / 110 Weight last 48 hrs Weight 85.729 kg Weight 85.729 kg Physical Exam Narrative: EXAM NARRATIVE: COMMON NORMALS: no acute distress, average body habitus, patient oriented x3 and alert GENERAL APPEARANCE: cooperative and comfortable ORIENTATION/CONSCIOUSNESS: Yes awake HENMT COMMON NORMALS: normocephalic and atraumatic HEAD & SCALP: normocephalic and atraumatic Eye GENERAL EYE: appearance normal, both eyes and all related structures Chest COMMONS NORMALS: normal inspection of the chest Resp COMMON NORMALS: normal respiratory effort EFFORT & INSPECTION: Yes able to speak in complete sentences and Yes symmetric chest movement Extremity RIGHT UPPER EXTREMITY: Yes shoulder joint (Patient continues to complain of pain in the right upper extremity. He is in a sling and appears comfortable. He remains neurologically intact.) RIGHT LOWER EXTREMITY: Yes foot & digits (Patient remains in his postoperative dressing and splint. He is neurologically intact in his toes. Capillary refill is good. There is no significant swelling. He has minimal complaints of pain.) Neuro COMMON NORMALS: patient oriented x3 SENSORIUM/ORIENTATION: Yes alert Urinary Catheter Management^: Alaniz: Cath Placed During This Visit: yes Reason for Continuing Indwelling Catheter: Other Urinary Catheter Date of Insertion: 01/11/20 Urinary Catheter Time of Insertion: 06:30 Data : 01/16/20 01:03 01/16/20 01:03 A&P Assessment and plan (1) Hypoxia: Status: Acute (2) Pneumonia: Status: Acute (3) Fall: -With significant trauma, multiple imaging studies without any significant findings of internal bleed, continue to monitor Status: Acute (4) Avascular necrosis of left femoral head: -Incidentally found on CT of the abdomen pelvis -Chronicity unknown -Patient has pain all over, but does have left hip pain with palpation -We will defer further imaging studies and surgical versus medical management up to orthopedic team Status: Acute (5) Bimalleolar fracture of right ankle: As per orthopedics. Post ORIF. Pain med, PT, Weight bearing as per ortho Status: Acute Qualifiers: Encounter type: initial encounter Fracture type: closed Qualified Code(s): S82.841A - Displaced bimalleolar fracture of right lower leg, initial encounter for closed fracture (6) Closed fracture of glenoid cavity of right scapula: -Currently in a sling, medically managed Status: Acute Qualifiers: Encounter type: initial encounter Fracture alignment: nondisplaced Qualified Code(s): S42.144A - Nondisplaced fracture of glenoid cavity of scapula, right shoulder, initial encounter for closed fracture (7) Closed displaced fracture of right acromial process: Status: Acute Qualifiers: Encounter type: initial encounter Qualified Code(s): S42.121A - Displaced fracture of acromial process, right shoulder, initial encounter for closed fracture (8) Closed fracture of right clavicle: Status: Deleted Qualifiers: Clavicle location: lateral end Encounter type: initial encounter Fracture alignment: nondisplaced Qualified Code(s): S42.034A - Nondisplaced fracture of lateral end of right clavicle, initial encounter for closed fracture (9) Partial epilepsy secondarily generalized: -Continue home Depakote Status: Acute (10) Dyslipidemia: Status: Chronic (11) Essential (primary) hypertension: Goal BP loess than 140/90 mmhg. BP at goal. Status: Chronic (12) Controlled diabetes mellitus: Since admission patient has required only 2 units of insulin. We will stop a synergist check and will check only daily for now. HbA1c 5.8 earlier in the admission. Carb consistent diet Status: Chronic Qualifiers: Diabetes mellitus type: type 2 Diabetes mellitus intermediate insulin use: with termite renewal inspector use (13) BPH (benign prostatic hyperplasia): Status: Chronic (14) Major depressive disorder: Status: Acute (15) Abdominal wall hernia: Status: Acute (16) Anxiety disorder: Status: Chronic Additional A&P Information Hypoxia: Postoperatively. Patient is been treated for possible pneumonia with oral levofloxacin. Patient continues to require oxygen supplementation to keep saturation over 90%. Check procalcitonin, proBNP. Echocardiogram done earlier in the admission shows an EF of 40 to 45%. MRSA positive. Has remained afebrile. Continue with Keflex and doxycycline to finish a 5-day course to be finished on Continue with Lasix 20 mg oral daily. Monitor I/O Daily weight. Home O2 evaluation prior to discharge. Hypertension: Patient takes dexamethasone chronically 1 mg at home for bullous pemphigoid. Continue with dexamethasone 1 mg oral daily. Patient's lab in past consistent with adrenal insufficiency. Blood pressure is better after starting dexamethasone. Continue to monitor for now. Continue other chronic medications like Depakote, fluconazole, Flomax, methenamine hippurate, magnesium oxide, loratadine, gabapentin. History of seizure disorder. History of cryptococcal meningitis. SCDs for DVT prophylaxis PT OT Patient is DNR/DNI, is okay with reversing DNI for surgery Discharge planning: Patient most likely requires discharge to SNF for further rehabilitation given multiple injuries. Attestations Medical Necessity Statement*: Post-ORIF, awaiting safe discharge planning for further rehabilitation given multiple injuries Time Spent in Patient Care: 16 - 35 minutes Coding Level of Care Code Acute Brine Room Laborer for [facility] Diagnoses Hypoxia R09.02 Pneumonia J18.9 Fall W19.XXXA Avascular necrosis of left femoral head M87.052 Bimalleolar fracture of right ankle S82.841A Encounter type: initial encounter Fracture type: closed Closed fracture of glenoid cavity of right scapula S42.144A Encounter type: initial encounter Fracture alignment: nondisplaced Closed displaced fracture of right acromial process S42.121A Encounter type: initial encounter Closed fracture of right clavicle S42.034A Clavicle location: lateral end Encounter type: initial encounter Fracture alignment: nondisplaced Partial epilepsy secondarily generalized Dyslipidemia E78.5 Essential (primary) hypertension I10 Controlled diabetes mellitus E11.9 Diabetes mellitus type: type 2 Diabetes mellitus intermediate insulin use: with intermediate use BPH (benign prostatic hyperplasia) N40.0 Major depressive disorder F32.9 Abdominal wall hernia K43.9 Anxiety disorder F41.9
--- NOTE | 2020-01-17 15:44 | PM.PN ---
Subjective Subjective: Interval history: Patient is improving. He is actually up in a chair and shaving today. He feels much better. Vitals/I&O/Wt Last Vital Signs Temp 97.8 F 01/17/20 15:22 Pulse 62 01/17/20 15:22 Resp 18 01/17/20 15:22 BP 98/61 01/17/20 15:22 Pulse Ox 92 01/17/20 15:22 01/17/20 01/17/20 01/17/20 06:59 14:59 22:59 Intake Total 360 / 360 Output Total 1350 / 1650 250 / 250 Balance -1350 / 238.75 110 / 110 Weight last 48 hrs Weight 189 lb Weight 189 lb Physical Exam Const: COMMON NORMALS: no acute distress, average body habitus, patient oriented x3 and alert GENERAL APPEARANCE: cooperative and comfortable ORIENTATION/CONSCIOUSNESS: Yes awake HENMT: COMMON NORMALS: normocephalic and atraumatic HEAD & SCALP: normocephalic and atraumatic Eye: GENERAL EYE: appearance normal, both eyes and all related structures Chest: COMMONS NORMALS: normal inspection of the chest Resp: COMMON NORMALS: normal respiratory effort EFFORT & INSPECTION: Yes able to speak in complete sentences and Yes symmetric chest movement Extremity: RIGHT UPPER EXTREMITY: Yes shoulder joint Right shoulder: Yes Right shoulder joint inspection exam (Patient remains in a sling. He appears comfortable.), Yes Right shoulder joint ROM exam (Not evaluated.) and Yes Right shoulder joint neurovascular exam (Intact distal to the fracture site.) RIGHT LOWER EXTREMITY: Yes foot & digits (Patient is in a cam walker boot. He is tolerating this well. There is no new drainage from his incisions.) Right ankle: Yes neurovascular exam (Intact with no evidence of DVT.) Neuro: COMMON NORMALS: patient oriented x3 SENSORIUM/ORIENTATION: Yes alert Psych: COMMON NORMALS: mental status grossly normal APPEARANCE: Yes grossly normal ATTITUDE: Yes calm and Yes engaged ATTENTION/CONCENTRATION: Yes attention grossly intact Skin: COMMON NORMALS: no rashes or lesions noted GENERAL SKIN EXAM: no rashes or lesions noted Urinary Catheter Management^: Alaniz: Cath Placed During This Visit: yes Reason for Continuing Indwelling Catheter: Other Urinary Catheter Date of Insertion: 01/11/20 Urinary Catheter Time of Insertion: 06:30 Data : 01/16/20 01:03 01/16/20 01:03 A&P Assessment and plan (1) Closed pilon fracture of right tibia: Patient underwent open reduction internal fixation of a complex right distal tibia and bimalleolar fracture. The patient is unable to participate in aggressive physical therapy at this time secondary to inability to weight-bear on the right upper and right lower extremities. He has an acute shoulder fracture involving the base of the glenoid along with his ankle fracture. He is advised that he would not be able to weight-bear on this ankle fracture for between 4 and 6 weeks. He will likely require nursing care through this time. Currently, he does not have significant physical therapy needs as he is limited in his ability to participate. He would likely benefit from nursing care to prevent significant medical comorbidities. Status: Acute Qualifiers: Encounter type: initial encounter Fracture alignment: displaced Qualified Code(s): S82.871A - Displaced pilon fracture of right tibia, initial encounter for closed fracture (2) Bimalleolar fracture of right ankle: Status: Acute Qualifiers: Encounter type: initial encounter Fracture type: closed Qualified Code(s): S82.841A - Displaced bimalleolar fracture of right lower leg, initial encounter for closed fracture (3) Right hand pain: The patient's x-rays are negative for fracture. Status: Acute Attestations Medical Necessity Statement*: Patient requires ongoing inpatient management of medical comorbidities. Coding Level of Care Code Acute Management Information Systems Director for [facility] Diagnoses Closed pilon fracture of right tibia S82.871A Encounter type: initial encounter Fracture alignment: displaced Bimalleolar fracture of right ankle S82.841A Encounter type: initial encounter Fracture type: closed Right hand pain M79.641
[2020-01-17] MEDS: mupirocin oint 22 gm 1 APPLIC NASAL (18:36)
[2020-01-17] MEDS: trazodone 100 mg Tablet PO (23:13)
[2020-01-17] MEDS: doxepin 10 mg Capsule PO (23:13)
[2020-01-18] VITALS (10 sets, daily range): BP systolic 104–129; BP diastolic 44–82; PULSE 57–105; RESP 16–24; TEMP 36.4–37.2; O2SAT 87–100
[2020-01-18] MEDS: acetaminophen 500 mg Tablet 1000 MG PO ×3 (04:31→17:21)
[2020-01-18] MEDS: fluoxetine 20 mg Capsule PO (06:26)
[2020-01-18] MEDS: TRAMadol 50 mg Tablet PO ×4 (08:00→21:29)
--- NOTE | 2020-01-18 08:14 | PC.NURSE ---
Patient taken via wheelchair to crime lab analyst for scheduled procedure, no distress noted.
[2020-01-18] MEDS: divalproex DR 500 mg Tablet PO ×2 (08:56→17:21)
[2020-01-18] MEDS: loratadine 10 mg Tablet PO (08:56)
[2020-01-18] MEDS: magnesium oxide 400 mg tablet PO ×2 (08:57→17:20)
[2020-01-18] MEDS: tamsulosin 0.4 mg Capsule PO ×2 (08:57→17:21)
[2020-01-18] MEDS: cephALEXin 500 mg Capsule PO ×2 (08:57→17:21)
[2020-01-18] MEDS: FUROsemide 20 mg Tablet PO (08:57)
[2020-01-18] MEDS: fluconazole 100 mg Tablet 400 MG PO (08:58)
[2020-01-18] MEDS: docusate sodium 100 mg Capsule PO ×2 (08:58→17:20)
[2020-01-18] MEDS: ascorbic acid 500 mg Tablet 1000 MG PO (08:58)
[2020-01-18] MEDS: aspirin 325 mg EC Tablet PO (08:58)
[2020-01-18] MEDS: doxycycline 100 mg Tablet PO ×2 (08:58→17:22)
[2020-01-18] MEDS: potassium chloride ER 10 mEq Tablet 20 MEQ PO (08:58)
[2020-01-18] MEDS: nystatin 100,000 unit/mL UDC 5 mL 100000 UNIT PO ×4 (08:59→21:28)
[2020-01-18] MEDS: mupirocin oint 22 gm 1 APPLIC NASAL ×2 (08:59→17:22)
[2020-01-18] MEDS: gabapentin 300 mg Capsule 600 MG PO ×2 (08:59→17:21)
--- NOTE | 2020-01-18 09:00 | PC.NURSE ---
Spoke to Dr. New about patients oxycodone that was discontinued due to hallucinations, reports to this nurse she is okay with the medication being restarted at home dose but no additional doses, relayed this information to Dr. Pro. He verbalized understanding and the plan is to provide pain management with ultram as needed and if it is not managing pain will reconsider options.
--- NOTE | 2020-01-18 10:40 | PC.NURSE ---
Patient resting in bed with sling to right arm, discussed plan of care and verbalized understanding, call light in reach, side rails up X2.
--- NOTE | 2020-01-18 11:53 | PC.NURSE ---
dressing changed to right ankle, applied kerlex. Dressing changed to right forearm, applied optifoam dressing and ABD pad, sling in place.
--- NOTE | 2020-01-18 11:55 | PM.DCS ---
Discharge Providers Date of Admission: 01/10/20 20:40 Date of Discharge: January 18, 2020 Attending Provider at Admission: Carl Hobson MD Attending Provider at Discharge: Anuel Pro MD Consults: Ortho: Dr. New Primary Care Provider: FÁTIMA Dugan Diagnoses at Discharge Discharge Diagnosis (1) Closed pilon fracture of right tibia: Status: Acute Qualifiers: Encounter type: initial encounter Fracture alignment: displaced Qualified Code(s): S82.871A - Displaced pilon fracture of right tibia, initial encounter for closed fracture (2) Bimalleolar fracture of right ankle: Status: Acute Qualifiers: Encounter type: initial encounter Fracture type: closed Qualified Code(s): S82.841A - Displaced bimalleolar fracture of right lower leg, initial encounter for closed fracture (3) Right hand pain: Status: Acute (4) Avascular necrosis of left femoral head: Status: Acute (5) Closed fracture of glenoid cavity of right scapula: Status: Acute Qualifiers: Encounter type: initial encounter Fracture alignment: nondisplaced Qualified Code(s): S42.144A - Nondisplaced fracture of glenoid cavity of scapula, right shoulder, initial encounter for closed fracture (6) Closed displaced fracture of right acromial process: Status: Acute Qualifiers: Encounter type: initial encounter Qualified Code(s): S42.121A - Displaced fracture of acromial process, right shoulder, initial encounter for closed fracture (7) Fall: Status: Acute (8) Lumbar stenosis: Status: Acute (9) Degenerative joint disease of right shoulder: Status: Acute (10) Essential (primary) hypertension: Status: Chronic (11) Dyslipidemia: Status: Chronic (12) Controlled diabetes mellitus: Status: Chronic Qualifiers: Diabetes mellitus type: type 2 Diabetes mellitus half-way insulin use: with half-way use (13) Pneumonia: Status: Acute (14) Hypoxia: Status: Acute Reason for Visit Reason for Visit: FALL, R HIP R SHOULDER PAIN Hospital Course Discharge Summary: Randy German is a 64 year old male with a past medical history of partial epilepsy secondarily generalized on Depakote, history of fungal meningitis possible cryptococcal, anxiety disorder, BPH, chronic arthritis, chronic insomnia, insulin-dependent type 2 diabetes mellitus, hyperlipidemia, hypertension, GERD, history of abdominal wall hernia, on chronic steroids for bullous pemphigoid recently being weaned down, history of hepatitis C, migraines, hemorrhoids, who presents to [facility] secondary to mechanical fall down 15 steps/stairs. Patient states that he had a mechanical fall and fell down 15 steps, he has pain over his back, pain over his gluteus, left ankle pain, right shoulder pain. Denies headaches, blurry vision, nausea, vomiting, denies loss of consciousness. Denies any seizure-like activities. Denies any preceding lightheadedness, dizziness, chest pain, shortness of breath. Denies any fevers, chills exposure to COVID-19. Patient was admitted to the hospital and orthopedics was consulted. He was found to have multiple injuries including bimalleolar fracture of right ankle, close fracture of glenoid cavity of right scapula, avascular necrosis of left femoral head, close displaced fracture of right acromial process, closed fracture of right clavicle. He underwent ORIF of right bimalleolar ankle fracture on January 11. He tolerated the procedure well. His postop period was complicated by poor participation in physical and occupational therapy because of multiple injuries and fractures. He was also found to have hypoxia which was thought to be because of atelectasis. There was some concerns of pneumonia for which he supposed to be on cephalexin and doxycycline for 2 more days to finish the course for 7 days. Echocardiogram was done which revealed an EF of 40 to 45% with mild aortic stenosis which is unchanged to his previous study done in December 2018. Because of multiple injuries SNF discharge was sought for further rehabilitation. He has been accepted at [facility] and is discharged in hemodynamically stable condition. His chronic medications have been continued other than OxyContin. With OxyContin he was found to have few episodes of hallucinations. Once OxyContin was stopped the hallucinations were also not present. He has been tolerating pain well with tramadol. Physical Exam Narrative: EXAM NARRATIVE: COMMON NORMALS: no acute distress, average body habitus, patient oriented x3 and alert GENERAL APPEARANCE: cooperative and comfortable ORIENTATION/CONSCIOUSNESS: Yes awake [facility] COMMON NORMALS: normocephalic and atraumatic HEAD & SCALP: normocephalic and atraumatic Eye GENERAL EYE: appearance normal, both eyes and all related structures Chest COMMONS NORMALS: normal inspection of the chest Resp COMMON NORMALS: normal respiratory effort EFFORT & INSPECTION: Yes able to speak in complete sentences and Yes symmetric chest movement Extremity RIGHT UPPER EXTREMITY: Yes shoulder joint (Patient continues to complain of pain in the right upper extremity. He is in a sling and appears comfortable. He remains neurologically intact.) RIGHT LOWER EXTREMITY: Yes foot & digits (Patient remains in his postoperative dressing and splint. He is neurologically intact in his toes. Capillary refill is good. There is no significant swelling. He has minimal complaints of pain.) Neuro COMMON NORMALS: patient oriented x3 SENSORIUM/ORIENTATION: Yes alert Urinary Catheter Management^: Alaniz: Cath Placed During This Visit: yes Reason for Continuing Indwelling Catheter: Other Urinary Catheter Date of Insertion: 01/11/20 Urinary Catheter Time of Insertion: 06:30 Discharge Data Data Completed and Pending: Completed Studies During Hospitalization Category Date Time Status CT ankle RT wo co n* [id number] Routine Cat Scan 01/11/20 09:[address] cervical spin wo con* [id number] Urge nt Cat Scan 01/10/20 16:[address] chest abd pel w con* Stat Cat Scan 01/10/20 18:[address] head wo con* 7 0450 Stat Cat Scan 01/10/20 16:[address] lumbar spine w o con* 58554 Urgen t Cat Scan 01/10/20 16:[address] shoulder RT wo con* [id number] Stat Cat Scan 01/10/20 18:35 Completed XR ankle RT 2V 73 600 Routine Exams 01/12/20 Completed XR ankle RT min 3 V* [id number] Stat Exams 01/10/20 16:31 Completed XR chest 1V sebastian ble [id number] Routine Exams 01/12/20 06:02 Completed XR chest 1V sebastian ble [id number] Routine Exams 01/12/20 16:21 Completed XR chest 1V sebastian ble 61851 Stat Exams 01/10/20 16:21 Completed XR hand RT min 3V * [id number] Routine Exams 01/15/20 13:40 Completed XR hip LT 2-3V wo /w pel* [id number] Stat Exams 01/10/20 16:31 Completed XR hip RT 2-3V wo /w pel* [id number] Stat Exams 01/10/20 16:56 Completed XR shoulder RT mi n 2V* [id number] Stat Exams 01/10/20 16:31 Completed CV echo complete* [id number] Routine Ultrasound 01/11/20 22:16 Completed US renal BI* [id number] Routine Ultrasound 01/13/20 06:30 Completed Pending at discharge Category Date Time Status Complete Blood Co unt w/Auto AM LABS Lab 01/19/20 04:00 Ordered Comprehensive Met abolic Panel AM LA BS Lab 01/19/20 04:00 Ordered Vitals: Last Vital Signs Temp 98.9 F 01/18/20 11:27 Pulse 77 01/18/20 11:27 Resp 18 01/18/20 11:27 BP 113/44 01/18/20 11:27 Pulse Ox 93 01/18/20 08:00 Discharge Plan Discharge Patient Disposition: Xfer SNF Condition: Stable Prescriptions: New potassium chloride 10 mEq Tablet Extended Release 20 meq PO DAILY Qty: 30 RF: 0 doxepin 10 mg Capsule 10 mg PO BEDTIME Qty: 30 RF: 0 doxycycline monohydrate 100 mg Tablet 100 mg PO BID Qty: 5 RF: 0 tramadol 50 mg Tablet 50 mg PO Q4H PRN (Reason: Mild To Moderate Pain) Qty: 10 RF: 0 aspirin 325 mg Tablet,Delayed Release (Dr/Ec) 325 mg PO DAILY Qty: 15 RF: 0 trazodone 100 mg Tablet 100 mg PO BEDTIME PRN (Reason: Sleep) Qty: 10 RF: 0 cephalexin 500 mg Capsule 500 mg PO BID Qty: 5 RF: 0 dexamethasone 4 mg Tablet 1 mg PO DAILY Qty: 30 RF: 0 furosemide 20 mg Tablet 20 mg PO DAILY@0800 Qty: 30 RF: 0 fluoxetine 20 mg Capsule 20 mg PO QAM Qty: 30 RF: 0 Continued methenamine hippurate 1 gram tablet 1 gm PO BID RF: 0 fluconazole 100 mg tablet 400 mg PO DAILY RF: 0 loratadine [Claritin] 10 mg tablet 10 mg PO DAILY RF: 0 (DME) insulin syringe-needle U-100 [Easy Comfort Insulin Syringe] 0.5 mL 31 gauge x 5/16 syringe See Rx Instructions .ROUTE .MEDSUPPLY Qty: 100 RF: 5 magnesium oxide 400 mg magnesium tablet 400 mg PO BID Qty: 60 RF: 5 gabapentin 300 mg capsule 600 mg PO BID Qty: 120 RF: 5 divalproex [Depakote] 500 mg tablet,delayed release (DR/EC) 500 mg PO BID Qty: 60 RF: 3 tamsulosin 0.4 mg capsule 0.4 mg PO BID Qty: 60 RF: 5 (DME) blood-glucose meter [OneTouch Ultra2 Meter] Kit See Rx Instructions .ROUTE .MEDSUPPLY Qty: 1 RF: 0 (DME) OneTouch Ultra Blue Test Strip Strip See Rx Instructions .ROUTE .MEDSUPPLY Qty: 50 RF: 5 (DME) lancets [OneTouch Delica Plus Lancet] 33 gauge misc See Rx Instructions .ROUTE .MEDSUPPLY Qty: 100 RF: 5 Lantus U-100 Insulin 100 unit/mL solution 25 unit SUBCUT DAILY Qty: 10 RF: 0 trazodone 100 mg tablet 100 mg PO BEDTIME PRN (Reason: Sleep) 30 Days Qty: 30 RF: 2 Probiotic 1 cap PO DAILY RF: 0 ascorbic acid (vitamin C) [Vitamin C] 500 mg tablet extended release 1,000 mg PO DAILY RF: 0 Held aspirin 81 mg tablet,delayed release (DR/EC) 81 mg PO DAILY Qty: 30 RF: 5 Hold Instructions: Resume on 02/04/20. Discontinued oxycodone 10 mg tablet 10 mg PO Q8H PRN (Reason: pain) 30 Days Qty: 90 RF: 0 Discharge Orders: Discharge Order (Routine); Ordered 01/13/20 Ordered By: Sera New Referrals: [facility] [Outside] Adela Alaniz, GOLF COURSE DESIGNER-C [Primary Care Provider] - 2 weeks Sera New MD [Physician] - 2 weeks Discharge Diet: Regular and Low Salt Discharge Activity: Limit activity as instructed, Wheelchair as instructed and As per PT/OT instructions Activity Restrictions/Additional Instructions: Nonweightbearing right upper extremity and right lower extremity. Elevate right lower extremity above the level of your heart. Ice to right lower extremity. Maintain splint in place. Please check CMP in 2 weeks. Discharge Attestations Time Spent in Discharge Care*: greater than 30 min Specific Discharge Activities: Specific discharge activities: educating patient, discussing with pcp/other providers, discussing with senior case manager/social workers/dc planners, documenting/other paperwork and evaluating patient/reviewing data Status at Discharge: Cognitive status at discharge: cognitively intact, Behavioral status at discharge: cooperative, Functional status at discharge: other assisted ambulation Overall status at discharge: patient is progressing back to baseline Quality Metrics Clinical Quality Measures During this hospital stay, did patient experience: None Coding Level of Care Code Acute Cryogenics Repairer for [facility] Diagnoses Closed pilon fracture of right tibia S82.871A Encounter type: initial encounter Fracture alignment: displaced Bimalleolar fracture of right ankle S82.841A Encounter type: initial encounter Fracture type: closed Right hand pain M79.641 Avascular necrosis of left femoral head M87.052 Closed fracture of glenoid cavity of right scapula S42.144A Encounter type: initial encounter Fracture alignment: nondisplaced Closed displaced fracture of right acromial process S42.121A Encounter type: initial encounter Fall W19.XXXA Lumbar stenosis M48.061 Degenerative joint disease of right shoulder M19.011 Essential (primary) hypertension I10 Dyslipidemia E78.5 Controlled diabetes mellitus E11.9 Diabetes mellitus type: type 2 Diabetes mellitus half-way insulin use: with termite exterminator use Pneumonia J18.9 Hypoxia R09.02
[2020-01-18] MEDS: trazodone 100 mg Tablet PO (21:28)
[2020-01-18] MEDS: doxepin 10 mg Capsule PO (21:50)
[2020-01-19 00:38] VITALS: BP 120/72; PULSE 58; RESP 20; TEMP 36.9; O2SAT 95
[2020-01-19 02:38] LABS: Basophils % 0.5 %; Eosinophils # 0.3 10^3/uL (0.0-0.8); Eosinophils % 4.2 %; Hematocrit 26.4 % (42.0-52.0); Hemoglobin 8.2 g/dL (11.7-16.6); Lymphocytes # 2.3 10^3/uL (0.8-4.8); Lymphocytes % 36.6 %; Mean Corpuscular HGB Conc 31.1 g/dL (30.0-36.0); Mean Corpuscular Hemoglobin 27.9 pg (28.0-34.0); Mean Corpuscular Volume 89.8 fL (80-94); Monocytes % 15.2 %; Neutrophils # 2.49 10^3/uL (1.8-7.7); Neutrophils % 39.1 %; Nucleated Red Blood Cells % 0 %; Platelet Count 239 10^3/cmm (130-400); Red Blood Count 2.94 10^6/uL (4.1-5.3); Red Cell Distribution Width 14.4 % (12.1-15.1); White Blood Count 6.4 10^3/uL (4.0-10.0)
[2020-01-19] MEDS: acetaminophen 500 mg Tablet 1000 MG PO ×2 (02:56→11:23)
[2020-01-19 03:05] LABS: Alanine Aminotransferase < 5 U/L (0-41); Albumin Level 2.8 g/dL (3.5-5.2); Alkaline Phosphatase 53 IU/L (40-130); Anion Gap 12.5 (5-19); Aspartate Amino Transferase 8 U/L (0-40); Blood Urea Nitrogen 17 mg/dL (8-23); Calcium 8.7 mg/dL (8.5-10.5); Carbon Dioxide 28 mmol/L (22-29); Chloride 103 mmol/L (98-107); Globulin 2.6 g/dL (1.3-4.6); Glomerular Filtration Rate 136.5 mL/min (90-130); Glucose 95 mg/dL (65-115); Osmolality Calculated 291 mOsm/kg (285-295); Potassium 3.5 mmol/L (3.5-5.1); Sodium 140 mmol/L (136-145); Total Bilirubin 0.3 mg/dL (0.15-1.2); Total Protein 5.4 g/dL (6.6-8.7)
--- NOTE | 2020-01-19 04:21 | PC.NURSE ---
WHEN IN ROOM FOR HOURLY ROUNDING THE PATIENT WAS ASKED IF HE HAD ANY URINE OUTPUT, HE DENIED ANY OUTPUT. BLADDER SCAN PERFORMED AND THERE WAS AN APPROXIMATE AMOUNT OF 700-800 ML OF URINE IN THE BLADDER. HOSPITALIST DEPUTY K 9 CALLED AND NOTIFIED. ORDERS GIVEN VERBAL AND READ BACK FOR PRN BLADDER SCAN WITH STRAIGHT CATH IF NEEDED. ORDER ENTERED IN CHART. SUPPLIES NEEDED OBTAINED AND TAKEN TO PATIENT ROOM. PROCEDURE EXPLAINED TO PATIENT IN DETAIL, PATIENT STATES UNDERSTANDING. STERILE GLOVES DAWNED WITH STERILE TECHNIQUE. PENIS CLEANED WITH IODINE SWABS AND THE RED ZAYDA ADDISON WITH LUBRICANT ADVANCED INTO THE URETHRA. PATIENT TOLERATED WELL. URINE OUTPUT WAS 750 ML OF DARK YELLOW URINE. PATIENT REPORTED RELIEF.
[2020-01-19 06:24] VITALS: BP 111/72; PULSE 59; RESP 16; TEMP 36.9; O2SAT 95
--- NOTE | 2020-01-19 07:07 | PC.NURSE ---
Received report from Ami Goyal LPN, assumed care of patient.
[2020-01-19 08:00] VITALS: BP 141/66; PULSE 67; RESP 16; TEMP 36.7; O2SAT 91
[2020-01-19] MEDS: FUROsemide 20 mg Tablet PO (08:35)
[2020-01-19] MEDS: gabapentin 300 mg Capsule 600 MG PO (08:35)
[2020-01-19] MEDS: docusate sodium 100 mg Capsule PO (08:35)
[2020-01-19] MEDS: potassium chloride ER 10 mEq Tablet 20 MEQ PO (08:35)
[2020-01-19] MEDS: aspirin 325 mg EC Tablet PO (08:36)
[2020-01-19] MEDS: ascorbic acid 500 mg Tablet 1000 MG PO (08:36)
[2020-01-19] MEDS: cephALEXin 500 mg Capsule PO (08:36)
[2020-01-19] MEDS: nystatin 100,000 unit/mL UDC 5 mL 100000 UNIT PO ×2 (08:36→13:05)
[2020-01-19] MEDS: tamsulosin 0.4 mg Capsule PO (08:36)
[2020-01-19] MEDS: TRAMadol 50 mg Tablet PO ×2 (08:36→13:05)
[2020-01-19] MEDS: loratadine 10 mg Tablet PO (08:36)
[2020-01-19] MEDS: magnesium oxide 400 mg tablet PO (08:37)
[2020-01-19] MEDS: dexamethasone 4 mg Tablet 1 MG PO (08:37)
[2020-01-19] MEDS: mupirocin oint 22 gm 1 APPLIC NASAL (08:37)
[2020-01-19] MEDS: doxycycline 100 mg Tablet PO (08:37)
[2020-01-19] MEDS: divalproex DR 500 mg Tablet PO (08:37)
[2020-01-19] MEDS: fluconazole 100 mg Tablet 400 MG PO (08:37)
--- NOTE | 2020-01-19 09:39 | P.PN_ITS ---
Subjective Subjective: Interval history: Patient could not go yesterday because level 2 was not approved. No acute event overnight. Still working limited with physical therapy. Vitals and blood work has remained stable. Vitals/I&O/Wt Last Vital Signs Temp 98.1 F 01/19/20 08:00 Pulse 67 01/19/20 08:00 Resp 16 01/19/20 08:00 BP 141/66 01/19/20 08:00 Pulse Ox 91 01/19/20 08:00 01/18/20 01/19/20 01/19/20 22:59 06:59 14:59 Intake Total 480 / 1160 360 / 1520 Output Total 650 / 1050 750 / 1800 Balance -170 / 110 -390 / -280 Weight last 48 hrs Weight 106.685 kg Weight 107.229 kg Physical Exam Narrative: EXAM NARRATIVE: COMMON NORMALS: no acute distress, average body habitus, patient oriented x3 and alert GENERAL APPEARANCE: cooperative and comfortable ORIENTATION/CONSCIOUSNESS: Yes awake HENMT COMMON NORMALS: normocephalic and atraumatic HEAD & SCALP: normocephalic and atraumatic Eye GENERAL EYE: appearance normal, both eyes and all related structures Chest COMMONS NORMALS: normal inspection of the chest Resp COMMON NORMALS: normal respiratory effort EFFORT & INSPECTION: Yes able to speak in complete sentences and Yes symmetric chest movement Extremity RIGHT UPPER EXTREMITY: Yes shoulder joint (Patient continues to complain of pain in the right upper extremity. He is in a sling and appears comfortable. He remains neurologically intact.) RIGHT LOWER EXTREMITY: Yes foot & digits (Patient remains in his postoperative dressing and splint. He is neurologically intact in his toes. Capillary refill is good. There is no significant swelling. He has minimal complaints of pain.) Neuro COMMON NORMALS: patient oriented x3 SENSORIUM/ORIENTATION: Yes alert Urinary Catheter Management^: Alaniz: Cath Placed During This Visit: yes Reason for Continuing Indwelling Catheter: Other Urinary Catheter Date of Insertion: 01/11/20 Urinary Catheter Time of Insertion: 06:30 Data : 01/19/20 02:05 01/19/20 02:05 Micro: Microbiology 01/13/20 11:14 Blood Culture - Final Blood NO GROWTH AFTER 5 DAYS 01/13/20 11:09 Blood Culture - Final Blood NO GROWTH AFTER 5 DAYS A&P Assessment and plan (1) Closed pilon fracture of right tibia: Status: Acute Qualifiers: Encounter type: initial encounter Fracture alignment: displaced Qualified Code(s): S82.871A - Displaced pilon fracture of right tibia, initial encounter for closed fracture (2) Bimalleolar fracture of right ankle: As per orthopedics. Post ORIF. Pain med, PT, Weight bearing as per ortho Status: Acute Qualifiers: Encounter type: initial encounter Fracture type: closed Qualified Code(s): S82.841A - Displaced bimalleolar fracture of right lower leg, initial encounter for closed fracture (3) Right hand pain: Status: Acute (4) Avascular necrosis of left femoral head: -Incidentally found on CT of the abdomen pelvis -Chronicity unknown -Patient has pain all over, but does have left hip pain with palpation -We will defer further imaging studies and surgical versus medical management up to orthopedic team Status: Acute (5) Closed fracture of glenoid cavity of right scapula: -Currently in a sling, medically managed Status: Acute Qualifiers: Encounter type: initial encounter Fracture alignment: nondisplaced Qualified Code(s): S42.144A - Nondisplaced fracture of glenoid cavity of scapula, right shoulder, initial encounter for closed fracture (6) Closed displaced fracture of right acromial process: Status: Acute Qualifiers: Encounter type: initial encounter Qualified Code(s): S42.121A - Displaced fracture of acromial process, right shoulder, initial encounter for closed fracture (7) Fall: -With significant trauma, multiple imaging studies without any significant findings of internal bleed, continue to monitor Status: Acute (8) Lumbar stenosis: Status: Acute (9) Degenerative joint disease of right shoulder: Status: Acute (10) Essential (primary) hypertension: Goal BP loess than 140/90 mmhg. BP at goal. Status: Chronic (11) Dyslipidemia: Status: Chronic (12) Controlled diabetes mellitus: Since admission patient has required only 2 units of insulin. We will stop a synergist check and will check only daily for now. HbA1c 5.8 earlier in the admission. Carb consistent diet Status: Chronic Qualifiers: Diabetes mellitus type: type 2 Diabetes mellitus oil heaterman insulin use: with residential use (13) Pneumonia: Status: Acute (14) Hypoxia: Status: Acute Additional A&P Information Hypoxia: Postoperatively. Patient continues to require oxygen supplementation to keep saturation over 90%. Check procalcitonin, proBNP. Echocardiogram done earlier in the admission shows an EF of 40 to 45%. MRSA positive. Has remained afebrile. Continue with Keflex and doxycycline to finish a 5-day course to be finished on Continue with Lasix 20 mg oral daily. Monitor I/O Daily weight. Home O2 evaluation prior to discharge. Hypertension: Patient takes dexamethasone chronically 1 mg at home for bullous pemphigoid. Continue with dexamethasone 1 mg oral daily. Patient's lab in past consistent with adrenal insufficiency. Blood pressure is better after starting dexamethasone. Continue to monitor for now. Continue other chronic medications like Depakote, fluconazole, Flomax, methenamine hippurate, magnesium oxide, loratadine, gabapentin. History of seizure disorder. History of cryptococcal meningitis. SCDs for DVT prophylaxis PT OT Patient is DNR/DNI, is okay with reversing DNI for surgery Discharge: Patient will be discharged to [facility] today as level 2 has been approved. Patient will need to follow-up with Dr. New as directed. We will also give him a follow-up for Dr. Stewart for urinary retention. He states at home he straight caths occasionally. [facility] and [facility] further rehabitation. Attestations Medical Necessity Statement*: Patient is been discharged today to [facility]. Time Spent in Patient Care: 16 - 35 minutes Coding Level of Care Code Acute Bridge Game Director for g Fwd Diagnoses Closed pilon fracture of right tibia S82.871A Encounter type: initial encounter Fracture alignment: displaced Bimalleolar fracture of right ankle S82.841A Encounter type: initial encounter Fracture type: closed Right hand pain M79.641 Avascular necrosis of left femoral head M87.052 Closed fracture of glenoid cavity of right scapula S42.144A Encounter type: initial encounter Fracture alignment: nondisplaced Closed displaced fracture of right acromial process S42.121A Encounter type: initial encounter Fall W19.XXXA Lumbar stenosis M48.061 Degenerative joint disease of right shoulder M19.011 Essential (primary) hypertension I10 Dyslipidemia E78.5 Controlled diabetes mellitus E11.9 Diabetes mellitus type: type 2 Diabetes mellitus residential insulin use: with residential use Pneumonia J18.9 Hypoxia R09.02
--- NOTE | 2020-01-19 10:00 | PC.NURSE ---
dressings changed to right ankle, kerlex applied steri strips in place, otifoam changed to right forearm skin tear.
--- NOTE | 2020-01-19 11:04 | PC.NURSE ---
report called to abimael hoover, denies further questions or concerns.
--- NOTE | 2020-01-19 11:53 | PM.PN ---
Subjective Subjective: Interval history: Patient could not go yesterday because level 2 was not approved. No acute event overnight. Still working limited with physical therapy. He remains nonweightbearing. Medications: Reviewed: Yes Vitals/I&O/Wt Last Vital Signs Temp 98.1 F 01/19/20 08:00 Pulse 67 01/19/20 08:00 Resp 16 01/19/20 08:00 BP 141/66 01/19/20 08:00 Pulse Ox 91 01/19/20 08:00 01/18/20 01/19/20 01/19/20 22:59 06:59 14:59 Intake Total 480 / 1160 360 / 1520 240 / 240 Output Total 650 / 1050 750 / 1800 550 / 550 Balance -170 / 110 -390 / -280 -310 / -310 Weight last 48 hrs Weight 235 lb 3.2 oz Weight 236 lb 6.4 oz Physical Exam Const: COMMON NORMALS: no acute distress, average body habitus, patient oriented x3 and alert GENERAL APPEARANCE: cooperative and comfortable ORIENTATION/CONSCIOUSNESS: Yes awake HENMT: COMMON NORMALS: normocephalic and atraumatic HEAD & SCALP: normocephalic and atraumatic Eye: GENERAL EYE: appearance normal, both eyes and all related structures Chest: COMMONS NORMALS: normal inspection of the chest Resp: COMMON NORMALS: normal respiratory effort EFFORT & INSPECTION: Yes able to speak in complete sentences and Yes symmetric chest movement Extremity: RIGHT UPPER EXTREMITY: Yes hand & digits (The patient's abrasions are healing nicely. He is able to spontaneously move all fingers.) LEFT LOWER EXTREMITY: Yes ankle joint (There is no drainage or evidence of infection.) Left ankle: Yes inspection (Swelling has diminished significantly.), Yes palpation (Minimal tenderness to palpation.) and Yes neurovascular exam ( Intact distal to the surgical site) Neuro: COMMON NORMALS: patient oriented x3 SENSORIUM/ORIENTATION: Yes alert Psych: COMMON NORMALS: mental status grossly normal APPEARANCE: Yes grossly normal ATTITUDE: Yes calm and Yes engaged ATTENTION/CONCENTRATION: Yes attention grossly intact Skin: COMMON NORMALS: no rashes or lesions noted GENERAL SKIN EXAM: no rashes or lesions noted Urinary Catheter Management^: Alaniz: Cath Placed During This Visit: yes Reason for Continuing Indwelling Catheter: Other Urinary Catheter Date of Insertion: 01/11/20 Urinary Catheter Time of Insertion: 06:30 Data : 01/19/20 02:05 01/19/20 02:05 Micro: Microbiology 01/13/20 11:14 Blood Culture - Final Blood NO GROWTH AFTER 5 DAYS 01/13/20 11:09 Blood Culture - Final Blood NO GROWTH AFTER 5 DAYS A&P Assessment and plan (1) Closed pilon fracture of right tibia: Patient underwent open reduction internal fixation of a complex right distal tibia and bimalleolar fracture. The patient is unable to participate in aggressive physical therapy at this time secondary to inability to weight-bear on the right upper and right lower extremities. He has an acute shoulder fracture involving the base of the glenoid along with his ankle fracture. He is advised that he would not be able to weight-bear on this ankle fracture for between 4 and 6 weeks. He will require nursing care through this time. Currently, he does not have significant physical therapy needs as he is limited in his ability to participate. He would likely benefit from nursing care to prevent significant medical comorbidities. Status: Acute Qualifiers: Encounter type: initial encounter Fracture alignment: displaced Qualified Code(s): S82.871A - Displaced pilon fracture of right tibia, initial encounter for closed fracture (2) Bimalleolar fracture of right ankle: Status: Acute Qualifiers: Encounter type: initial encounter Fracture type: closed Qualified Code(s): S82.841A - Displaced bimalleolar fracture of right lower leg, initial encounter for closed fracture (3) Right hand pain: The patient's x-rays are negative for fracture. Status: Acute Attestations Medical Necessity Statement*: Patient remains inpatient secondary to her multiple medical comorbidities. Coding Level of Care Code Acute Box Machine Operator for Imelda Rojas Diagnoses Closed pilon fracture of right tibia S82.871A Encounter type: initial encounter Fracture alignment: displaced Bimalleolar fracture of right ankle S82.841A Encounter type: initial encounter Fracture type: closed Right hand pain M79.641
[2020-01-19 12:00] VITALS: BP 119/63; PULSE 71; RESP 16; TEMP 36.8; O2SAT 91
[2020-01-19 12:22] LABS: SARS Covid-2 Antigen Negative (Negative)
--- NOTE | 2020-01-19 13:08 | PC.NURSE ---
bladder scanned 689ml noted, st cath per doctors orders, 850 ml on return.
--- NOTE | 2020-01-19 14:58 | PC.NURSE ---
patient discharged via stretcher, no distress noted to abimael hoover.
[2020-01-19 14:59] VITALS: BP 119/63; PULSE 71; RESP 16; TEMP 36.8; O2SAT 91
== END 2020-01-19 15:00 | disposition skilled nursing facility (03) | DRG 492 ==
LOC: ER 19:50 → MEDSURG 21:12
PROVIDERS: Emergency Medicine; Family Medicine; Internal Medicine; Specialist; Admitting Provider Family Medicine; PCP Nurse Practitioner; Visit Provider Student in an Organized Health Care Education/Training Program
PROC: 0QSK04Z Reposition Left Fibula with Internal Fixation Device, Open Approach (ICD-10-PCS; CPT 27828; principal; 2020-01-12 12:30)
DX: S82.871A Displaced pilon fracture of right tibia, initial encounter for closed fracture (principal); J18.9 Pneumonia, unspecified organism; M87.852 Other osteonecrosis, left femur; S82.841A Displaced bimalleolar fracture of right lower leg, initial encounter for closed fracture; S42.121A Displaced fracture of acromial process, right shoulder, initial encounter for closed fracture; Z66 Do not resuscitate; M48.061 Spinal stenosis, lumbar region without neurogenic claudication; M19.011 Primary osteoarthritis, right shoulder; Y93.9 Activity, unspecified; Y92.009 Unspecified place in unspecified non-institutional (private) residence as the place of occurrence of the external cause; I10 Essential (primary) hypertension; E78.5 Hyperlipidemia, unspecified; E11.9 Type 2 diabetes mellitus without complications; Z79.4 Long term (current) use of insulin; R09.02 Hypoxemia; K43.9 Ventral hernia without obstruction or gangrene; N40.0 Benign prostatic hyperplasia without lower urinary tract symptoms; F51.04 Psychophysiologic insomnia; K21.9 Gastro-esophageal reflux disease without esophagitis; Z79.52 Long term (current) use of systemic steroids; Z86.19 Personal history of other infectious and parasitic diseases; Z79.82 Long term (current) use of aspirin; S42.144A Nondisplaced fracture of glenoid cavity of scapula, right shoulder, initial encounter for closed fracture; F41.8 Other specified anxiety disorders; B95.62 Methicillin resistant Staphylococcus aureus infection as the cause of diseases classified elsewhere; G40.909 Epilepsy, unspecified, not intractable, without status epilepticus; W10.9XXA Fall (on) (from) unspecified stairs and steps, initial encounter; Z87.891 Personal history of nicotine dependence; Z20.828 Contact with and (suspected) exposure to other viral communicable diseases; Y95 Nosocomial condition
CPT/HCPCS: 12345; 36415; 36416; 36600; 51702; 51798; 70450; 71045; 71260; 72125; 72131; 73030; 73130; 73200; 73502; 73600; 73610; 73700; 74177; 76000; 76770; 80051; 80053; 80061; 80202; 80307; 81003; 82533; 82550; 82728; 82810; 82962; 83036; 83605; 83735; 83880; 83986; 84100; 84145; 84443; 85025; 85378; 85651; 86140; 87040; 87426; 87635; 87641; 90471; 90715; 93005; 93306; 94664; 96365; 96372; 96375; 97110; 97161; 97167; 97530; 97535; 99283; C1713; J0131; J0330; J0743; J1170; J1815; J1940; J1956; J2270; J2370; J2405; J2704; J2765; J3010; J3370; J3490; J7030; J7050; J7799; J8540; Q9967

== ENCOUNTER → 2020-01-24 14:19 | Outpatient (BNVA) | payer MEDICAID, SELFPAY | PROVIDERS: PCP Nurse Practitioner; Visit Provider Specialist | DX: S82.841A Displaced bimalleolar fracture of right lower leg, initial encounter for closed fracture (principal); X58.XXXA Exposure to other specified factors, initial encounter | CPT/HCPCS: 73610 ==

== ENCOUNTER → 2020-02-02 11:01 | Outpatient (BNVA) | payer MEDICAID, SELFPAY | PROVIDERS: PCP Nurse Practitioner; Visit Provider Urology | DX: R33.9 Retention of urine, unspecified (principal) | CPT/HCPCS: 81003 ==

== ENCOUNTER → 2020-02-28 10:54 | Outpatient (BNVA) | payer MEDICAID, SELFPAY | PROVIDERS: PCP Nurse Practitioner; Visit Provider Specialist | DX: S82.871D Displaced pilon fracture of right tibia, subsequent encounter for closed fracture with routine healing (principal); S82.841D Displaced bimalleolar fracture of right lower leg, subsequent encounter for closed fracture with routine healing; S42.121D Displaced fracture of acromial process, right shoulder, subsequent encounter for fracture with routine healing; S42.144D Nondisplaced fracture of glenoid cavity of scapula, right shoulder, subsequent encounter for fracture with routine healing; W19.XXXD Unspecified fall, subsequent encounter | CPT/HCPCS: 73610 ==

== ENCOUNTER → 2020-03-20 13:23 | Outpatient (BNVA) | payer MEDICAID, SELFPAY | PROVIDERS: PCP Nurse Practitioner; Visit Provider Specialist | DX: S82.841A Displaced bimalleolar fracture of right lower leg, initial encounter for closed fracture (principal); S42.144A Nondisplaced fracture of glenoid cavity of scapula, right shoulder, initial encounter for closed fracture; S42.121A Displaced fracture of acromial process, right shoulder, initial encounter for closed fracture; X58.XXXA Exposure to other specified factors, initial encounter | CPT/HCPCS: 73030; 73610 ==

== ENCOUNTER 2020-05-09 11:19 | Emergency (ER) | payer MEDICAID, SELFPAY ==
[2020-05-09] VITALS (7 sets, daily range): BP systolic 114–152; BP diastolic 82–106; PULSE 50–66; RESP 20–24; TEMP 36.4; O2SAT 94–98; BMI 29.8
[2020-05-09] MEDS: sodium chloride 0.9% 1,000 ML 999 ML IV (11:51)
--- NOTE | 2020-05-09 11:53 | XR_ITS ---
WS: [id number] KUB, portable AP view, 05/09/2020 Clinical Data: abd pain Comparison: Abdomen series, 08/07/2018. Findings: No abnormal intraabdominal masses or calcifications are seen. There is no dilatated small bowel or ev idence of obstruction. There is a large amount of fecal material throughout the colon. The patient has had extensive right h ip surgery with a total arthroplasty. There is a long stemmed prosthesis within the right proximal me dullary canal. There is an acetabular cup fixed to the right side of the pelvis with orthopedic screw s. There is deformity of the right ilium from surgery and injury. The left hip shows no abnormalitie s. There is irregularity of the inferior left ischio pubic ramus from injury. There is a levoscoliosi s of the lumbar spine. XR/XR KUB portable [id number] Impression: 1. Negative for acute intra-abdominal or pelvic abnormalities. 2. No change in right hip prosthesis and trauma to the pelvis.
[2020-05-09 11:55] LABS: Basophils % 0.4 %; Eosinophils % 0.2 %; Hematocrit 48.5 % (42.0-52.0); Hemoglobin 16.2 g/dL (11.7-16.6); Lymphocytes # 2.2 10^3/uL (0.8-4.8); Lymphocytes % 26.3 %; Mean Corpuscular HGB Conc 33.4 g/dL (30.0-36.0); Mean Corpuscular Hemoglobin 29.5 pg (28.0-34.0); Mean Corpuscular Volume 88.2 fL (80-94); Mean Platelet Volume 9.1 fL (7.4-10.4); Monocytes # 0.6 10^3/uL (0.2-0.9); Monocytes % 6.6 %; Neutrophils # 5.43 10^3/uL (1.8-7.7); Neutrophils % 65.4 %; Nucleated Red Blood Cells % 0 %; Platelet Count 167 10^3/cmm (130-400); Red Cell Distribution Width 14.5 % (12.1-15.1); White Blood Count 8.3 10^3/uL (4.0-10.0)
[2020-05-09 12:13] LABS: Alanine Aminotransferase 17 U/L (0-41); Albumin Level 4.1 g/dL (3.5-5.2); Alkaline Phosphatase 64 IU/L (40-130); Anion Gap 15.2 (5-19); Aspartate Amino Transferase 12 U/L (0-40); Blood Urea Nitrogen 11 mg/dL (8-23); Calcium 9.6 mg/dL (8.5-10.5); Carbon Dioxide 28 mmol/L (22-29); Chloride 97 mmol/L (98-107); Creatinine Clr Calc Pharmacy 156.1372; Globulin 2.6 g/dL (1.3-4.6); Glomerular Filtration Rate 136.5 mL/min (90-130); Glucose 90 mg/dL (65-115); Lipase 20 U/L (13-60); Osmolality Calculated 281 mOsm/kg (285-295); Potassium 4.2 mmol/L (3.5-5.1); Sodium 136 mmol/L (136-145); Total Bilirubin 0.3 mg/dL (0.15-1.2); Total Protein 6.7 g/dL (6.6-8.7)
--- NOTE | 2020-05-09 12:36 | CT_ITS ---
WS: [id number] CT ABDOMEN AND PELVIS WITH CONTRAST HISTORY: Constipation for 4 days. Abdominal pain. TECHNIQUE: Imaging performed of the abdomen and pelvis with IV contrast. Single phase imaging of the abdomen. Coronal and sagittal reformats are submitted. All CT scans at [facility] use at least one of these dose optimization techniques: automated exposure control; mA and/or kV adjustment per patient size (includes targeted exams where dose is matched to clinical indication); or iterativ e reconstruction. IV CONTRAST: Omnipaque 300; 95 mL IV. Oral contrast: No DLP: 1764.75 mGy.cm COMPARISON: 01/10/2020 Lower thorax: Stable ovoid 1.2 cm nodule at the RIGHT lung base since 09/10/2019. Marked increased a mount of pleural fat. Heart is normal size. Small hiatal hernia. Liver/biliary system: Normal size with no intrahepatic dilatation. Gallbladder: Normal. No gallstones or wall thickening. No pericholecystic fluid. Pancreas: Normal. Spleen: Normal. Adrenal glands: Normal. Right kidney: Mild cortical thinning. 2 small to characterize hypodensity in the mid kidney measures 8 mm. No change since the prior study. No renal obstruction. Left kidney: Mild perinephric stranding with no obstruction. Aorta: Mild atherosclerosis with no aneurysm. Lymphadenopathy: None. Free fluid: None. GI tract: Moderate fecal retention. There are a few scattered diverticula in the descending colon and sigmoid. No acute inflammation. No significant obstructive pattern. No small bowel dilatation. No wa ll thickening or edema. Appendix not identified. Abdominal wall: Infraumbilical fat-containing hernia. Pelvis: No free fluid in the pelvis. Urinary bladder is partially visualized and partially obscured b y artifact from the RIGHT hip arthroplasty. Bones: Prior RIGHT hip arthroplasty. Arthroplasty causing significant artifact through the pelvis. Meek claudio are osteopenic. Mild anterior compression fracture of L1 by 10%. This fracture is new since 2019. Deformity of the RIGHT ilium/pelvis from a prior fracture with healing. CT/CT abdomen pelvis w con* [id number] IMPRESSION: 1. No GI tract obstruction. Only mild constipation. 2. Diverticular disease with no diverticulitis. 3. Infraumbilical fat-containing anterior pelvic hernia. 4. No ascites or free air. 5. Age indeterminate 10% L1 compression fracture, new since 01/10/2020.
--- NOTE | 2020-05-09 13:04 | ED_ITS ---
HPI - Abdominal Pain General: Chief Complaint: Abdominal Pain Stated Complaint: no bowel movements since wednesday Time Seen by Provider: 05/09/20 11:34 History of Present Illness: HPI narrative: 64-year-old male presents to the emergency room with complaints of abdominal pain or bloating he denies having a bowel movement for the last 4 days. Denies any dysuria urgency or frequency has had multiple orthopedic issues in the past and is on chronic narcotics. No recent fever sweats chills denies any loose stools prior to the constipation. No dysuria urgency or frequency no fever no cough no flulike symptoms MD elicited complaint: abdominal pain Pertinent past history: constipation Onset (ago): day(s) Pain Consistency: constant Location: Diffuse Severity: moderate Quality: cramping Radiation: none Migration to: no migration Exacerbating factors: nothing Relieving factors: nothing Associated Symptoms: Denies anorexia, belching, bloating, change in bowel habits, change in stool character, chills, coffee ground emesis, constipation, GI cramping, diarrhea, dyspepsia, dysuria, excessive flatus, fever(s), heartburn, hematochezia, hematuria, hematemesis, fecal incontinence, loose stools, melena, nausea, poor appetite, syncope and vomiting Review of Systems Const: Denies: fever(s) or chills ENMT: Denies: throat pain, ear or mastoid pain, nasal discharge or nasal congestion Card: Denies: syncope Resp: Denies: dyspnea, productive cough or non-productive cough GI: Denies: nausea, vomiting, hematemesis, coffee ground emesis, heartburn, diarrhea, constipation, bloating, GI cramping, belching, excessive flatus, fecal incontinence, change in bowel habits, change in stool character, hematochezia or melena : Denies: dysuria or hematuria Skin/Breast: Denies: rash or pruritus PFSH ED PFSH: Medical History (Updated 05/09/20 @ 14:00 by Yoan Ramos DO) Abdominal wall hernia Anxiety disorder BPH (benign prostatic hyperplasia) Chronic arthritis Chronic insomnia Controlled diabetes mellitus Dyslipidemia Essential (primary) hypertension GERD (gastroesophageal reflux disease) History of MRSA infection Incomplete emptying of bladder Lower urinary tract symptoms (LUTS) Major depressive disorder Suicidal ideation Superficial laceration of skin Vitamin D deficiency Surgical History History of hip surgery right History of inguinal herniorrhaphy right History of vasectomy Family History Grandmother Diabetes Father CAD (coronary artery disease) Denies family history of Bleeding disorder Social History Smoking and tobacco status: former smoker Second hand smoke exposure: No Smoking risk assessment/counseling performed?: No Alcohol intake: never Desire information about alcohol rehabilitation?: No Counseling given: No Desire information about substance/drug rehabilitation?: No Counseling given: No Adopted: No Lives independently: Yes Household members: other Housing: House Marital status: Single service: No Current occupational status: disabled History of recent travel: No Current gender identity: Male Physical Exam Const: COMMON NORMALS: no acute distress GENERAL APPEARANCE: cooperative and comfortable ORIENTATION/CONSCIOUSNESS: Yes awake, Yes oriented to person, Yes oriented to place and Yes oriented to time HENMT: COMMON NORMALS: normocephalic, atraumatic and hearing grossly normal bilaterally HEAD & SCALP: normocephalic and atraumatic Neck/C-Spine: COMMON NORMALS: no JVD Resp: COMMON NORMALS: normal respiratory effort, No retractions, No use of accessory muscles and clear to auscultation bilaterally AUSCULTATION: clear to auscultation bilaterally Cardio: COMMON NORMALS: no JVD, regular rate, regular rhythm and No murmurs present (Cardio) RATE: regular rate RHYTHM: regular rhythm GI: COMMON NORMALS: Soft to palpation and No hepatosplenomegaly present AUSCULTATION: Yes normoactive bowel sounds PALPATION: Yes Soft to palpation, No Tenderness to palpation present (GI), No Guarding due to palpation present (GI) and Yes No hepatosplenomegaly present Extremity: COMMON NORMALS: normal to inspection, capillary refill normal, no clubbing, cyanosis or edema, no calf tenderness and no pedal edema Neuro: SENSORIUM/ORIENTATION: Yes oriented to person, Yes oriented to place and Yes oriented to time Skin: COMMON NORMALS: no rashes or lesions noted GENERAL SKIN EXAM: no rashes or lesions noted Course Vital Signs: Vital signs: Vital Signs Temperature 97.6 F 05/09/20 11:26 Pulse Rate 59 L 05/09/20 15:55 Respiratory Rate 24 H 05/09/20 14:37 Blood Pressure 128/90 05/09/20 15:55 Pulse Oximetry 97 05/09/20 15:55 MDM - Abdominal Pain MDM Narrative: Medical decision making narrative: Patient improved. Reviewed findings of the labs and x-ray. Will discharge home have him use mag citrate. He is on quite a bit of narcotics on a regular basis he should take medicine such as Angelita-Colace regularly as well. Follow-up as needed return if has problems. Lab Data: Labs: Lab Results 05/09/20 05/09/20 05/09/20 Range/Units 11:38 11:38 14:15 WBC 8.3 (4.0-10.0) 10^3/ uL RBC 5.50 H (4.1-5.3) 10^6/u L Hgb 16.2 (11.7-16.6) g/dL Hct 48.5 (42.0-52.0) % MCV 88.2 (80-94) fL MCH 29.5 (28.0-34.0) pg MCHC 33.4 (30.0-36.0) g/dL RDW 14.5 (12.1-15.1) % Plt Count 167 (130-400) 10^3/c mm MPV 9.1 (7.4-10.4) fL Neut % (Auto) 65.4 % Lymph % (Auto) 26.3 % [place] % (Auto) 6.6 % Eos % (Auto) 0.2 % Baso % (Auto) 0.4 % Neut # (Auto) 5.43 (1.8-7.7) 10^3/u L Lymph # (Auto) 2.2 (0.8-4.8) 10^3/u L [place] # (Auto) 0.6 (0.2-0.9) 10^3/u L Eos # (Auto) 0.0 (0.0-0.8) 10^3/u L Baso # (Auto) 0.0 (0.0-0.1) 10^3/u L Nucleated RBC % (a uto) 0 % Nucleated RBCs # 0.0 /100WBC Sodium 136 (136-145) mmol/L Potassium 4.2 (3.5-5.1) mmol/L Chloride 97 L (98-107) mmol/L Carbon Dioxide 28 (22-29) mmol/L Anion Gap 15.2 (5-19) BUN 11 (8-23) mg/dL Creatinine 0.6 L (0.7-1.2) mg/dL GFR Calculation 136.5 H (90-130) mL/min Glucose 90 (65-115) mg/dL Calculated Osmolal ity 281 L (285-295) mOsm/k g Calcium 9.6 (8.5-10.5) mg/dL Total Bilirubin 0.3 (0.15-1.2) mg/dL AST 12 (0-40) U/L ALT 17 (0-41) U/L Alkaline Phosphata se 64 (40-130) IU/L Total Protein 6.7 (6.6-8.7) g/dL Albumin 4.1 (3.5-5.2) g/dL Globulin 2.6 (1.3-4.6) g/dL Lipase 20 (13-60) U/L Urine Color Yellow (Yellow) Urine Appearance Clear (CLEAR) Urine pH 8 H (5-7) Ur Specific Gravit y 1.010 (1.005-1.030) Urine Protein Neg (Negative) Urine Glucose (UA) Norm (Normal) Urine Ketones Negative (Negative) Urine Blood Neg (Negative) Urine Nitrate Negative (Negative) Urine Bilirubin Neg (Negative) Prot Sulfosalicyli c Acd Negative (Negative) Urine Urobilinogen Norm (Negative) mg/dL Ur Leukocyte Claudia ase Negative (Negative) Discharge Plan Discharge Patient Disposition: Home Clinical Impression: Constipation Condition: Stable Prescriptions: New magnesium citrate Solution 150 ml PO BID PRN (Reason: constipation) Qty: 296 RF: 0 No Action fluconazole 100 mg tablet 400 mg PO DAILY RF: 0 loratadine [Claritin] 10 mg tablet 10 mg PO DAILY RF: 0 (DME) insulin syringe-needle U-100 [Easy Comfort Insulin Syringe] 0.5 mL 31 gauge x 5/16 syringe See Rx Instructions .ROUTE .MEDSUPPLY Qty: 100 RF: 5 magnesium oxide 400 mg magnesium tablet 400 mg PO BID Qty: 60 RF: 5 gabapentin 300 mg capsule 600 mg PO BID Qty: 120 RF: 5 divalproex [Depakote] 500 mg tablet,delayed release (DR/EC) 500 mg PO BID Qty: 60 RF: 3 tamsulosin 0.4 mg capsule 0.4 mg PO BID Qty: 60 RF: 5 (DME) blood-glucose meter [DeliverCareRxTouch Ultra2 Meter] Kit See Rx Instructions .ROUTE .MEDSUPPLY Qty: 1 RF: 0 (DME) OneTouch Ultra Blue Test Strip Strip See Rx Instructions .ROUTE .MEDSUPPLY Qty: 50 RF: 5 (DME) lancets [OneTouch Delica Plus Lancet] 33 gauge misc See Rx Instructions .ROUTE .MEDSUPPLY Qty: 100 RF: 5 methenamine hippurate 1 gram tablet 1 g PO BID Qty: 60 RF: 12 Lantus U-100 Insulin 100 unit/mL solution 25 unit SUBCUT DAILY Qty: 10 RF: 0 oxycodone 10 mg tablet 10 mg PO Q8H PRN (Reason: pain) 30 Days Qty: 90 RF: 0 potassium chloride 10 mEq Tablet Extended Release 20 meq PO DAILY Qty: 30 RF: 0 doxepin 10 mg Capsule 10 mg PO BEDTIME Qty: 30 RF: 0 doxycycline monohydrate 100 mg Tablet 100 mg PO BID Qty: 5 RF: 0 tramadol 50 mg Tablet 50 mg PO Q4H PRN (Reason: Mild To Moderate Pain) Qty: 10 RF: 0 aspirin 325 mg Tablet,Delayed Release (Dr/Ec) 325 mg PO DAILY Qty: 15 RF: 0 trazodone 100 mg Tablet 100 mg PO BEDTIME PRN (Reason: Sleep) Qty: 10 RF: 0 cephalexin 500 mg Capsule 500 mg PO BID Qty: 5 RF: 0 dexamethasone 4 mg Tablet 1 mg PO DAILY Qty: 30 RF: 0 furosemide 20 mg Tablet 20 mg PO DAILY@0800 Qty: 30 RF: 0 fluoxetine 20 mg Capsule 20 mg PO QAM Qty: 30 RF: 0 Probiotic 1 cap PO DAILY RF: 0 ascorbic acid (vitamin C) [Vitamin C] 500 mg tablet extended release 1,000 mg PO DAILY RF: 0 Discharge Orders: Discharge ED (Routine); Ordered 05/09/20 Ordered By: Yoan Ramos Referrals: Adela Alaniz, CELERY STRIPPER-C [Primary Care Provider] - Coding Level of Care Code ED Transfer Knitter for Chg Fwd Exam Comprehensive
[2020-05-09] MEDS: iohexol 300 mg/mL 100 mL Btl IV (13:33)
--- NOTE | 2020-05-09 14:04 | PC.NURSE ---
Performed a bladder scan on the nurse per the nurses orders, I could not find any urine in the patient's bladder. Informed the nurse, she will perform a repeat scan to enure accuracy.
[2020-05-09 14:48] LABS: Add Urine Microscopic? NO
[2020-05-09 15:25] LABS: Bilirubin Urine Neg (Negative); Blood Urine Neg (Negative); Glucose Urine UA Norm (Normal); Ketones Urine Negative (Negative); Leukocyte Esterase Urine Negative (Negative); Nitrate Urine Negative (Negative); Protein Urine Neg (Negative); Sulfosalicylic Acid Urine Negative (Negative); Urine Appearance Clear (CLEAR); Urine Color Yellow (Yellow); Urobilinogen Urine Norm (Negative); pH Urine 8 (5-7)
== END 2020-05-09 15:56 | disposition home or self-care (01) ==
PROVIDERS: Emergency Provider Family Medicine; PCP Nurse Practitioner
DX: K59.00 Constipation, unspecified (principal); Z79.82 Long term (current) use of aspirin; Z79.4 Long term (current) use of insulin; E11.9 Type 2 diabetes mellitus without complications; E78.5 Hyperlipidemia, unspecified; I10 Essential (primary) hypertension; Z87.891 Personal history of nicotine dependence
CPT/HCPCS: 12345; 74018; 74177; 80053; 81003; 83690; 85025; 96360; 99283; J7030; Q9967

== ENCOUNTER 2020-05-21 11:48 | Inpatient (IN) | payer MEDICAID, SELFPAY ==
[2020-05-21] VITALS (8 sets, daily range): BP systolic 108–125; BP diastolic 71–97; PULSE 106–114; RESP 16–24; TEMP 37.1–37.3; O2SAT 93–95; BMI 27.1
--- NOTE | 2020-05-21 11:58 | ECG_ITS ---
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 Measurements Intervals [place] Rate: 109 P: AR: QRS: -78 QRSD: 150 T: 33 QT: 355 QTc: 479 Interpretive Statements SINUS TACHYCARDIA RIGHT BUNDLE BRANCH BLOCK [120+ ms QRS DURATION, UPRIGHT V1, 40+ ms S IN I/aVL/V4/V5/V6] LEFT ANTERIOR FASCICULAR BLOCK [QRS AXIS <= -45, QR IN I, RS IN II] Compared to ECG 01/15/2020 05:10:07 Left anterior fascicular block now present Sinus rhythm no longer present Ventricular premature complex(es) no longer present Left-axis deviation no longer present Electronically Signed On 05-21-2020 17:46:41 PAPIER MACHE' MOLDER by Viki Walden M.D. [id number] f
[2020-05-21 12:38] LABS: Basophils # 0.1 10^3/uL (0.0-0.1); Basophils % 0.6 %; Eosinophils # 0.1 10^3/uL (0.0-0.8); Hematocrit 40.5 % (42.0-52.0); Hemoglobin 13.4 g/dL (11.7-16.6); Lymphocytes # 1.9 10^3/uL (0.8-4.8); Lymphocytes % 21.8 %; Mean Corpuscular HGB Conc 33.1 g/dL (30.0-36.0); Mean Corpuscular Hemoglobin 28.9 pg (28.0-34.0); Mean Corpuscular Volume 87.5 fL (80-94); Mean Platelet Volume 9.6 fL (7.4-10.4); Monocytes # 0.8 10^3/uL (0.2-0.9); Neutrophils # 5.85 10^3/uL (1.8-7.7); Nucleated Red Blood Cells % 0 %; Platelet Count 143 10^3/cmm (130-400); Red Blood Count 4.63 10^6/uL (4.1-5.3); Red Cell Distribution Width 14.2 % (12.1-15.1); White Blood Count 8.7 10^3/uL (4.0-10.0)
[2020-05-21 13:04] LABS: Albumin Level 3.2 g/dL (3.5-5.2); Alkaline Phosphatase 63 IU/L (40-130); Blood Urea Nitrogen 14 mg/dL (8-23); Calcium 8.9 mg/dL (8.5-10.5); Carbon Dioxide 21 mmol/L (22-29); Chloride 93 mmol/L (98-107); Globulin 3.1 g/dL (1.3-4.6); Glucose 76 mg/dL (65-115); Lipase 9 U/L (13-60); Osmolality Calculated 271 mOsm/kg (285-295); Sodium 131 mmol/L (136-145); Total Protein 6.3 g/dL (6.6-8.7)
[2020-05-21 13:09] LABS: Troponin(5th) Baseline 22 ng/L (0-15)
[2020-05-21 13:32] LABS: Anion Gap 20.7 (5-19); Potassium 3.7 mmol/L (3.5-5.1)
[2020-05-21 13:33] LABS: Alanine Aminotransferase 7 U/L (0-41); Aspartate Amino Transferase 13 U/L (0-40)
--- NOTE | 2020-05-21 14:09 | XR_ITS ---
WS: [id number] PORTABLE CHEST HISTORY: dyspnea/cough COMPARISON: 01/12/2020 13 mm noncalcified nodule present in the RIGHT upper lobe. This nodule has been identified on prior s tudies with no increase in size. Minimal blunting of the LEFT costophrenic angle. Cardiac size: Normal. Mediastinum/Aorta: Normal mediastinum. No osseous abnormality seen. XR/XR chest 1V portable [id number] IMPRESSION: Stable chest radiograph. 13 mm nodule can noted in the RIGHT upper lobe. Stable over several prior years.
[2020-05-21 14:26] LABS: Add Urine Microscopic? YES; Bilirubin Urine 1+ (Negative); Blood Urine Neg (Negative); Glucose Urine UA Norm (Normal); Ketones Urine 2+ (Negative); Leukocyte Esterase Urine Negative (Negative); Nitrate Urine Negative (Negative); Protein Urine Trace (Negative); Specific Gravity, Urine 1.015 (1.005-1.030); Urine Appearance Clear (CLEAR); Urine Color Orange (Yellow); Urobilinogen Urine 4 mg/dL (Negative); pH Urine 6 (5-7)
--- NOTE | 2020-05-21 14:31 | W.ED.WEAKNES ---
HPI - Weakness General: Chief complaint: Weakness Stated complaint: FEVER, WEAKNESS, N/V/D X 1 WEEK Time Seen by Provider: 05/21/20 12:49 History of Present Illness: HPI Narrative: 62-year-old male presents emergency room complaining of weakness fever fatigue as well as sores in his mouth. States this all began a week ago he said subjective low-grade fevers at home. He is not had any productive cough he has had some nausea vomiting and loose stools as well. His tongue is swollen states it feels uncomfortable to talk at times is not had any new or different medications recently. His tongue is also very sore per his report of the stinging biting sensation to it. He is not had any hematemesis or coffee-ground emesis he denies dysuria urgency or frequency denies abdominal pain. MD Complaint: generalized weakness Onset (ago): week(s) (2) Duration: intermittent Severity: moderate Quality: aching Relieving factors: none Exacerbating factors: none Associated symptoms: Reports chills, nausea and vomiting; Denies chest pain, confusion, melena, decreased appetite, diaphoresis, dysuria, easy bruising, fever(s), headache(s), myalgias, rash or short of breath Review of Systems Const: Reports: chills; Denies: fever(s) or diaphoresis ENMT: Denies: throat pain, ear or mastoid pain, nasal discharge or nasal congestion Card: Denies: chest pain Resp: Denies: dyspnea, productive cough or non-productive cough GI: Reports: nausea and vomiting; Denies: melena : Denies: dysuria Skin/Breast: Denies: rash or pruritus Neuro: Denies: headache(s) or confusion Marco/Lymph: Denies: easy bruising [facility] ED PFSH: Medical History (Updated 05/23/20 @ 06:14 by Yoan Ramos DO) Abdominal wall hernia Anxiety disorder Bladder outlet obstruction BPH (benign prostatic hyperplasia) Chronic arthritis Chronic insomnia Controlled diabetes mellitus Dyslipidemia Essential (primary) hypertension GERD (gastroesophageal reflux disease) History of MRSA infection Incomplete emptying of bladder Lower urinary tract symptoms (LUTS) Major depressive disorder Suicidal ideation Superficial laceration of skin Vitamin D deficiency Surgical History History of hip surgery right History of inguinal herniorrhaphy right History of vasectomy Family History Grandmother Diabetes Father CAD (coronary artery disease) Denies family history of Bleeding disorder Social History Smoking and tobacco status: former smoker Second hand smoke exposure: No Smoking risk assessment/counseling performed?: No Alcohol intake: never Desire information about alcohol rehabilitation?: No Counseling given: No Desire information about substance/drug rehabilitation?: No Counseling given: No Adopted: No Lives independently: Yes Household members: other Housing: House Marital status: Single service: No Current occupational status: disabled History of recent travel: No Current gender identity: Male Physical Exam Const: COMMON NORMALS: no acute distress GENERAL APPEARANCE: cooperative and comfortable ORIENTATION/CONSCIOUSNESS: Yes awake, Yes oriented to person, Yes oriented to place and Yes oriented to time HENMT: COMMON NORMALS: normocephalic, atraumatic, external ears normal, EAC's normal, TM's normal bilaterally and Normal nasal mucous membranes and turbinates present HEAD & SCALP: normocephalic and atraumatic NOSE: Normal nasal mucous membranes and turbinates present EXTERNAL EAR: Yes external ears normal EXTERNAL AUDITORY CANAL: EAC's normal TYMPANIC MEMBRANE: TM's normal bilaterally OTHER: Moderate swelling of the tongue alone. It is reddened mildly inflamed loss of fissures there is a geographic tongue/leukoplakia appearance to it. There is some white mucus in the back of the throat and the buccal mucosa. IOH done and was negative. Eye: COMMON NORMALS: Equal, round and reactive pupils present, EOMs intact bilaterally, conjunctivae normal and no scleral icterus CONJUNCTIVA: Yes conjunctivae normal PUPIL: Yes Equal, round and reactive pupils present Neck/C-Spine: COMMON NORMALS: full ROM, no lymphadenopathy, supple and no JVD Lymph: LYMPHATIC: no lymphadenopathy noted and no lymphedema noted Resp: COMMON NORMALS: normal respiratory effort, No retractions, No use of accessory muscles and clear to auscultation bilaterally AUSCULTATION: clear to auscultation bilaterally Cardio: COMMON NORMALS: no JVD, regular rhythm and No murmurs present (Cardio) RATE: tachycardic RHYTHM: regular rhythm GI: COMMON NORMALS: Soft to palpation and No hepatosplenomegaly present AUSCULTATION: Yes normoactive bowel sounds PALPATION: Yes Soft to palpation, No Tenderness to palpation present (GI), No Guarding due to palpation present (GI) and Yes No hepatosplenomegaly present Extremity: COMMON NORMALS: normal to inspection, capillary refill normal, no clubbing, cyanosis or edema, no calf tenderness and no pedal edema Neuro: SENSORIUM/ORIENTATION: Yes oriented to person, Yes oriented to place and Yes oriented to time Skin: COMMON NORMALS: no rashes or lesions noted GENERAL SKIN EXAM: no rashes or lesions noted Course Vital Signs: Vital signs: Vital Signs Temperature 98.1 F 05/23/20 04:22 Pulse Rate 98 05/23/20 04:22 Respiratory Rate 18 05/23/20 04:22 Blood Pressure 126/78 05/23/20 04:22 Pulse Oximetry 90 05/23/20 04:22 MDM - Weakness MDM Narrative: Medical decision making narrative: Patient remains persistently tachycardic as well as mildly hyponatremic. He has had fever nausea and vomiting for the last week. We will go ahead and place on observation for further evaluation and rehab gentle rehydration. At this point he has a difficult time eating and drinking and speaking due to his tongue issues. He may require evaluation by ENT. Lab Data: Labs: Lab Results 05/21/20 05/21/20 05/21/20 Range/Units 12:31 12:31 12:31 WBC 8.7 (4.0-10.0) 10^3/ uL RBC 4.63 (4.1-5.3) 10^6/u L Hgb 13.4 (11.7-16.6) g/dL Hct 40.5 L (42.0-52.0) % MCV 87.5 (80-94) fL MCH 28.9 (28.0-34.0) pg MCHC 33.1 (30.0-36.0) g/dL RDW 14.2 (12.1-15.1) % Plt Count 143 (130-400) 10^3/c mm MPV 9.6 (7.4-10.4) fL Neut % (Auto) 67.0 % Lymph % (Auto) 21.8 % [place] % (Auto) 9.0 % Eos % (Auto) 1.0 % Baso % (Auto) 0.6 % Neut # (Auto) 5.85 (1.8-7.7) 10^3/u L Lymph # (Auto) 1.9 (0.8-4.8) 10^3/u L [place] # (Auto) 0.8 (0.2-0.9) 10^3/u L Eos # (Auto) 0.1 (0.0-0.8) 10^3/u L Baso # (Auto) 0.1 (0.0-0.1) 10^3/u L Nucleated RBC % (a uto) 0 % Nucleated RBCs # 0.0 /100WBC Sodium 131 L (136-145) mmol/L Potassium 3.7 (3.5-5.1) mmol/L Chloride 93 L (98-107) mmol/L Carbon Dioxide 21 L (22-29) mmol/L Anion Gap 20.7 H (5-19) BUN 14 (8-23) mg/dL Creatinine 0.4 L (0.7-1.2) mg/dL GFR Calculation 218.0 H (90-130) mL/min Glucose 76 (65-115) mg/dL Calculated Osmolal ity 271 L (285-295) mOsm/k g Calcium 8.9 (8.5-10.5) mg/dL Total Bilirubin 1.0 (0.15-1.2) mg/dL AST 13 (0-40) U/L ALT 7 (0-41) U/L Alkaline Phosphata se 63 (40-130) IU/L Troponin T Baselin e 22 H (0-15) ng/L Troponin T 120 Min anali (0-15) ng/L Delta Troponin T (0-10) ABS# NT-Pro-B Natriuret Pep (0-125) pg/mL Total Protein 6.3 L (6.6-8.7) g/dL Albumin 3.2 L (3.5-5.2) g/dL Globulin 3.1 (1.3-4.6) g/dL Lipase 9 L (13-60) U/L Urine Color (Yellow) Urine Appearance (CLEAR) Urine pH (5-7) Ur Specific Gravit y (1.005-1.030) Urine Protein (Negative) Urine Glucose (UA) (Normal) Urine Ketones (Negative) Urine Blood (Negative) Urine Nitrate (Negative) Urine Bilirubin (Negative) Urine Urobilinogen (Negative) mg/dL Ur Leukocyte Claudia ase (Negative) Urine RBC (0-2) /hpf Urine WBC (0-5) /hpf Ur Squamous Epith Cells (0-5) /hpf Amorphous Sediment Urine Bacteria (NONE) /hpf Urine Mucus /hpf HIV 1&2 Ab & HIV 1 Ag (Non-Reactiv) HIV 1&2 Antibody (Non-Reactiv) 05/21/20 05/21/20 05/21/20 Range/Units 12:31 12:31 14:00 WBC (4.0-10.0) 10^3/ uL RBC (4.1-5.3) 10^6/u L Hgb (11.7-16.6) g/dL Hct (42.0-52.0) % MCV (80-94) fL MCH (28.0-34.0) pg MCHC (30.0-36.0) g/dL RDW (12.1-15.1) % Plt Count (130-400) 10^3/c mm MPV (7.4-10.4) fL Neut % (Auto) % Lymph % (Auto) % [place] % (Auto) % Eos % (Auto) % Baso % (Auto) % Neut # (Auto) (1.8-7.7) 10^3/u L Lymph # (Auto) (0.8-4.8) 10^3/u L [place] # (Auto) (0.2-0.9) 10^3/u L Eos # (Auto) (0.0-0.8) 10^3/u L Baso # (Auto) (0.0-0.1) 10^3/u L Nucleated RBC % (a uto) % Nucleated RBCs # /100WBC Sodium (136-145) mmol/L Potassium (3.5-5.1) mmol/L Chloride (98-107) mmol/L Carbon Dioxide (22-29) mmol/L Anion Gap (5-19) BUN (8-23) mg/dL Creatinine (0.7-1.2) mg/dL GFR Calculation (90-130) mL/min Glucose (65-115) mg/dL Calculated Osmolal ity (285-295) mOsm/k g Calcium (8.5-10.5) mg/dL Total Bilirubin (0.15-1.2) mg/dL AST (0-40) U/L ALT (0-41) U/L Alkaline Phosphata se (40-130) IU/L Troponin T Baselin e (0-15) ng/L Troponin T 120 Min anali (0-15) ng/L Delta Troponin T (0-10) ABS# NT-Pro-B Natriuret Pep 107 (0-125) pg/mL Total Protein (6.6-8.7) g/dL Albumin (3.5-5.2) g/dL Globulin (1.3-4.6) g/dL Lipase (13-60) U/L Urine Color [place] (Yellow) Urine Appearance Clear (CLEAR) Urine pH 6 (5-7) Ur Specific Gravit y 1.015 (1.005-1.030) Urine Protein Trace (Negative) Urine Glucose (UA) Norm (Normal) Urine Ketones 2+ H (Negative) Urine Blood Neg (Negative) Urine Nitrate Negative (Negative) Urine Bilirubin 1+ H (Negative) Urine Urobilinogen 4 H (Negative) mg/dL Ur Leukocyte Claudia ase Negative (Negative) Urine RBC 0-4 H (0-2) /hpf Urine WBC 0-4 H (0-5) /hpf Ur Squamous Epith Cells Rare (0-5) /hpf Amorphous Sediment Not Reportable Urine Bacteria Trace (NONE) /hpf Urine Mucus Trace /hpf HIV 1&2 Ab & HIV 1 Ag Non-reactive (Non-Reactiv) HIV 1&2 Antibody Non-reactive (Non-Reactiv) 05/21/20 Range/Units 14:35 WBC (4.0-10.0) 10^3/ uL RBC (4.1-5.3) 10^6/u L Hgb (11.7-16.6) g/dL Hct (42.0-52.0) % MCV (80-94) fL MCH (28.0-34.0) pg MCHC (30.0-36.0) g/dL RDW (12.1-15.1) % Plt Count (130-400) 10^3/c mm MPV (7.4-10.4) fL Neut % (Auto) % Lymph % (Auto) % [place] % (Auto) % Eos % (Auto) % Baso % (Auto) % Neut # (Auto) (1.8-7.7) 10^3/u L Lymph # (Auto) (0.8-4.8) 10^3/u L [place] # (Auto) (0.2-0.9) 10^3/u L Eos # (Auto) (0.0-0.8) 10^3/u L Baso # (Auto) (0.0-0.1) 10^3/u L Nucleated RBC % (a uto) % Nucleated RBCs # /100WBC Sodium (136-145) mmol/L Potassium (3.5-5.1) mmol/L Chloride (98-107) mmol/L Carbon Dioxide (22-29) mmol/L Anion Gap (5-19) BUN (8-23) mg/dL Creatinine (0.7-1.2) mg/dL GFR Calculation (90-130) mL/min Glucose (65-115) mg/dL Calculated Osmolal ity (285-295) mOsm/k g Calcium (8.5-10.5) mg/dL Total Bilirubin (0.15-1.2) mg/dL AST (0-40) U/L ALT (0-41) U/L Alkaline Phosphata se (40-130) IU/L Troponin T Baselin e (0-15) ng/L Troponin T 120 Min anali 19.96 H (0-15) ng/L Delta Troponin T -2.04 L (0-10) ABS# NT-Pro-B Natriuret Pep (0-125) pg/mL Total Protein (6.6-8.7) g/dL Albumin (3.5-5.2) g/dL Globulin (1.3-4.6) g/dL Lipase (13-60) U/L Urine Color (Yellow) Urine Appearance (CLEAR) Urine pH (5-7) Ur Specific Gravit y (1.005-1.030) Urine Protein (Negative) Urine Glucose (UA) (Normal) Urine Ketones (Negative) Urine Blood (Negative) Urine Nitrate (Negative) Urine Bilirubin (Negative) Urine Urobilinogen (Negative) mg/dL Ur Leukocyte Claudia ase (Negative) Urine RBC (0-2) /hpf Urine WBC (0-5) /hpf Ur Squamous Epith Cells (0-5) /hpf Amorphous Sediment Urine Bacteria (NONE) /hpf Urine Mucus /hpf HIV 1&2 Ab & HIV 1 Ag (Non-Reactiv) HIV 1&2 Antibody (Non-Reactiv) Discharge Plan Discharge Patient Disposition: Admitted As Inpatient Admit Provider: Brent Little Clinical Impression: Odynophagia, Tongue leukoplakia, Controlled diabetes mellitus, Essential (primary) hypertension, Dehydration Condition: Stable Coding Level of Care Code ED Monitor Technician for Imelda Rojas
[2020-05-21 14:34] LABS: Add Urine Culture? No; Bacteria Urine TRACE /hpf; Mucus Urine TRACE /hpf; RBC Urine 0-4 /hpf (0-2); Squamous Epithelial Cell Urine RARE /hpf (0-5); WBC Urine 0-4 /hpf (0-5)
[2020-05-21 14:45] LABS: NT Pro B Type Natriuretic Pept 107 pg/mL (0-125)
[2020-05-21 15:15] LABS: Troponin 5 2HR 19.96 ng/L (0-15)
[2020-05-21 15:21] LABS: Troponin 5 2HR Delta -2.04 ABS# (0-10)
[2020-05-21] MEDS: sodium chloride 0.9% 1,000 ML 999 ML IV (15:36)
--- NOTE | 2020-05-21 16:10 | ECG_ITS ---
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 Measurements Intervals [place] Rate: 107 P: RI: QRS: -70 QRSD: 154 T: 32 QT: 335 QTc: 448 Interpretive Statements SINUS TACHYCARDIA RIGHT BUNDLE BRANCH BLOCK [120+ ms QRS DURATION, UPRIGHT V1, 40+ ms S IN I/aVL/V4/V5/V6] LEFT ANTERIOR FASCICULAR BLOCK [QRS AXIS <= -45, QR IN I, RS IN II] Compared to ECG 05/21/2020 12:25:46 No significant change Electronically Signed On 05-21-2020 21:52:49 OUTSIDE COLLECTOR by Viki Walden M.D. [id number]
--- NOTE | 2020-05-21 17:58 | ECG_ITS ---
[facility] Test Date: 2020-05-21 Pat Name: Randy German Department: Room: Gender: Male Heater Tender: : 1955 Requested By: Yoan Eduardo Order Number: [id number] Mata MD: Viki Walden M.D. Measurements Intervals [place] Rate: 109 P: 48 WV: 177 QRS: -60 QRSD: 162 T: 38 QT: 298 QTc: 403 Interpretive Statements SINUS TACHYCARDIA LEFT AXIS DEVIATION [QRS AXIS < -30] RIGHT BUNDLE BRANCH BLOCK [120+ ms QRS DURATION, UPRIGHT V1, 40+ ms S IN I/aVL/V4/V5/V6] Compared to ECG 05/21/2020 16:08:43 Left-axis deviation now present Left anterior fascicular block no longer present Electronically Signed On 05-21-2020 21:48:28 TIME PIECE REPAIRER by Viki Walden M.D. [id number]
[2020-05-21 18:50] LABS: Troponin 5 6HR 19.92 ng/L (0-15)
[2020-05-21 18:52] LABS: Troponin 5 6HR Delta -2.08 ng/L (0-12)
--- NOTE | 2020-05-21 19:13 | PM.HP ---
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 On previous admission Keflex, doxycycline were added and dexamethasone 1 mg was resumed, his aspirin dose was increased to 325 mg. Patient is stating that his symptoms started about 2 weeks ago with whitish appearance of his tongue, he did not pay much attention and kept taking his antiviral and antibiotics. He was reluctant to come to the hospital but his friend forced him to get evaluated. Patient is stating that he suffered from cryptococcal meningitis about 5 years ago and he was diagnosed at [facility] and since then he has been taking fluconazole. He has stopped taking dexamethasone which he was taking for bullous pemphigoid. Recently he is also experiencing diarrhea. No fever noticed by the patient. He is endorsing shortness of breath on exertion and at rest. He is denying history of HIV or hepatitis. Never had any EGD or colonoscopy before. Patient does endorse odynophagia and dysphagia, initially odynophagia was related to solid food but now it has worsened and involved liquid diet as well Diagnostics in the ER revealed normal CBC, mild hyponatremia and hypokalemia unremarkable troponins, BNP 107, chest x-ray shows 13 mm nodule right upper lobe without change in dimensions, RACHEAL oral preparation was negative Review of Systems Const: Reports: body aches, change in appetite, fatigue and malaise; Denies: fever(s) Eyes: Denies: change in vision ENMT: Reports: throat pain and odynophagia Card: Denies: chest pain Resp: Denies: dyspnea GI: Denies: abdominal pain : Denies: flank pain Musc: Denies: neck pain Skin/Breast: Reports: rash, erythema, sores, non-healing lesions, lesions and changes in skin color Neuro: Denies: headache(s) Psych: Reports: memory loss Endo: Denies: polyuria Marco/Lymph: Denies: easy bruising All/Imm: Denies: urticaria Medications/Allergies Home Medications Medication Instructions Recorded Confirmed Last Taken Type Probiotic 1 cap PO DAILY 05/31/19 03/20/20 07/17/19 History fluconazole 100 mg tablet 400 mg PO DAILY tab 08/07/19 03/20/20 Unknown History insulin syringe-needle U-100 0.5 #100 each 09/16/19 03/20/20 Unknown Rx mL 31 gauge x 08/18 ascorbic acid (vitamin C) 500 mg 1,000 mg PO DAILY tab 09/25/19 03/20/20 Unknown History tablet,extended release loratadine 10 mg tablet 10 mg PO DAILY 10/10/19 03/20/20 Unknown History magnesium oxide 400 mg PO BID #60 tab 10/21/19 03/20/20 Unknown Rx gabapentin 300 mg capsule 600 mg PO BID #120 cap 10/23/19 03/20/20 Unknown Rx divalproex 500 mg tablet,delayed 500 mg PO BID #60 tab 10/31/19 03/20/20 Unknown Rx release tamsulosin 0.4 mg capsule 0.4 mg PO BID #60 cap 11/10/19 03/20/20 Unknown Rx blood sugar diagnostic #50 each 12/03/19 03/20/20 Unknown Rx blood-glucose meter #1 each 12/03/19 03/20/20 Unknown Rx lancets 33 gauge #100 each 12/03/19 03/20/20 Unknown Rx aspirin 325 mg PO DAILY #15 tab 01/18/20 03/20/20 Unknown Rx cephalexin 500 mg PO BID #5 cap 01/18/20 03/20/20 Unknown Rx dexamethasone 1 mg PO DAILY #30 tab 01/18/20 03/20/20 Unknown Rx doxepin 10 mg PO BEDTIME #30 cap 01/18/20 03/20/20 Unknown Rx doxycycline monohydrate 100 mg PO BID #5 tab 01/18/20 03/20/20 Unknown Rx fluoxetine 20 mg PO QAM #30 cap 01/18/20 03/20/20 Unknown Rx furosemide 20 mg PO DAILY@0800 #30 tab 01/18/20 03/20/20 Unknown Rx potassium chloride 20 meq PO DAILY #30 tab 01/18/20 03/20/20 Unknown Rx tramadol 50 mg PO Q4H PRN #10 tab 01/18/20 03/20/20 Unknown Rx trazodone 100 mg PO BEDTIME PRN #10 tab 01/18/20 03/20/20 Unknown Rx methenamine hippurate 1 gram tablet 1 g PO BID #60 tab 02/15/20 03/20/20 Unknown Rx insulin glargine 100 unit/mL 25 unit SUBCUT DAILY #10 ml 02/16/20 03/20/20 Unknown Rx subcutaneous solution oxycodone 10 mg tablet 10 mg PO Q8H PRN 30 Days #90 tab 04/25/20 Unknown Rx magnesium citrate 150 ml PO BID PRN #296 ml 05/09/20 Unknown Rx Allergies Allergy/AdvReac Type Severity Reaction Status Date / Time hydromorphone [From Dilaudid] Allergy ADR-Confusi Verified 05/21/20 12:13 on Penicillins Allergy ALGY-Rash Verified 05/21/20 12:13 codeine AdvReac ADR-Nausea Verified 05/21/20 12:13 PFSH Acute PFSH: Medical History (Updated 05/21/20 @ 21:46 by Alexia Quinn MD) Abdominal wall hernia Anxiety disorder Bladder outlet obstruction BPH (benign prostatic hyperplasia) Chronic arthritis Chronic insomnia Controlled diabetes mellitus Dyslipidemia Essential (primary) hypertension GERD (gastroesophageal reflux disease) History of MRSA infection Incomplete emptying of bladder Lower urinary tract symptoms (LUTS) Major depressive disorder Suicidal ideation Superficial laceration of skin Vitamin D deficiency Surgical History History of hip surgery right History of inguinal herniorrhaphy right History of vasectomy Family History Grandmother Diabetes Father CAD (coronary artery disease) Denies family history of Bleeding disorder Social History Smoking and tobacco status: former smoker Second hand smoke exposure: No Smoking risk assessment/counseling performed?: No Alcohol intake: never Desire information about alcohol rehabilitation?: No Counseling given: No Desire information about substance/drug rehabilitation?: No Counseling given: No Adopted: No Lives independently: Yes Household members: other Housing: House Marital status: Single service: No Current occupational status: disabled History of recent travel: No Current gender identity: Male Vitals/I&O/Wt Last Vital Signs Temp 98.7 F 05/21/20 12:07 Pulse 113 H 05/21/20 17:39 Resp 19 H 05/21/20 17:39 BP 112/82 05/21/20 17:39 Pulse Ox 95 05/21/20 17:39 Weight last 48 hrs Weight 90.718 kg Physical Exam Narrative: EXAM NARRATIVE: Middle-age male who appears more than stated age Currently laying flat in his bed without active discomfort normal saline running at the bedside Normal hemodynamics S1, S2 no murmur appreciated no signs of heart failure Abdomen soft, mild tenderness to deep palpation in midepigastric region bowel sounds sluggish No acute respite distress No 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 of 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 Awake alert oriented x3 GCS 15 No neurological deficit Lower extremity has hyperemia without active blisters, right lion hyperemia greater than left however no swelling Tongue is showing leukoplakia, white surface is not easily scrappable has hard nodular rough consistency, patient is not able to protrude his tongue completely Data : 05/21/20 12:31 05/21/20 12:31 Micro: Microbiology 05/21/20 14:08 RACHEAL Preparation - Final Mouth A&P Assessment and plan (1) Tongue leukoplakia: Patient has been taking steroids for a long time along antiviral regimen Has never been tested positive for hepatitis or HIV I would request HIV panel Tongue is showing leukoplakia changes Oral RACHEAL preparation was negative I would continue his antifungal regimen for cryptococcal meningitis Avoid steroids Will need histopathological diagnosis He is not experiencing wheezing or stridor, there is no airway compromise, he is not on MATT or ARB Status: Acute (2) Odynophagia: Initially to solid food now experiencing odynophagia and dysphagia with liquid diet Symptoms worsened in last 2 to 3 weeks Will need EGD for diagnostic purposes, patient will think about pursuing diagnostic studies overnight I will keep him n.p.o. in case he makes up his mind to undergo further evaluation We will start maintenance fluid to avoid hypoglycemia Status: Acute (3) Dysphagia: Status: Acute Attestations Medical Necessity Statement*: Anticipating discharge in less than 48 hours will need histopathological diagnosis for leukoplakia of tongue, overnight monitoring, his clinical stay will be dependent on his decision to pursue EGD Time Spent in Patient Care: (>than 50% of time spent in counselling and/or direct pt care on unit). 40mins Coding Level of Care Code Acute Production Control Coordinator for [facility] Fwd Diagnoses Tongue leukoplakia K13.21 Odynophagia R13.10 Dysphagia R13.10
[2020-05-21] MEDS: dextrose 5%-sod chloride 0.45% 1,000 ML 30 ML IV (22:21)
[2020-05-21 23:03] LABS: HIV 1 & 2 Antibody Non-Reactive (Non-Reactiv); HIV 1 & 2 Antigen Non-Reactive (Non-Reactiv)
[2020-05-22] VITALS: BP 117/74; PULSE 109; RESP 20; TEMP 38.2; O2SAT 91
[2020-05-22 04:00] VITALS: BP 114/78; PULSE 109; RESP 18; TEMP 38.8; O2SAT 91
--- NOTE | 2020-05-22 04:17 | PC.NURSE ---
REPORTED TEMP TO NURSE!
[2020-05-22] MEDS: acetaminophen 325 mg Tablet 650 MG PO (04:29)
[2020-05-22 06:14] LABS: Basophils % 0.4 %; Eosinophils # 0.1 10^3/uL (0.0-0.8); Eosinophils % 1.1 %; Hematocrit 37.3 % (42.0-52.0); Hemoglobin 12.2 g/dL (11.7-16.6); Lymphocytes # 1.5 10^3/uL (0.8-4.8); Lymphocytes % 18.3 %; Mean Corpuscular HGB Conc 32.7 g/dL (30.0-36.0); Mean Corpuscular Hemoglobin 28.9 pg (28.0-34.0); Mean Corpuscular Volume 88.4 fL (80-94); Mean Platelet Volume 9.9 fL (7.4-10.4); Monocytes # 0.9 10^3/uL (0.2-0.9); Monocytes % 11.2 %; Neutrophils # 5.56 10^3/uL (1.8-7.7); Neutrophils % 68.4 %; Nucleated Red Blood Cells % 0 %; Platelet Count 144 10^3/cmm (130-400); Red Blood Count 4.22 10^6/uL (4.1-5.3); Red Cell Distribution Width 14.4 % (12.1-15.1); White Blood Count 8.1 10^3/uL (4.0-10.0)
[2020-05-22 06:40] LABS: Anion Gap 23.1 (5-19); Blood Urea Nitrogen 11 mg/dL (8-23); Calcium 8.4 mg/dL (8.5-10.5); Carbon Dioxide 17 mmol/L (22-29); Chloride 96 mmol/L (98-107); Creatinine Clr Calc Pharmacy 128.2159; Glomerular Filtration Rate 114.3 mL/min (90-130); Glucose 97 mg/dL (65-115); Osmolality Calculated 275 mOsm/kg (285-295); Potassium 3.1 mmol/L (3.5-5.1); Sodium 133 mmol/L (136-145)
[2020-05-22 07:09] LABS: Glucose Point of Care 102 mg/dL (70-110)
[2020-05-22 08:00] VITALS: BP 113/75; PULSE 91; RESP 18; TEMP 37.1; O2SAT 93
[2020-05-22] MEDS: tamsulosin 0.4 mg Capsule PO ×2 (08:05→17:33)
[2020-05-22] MEDS: divalproex DR 500 mg Tablet PO ×2 (08:05→17:33)
[2020-05-22] MEDS: loratadine 10 mg Tablet PO (08:06)
[2020-05-22] MEDS: aspirin 325 mg EC Tablet PO (08:06)
[2020-05-22] MEDS: fluconazole 100 mg Tablet 400 MG PO (08:06)
--- NOTE | 2020-05-22 09:46 | PC.CHAP ---
Pastoral Care Encounter/Spiritual Assessment Type of Contact [] Declined deputy administrator visit [] Patient/Family/Request visit [] Outpatient visit [] Follow-up visit [] Physician referral [] Code/Alert [x] Routine visit [] Staff referral [] Actively dying [] Patient sleeping [] Family support [] [] Out of room [] Palliative care [] [] Receiving care in room [] Pre-surgical visit [] Trauma [] Long length of stay [] ICU visit [] Other: Relational/Emotional Strength [x] Patient feels connected with others/family/visitors/staff [] Distress [] Loneliness/isolation [] Abandonment Spirituality of Patient [x] Person of Marva [] Attends Baptism of their Marva [] Believes in Prayer [] Reads Bible or Quaker materials [] There are Spiritual issues to be addressed Tobacco Sweeper Interventions [x] Prayer [x] Active listening [] Non-anxious presence [] Spiritual/emotional support [] Crisis/trauma care [] Spiritual counseling [] Bereavement support [] Provided bereavement packet [] Provided Bible/devotional materials [] Provided toy/stuffed animal, coloring book to patient or family member [] Provided Communion [] Anointing/[place] [] Salvation [x] Completed spiritual assessment [] Other: Impact on Illness or Injury [] Angry [] Fearful [] Anxious [] Often cries [] Exhaustion [] Unable to work [] Unable to attend confucianism [] Unable to walk/stand [] Unable to read [] Unable to drive [] Unable to eat/drink [] Unable to sleep [] Unable to be with family [] Patient intubated [] Other: Summary good Time spent with patient 10 min
--- NOTE | 2020-05-22 09:46 | PC.NURSE ---
Dr. Little notified of thick tongue and swollen with dry skin on top flaking off, due to this patient is having difficulty swallowing and oral pain, also notified of patient report of nausea, new orders received for zofran PRN, see MAR for further details.
[2020-05-22] MEDS: potassium chloride premix 100 ML 25 MEQ IV (10:15)
[2020-05-22] MEDS: ondansetron 2 mg/ML SDV 2 mL 4 MG IVP (10:20)
[2020-05-22 10:32] LABS: Lactate (Lactic Acid level) 0.6 mmol/L (0.5-2.2)
[2020-05-22 10:38] LABS: Procalcitonin 0.12 ng/mL (0-0.5)
--- NOTE | 2020-05-22 11:10 | PC.NURSE ---
Patient unable to tolerate potassium IV administration due to burning, Dr. Little notified, new orders received for lidocaine added to k rider, see MAR for further details.
[2020-05-22 11:16] VITALS: BP 108/77; PULSE 87; RESP 18; TEMP 37.1; O2SAT 94
[2020-05-22 11:18] LABS: Glucose Point of Care 82 mg/dL (70-110)
--- NOTE | 2020-05-22 11:24 | PC.NURSE ---
Patient requested lantus to be scheduled at night and refused to take morning lantus dose due to taking it at night at home, Dr. Little notified and new orders received to reschedule medication.
[2020-05-22] MEDS: lidocaine 1% INJ 20 mL 5 ML IV (11:30)
--- NOTE | 2020-05-22 12:43 | PM.PN ---
Subjective Subjective: Interval history: Patient is complaining of continued difficulty with swallowing as well as tounge swelling and pain.He also spiked temperature overnight.Tmax : 101.9, His other vitals are stable. He has been continued on I.V Fluids. Vitals/I&O/Wt Last Vital Signs Temp 98.7 F 05/22/20 11:16 Pulse 87 05/22/20 11:16 Resp 18 05/22/20 11:16 BP 108/77 05/22/20 11:16 Pulse Ox 94 05/22/20 11:16 05/21/20 05/22/20 05/22/20 22:59 06:59 14:59 Intake Total 1000 / 1000 Output Total 100 / 100 275 / 375 Balance 900 / 900 -275 / 625 Weight last 48 hrs Weight 90.718 kg Physical Exam Const: COMMON NORMALS: patient oriented x3 HENMT: COMMON NORMALS: normocephalic and atraumatic HEAD & SCALP: normocephalic and atraumatic OTHER: Thick whitish layering of the tounge Present .Mild Tounge swelling Present.Tenderness noted with tounge depressor Eye: GENERAL EYE: appearance normal, both eyes and all related structures Chest: CHEST: Yes Symmetrical chest wall rise Resp: COMMON NORMALS: normal respiratory effort, No retractions, No use of accessory muscles and clear to auscultation bilaterally EFFORT & INSPECTION: Yes symmetric chest movement AUSCULTATION: clear to auscultation bilaterally Cardio: COMMON NORMALS: regular rate, regular rhythm, S1 normal heart sound present, S2 normal heart sound present, No gallops present (Cardio), No murmurs present (Cardio), No rub (Cardio) and Peripheral pulses 2+ throughout RATE: regular rate RHYTHM: regular rhythm HEART SOUNDS: S1 normal heart sound present and S2 normal heart sound present PERIPHERAL PULSES: Peripheral pulses 2+ throughout GI: COMMON NORMALS: Normal to inspection, nondistended, normoactive bowel sounds present, Soft to palpation, non-tender, No hepatosplenomegaly present and no masses AUSCULTATION: Yes normoactive bowel sounds PALPATION: Yes Soft to palpation and Yes No hepatosplenomegaly present RECTAL EXAM: Yes deferred Extremity: COMMON NORMALS: no clubbing, cyanosis or edema and no pedal edema Neuro: COMMON NORMALS: patient oriented x3 Data : 05/22/20 05:05 05/22/20 05:05 Micro: Microbiology 05/22/20 09:50 Blood Culture - Preliminary Blood SPECIMEN COLLECTED 05/22/20 09:50 Blood Culture - Preliminary Blood SPECIMEN COLLECTED 05/21/20 14:08 RACHEAL Preparation - Final Mouth A&P Assessment and plan (1) SIRS (systemic inflammatory response syndrome): SIRS R/O Sepsis: Patient meets SIRS Criteria : Fever, Tachycardia. Blood culture Urine Culture Lactic Acid Will start him on levofloxacin 750 mg I.V daily Continue I.V Hydration Status: Acute (2) Tongue leukoplakia: Possible tongue leukoplakia. Patient will need to follow oncology as outpatient for further work up.Will likely need Tissue sample. For possible infection will start him Nystatin 400,000 units PO QID. Will also start him on lidocaine/bendryal/Mg Hydrox/ Simethicone cocktail. Will Continue Fluconazole 400 mg I.V daily. If the patient fail to respond then may need EGD to r/o Possible fungal Esophagitis. Follow HIV Status: Acute (3) Odynophagia: Will Continue Fluconazole 400 mg I.V daily. If the patient fail to respond then may need EGD to r/o Possible fungal Esophagitis as he has been on steroid for long time. Status: Acute Additional A&P Information Code Status : AND DVT PPX: Lovenox 40 mg sc Daily Disposition: Home Attestations Medical Necessity Statement*: Patient needs to be in hospital for SIRS R/O Sepsis , as well as for difficulty with swallowing. Coding Level of Care Code Acute Bus And Sys Integration Senior Manager for [facility] Fwd Diagnoses SIRS (systemic inflammatory response syndrome) R65.10 Tongue leukoplakia K13.21 Odynophagia R13.10
[2020-05-22] MEDS: nystatin 100,000 unit/mL UDC 5 mL 400000 UNIT PO ×3 (13:26→20:56)
[2020-05-22] MEDS: levofloxacin-dextrose 5 % 750 MG/150 ML PREMIX 100 MG IV (13:26)
--- NOTE | 2020-05-22 14:33 | PC.NURSE ---
Patient bladder scanned due to decreased urine output, 599mL noted on bladder scan, Dr. Little notified, new orders received for banks catheter to be placed.
[2020-05-22] MEDS: docusate sodium 100 mg Capsule PO (16:05)
--- NOTE | 2020-05-22 16:08 | PC.NURSE ---
patient reports feeling constipated, Dr. Little notified, colace ordered and given per doctors orders, see MAR for further details.
[2020-05-22 16:09] VITALS: BP 110/78; PULSE 83; RESP 17; TEMP 37.2; O2SAT 95
[2020-05-22 17:05] LABS: Glucose Point of Care 111 mg/dL (70-110)
[2020-05-22 20:38] VITALS: BP 104/73; PULSE 109; RESP 18; TEMP 36.6; O2SAT 91
[2020-05-22] MEDS: fluconazole premix 400 MG/200 ML PIGGYBACK 200 MG IV (20:56)
[2020-05-22] MEDS: dextrose 5%-sod chloride 0.45% 1,000 ML 30 ML IV (20:56)
[2020-05-22 21:00] LABS: Glucose Point of Care 135 mg/dL (70-110)
[2020-05-22] MEDS: insulin glargine 100 units/1 mL 25 UNIT SUBCUT (22:09)
[2020-05-23] VITALS (9 sets, daily range): BP systolic 102–126; BP diastolic 69–78; PULSE 93–101; RESP 16–18; TEMP 36.7–37.7; O2SAT 87–94
[2020-05-23] MEDS: acetaminophen 325 mg Tablet 650 MG PO ×2 (00:08→06:27)
[2020-05-23] MEDS: oxyCODONE 5 mg IR Tab/Cap 10 MG PO ×3 (00:09→18:16)
[2020-05-23] MEDS: ondansetron 2 mg/ML SDV 2 mL 4 MG IVP ×2 (00:18→06:26)
[2020-05-23 06:32] LABS: Glucose Point of Care 126 mg/dL (70-110)
[2020-05-23] MEDS: nystatin 100,000 unit/mL UDC 5 mL 400000 UNIT PO ×4 (09:19→21:50)
[2020-05-23] MEDS: tamsulosin 0.4 mg Capsule PO ×2 (09:19→18:13)
[2020-05-23] MEDS: divalproex DR 500 mg Tablet PO ×2 (09:20→18:13)
[2020-05-23] MEDS: aspirin 325 mg EC Tablet PO (09:20)
[2020-05-23] MEDS: loratadine 10 mg Tablet PO (09:20)
[2020-05-23] MEDS: docusate sodium 100 mg Capsule PO (09:20)
--- NOTE | 2020-05-23 11:28 | PC.NURSE ---
I reported the low 02 87% to the nurse. we were able to get it up to 91% with deep breathing.
[2020-05-23 11:51] LABS: Glucose Point of Care 103 mg/dL (70-110)
--- NOTE | 2020-05-23 12:07 | PC.NURSE ---
DIRECTOR OF STUDENT LIFE reported patient oxygen saturation low, this nurse to bedside oxygen saturation 83%, placed on 2L NC, oxygen saturation increased to 92%, notified Dr. Little.
--- NOTE | 2020-05-23 12:11 | XRR_ITS ---
PROCEDURE INFORMATION: Exam: XR Chest, 1 View Exam date and time: 05/23/2020 1:46 PM Age: 64 years old Clinical indication: Shortness of breath; Additional info: New oxygen requirement, SOB TECHNIQUE: Imaging protocol: XR of the chest Views: 1 view. COMPARISON: 1. AR XR chest 1V portable [id number] 05/21/2020 2:[address] examination 01/10/2020 FINDINGS: Lungs: There is a circumscribed right mid lung field density measuring 12 mm this finding was present on prior CT examination . Continued follow-up of this finding is recommended. The remainder of the chest is unremarkable No consolidation. Pleural spaces: Unremarkable. No pleural effusion. No pneumothorax. Heart/Mediastinum: Unremarkable. No cardiomegaly. Bones/joints: Unremarkable. XR/XR chest 1V portable [id number] IMPRESSION: 1. No acute findings. 2. Stable right lung nodule, continued follow-up recommended 3. Low lung volumes
[2020-05-23] MEDS: levofloxacin-dextrose 5 % 750 MG/150 ML PREMIX 100 MG IV (12:55)
[2020-05-23 16:50] LABS: Glucose Point of Care 106 mg/dL (70-110)
--- NOTE | 2020-05-23 20:52 | PM.PN ---
Subjective Subjective: Interval history: Mr. Maxi Padilla was seen and examined today in the [facility].His tongue swelling has improved.Currently he is on clear liquid diets. He has remained afebrile, his other vitals and labs have been reviewed. Vitals/I&O/Wt Last Vital Signs Temp 99.8 F H 05/23/20 19:59 Pulse 101 H 05/23/20 19:59 Resp 18 05/23/20 19:59 BP 103/71 05/23/20 19:59 Pulse Ox 93 05/23/20 19:59 05/23/20 05/23/20 05/23/20 06:59 14:59 22:59 Intake Total 1250 / 1250 100 / 1350 Output Total 150 / 550 Balance -150 / 1077.5 1250 / 1250 100 / 1350 Physical Exam Const: COMMON NORMALS: patient oriented x3 HENMT: COMMON NORMALS: normocephalic and atraumatic HEAD & SCALP: normocephalic and atraumatic OTHER: Thick whitish layering of the tounge Present .Mild Tounge swelling Present. Eye: GENERAL EYE: appearance normal, both eyes and all related structures Chest: CHEST: Yes Symmetrical chest wall rise Resp: COMMON NORMALS: normal respiratory effort, No retractions, No use of accessory muscles and clear to auscultation bilaterally EFFORT & INSPECTION: Yes symmetric chest movement AUSCULTATION: clear to auscultation bilaterally Cardio: COMMON NORMALS: regular rate, regular rhythm, S1 normal heart sound present, S2 normal heart sound present, No gallops present (Cardio), No murmurs present (Cardio), No rub (Cardio) and Peripheral pulses 2+ throughout RATE: regular rate RHYTHM: regular rhythm HEART SOUNDS: S1 normal heart sound present and S2 normal heart sound present PERIPHERAL PULSES: Peripheral pulses 2+ throughout GI: COMMON NORMALS: Normal to inspection, nondistended, normoactive bowel sounds present, Soft to palpation, non-tender, No hepatosplenomegaly present and no masses AUSCULTATION: Yes normoactive bowel sounds PALPATION: Yes Soft to palpation and Yes No hepatosplenomegaly present RECTAL EXAM: Yes deferred Extremity: COMMON NORMALS: no clubbing, cyanosis or edema and no pedal edema Neuro: COMMON NORMALS: patient oriented x3 Urinary Catheter Management^: Alaniz: Cath Placed During This Visit: yes Reason for Continuing Indwelling Catheter: Accurate Measurement of Urinary Output in Critically Ill Patients Urinary Catheter Date of Insertion: 05/22/20 Urinary Catheter Time of Insertion: 14:45 Data : 05/22/20 05:05 05/22/20 05:05 Micro: Microbiology 05/22/20 09:50 Blood Culture - Preliminary Blood NEGATIVE TO DATE 05/22/20 14:44 Sputum Culture - Preliminary Sputum - Expectorated Sputum 05/22/20 09:50 Blood Culture - Preliminary Blood NEGATIVE TO DATE 05/22/20 13:36 Urine Culture - Preliminary Urine,Voided A&P Assessment and plan (1) SIRS (systemic inflammatory response syndrome): SIRS R/O Sepsis: Patient meets SIRS Criteria : Fever, Tachycardia. Blood culture: Negative till date Urine Culture : Negative till date Sputum culture: Negative till date Lactic Acid: 2.8---> 0.6 Will start him on levofloxacin 750 mg I.V daily Continue I.V Hydration Status: Acute (2) Tongue leukoplakia: Possible tongue leukoplakia. Patient will need to follow oncology as outpatient for further work up.Will likely need Tissue sample. For possible infection will start him Nystatin 400,000 units PO QID. Will also start him on lidocaine/bendryal/Mg Hydrox/ Simethicone cocktail. Will Continue Fluconazole 400 mg I.V daily. If the patient fail to respond then may need EGD to r/o Possible fungal Esophagitis. HIV: NR Status: Acute (3) Odynophagia: Will Continue Fluconazole 400 mg I.V daily. If the patient fail to respond then may need EGD to r/o Possible fungal Esophagitis as he has been on steroid for long time. Status: Acute Additional A&P Information Code Status : AND DVT PPX: Lovenox 40 mg sc Daily Disposition: Home Attestations Medical Necessity Statement*: Patient needs to be in hospital for management of SIRS rule out sepsis as well as difficulty swallowing and the need for IV hydration. Coding Level of Care Code Acute Iron Miner Blasting for [facility] Fwd Diagnoses SIRS (systemic inflammatory response syndrome) R65.10 Tongue leukoplakia K13.21 Odynophagia R13.10
[2020-05-23 21:43] LABS: Glucose Point of Care 124 mg/dL (70-110)
[2020-05-23] MEDS: insulin glargine 100 units/1 mL 25 UNIT SUBCUT (21:51)
[2020-05-23] MEDS: fluconazole premix 400 MG/200 ML PIGGYBACK 200 MG IV (21:51)
[2020-05-24] VITALS (10 sets, daily range): BP systolic 90–126; BP diastolic 58–72; PULSE 82–102; RESP 17–18; TEMP 36.4–37.9; O2SAT 93–95
[2020-05-24] MEDS: ondansetron 2 mg/ML SDV 2 mL 4 MG IVP (04:36)
[2020-05-24 06:32] LABS: Glucose Point of Care 159 mg/dL (70-110)
[2020-05-24] MEDS: oxyCODONE 5 mg IR Tab/Cap 10 MG PO ×2 (09:01→18:12)
[2020-05-24] MEDS: docusate sodium 100 mg Capsule PO (09:02)
[2020-05-24] MEDS: tamsulosin 0.4 mg Capsule PO ×2 (09:03→17:58)
[2020-05-24] MEDS: nystatin 100,000 unit/mL UDC 5 mL 400000 UNIT PO ×4 (09:03→22:00)
[2020-05-24] MEDS: aspirin 325 mg EC Tablet PO (09:04)
[2020-05-24] MEDS: divalproex DR 500 mg Tablet PO ×2 (09:04→17:58)
[2020-05-24] MEDS: loratadine 10 mg Tablet PO (09:04)
[2020-05-24 09:59] LABS: Basophils % 0.3 %; Eosinophils # 0.1 10^3/uL (0.0-0.8); Eosinophils % 1.2 %; Hematocrit 32.6 % (42.0-52.0); Hemoglobin 10.8 g/dL (11.7-16.6); Lymphocytes # 1.1 10^3/uL (0.8-4.8); Mean Corpuscular HGB Conc 33.1 g/dL (30.0-36.0); Mean Corpuscular Hemoglobin 29.7 pg (28.0-34.0); Mean Corpuscular Volume 89.6 fL (80-94); Mean Platelet Volume 9.6 fL (7.4-10.4); Monocytes # 0.9 10^3/uL (0.2-0.9); Monocytes % 11.6 %; Neutrophils # 5.37 10^3/uL (1.8-7.7); Neutrophils % 71.8 %; Nucleated Red Blood Cells % 0 %; Platelet Count 155 10^3/cmm (130-400); Red Blood Count 3.64 10^6/uL (4.1-5.3); Red Cell Distribution Width 14.3 % (12.1-15.1); White Blood Count 7.5 10^3/uL (4.0-10.0)
[2020-05-24] MEDS: lidocaine 2% viscous 1.667 ML, diphenhydrAMINE oral liq 4.165 MG, aluminum-mag hydrox-s... MUCOUS MEM ×2 (10:04→17:58)
[2020-05-24 10:22] LABS: Alanine Aminotransferase < 5 U/L (0-41); Albumin Level 2.5 g/dL (3.5-5.2); Alkaline Phosphatase 50 IU/L (40-130); Anion Gap 14.5 (5-19); Aspartate Amino Transferase 6 U/L (0-40); Blood Urea Nitrogen 9 mg/dL (8-23); Calcium 8.8 mg/dL (8.5-10.5); Carbon Dioxide 23 mmol/L (22-29); Chloride 94 mmol/L (98-107); Creatinine Clr Calc Pharmacy 128.2159; Globulin 3.2 g/dL (1.3-4.6); Glomerular Filtration Rate 114.3 mL/min (90-130); Glucose 155 mg/dL (65-115); Osmolality Calculated 268 mOsm/kg (285-295); Potassium 3.5 mmol/L (3.5-5.1); Sodium 128 mmol/L (136-145); Total Bilirubin 0.4 mg/dL (0.15-1.2); Total Protein 5.7 g/dL (6.6-8.7)
[2020-05-24 10:50] LABS: Glucose Point of Care 132 mg/dL (70-110)
[2020-05-24] MEDS: levofloxacin-dextrose 5 % 750 MG/150 ML PREMIX 100 MG IV (12:23)
--- NOTE | 2020-05-24 13:42 | PM.PN ---
Subjective Subjective: Interval history: Mr. Maxi Padilla was seen and examined today in the [facility].His tongue swelling has improved.Currently he is on clear liquid diets. He has remained afebrile, his other vitals and labs have been reviewed. Vitals/I&O/Wt Last Vital Signs Temp 98.7 F 05/24/20 11:19 Pulse 91 05/24/20 11:19 Resp 18 05/24/20 11:19 BP 100/67 05/24/20 11:19 Pulse Ox 94 05/24/20 11:19 05/23/20 05/24/20 05/24/20 22:59 06:59 14:59 Intake Total 220 / 1470 200 / 1670 600 / 600 Output Total 200 / 200 Balance 220 / 1470 0 / 1470 600 / 600 Physical Exam Const: COMMON NORMALS: patient oriented x3 HENMT: COMMON NORMALS: normocephalic and atraumatic HEAD & SCALP: normocephalic and atraumatic OTHER: Thick whitish layering of the tounge Present .Mild Tounge swelling Present. Eye: GENERAL EYE: appearance normal, both eyes and all related structures Chest: CHEST: Yes Symmetrical chest wall rise Resp: COMMON NORMALS: normal respiratory effort, No retractions, No use of accessory muscles and clear to auscultation bilaterally EFFORT & INSPECTION: Yes symmetric chest movement AUSCULTATION: clear to auscultation bilaterally Cardio: COMMON NORMALS: regular rate, regular rhythm, S1 normal heart sound present, S2 normal heart sound present, No gallops present (Cardio), No murmurs present (Cardio), No rub (Cardio) and Peripheral pulses 2+ throughout RATE: regular rate RHYTHM: regular rhythm HEART SOUNDS: S1 normal heart sound present and S2 normal heart sound present PERIPHERAL PULSES: Peripheral pulses 2+ throughout GI: COMMON NORMALS: Normal to inspection, nondistended, normoactive bowel sounds present, Soft to palpation, non-tender, No hepatosplenomegaly present and no masses AUSCULTATION: Yes normoactive bowel sounds PALPATION: Yes Soft to palpation and Yes No hepatosplenomegaly present RECTAL EXAM: Yes deferred Extremity: COMMON NORMALS: no clubbing, cyanosis or edema and no pedal edema Neuro: COMMON NORMALS: patient oriented x3 Urinary Catheter Management^: Alaniz: Cath Placed During This Visit: yes Reason for Continuing Indwelling Catheter: Acute Urinary Retention or Obstruction Urinary Catheter Date of Insertion: 05/22/20 Urinary Catheter Time of Insertion: 14:45 Data : 05/24/20 09:50 05/24/20 09:50 Micro: Microbiology 05/22/20 13:36 Urine Culture - Final Urine,Voided 05/22/20 14:44 Sputum Culture - Final Sputum - Expectorated Sputum 05/22/20 09:50 Blood Culture - Preliminary Blood NEGATIVE TO DATE 05/22/20 09:50 Blood Culture - Preliminary Blood NEGATIVE TO DATE A&P Assessment and plan (1) SIRS (systemic inflammatory response syndrome): SIRS R/O Sepsis: Patient meets SIRS Criteria : Fever, Tachycardia. 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 Patient will need to follow oncology as outpatient for further work up.Will likely need Tissue sample. For possible infection will start him Nystatin 400,000 units PO QID. Will also start him on lidocaine/bendryal/Mg Hydrox/ Simethicone cocktail. Will Continue Fluconazole 400 mg I.V daily. If the patient fail to respond then may need EGD to r/o Possible fungal Esophagitis. HIV: NR Status: Acute (3) Odynophagia: Will Continue Fluconazole 400 mg I.V daily. If the patient fail to respond then may need EGD to r/o Possible fungal Esophagitis as he has been on steroid for long time. Status: Acute (4) Hyponatremia: Continue IV hydration with normal saline. Continue to monitor mentation. TSH Cortisol Serum and urine osmolality Status: Acute Additional A&P Information Code Status : AND DVT PPX: Lovenox 40 mg sc Daily Disposition: Home Attestations Medical Necessity Statement*: Patient needs to be in hospital for management of SIRS R/O sepsis , hyponatremia, odynophagia, need for IV hydration. 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
--- NOTE | 2020-05-24 15:31 | PC.NURSE ---
Dr. Little notified of decreased blood pressure when standing with therapy, and axillary temp of 100.2, awaiting new orders.
--- NOTE | 2020-05-24 15:35 | PC.NURSE ---
Received new orders to complete orthostatic blood pressures now and then increase IVF to 125mL/hr.
[2020-05-24] MEDS: dextrose 5%-sod chloride 0.45% 1,000 ML 125 ML IV (16:10)
[2020-05-24 16:52] LABS: Glucose Point of Care 108 mg/dL (70-110)
[2020-05-24] MEDS: sodium chloride 0.9% 1,000 ML 125 ML IV (20:09)
[2020-05-24] MEDS: fluconazole premix 400 MG/200 ML PIGGYBACK 200 MG IV (20:09)
[2020-05-24 21:22] LABS: Glucose Point of Care 111 mg/dL (70-110)
[2020-05-24] MEDS: insulin glargine 100 units/1 mL 25 UNIT SUBCUT (21:59)
[2020-05-25] VITALS (7 sets, daily range): BP systolic 91–99; BP diastolic 53–65; PULSE 87–99; RESP 17–22; TEMP 36.8–37.6; O2SAT 90–98
[2020-05-25] MEDS: sodium chloride 0.9% 1,000 ML 125 ML IV (03:22)
--- NOTE | 2020-05-25 05:42 | PC.NURSE ---
Shift Summary Uneventful night. Patient rested well without any complaints. Medications administered as ordered, patients VSS.
[2020-05-25 06:50] LABS: Glucose Point of Care 107 mg/dL (70-110)
[2020-05-25] MEDS: aspirin 325 mg EC Tablet PO (10:08)
[2020-05-25] MEDS: loratadine 10 mg Tablet PO (10:08)
[2020-05-25] MEDS: divalproex DR 500 mg Tablet PO ×2 (10:08→17:14)
[2020-05-25] MEDS: nystatin 100,000 unit/mL UDC 5 mL 400000 UNIT PO ×4 (10:09→22:16)
[2020-05-25] MEDS: docusate sodium 100 mg Capsule PO (10:09)
[2020-05-25] MEDS: tamsulosin 0.4 mg Capsule PO ×2 (10:09→17:14)
[2020-05-25] MEDS: oxyCODONE 5 mg IR Tab/Cap 10 MG PO (10:10)
[2020-05-25 10:58] LABS: Glucose Point of Care 114 mg/dL (70-110)
[2020-05-25 11:45] LABS: Anion Gap 12.4 (5-19); Blood Urea Nitrogen 10 mg/dL (8-23); Calcium 8.5 mg/dL (8.5-10.5); Carbon Dioxide 23 mmol/L (22-29); Chloride 93 mmol/L (98-107); Creatinine Clr Calc Pharmacy 179.5023; Glomerular Filtration Rate 168.5 mL/min (90-130); Glucose 108 mg/dL (65-115); Osmolality Calculated 260 mOsm/kg (285-295); Potassium 3.4 mmol/L (3.5-5.1); Sodium 125 mmol/L (136-145)
[2020-05-25] MEDS: levofloxacin-dextrose 5 % 750 MG/150 ML PREMIX 100 MG IV (13:52)
--- NOTE | 2020-05-25 14:47 | P.PN_ITS ---
Subjective Subjective: Interval history: Mr. Maxi Padilla was seen and examined today in the [facility].His tongue swelling has improved.Currently he is on clear liquid diets. He has remained afebrile, his other vitals and labs have been reviewed. Vitals/I&O/Wt Last Vital Signs Temp 99.6 F 05/25/20 11:22 Pulse 95 05/25/20 11:22 Resp 18 05/25/20 11:22 BP 91/58 05/25/20 11:22 Pulse Ox 90 05/25/20 11:22 05/24/20 05/25/20 05/25/20 22:59 06:59 14:59 Intake Total 320 / 1070 902.083 / 1972.083 200 / 200 Output Total 275 / 275 300 / 575 Balance 45 / 795 602.083 / 1397.083 200 / 200 Physical Exam Const: COMMON NORMALS: patient oriented x3 HENMT: COMMON NORMALS: normocephalic and atraumatic HEAD & SCALP: normocephalic and atraumatic OTHER: Thick whitish layering of the tounge Present .Mild Tounge swelling Present. Eye: GENERAL EYE: appearance normal, both eyes and all related structures Chest: CHEST: Yes Symmetrical chest wall rise Resp: COMMON NORMALS: normal respiratory effort, No retractions, No use of accessory muscles and clear to auscultation bilaterally EFFORT & INSPECTION: Yes symmetric chest movement AUSCULTATION: clear to auscultation bilaterally Cardio: COMMON NORMALS: regular rate, regular rhythm, S1 normal heart sound present, S2 normal heart sound present, No gallops present (Cardio), No murmurs present (Cardio), No rub (Cardio) and Peripheral pulses 2+ throughout RATE: regular rate RHYTHM: regular rhythm HEART SOUNDS: S1 normal heart sound present and S2 normal heart sound present PERIPHERAL PULSES: Peripheral pulses 2+ throughout GI: COMMON NORMALS: Normal to inspection, nondistended, normoactive bowel sounds present, Soft to palpation, non-tender, No hepatosplenomegaly present and no masses AUSCULTATION: Yes normoactive bowel sounds PALPATION: Yes Soft to palpation and Yes No hepatosplenomegaly present RECTAL EXAM: Yes deferred Extremity: COMMON NORMALS: no clubbing, cyanosis or edema and no pedal edema Neuro: COMMON NORMALS: patient oriented x3 Urinary Catheter Management^: Alaniz: Cath Placed During This Visit: yes Reason for Continuing Indwelling Catheter: Acute Urinary Retention or Obstruction Urinary Catheter Date of Insertion: 05/22/20 Urinary Catheter Time of Insertion: 14:45 Data : 05/24/20 09:50 05/25/20 11:05 Micro: Microbiology 05/22/20 13:36 Urine Culture - Final Urine,Voided 05/22/20 14:44 Sputum Culture - Final Sputum - Expectorated Sputum A&P Assessment and plan (1) SIRS (systemic inflammatory response syndrome): SIRS R/O Sepsis: Patient meets SIRS Criteria : Fever, Tachycardia. 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 Patient will need to follow oncology as outpatient for further work up.Will likely need Tissue sample. For possible infection will start him Nystatin 400,000 units PO QID. Will also start him on lidocaine/bendryal/Mg Hydrox/ Simethicone cocktail. Nystatin swish and swallow Will Continue Fluconazole 400 mg I.V daily. If the patient fail to respond then may need EGD to r/o Possible fungal Esophagitis. HIV: NR Status: Acute (3) Odynophagia: Will Continue Fluconazole 400 mg I.V daily. If the patient fail to respond then may need EGD to r/o Possible fungal E sophagitis as he has been on steroid for long time. Status: Acute (4) Hyponatremia: Continue IV hydration with normal saline. Continue to monitor mentation. 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
[2020-05-25 16:59] LABS: Glucose Point of Care 94 mg/dL (70-110)
[2020-05-25] MEDS: lidocaine 2% viscous 1.667 ML, diphenhydrAMINE oral liq 4.165 MG, aluminum-mag hydrox-s... MUCOUS MEM (20:33)
[2020-05-25] MEDS: sodium chloride 0.9% 1,000 ML 100 ML IV (20:53)
[2020-05-25 20:57] LABS: Glucose Point of Care 106 mg/dL (70-110)
[2020-05-25] MEDS: fluconazole premix 400 MG/200 ML PIGGYBACK 200 MG IV (22:15)
[2020-05-25] MEDS: insulin glargine 100 units/1 mL 25 UNIT SUBCUT (22:16)
[2020-05-25] MEDS: ondansetron 2 mg/ML SDV 2 mL 4 MG IVP (22:23)
[2020-05-26] VITALS (7 sets, daily range): BP systolic 89–99; BP diastolic 54–64; PULSE 92–94; RESP 16–18; TEMP 36.6–37.9; O2SAT 90–93
[2020-05-26] MEDS: oxyCODONE 5 mg IR Tab/Cap 10 MG PO ×2 (00:58→09:15)
[2020-05-26 05:18] LABS: Anion Gap 13.4 (5-19); Blood Urea Nitrogen 10 mg/dL (8-23); Calcium 8.1 mg/dL (8.5-10.5); Carbon Dioxide 23 mmol/L (22-29); Chloride 96 mmol/L (98-107); Creatinine Clr Calc Pharmacy 179.5023; Glomerular Filtration Rate 168.5 mL/min (90-130); Glucose 81 mg/dL (65-115); Osmolality Calculated 266 mOsm/kg (285-295); Potassium 3.4 mmol/L (3.5-5.1); Sodium 129 mmol/L (136-145)
[2020-05-26 06:40] LABS: Glucose Point of Care 84 mg/dL (70-110)
[2020-05-26] MEDS: sodium chloride 0.9% 1,000 ML 100 ML IV (09:05)
[2020-05-26] MEDS: divalproex DR 500 mg Tablet PO ×2 (09:06→16:59)
[2020-05-26] MEDS: nystatin 100,000 unit/mL UDC 5 mL 400000 UNIT PO ×4 (09:06→21:36)
[2020-05-26] MEDS: aspirin 325 mg EC Tablet PO (09:06)
[2020-05-26] MEDS: docusate sodium 100 mg Capsule PO (09:06)
[2020-05-26] MEDS: tamsulosin 0.4 mg Capsule PO ×2 (09:06→16:59)
[2020-05-26] MEDS: loratadine 10 mg Tablet PO (09:06)
--- NOTE | 2020-05-26 10:12 | PC.NURSE ---
Rcvd verbal order from Dr Little for Const Carb diet. River Driver entered order
--- NOTE | 2020-05-26 10:13 | PC.NURSE ---
Terrazzo Layer Helper received order from Dr Little to stop IV maintenance fluids. Terrazzo Layer Helper discontinued order as requested.
[2020-05-26] MEDS: potassium chloride premix 100 ML 50 MEQ IV (10:34)
[2020-05-26 11:03] LABS: Glucose Point of Care 87 mg/dL (70-110)
[2020-05-26] MEDS: levofloxacin-dextrose 5 % 750 MG/150 ML PREMIX 100 MG IV (13:23)
--- NOTE | 2020-05-26 15:07 | PC.NURSE ---
Called family to give update Samantha Andrew [phone]. After update, conventional mortgage underwriter transferred phone call to patient's room.
--- NOTE | 2020-05-26 16:18 | PC.NURSE ---
patient has not had BM since 05/21, patient requesting something to help with BM. Grill Associate notified Dr Little. Grill Associate also notified Dr Little that patient picked at his lunch today and said he wasn't hungry.
[2020-05-26] MEDS: polyethylene glycol 3350 Pkt 17 gm PO (16:58)
[2020-05-26 17:01] LABS: Glucose Point of Care 82 mg/dL (70-110)
--- NOTE | 2020-05-26 17:12 | PC.NURSE ---
applied seizure precautions. patient is on Depakote and his last seizure activity per patient was in dec.
--- NOTE | 2020-05-26 19:13 | P.PN_ITS ---
Subjective Subjective: Interval history: wants to try regular food today.He says that his tounge as well as pain is better as compared to that of admission. Possibility of doing EGD was discussed with him if he fails to improve on i.v fluconazole for odynophagia. His still continue to have low grade Temperature spike : Tmax: 100.3 His other vitals and labs have been reviewed. Medications: Reviewed: Yes Vitals/I&O/Wt Last Vital Signs Temp 99.2 F 05/26/20 15:37 Pulse 93 05/26/20 15:37 Resp 18 05/26/20 15:37 BP 89/54 05/26/20 15:37 Pulse Ox 92 05/26/20 15:37 05/26/20 05/26/20 05/26/20 06:59 14:59 22:59 Intake Total 1200 / 2850 1420 / 1420 270 / 1690 Output Total 225 / 525 325 / 325 Balance 975 / 2325 1420 / 1420 -55 / 1365 Physical Exam Const: COMMON NORMALS: patient oriented x3 HENMT: COMMON NORMALS: normocephalic and atraumatic HEAD & SCALP: normocephalic and atraumatic OTHER: Thick whitish layering of the tounge initially Present on admission improving .Mild Tounge swelling Present. Eye: GENERAL EYE: appearance normal, both eyes and all related structures Chest: CHEST: Yes Symmetrical chest wall rise Resp: COMMON NORMALS: normal respiratory effort, No retractions, No use of accessory muscles and clear to auscultation bilaterally EFFORT & INSPECTION: Yes symmetric chest movement AUSCULTATION: clear to auscultation bilaterally Cardio: COMMON NORMALS: regular rate, regular rhythm, S1 normal heart sound present, S2 normal heart sound present, No gallops present (Cardio), No murmurs present (Cardio), No rub (Cardio) and Peripheral pulses 2+ throughout RATE: regular rate RHYTHM: regular rhythm HEART SOUNDS: S1 normal heart sound present and S2 normal heart sound present PERIPHERAL PULSES: Peripheral pulses 2+ throughout GI: COMMON NORMALS: Normal to inspection, nondistended, normoactive bowel sounds present, Soft to palpation, non-tender, No hepatosplenomegaly present and no masses AUSCULTATION: Yes normoactive bowel sounds PALPATION: Yes Soft to palpation and Yes No hepatosplenomegaly present RECTAL EXAM: Yes deferred Extremity: COMMON NORMALS: no clubbing, cyanosis or edema and no pedal edema Neuro: COMMON NORMALS: patient oriented x3 Urinary Catheter Management^: Alaniz: Cath Placed During This Visit: yes Reason for Continuing Indwelling Catheter: Acute Urinary Retention or Obstruction Urinary Catheter Date of Insertion: 05/22/20 Urinary Catheter Time of Insertion: 14:45 Data : 05/24/20 09:50 05/26/20 04:11 A&P Assessment and plan (1) SIRS (systemic inflammatory response syndrome): SIRS R/O Sepsis: Patient meets SIRS Criteria : Fever, Tachycardia. 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 Patient will need to follow oncology as outpatient for further work up.Will likely need Tissue sample. For possible infection will start him Nystatin 400,000 units PO QID. Will also start him on lidocaine/bendryal/Mg Hydrox/ Simethicone cocktail. Nystatin swish and swallow Will Continue Fluconazole 400 mg I.V daily. If the patient fail to respond then may need EGD for further work up of fungal Esophagitis. HIV: NR Status: Acute (3) Odynophagia: Will Continue Fluconazole 400 mg I.V daily. If the patient fail to respond then may need EGD for Possible fungal Esophagitis as he has been on steroid for long time. Status: Acute (4) Hyponatremia: Improving Monitor BMP Encourage oral intake TSH Cortisol Serum and urine osmolality Status: Acute Additional A&P Information Code Status : AND DVT PPX: Lovenox 40 mg sc Daily Disposition: Home Attestations Medical Necessity Statement*: Patient needs to be in hospital for poor oral inatke, odynophagia as well as continued low grade temperature spike. Coding Level of Care Code Acute Design Printing Machine Set Up Operator for [facility] Fwd Diagnoses SIRS (systemic inflammatory response syndrome) R65.10 Tongue leukoplakia K13.21 Odynophagia R13.10 Hyponatremia E87.1
[2020-05-26 21:01] LABS: Glucose Point of Care 89 mg/dL (70-110)
[2020-05-26] MEDS: fluconazole premix 400 MG/200 ML PIGGYBACK 200 MG IV (21:31)
[2020-05-27] VITALS (7 sets, daily range): BP systolic 95–101; BP diastolic 59–67; PULSE 89–96; RESP 17–20; TEMP 36.4–37.3; O2SAT 92–96
[2020-05-27 06:51] LABS: Basophils % 0.5 %; Eosinophils # 0.1 10^3/uL (0.0-0.8); Eosinophils % 0.6 %; Hematocrit 30.7 % (42.0-52.0); Hemoglobin 10.1 g/dL (11.7-16.6); Lymphocytes # 1.1 10^3/uL (0.8-4.8); Lymphocytes % 13.9 %; Mean Corpuscular HGB Conc 32.9 g/dL (30.0-36.0); Mean Corpuscular Hemoglobin 29.1 pg (28.0-34.0); Mean Corpuscular Volume 88.5 fL (80-94); Mean Platelet Volume 10.6 fL (7.4-10.4); Monocytes # 0.7 10^3/uL (0.2-0.9); Monocytes % 8.7 %; Neutrophils # 5.76 10^3/uL (1.8-7.7); Nucleated Red Blood Cells % 0 %; Platelet Count 180 10^3/cmm (130-400); Red Blood Count 3.47 10^6/uL (4.1-5.3); White Blood Count 8.2 10^3/uL (4.0-10.0)
[2020-05-27 06:52] LABS: Glucose Point of Care 94 mg/dL (70-110)
[2020-05-27 07:00] LABS: Anion Gap 12.7 (5-19); Blood Urea Nitrogen 10 mg/dL (8-23); Calcium 8.1 mg/dL (8.5-10.5); Carbon Dioxide 25 mmol/L (22-29); Chloride 94 mmol/L (98-107); Creatinine Clr Calc Pharmacy 179.5023; Glomerular Filtration Rate 168.5 mL/min (90-130); Glucose 93 mg/dL (65-115); Osmolality Calculated 265 mOsm/kg (285-295); Potassium 3.7 mmol/L (3.5-5.1); Sodium 128 mmol/L (136-145)
[2020-05-27] MEDS: aspirin 325 mg EC Tablet PO (07:45)
[2020-05-27] MEDS: tamsulosin 0.4 mg Capsule PO ×2 (07:45→17:08)
[2020-05-27] MEDS: loratadine 10 mg Tablet PO (07:45)
[2020-05-27] MEDS: divalproex DR 500 mg Tablet PO ×2 (07:45→17:08)
[2020-05-27] MEDS: nystatin 100,000 unit/mL UDC 5 mL 400000 UNIT PO ×4 (07:45→22:10)
[2020-05-27] MEDS: docusate sodium 100 mg Capsule PO ×2 (07:45→11:58)
[2020-05-27 07:56] LABS: Slide Review Slide Review Perform
[2020-05-27 07:57] LABS: Neutrophils % 76.3 %
[2020-05-27 10:39] LABS: Glucose Point of Care 115 mg/dL (70-110)
[2020-05-27] MEDS: levofloxacin-dextrose 5 % 750 MG/150 ML PREMIX 100 MG IV (12:02)
[2020-05-27] MEDS: Fleet Enema 133 mL Enema PR (17:03)
--- NOTE | 2020-05-27 17:04 | PM.PN ---
Subjective Subjective: Interval history: new rash over left hand, tmax 100.3 overnight Medications: Reviewed: Yes Vitals/I&O/Wt Last Vital Signs Temp 98.8 F 05/27/20 15:32 Pulse 89 05/27/20 15:32 Resp 17 05/27/20 15:32 BP 100/67 05/27/20 15:32 Pulse Ox 94 05/27/20 15:32 05/27/20 05/27/20 05/27/20 06:59 14:59 22:59 Intake Total 2009 260 / 260 Output Total 200 / 525 Balance -170 / 1485 260 / 260 Physical Exam Narrative: EXAM NARRATIVE: GEN: Awake, alert and oriented, no acute distress CVS: S1S@ N RS: CTA B/L except crackles over RUL Abd: Soft, nt/nd , bs+ PROPELLANT ASSEMBLER: no focal neuro deficits Urinary Catheter Management^: Alaniz: Cath Placed During This Visit: yes Reason for Continuing Indwelling Catheter: Acute Urinary Retention or Obstruction Urinary Catheter Date of Insertion: 05/22/20 Urinary Catheter Time of Insertion: 14:45 Data : 05/27/20 05:41 05/27/20 05:41 Micro: Microbiology 05/22/20 09:50 Blood Culture - Final Blood NO GROWTH AFTER 5 DAYS 05/22/20 09:50 Blood Culture - Final Blood NO GROWTH AFTER 5 DAYS A&P Assessment and plan (1) SIRS (systemic inflammatory response syndrome): SIRS R/O Sepsis: Patient meets SIRS Criteria : Fever, Tachycardia. 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 Patient will need to follow oncology as outpatient for further work up.Will likely need Tissue sample. For possible infection will start him Nystatin 400,000 units PO QID. Will also start him on lidocaine/bendryal/Mg Hydrox/ Simethicone cocktail. Nystatin swish and swallow Will Continue Fluconazole 400 mg I.V daily. If the patient fail to respond then may need EGD for further work up of fungal Esophagitis. HIV: NR Status: Acute (3) Odynophagia: Will Continue Fluconazole 400 mg I.V daily. If the patient fail to respond then may need EGD for Possible fungal Esophagitis as he has been on steroid for long time. Status: Acute (4) Hyponatremia: Improving Monitor BMP Encourage oral intake TSH Cortisol Serum and urine osmolality Status: Acute Additional A&P Information Code Status : AND DVT PPX: Lovenox 40 mg sc Daily Disposition: Home Attestations Medical Necessity Statement*: new rash, onbgoing fever, check blood cx Coding Level of Care Code Acute Account Executive for [facility] Fwd Diagnoses SIRS (systemic inflammatory response syndrome) R65.10 Tongue leukoplakia K13.21 Odynophagia R13.10 Hyponatremia E87.1
[2020-05-27 17:21] LABS: Glucose Point of Care 106 mg/dL (70-110)
--- NOTE | 2020-05-27 18:14 | PC.NURSE ---
SHIFT SUMMARY PATIENT HAS RESTED THE MAJORITY OF THE DAY. PATIENT HASN'T WANTED TO GET OUT OF BED AND AMBULATE OR SIT IN THE CHAIR. NO COMPLAINTS OF PAIN. ADEQUATE URINE OUTPUT. PATIENT HAD COMPLAINTS OF NOT HAVING A BOWEL MOVEMENT AND REQUESTED AN ENEMA. DR. BREAUX ORDERED AN ENEMA AND IT WAS ADMINISTERED BY THIS NURSE. PATIENT HAD SMALL SOFT BOWEL MOVEMENT AFTER. CURRENTLY RESTING IN BED ON 2L NC.
[2020-05-27] MEDS: fluconazole premix 400 MG/200 ML PIGGYBACK 200 MG IV (20:12)
[2020-05-27 21:29] LABS: Glucose Point of Care 114 mg/dL (70-110)
[2020-05-27] MEDS: insulin glargine 100 units/1 mL 25 UNIT SUBCUT (22:10)
[2020-05-27] MEDS: oxyCODONE 5 mg IR Tab/Cap 10 MG PO (23:31)
[2020-05-28] VITALS (8 sets, daily range): BP systolic 84–118; BP diastolic 55–74; PULSE 85–110; RESP 16–18; TEMP 36.7–37; O2SAT 90–94
[2020-05-28 04:59] LABS: Hematocrit 31.8 % (42.0-52.0); Hemoglobin 10.7 g/dL (11.7-16.6); Mean Corpuscular HGB Conc 33.6 g/dL (30.0-36.0); Mean Corpuscular Hemoglobin 29.3 pg (28.0-34.0); Mean Corpuscular Volume 87.1 fL (80-94); Mean Platelet Volume 10.3 fL (7.4-10.4); Platelet Count 171 10^3/cmm (130-400); Red Blood Count 3.65 10^6/uL (4.1-5.3); Red Cell Distribution Width 15.2 % (12.1-15.1); White Blood Count 10.6 10^3/uL (4.0-10.0)
[2020-05-28 05:18] LABS: Alanine Aminotransferase < 5 U/L (0-41); Alkaline Phosphatase 68 IU/L (40-130); Anion Gap 11.9 (5-19); Aspartate Amino Transferase 8 U/L (0-40); Blood Urea Nitrogen 9 mg/dL (8-23); Calcium 8.6 mg/dL (8.5-10.5); Carbon Dioxide 27 mmol/L (22-29); Chloride 94 mmol/L (98-107); Globulin 3.1 g/dL (1.3-4.6); Glomerular Filtration Rate 168.5 mL/min (90-130); Glucose 57 mg/dL (65-115); Osmolality Calculated 266 mOsm/kg (285-295); Sodium 130 mmol/L (136-145); Total Bilirubin 0.3 mg/dL (0.15-1.2); Total Protein 5.1 g/dL (6.6-8.7)
[2020-05-28 06:26] LABS: Slide Review Slide Review Perform
[2020-05-28 06:29] LABS: Absolute Segmented Neutrophil 3.8 10/cmm (1.6-7.1); Lymphocytes 9 %; Monocytes Absolute 1.5 10^3/cmm (0.1-0.6); Segmented Neutrophils 36 %; Total Cells Counted 100 (0-100)
[2020-05-28 06:30] LABS: Absolute Neutrophil 7.8 10^3/cmm (1.4-6.5); Platelet Estimate Normal (Normal)
[2020-05-28 06:32] LABS: Eosinophils 0 %
[2020-05-28 06:37] LABS: Creatinine Clr Calc Pharmacy 179.5023; Potassium 2.9 mmol/L (3.5-5.1)
[2020-05-28 06:52] LABS: Glucose Point of Care 68 mg/dL (70-110)
[2020-05-28 07:49] LABS: SARS Covid-2 Antigen Negative (Negative)
[2020-05-28] MEDS: divalproex DR 500 mg Tablet PO ×2 (08:31→17:03)
[2020-05-28] MEDS: docusate sodium 100 mg Capsule PO (08:31)
[2020-05-28] MEDS: loratadine 10 mg Tablet PO (08:31)
[2020-05-28] MEDS: aspirin 325 mg EC Tablet PO (08:31)
[2020-05-28] MEDS: tamsulosin 0.4 mg Capsule PO ×2 (08:31→17:04)
[2020-05-28] MEDS: nystatin 100,000 unit/mL UDC 5 mL 400000 UNIT PO ×4 (08:31→20:38)
[2020-05-28 11:51] LABS: Glucose Point of Care 99 mg/dL (70-110)
[2020-05-28] MEDS: levofloxacin-dextrose 5 % 750 MG/150 ML PREMIX 100 MG IV (12:12)
[2020-05-28 16:40] LABS: Glucose Point of Care 142 mg/dL (70-110)
--- NOTE | 2020-05-28 17:05 | PM.PN ---
Subjective Subjective: Interval history: no acut einterval overnigth events Medications: Reviewed: Yes Vitals/I&O/Wt Last Vital Signs Temp 98.2 F 05/28/20 15:47 Pulse 110 H 05/28/20 15:47 Resp 18 05/28/20 15:47 BP 118/69 05/28/20 15:47 Pulse Ox 94 05/28/20 15:47 05/28/20 05/28/20 05/28/20 06:59 14:59 22:59 Intake Total 70 / 70 Output Total 250 / 650 Balance -250 / 80 70 / 70 Physical Exam Narrative: EXAM NARRATIVE: GEN: Awake, alert and oriented, no acute distress CVS: S1S2 N RS: CTA B/L Abd: Soft, nt/nd , bs+ BUTTON STATION WORKER: no focal neuro deficits EXT: Le pitting edema Urinary Catheter Management^: Alaniz: Cath Placed During This Visit: yes Reason for Continuing Indwelling Catheter: Acute Urinary Retention or Obstruction Urinary Catheter Date of Insertion: 05/22/20 Urinary Catheter Time of Insertion: 14:45 Data : 05/28/20 04:26 05/28/20 04:26 Micro: Microbiology 05/28/20 04:30 Blood Culture - Preliminary Blood SPECIMEN COLLECTED 05/28/20 04:26 Blood Culture - Preliminary Blood SPECIMEN COLLECTED A&P Additional A&P Information Admitted on 05/21 with chief complaint of tongue swelling x 2 weeks,odynophagia and dysphagia. On exam noted to have leukoplakia. Hospital course notable for development of fever. Met SIRS criteria with fever and tachycardia. #SIRS: Evaluation for sepsis thus far with negative urine and blood cultures. UA unremarkable. Chest x-ray without gross consolidation. He has received a course of levofloxacin empirically, appears to be improved. # Tongue swelling, leuokoplakia, dysphagia : Noted to have multiple oral ulcerations on my exam, reportedly these are improved. It appears he was started on nystatin swish and swallow and fluconazole dose was increased to 400 mg IV daily because of concern for esophageal candidiasis, however this would be odd considering that patient has been on fluconazole prophylaxis since at least 2011 and reports compliance with the same. Note also made of patient being on antivirals initially upon admission, however unable to see any antivirals listed on his medication list. Will need to call [facility] tomorrow morning to verify his medications. Uncertain if patient has been taking chronic steroids, dexamethasone 1 mg p.o. daily appears on his medication list, however per notes review this should have been last renewed for 30 days in January 2020. Uncertain if he was taking this prior to coming to the hospital. If patient has truly been on this dose of steroids for a prolonged, differentials would include CMV esophagitis for which EGD would need to be performed and biopsies taken. 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 Noninfectious differentials include flare of underlying pemphigoid, uncertain how this diagnosis was originally made vs drug reaction from Depakote, however does not appear to have had any recent changes in his dosage and appears to have been tolerating it since January 2020. Diet has been slowly advanced from clear liquid to regular diet on the . Lesions appear to be improving. 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
[2020-05-28] MEDS: potassium chloride ER 20 mEq Tablet 40 MEQ PO (18:39)
[2020-05-28] MEDS: lidocaine 1% 5 ML in potassium chloride premix 100 ML 25 ML IV (18:42)
--- NOTE | 2020-05-28 18:52 | PC.NURSE ---
SHIFT SUMMARY PATIENT HAS NEEDED A LOT OF ENCOURAGEMENT TO SIT IN THE CHAIR AND AMBULATE A MINIMAL DISTANCE. NO COMPLAINTS OF PAIN. PATIENT ONLY HAD 200ML OF URINE OUTPUT. DR. BREAUX NOTIFIED. EDEMA INCREASED ON RIGHT ARM AND RIGHT LEG. BETTER PO INTAKE TODAY. PATIENT COMPLAINED OF MOUTH PAIN ONCE TODAY. PATIENT SAT IN THE CHAIR FOR AROUND 2-3 HOURS. CURRENTLY RESTING IN BED.
[2020-05-28] MEDS: FUROsemide 10 mg/mL SDV 2mL 20 MG IVP (19:02)
[2020-05-28] MEDS: oxyCODONE 5 mg IR Tab/Cap 10 MG PO (20:36)
[2020-05-28] MEDS: enoxaparin 40 mg/0.4 mL Syringe SUBCUT ×2 (20:38→20:39)
[2020-05-28 21:15] LABS: Glucose Point of Care 147 mg/dL (70-110)
[2020-05-29] VITALS: BP 93/61; PULSE 102; RESP 17; TEMP 36.8; O2SAT 92
[2020-05-29 03:50] VITALS: BP 91/60; PULSE 100; RESP 18; TEMP 37.4; O2SAT 94
[2020-05-29 05:30] LABS: Basophils % 0.1 %; Eosinophils % 0.3 %; Hematocrit 30.9 % (42.0-52.0); Lymphocytes # 1.6 10^3/uL (0.8-4.8); Lymphocytes % 11.4 %; Mean Corpuscular HGB Conc 32.4 g/dL (30.0-36.0); Mean Corpuscular Hemoglobin 28.2 pg (28.0-34.0); Mean Corpuscular Volume 87.3 fL (80-94); Mean Platelet Volume 10.6 fL (7.4-10.4); Monocytes # 1.7 10^3/uL (0.2-0.9); Monocytes % 12.4 %; Neutrophils # 8.38 10^3/uL (1.8-7.7); Neutrophils % 60.9 %; Nucleated Red Blood Cells % 0 %; Platelet Count 164 10^3/cmm (130-400); Red Blood Count 3.54 10^6/uL (4.1-5.3); Red Cell Distribution Width 15.5 % (12.1-15.1); White Blood Count 13.7 10^3/uL (4.0-10.0)
[2020-05-29 05:59] LABS: Alanine Aminotransferase < 5 U/L (0-41); Alkaline Phosphatase 74 IU/L (40-130); Aspartate Amino Transferase 10 U/L (0-40); Blood Urea Nitrogen 10 mg/dL (8-23); Calcium 7.8 mg/dL (8.5-10.5); Carbon Dioxide 27 mmol/L (22-29); Chloride 92 mmol/L (98-107); Creatinine Clr Calc Pharmacy 149.5852; Globulin 2.8 g/dL (1.3-4.6); Glomerular Filtration Rate 136.5 mL/min (90-130); Glucose 105 mg/dL (65-115); Osmolality Calculated 267 mOsm/kg (285-295); Sodium 129 mmol/L (136-145); Total Bilirubin 0.3 mg/dL (0.15-1.2); Total Protein 4.8 g/dL (6.6-8.7)
[2020-05-29 06:21] LABS: Estmated Average Glucose 103; Hemoglobin A1C 5.2 % (4.0-6.0)
[2020-05-29 06:22] LABS: Slide Review Slide Review Perform
[2020-05-29] MEDS: fluoxetine 20 mg Capsule PO (06:23)
[2020-05-29 06:38] LABS: Glucose Point of Care 130 mg/dL (70-110)
[2020-05-29 07:24] VITALS: BP 96/65; PULSE 97; RESP 17; TEMP 36.4; O2SAT 94
[2020-05-29] MEDS: potassium chloride ER 20 mEq Tablet PO (08:37)
[2020-05-29] MEDS: aspirin 81 mg EC Tablet PO (08:37)
[2020-05-29] MEDS: docusate sodium 100 mg Capsule PO (08:37)
[2020-05-29] MEDS: tamsulosin 0.4 mg Capsule PO ×2 (08:37→17:14)
[2020-05-29] MEDS: nystatin 100,000 unit/mL UDC 5 mL 400000 UNIT PO ×3 (08:37→21:02)
[2020-05-29] MEDS: divalproex DR 500 mg Tablet PO ×2 (08:37→17:14)
[2020-05-29] MEDS: gabapentin 300 mg Capsule 600 MG PO (08:37)
[2020-05-29] MEDS: loratadine 10 mg Tablet PO (08:41)
--- NOTE | 2020-05-29 10:10 | PC.OT ---
OT note. Pt not available at this time. Will attempt later as able.
[2020-05-29 11:01] LABS: Glucose Point of Care 126 mg/dL (70-110)
[2020-05-29 11:37] VITALS: BP 93/60; PULSE 94; RESP 16; TEMP 36.5; O2SAT 93
--- NOTE | 2020-05-29 12:45 | CT_ITS ---
WS: [id number] CT CHEST TECHNIQUE: Contrast enhanced CT of the chest with coronal and sagittal reformatted images. CLINICAL INFORMATION: dysphagia, evaluate for masses COMPARISON: CT January 10, 2020 DLP: 942.[address] scans at [facility] use at least one of these dose optimization techniques: automat ed exposure control; mA and/or kV adjustment per patient size (includes targeted exams where dose is matched to clinical indication); or iterative reconstruction. FINDINGS: Oral contrast within the esophagus. No evidence of significant esophageal stenosis or esoph ageal mass. Normal-appearing GE junction. Normal trachea and proximal mainstem bronchi. Moderate chronic emphysematous changes. Trace pleural fluid in the lung bases. Subsegmental atelectas is in the lung bases. Noncalcified right upper lobe pulmonary nodule along the fissure measuring 1.5 cm unchanged since January 10, 2020. No mediastinal or hilar lymphadenopathy. Cardiomegaly. Coronary calcification. No axillary lymphadenopathy. Adrenal glands are normal. Moderate thoracic kyphosis. Ch ronic anterior wedging in the mid thoracic spine. CT/CT chest w con* [id number] IMPRESSION: 1. Thoracic esophagus appears normal. No significant stricture or narrowing. 2. Moderate chronic emphysematous changes. 3. Stable 1.4 cm pulmonary nodule right upper lobe posteriorly along the fissu re. 4. Bibasilar atelectasis. 5. Cardiomegaly with coronary calcification.
--- NOTE | 2020-05-29 12:45 | CT_ITS ---
WS: [id number] CT NECK TECHNIQUE: Contrast-enhanced CT of the neck with coronal and sagittal reformatted images. CLINICAL INFORMATION: dysphagia, odynophagia, evalute for masses COMPARISON: None. DLP: 868.[address] scans at [facility] use at least one of these dose optimization techniques: automat ed exposure control; mA and/or kV adjustment per patient size (includes targeted exams where dose is matched to clinical indication); or iterative reconstruction. FINDINGS: Normal posterior nasopharynx. Normal epiglottis. Normal vallecula and piriform sinuses. No evidence o f supraglottic or glottic mass. Normal glottis. Subglottic airway is patent. Partially visualized intracranial contents are normal. Mild mucosal thickening in the ethmoid air vikash ls and sphenoid sinus. Mastoid air cells are well aerated. Right thyroid nodule measuring 1.4 CM. No cervical lymphadenopathy. Moderate spondylitic changes cervical spine. CT/CT neck w con* [id number] IMPRESSION: 1. No evidence of supraglottic or glottic mass. Normal subglottic airway. 2. Normal posterior nasopharynx. 3. No cervical lymphadenopathy. 4. 1.4 cm right thyroid nodule. This can be followed up with ultrasound.
[2020-05-29] MEDS: levofloxacin-dextrose 5 % 750 MG/150 ML PREMIX 100 MG IV (13:14)
[2020-05-29] MEDS: iohexol 300 mg/mL 100 mL Btl IV ×2 (14:42→14:47)
[2020-05-29] MEDS: iohexol 300 mg/mL 50 mL Btl IV (14:43)
[2020-05-29] MEDS: iohexol 300 mg/mL 50 mL Btl PO (14:46)
[2020-05-29 16:00] VITALS: BP 92/64; PULSE 96; RESP 17; TEMP 36.6; O2SAT 95
[2020-05-29 17:04] LABS: Glucose Point of Care 167 mg/dL (70-110)
[2020-05-29] MEDS: TRAMadol 50 mg Tablet PO (17:14)
--- NOTE | 2020-05-29 17:42 | P.PN_ITS ---
Subjective Subjective: Interval history: Patient was unable to tolerate a UGI gastrograffin study this morning as unable to sit upright for the study. CT of the neck and chest was therefore obtained. Medications: Reviewed: Yes Vitals/I&O/Wt Last Vital Signs Temp 97.9 F 05/29/20 16:00 Pulse 96 05/29/20 16:00 Resp 17 05/29/20 16:00 BP 92/64 05/29/20 16:00 Pulse Ox 95 05/29/20 16:00 05/29/20 05/29/20 05/29/20 06:59 14:59 22:59 Intake Total 105 / 325 Output Total 1000 / 1400 500 / 500 Balance -895 / -1075 -500 / -500 Physical Exam Narrative: EXAM NARRATIVE: GEN: Awake, alert and oriented, appears tired CVS: S1S2 N RS: CTA B/L Abd: Soft, nt/nd , bs+ ELECTRICAL TRANSMISSION ENGINEER: no focal neuro deficits Urinary Catheter Management^: Alaniz: Cath Placed During This Visit: yes Reason for Continuing Indwelling Catheter: Acute Urinary Retention or Obstruction Urinary Catheter Date of Insertion: 05/22/20 Urinary Catheter Time of Insertion: 14:45 Data : 05/29/20 04:18 05/29/20 04:18 Micro: Microbiology 05/28/20 04:30 Blood Culture - Preliminary Blood NEGATIVE TO DATE 05/28/20 04:26 Blood Culture - Preliminary Blood NEGATIVE TO DATE A&P Assessment and plan (1) SIRS (systemic inflammatory response syndrome): Status: Acute (2) Tongue leukoplakia: Status: Acute (3) Odynophagia: Status: Acute (4) Hyponatremia: Status: Acute Additional A&P Information Admitted on 05/21 with chief complaint of tongue swelling x 2 weeks,odynophagia and dysphagia. On exam noted to have leukoplakia. Hospital course notable for development of fever. Met SIRS criteria with fever and tachycardia. #SIRS: Evaluation for sepsis thus far with negative urine and blood cultures. UA unremarkable. Chest x-ray without gross consolidation. He has received a course of levofloxacin empirically, appears to be improved. # Tongue swelling, leuokoplakia, dysphagia : Noted to have multiple oral ulcerations on my exam, reportedly these are improved. It appears he was started on nystatin swish and swallow and fluconazole dose was increased to 400 mg IV daily because of concern for esophageal candidiasis, however this would be odd considering that patient has been on fluconazole prophylaxis since at least 2011 and reports compliance with the same. Note also made of patient being on antivirals initially upon admission, however unable to see any antivirals listed on his medication list. Will need to call [facility] tomorrow morning to verify his medications. Uncertain if patient has been taking chronic steroids, dexamethasone 1 mg p.o. daily appears on his medication list, however per notes review this should have been last renewed for 30 days in January 2020. Uncertain if he was taking this prior to coming to the hospital. If patient has truly been on this dose of steroids for a prolonged, differen tials would include CMV esophagitis for which EGD would need to be performed and biopsies taken. 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 Noninfectious differentials include flare of underlying pemphigoid, uncertain how this diagnosis was originally made vs drug reaction from Depakote, however does not appear to have had any recent changes in his dosage and appears to have been tolerating it since January 2020. Diet has been slowly advanced from clear liquid to regular diet on the . Lesions appear to be improving. 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
--- NOTE | 2020-05-29 18:48 | PC.NURSE ---
SHIFT SUMMARY PATIENT HAS BEEN MORE TIRED TODAY. GOOD URINE OUTPUT. PATIENT HAS SMALL AREA ON LEFT SACRUM OF SHEARING. THIS NURSE APPLIED AN OPTIFOAM. BP STILL SOFT. PATIENT TAKING IN MORE ORALLY. CURRENTLY RESTING IN BED.
[2020-05-29 20:00] VITALS: BP 92/57; PULSE 96; RESP 17; TEMP 37.3; O2SAT 92
[2020-05-29 20:36] LABS: Glucose Point of Care 147 mg/dL (70-110)
[2020-05-29] MEDS: enoxaparin 40 mg/0.4 mL Syringe SUBCUT (21:03)
[2020-05-30] VITALS (10 sets, daily range): BP systolic 92–103; BP diastolic 54–68; PULSE 91–102; RESP 16–19; TEMP 36.6–37.7; O2SAT 91–93
[2020-05-30] MEDS: oxyCODONE 5 mg IR Tab/Cap 10 MG PO ×2 (01:44→22:47)
[2020-05-30 06:47] LABS: Glucose Point of Care 125 mg/dL (70-110)
--- NOTE | 2020-05-30 07:31 | PC.NURSE ---
AM NOTE SEE PT SKIN ASSESSMENT DETAILS IN WOUND ASSESSMENT
[2020-05-30] MEDS: potassium chloride ER 20 mEq Tablet PO (08:55)
[2020-05-30] MEDS: tamsulosin 0.4 mg Capsule PO ×2 (08:55→20:23)
[2020-05-30] MEDS: nystatin 100,000 unit/mL UDC 5 mL 400000 UNIT PO ×2 (08:55→15:26)
[2020-05-30] MEDS: loratadine 10 mg Tablet PO (08:55)
[2020-05-30] MEDS: aspirin 81 mg EC Tablet PO (08:55)
[2020-05-30] MEDS: docusate sodium 100 mg Capsule PO (08:55)
[2020-05-30] MEDS: divalproex DR 500 mg Tablet PO ×2 (09:57→20:23)
[2020-05-30 11:07] LABS: Glucose Point of Care 287 mg/dL (70-110)
[2020-05-30] MEDS: levofloxacin-dextrose 5 % 750 MG/150 ML PREMIX 100 MG IV (15:25)
--- NOTE | 2020-05-30 16:19 | PM.PN ---
Subjective Subjective: Interval history: Head and neck CT that was performed yesterday did not show any obvious suspicious masses. Incidentally noted 1.4 cm right thyroid nodule. Thoracic esophagus appeared normal no significant stricture or narrowing. Chronic emphysematous changes were seen. Patient attempted to participate with PT, however is increasingly deconditioned. Patient and therapist remain boxing and waning during the course of this admission, he is a 2 person moderate assist at this present time. Previously he was able to ambulate approximately 20 feet. Exfoliative rash noted over B/L forearms today. No gross cellulitis currently Medications: Reviewed: Yes Vitals/I&O/Wt Last Vital Signs Temp 98.2 F 05/30/20 15:45 Pulse 98 05/30/20 15:45 Resp 18 05/30/20 15:45 BP 102/54 05/30/20 15:45 Pulse Ox 93 05/30/20 15:45 05/30/20 05/30/20 05/30/20 06:59 14:59 22:59 Intake Total 340 / 340 Output Total 400 / 900 Balance -400 / -630 340 / 340 Physical Exam Narrative: EXAM NARRATIVE: GEN: Awake, alert and oriented, no acute distress CVS: S1S2 N RS: CTA B/L Abd: Soft, nt/nd , bs+ DEVICE PROCESSING ENGINEER: no focal neuro deficits EXT: Bilateral stasis dermatitis noted. Urinary Catheter Management^: Alaniz: Cath Placed During This Visit: yes Reason for Continuing Indwelling Catheter: Acute Urinary Retention or Obstruction Urinary Catheter Date of Insertion: 05/22/20 Urinary Catheter Time of Insertion: 14:45 Data : 05/29/20 04:18 05/29/20 04:18 A&P Assessment and plan (1) SIRS (systemic inflammatory response syndrome): Status: Acute (2) Tongue leukoplakia: Status: Acute (3) Odynophagia: Status: Acute (4) Hyponatremia: Status: Acute Additional A&P Information Admitted on 05/21 with chief complaint of tongue swelling x 2 weeks,odynophagia and dysphagia. On exam noted to have leukoplakia. Hospital course notable for development of fever. Met SIRS criteria with fever and tachycardia. #SIRS: Evaluation for sepsis thus far with negative urine and blood cultures. UA unremarkable. Chest x-ray without gross consolidation. There are areas of skin excoriation, however no gross signs of infection noted at this present time. He has received a course of levofloxacin empirically for 9 days, discontinue antibiotics today, appears to be improved. # Tongue swelling, leuokoplakia, dysphagia : Noted to have multiple oral ulcerations on exam these are currently improving. Initially concern for esophageal candidiasis, patient received treatment with fluconazole. It would be odd for him to have developed esophageal candidiasis while on fluconazole maintainence for cyrptococcal meningitis. Uncertain if patient was adherent to his medication regimen.. Uncertain if patient has been taking chronic steroids, dexamethasone 1 mg p.o. daily appears on his medication list, however per notes review this should have been last renewed for 30 days in January 2020. Uncertain if he was taking this prior to coming to the hospital. Unable to verify drugs list so far. If patient has truly been on this dose of steroids for a prolonged, differentials would include CMV esophagitis for which EGD would need to be performed and biopsies taken. 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 Noninfectious differentials include flare of underlying pemphigoid, uncertain how this diagnosis was originally made vs drug reaction from Depakote, however does not appear to have had any recent changes in his dosage and appears to have been tolerating it since January 2020. His dysphagia and odynophagia is currently improved. CT of the neck and abdomen did not show any gross masses or lesions. Since he is currently improving, he prefers to defer this to outpatient. # Hypoglycemia: stopped Lantus, continue mild sliding scale, HbA1c 5.2 , will discontinue long standing insulin at discharge # Bullous pemphigoid, uncertain how this is managed as outpatient, or if he is currently on or off steroids. 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 He is 2 person assist here, has not been able to independetly get out of bed, unlikely to safely manage his ADLs independently at home. This was discussed additionally with his sister. He is now agreeable to going to SNF, choices provided. Attestations Medical Necessity Statement*: Resuming steroids, monitor for improvement of skin excoriations, disposition planning. Coding Level of Care Code Acute Wet Pan Operator for g Fwd Diagnoses SIRS (systemic inflammatory response syndrome) R65.10 Tongue leukoplakia K13.21 Odynophagia R13.10 Hyponatremia E87.1
[2020-05-30 17:00] LABS: Glucose Point of Care 164 mg/dL (70-110)
[2020-05-30] MEDS: ondansetron 2 mg/ML SDV 2 mL 4 MG IVP ×2 (17:18→22:43)
--- NOTE | 2020-05-30 17:20 | PC.NURSE ---
pt did not finish meal due to nausea and vomiting. nurse notified
[2020-05-30] MEDS: FUROsemide 40 mg Tablet PO (18:14)
[2020-05-30] MEDS: acetaminophen 325 mg Tablet 650 MG PO (20:22)
[2020-05-30] MEDS: enoxaparin 40 mg/0.4 mL Syringe SUBCUT (20:24)
[2020-05-30 20:57] LABS: Glucose Point of Care 118 mg/dL (70-110)
[2020-05-31] VITALS (124 sets, daily range): BP systolic 58–129; BP diastolic 38–83; PULSE 52–169; RESP 16–30; TEMP 36.4–37.3; O2SAT 88–96
[2020-05-31 06:48] LABS: Glucose Point of Care 112 mg/dL (70-110)
[2020-05-31] MEDS: dexamethasone 4 mg Tablet 1 MG PO (08:26)
[2020-05-31] MEDS: docusate sodium 100 mg Capsule PO (08:26)
[2020-05-31] MEDS: aspirin 81 mg EC Tablet PO (08:28)
[2020-05-31] MEDS: tamsulosin 0.4 mg Capsule PO ×2 (08:28→17:38)
[2020-05-31] MEDS: divalproex DR 500 mg Tablet PO ×2 (08:28→17:38)
[2020-05-31] MEDS: loratadine 10 mg Tablet PO (08:28)
[2020-05-31] MEDS: fluconazole 100 mg Tablet 400 MG PO (08:28)
[2020-05-31] MEDS: pantoprazole DR 40 mg Tablet PO (08:29)
[2020-05-31] MEDS: FUROsemide 40 mg Tablet PO (08:29)
[2020-05-31] MEDS: potassium chloride ER 20 mEq Tablet PO (08:29)
[2020-05-31] MEDS: nystatin 100,000 unit/mL UDC 5 mL 400000 UNIT PO ×3 (08:29→20:48)
[2020-05-31] MEDS: ondansetron 2 mg/ML SDV 2 mL 4 MG IVP ×2 (08:43→13:51)
--- NOTE | 2020-05-31 09:53 | ECG_ITS ---
[facility] Test Date: 2020-05-31 Pat Name: Randy German Department: Room: 270 Gender: Male Manager Search: : 1955 Requested By: Nhung Perez Order Number: [id number] Mata MD: Viki Walden M.D. Measurements Intervals [place] Rate: 168 P: ME: QRS: -58 QRSD: 151 T: 31 QT: 306 QTc: 512 Interpretive Statements ATRIAL FIBRILLATION WITH RAPID VENTRICULAR RESPONSE Right bundle-branch block LEFT AXIS DEVIATION Compared to ECG 05/21/2020 18:11:34 Sinus tachycardia no longer present Left-axis deviation no longer present Electronically Signed On 06-01-2020 11:12:58 GRADE SCHOOL TEACHER by Viki Walden M.D. [id number]
--- NOTE | 2020-05-31 10:00 | PC.OT ---
OT tx attempted. Pt experiencing low BP and other status changes at this time. Physician/nursing working with pt and transfer to ICU planned. OT tx will be withheld today and OTR to check pt status for possible resumption of OT services tomorrow.
[2020-05-31 10:17] LABS: Alanine Aminotransferase < 5 U/L (0-41); Albumin Level 1.7 g/dL (3.5-5.2); Alkaline Phosphatase 68 IU/L (40-130); Blood Urea Nitrogen 8 mg/dL (8-23); Carbon Dioxide 24 mmol/L (22-29); Chloride 89 mmol/L (98-107); Glomerular Filtration Rate 136.5 mL/min (90-130); Glucose 129 mg/dL (65-115); Magnesium 1.3 mg/dL (1.7-2.3); Osmolality Calculated 262 mOsm/kg (285-295); Sodium 126 mmol/L (136-145); Total Bilirubin 0.3 mg/dL (0.15-1.2); Total Protein 4.7 g/dL (6.6-8.7)
[2020-05-31 10:18] LABS: Troponin(5th) Baseline 23 ng/L (0-15)
[2020-05-31 10:27] LABS: Creatinine Clr Calc Pharmacy 149.5852
[2020-05-31 10:33] LABS: Anion Gap 16.7 (5-19); Potassium 3.7 mmol/L (3.5-5.1)
[2020-05-31 10:34] LABS: Aspartate Amino Transferase 11 U/L (0-40)
[2020-05-31 11:12] LABS: Hematocrit 31.3 % (42.0-52.0); Hemoglobin 10.3 g/dL (11.7-16.6); Mean Corpuscular HGB Conc 32.9 g/dL (30.0-36.0); Mean Corpuscular Hemoglobin 29.2 pg (28.0-34.0); Mean Corpuscular Volume 88.7 fL (80-94); Mean Platelet Volume 10.8 fL (7.4-10.4); Platelet Count 133 10^3/cmm (130-400); Red Blood Count 3.53 10^6/uL (4.1-5.3); Red Cell Distribution Width 16.1 % (12.1-15.1); White Blood Count 13.6 10^3/uL (4.0-10.0)
[2020-05-31 11:47] LABS: Slide Review Slide Review Perform
--- NOTE | 2020-05-31 11:53 | ECG_ITS ---
[facility] Test Date: 2020-05-31 Pat Name: Randy German Department: Room: ICU01 Gender: Male Dieing Out Machine Operator: : 1955 Requested By: Nhung Perez Order Number: [id number] Mata MD: Viki Walden M.D. Measurements Intervals [place] Rate: 81 P: 194 NV: 134 QRS: 102 QRSD: 164 T: 64 QT: 408 QTc: 475 Interpretive Statements SINUS RHYTHM WITH SINUS ARRHYTHMIA MARKED RIGHT AXIS DEVIATION [QRS AXIS > 100] RIGHT BUNDLE BRANCH BLOCK [120+ ms QRS DURATION, UPRIGHT V1, 40+ ms S IN I/aVL/V4/V5/V6] Compared to ECG 05/31/2020 09:26:16 Right-axis deviation now present Right bundle-branch block now present Atrial fibrillation no longer present Intraventricular conduction delay no longer present Electronically Signed On 06-01-2020 11:31:00 VALLEZ FILTER OPERATOR by Viki Walden M.D. [id number]
[2020-05-31 12:16] LABS: Absolute Neutrophil 9.2 10^3/cmm (1.4-6.5); Absolute Segmented Neutrophil 8.7 10/cmm (1.6-7.1); Anisocytosis 1+; Band Neutrophils Absolute 0.5 10^3/cmm (0.0-1.2); Eosinophils 0 %; Lymphocytes 10 %; Monocytes Absolute 0.4 10^3/cmm (0.1-0.6); Platelet Estimate Normal (Normal); Segmented Neutrophils 64 %; Total Cells Counted 100 (0-100)
[2020-05-31 13:10] LABS: Glucose Point of Care 158 mg/dL (70-110)
[2020-05-31 13:12] LABS: Troponin 5 2HR 20.21 ng/L (0-15)
[2020-05-31 13:17] LABS: Troponin 5 2HR Delta -2.79 ABS# (0-10)
[2020-05-31] MEDS: dilTIAZem 30 mg Tablet PO (13:18)
[2020-05-31] MEDS: magnesium sulfate premix 2 GM/50 ML PIGGYBACK IV (13:18)
[2020-05-31] MEDS: sodium chloride 0.9% 1,000 ML 999 ML IV (13:54)
--- NOTE | 2020-05-31 14:02 | PC.NURSE ---
Upon patient medication administration and assessment this morning patient was up in chair in room complained of numbness from the shoulders down. Obtained a manual blood pressure in left arm sitting of 58/38. Called physician no answer. Patient was helped back to his bed with physical therapy and was placed in a trendelenburg position. Patient was alert and orientated and was not in any distress. Dr. Perez called and wanted a full set of vitals. Patient was noted to have irregular tachycardia. An STAT EKG revealed a-fib with RVR. Patient's oxygen was 85% on RA. Placed on 2L NC and came up to 92%. Dr Perez at bedside. Verbal orders were given for 2L bolus of NS 0.9%, 20mg of Cardizem IVP to be given in 10 MG doses over 2 minutes. Verbal order given to give Solu-Medrol 125mg IVP once. 10mg of Cardizem IVP given by this nurse at 0944 per verbal order given by Dr. Perez at bedside, blood pressure noted to be 88/56 and heart rate was 154 at this time. Solu-Medrol given via IV push per Dr Perez at 0946. Blood pressure noted 70/41 at 0948. New IV established at 0941. 10mg more of Cardizem then pushed via verbal order at bedside at 0950 with a heart rate of 162 and a blood pressure of 62/42. CBC, CMP, Mag, and series Troponins ordered per verbal order. Verbal order given for Levophed drip start at 4mg and started at 1005. Blood pressure came up to 127/83 and heart rate 156. Central line established in patients right groin performed by Dr. Perez at 1026. All lines transferred to central line. Oxygen saturation at 89% turned up to 3L NC. ICU bed 01 obtained and patient transferred down via bed at 1130. Bedside report given. Vitals WNL at 113/65 blood pressure, 88pulse, 94% oxygen on 3L NC, 20 respirations, and 98.7 temp.
--- NOTE | 2020-05-31 14:45 | PC.NURSE ---
Late entry Converted out of A-Fib with RVR at 1049. Blood pressure 129/71 and pulse normal sinus rhythm at 90bpm.
--- NOTE | 2020-05-31 15:53 | ECG_ITS ---
[facility] Test Date: 2020-05-31 Pat Name: Randy German Department: Room: ICU01 Gender: Male Automotive Buyer: : 1955 Requested By: Nhung Perez Order Number: [id number] Mata MD: Viki Walden M.D. Measurements Intervals [place] Rate: 76 P: -33 [place]: 124 QRS: -41 QRSD: 165 T: 9 QT: 423 QTc: 477 Interpretive Statements SINUS RHYTHM MARKED LEFT AXIS DEVIATION [QRS AXIS < -30] RIGHT BUNDLE BRANCH BLOCK [120+ ms QRS DURATION, UPRIGHT V1, 40+ ms S IN I/aVL/V4/V5/V6] Compared to ECG 05/31/2020 13:31:03 Left-axis deviation now present Sinus arrhythmia no longer present Right-axis deviation no longer present Electronically Signed On 06-01-2020 11:28:02 INVENTORY AUDIT CLERK by Viki Walden M.D. [id number]
[2020-05-31 16:50] LABS: Troponin 5 6HR 17.03 ng/L (0-15)
[2020-05-31 16:51] LABS: Glucose Point of Care 187 mg/dL (70-110)
[2020-05-31 17:00] LABS: Troponin 5 6HR Delta -5.97 ng/L (0-12)
--- NOTE | 2020-05-31 17:54 | PC.NURSE ---
1220 Patient arrived to ICU with FILI Wise. Bedside report was given. Levophed drip infusing at 4 mcg/min at time of arrival. [address] Perez to report Mg level, heart rate and rhythm, blood pressure and Levophed drip, clarified Cardizem drip order. Order to discontinue Cardizem drip, change to PO. Give IV Mg replacement. [address] Perez to report irregular heart rhythm with brief periods of bradycardia. Orders to hold 1900 PO Carizem.
--- NOTE | 2020-05-31 18:17 | P.PN_ITS ---
Subjective Subjective: Interval history: Upon assessment this morning patient was noted to have a BP of 58/38, sp02 85%. HR at the time was 180 bpm, EKG with A fib with RVR. HE was mentating well. cardioversion was considered given unstable A fib however patient is a DNR/DNI and I elected to proceed with medical management first. He was given 2L bolus of NS 0.9%, 20mg of Cardizem IVP given in 10 MG doses over 2 minutes. Solu-Medrol 125mg also given due to hypotension and concern for adrenal insufficency noted on previous patient records. Started on Levophed drip at 4mg. Blood pressure came up to 127/83 and heart rate 156. rigth femoral central line was placed aftre patient onsent. Eventually patient converted to sinus rhythm at 80bpm. Transfrerd to ICU for further care. Cardizem drip not subsequently initiated as converted. He was started on cardizem 30mg po q6h however then was noted to have sinus bradycardia at 40bpm and further doses have been held. Troponin series negative. Mag 1.3, given 2g iv, K at 3.7. 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 MACHINE OPERATOR: no focal neuro deficits Urinary Catheter Management^: Alaniz: Cath Placed During This Visit: yes Reason for Continuing Indwelling Catheter: Accurate Measurement of Urinary Output in Critically Ill Patients Urinary Catheter Date of Insertion: 05/22/20 Urinary Catheter Time of Insertion: 14:45 Data : 05/31/20 10:45 02/26/21 09:53 A&P Assessment and plan (1) SIRS (systemic inflammatory response syndrome): Status: Acute (2) Tongue leukoplakia: Status: Acute (3) Odynophagia: Status: Acute (4) Hyponatremia: Status: Acute Additional A&P Information Admitted on 05/21 with chief complaint of tongue swelling x 2 weeks,odynophagia and dysphagia. On exam noted to have leukoplakia. Hospital course notable for development of fever. Met SIRS criteria with fever and tachycardia. # A fib with RVR: new event today. management as noted above #SIRS: Evaluation for sepsis thus far with negative urine and blood cultures. UA unremarkable. Chest x-ray without gross consolidation. There are areas of skin excoriation, however no gross signs of infection noted at this present time. He has received a course of levofloxacin empirically for 9 days, discontinue antibiotics today, appears to be improved. # Tongue swelling, leuokoplakia, dysphagia : Noted to have multiple oral ulcerations on exam these are currently improving. Initially concern for esophageal candidiasis, patient received treatment with fluconazole. It would be odd for him to have developed esophageal candidiasis while on fluconazole maintainence for cyrptococcal meningitis. Uncertain if patient was adherent to his medication regimen.. Uncertain if patient has been taking chronic steroids, dexamethasone 1 mg p.o. daily appears on his medication list, however per notes review this should have been last renewed for 30 days in January 2020. Uncertain if he was taking this prior to coming to the hospital. Unable to verify drugs list so far. If patient has truly been on this dose of steroids for a prolonged, differentials would include CMV esophagitis for which EGD would need to be performed and biopsies taken. 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 Noninfectious differentials include flare of underlying pemphigoid, uncertain how this diagnosis was originally made vs drug reaction from Depakote, however does not appear to have had any recent changes in his dosage and appears to have been tolerating it since January 2020. His dysphagia and odynophagia is currently improved. CT of the neck and abdomen did not show any gross masses or lesions. Since he is currently improving, he prefers to defer this to outpatient. # Hypoglycemia: stopped Lantus, continue mild sliding scale, HbA1c 5.2 , will discontinue long standing insulin at discharge # Bullous pemphigoid, uncertain how this is managed as outpatient, or if he is currently on or off steroids. 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 He is 2 person assist here, has not been able to independetly get out of bed, unlikely to safely manage his ADLs independently at home. This was discussed additionally with his sister. He is now agreeable to going to SNF, choices provided. Attestations Medical Necessity Statement*: a fib with RVR, acute events as noted above Coding Level of Care Code Acute Blocking Machine Operator Second for Abhig Bob Diagnoses SIRS (systemic inflammatory response syndrome) R65.10 Tongue leukoplakia K13.21 Odynophagia R13.10 Hyponatremia E87.1
--- NOTE | 2020-05-31 18:32 | PM.ACPR ---
Procedure/Consent Time out: Time Out Performed: Yes Consent: Consent for Procedure: Consent obtained from patient Procedure Narrative: right femoral central line placed at 10:30am under aseptic precautions with US guidance. Single attempt. Patient tolerated well Acute Procedures Epistaxis Control: Time out performed: Yes
[2020-05-31] MEDS: lidocaine 1% 5 ML in potassium chloride premix 100 ML 25 ML IV (18:39)
[2020-05-31 20:46] LABS: Glucose Point of Care 203 mg/dL (70-110)
[2020-05-31] MEDS: oxyCODONE 5 mg IR Tab/Cap 10 MG PO (20:49)
[2020-05-31] MEDS: enoxaparin 40 mg/0.4 mL Syringe SUBCUT (20:50)
[2020-06-01] VITALS (78 sets, daily range): BP systolic 88–118; BP diastolic 53–71; PULSE 46–84; RESP 15–27; TEMP 36.3–37.1; O2SAT 84–94
--- NOTE | 2020-06-01 07:05 | PC.NURSE ---
Pt's levophed drip held at 0645 (MAR will not allow change to drip).
[2020-06-01 07:36] LABS: Anion Gap 13.3 (5-19); Blood Urea Nitrogen 12 mg/dL (8-23); Calcium 7.6 mg/dL (8.5-10.5); Carbon Dioxide 29 mmol/L (22-29); Chloride 88 mmol/L (98-107); Glomerular Filtration Rate 114.3 mL/min (90-130); Glucose 169 mg/dL (65-115); Osmolality Calculated 266 mOsm/kg (285-295); Potassium 4.3 mmol/L (3.5-5.1); Sodium 126 mmol/L (136-145)
[2020-06-01 07:37] LABS: Glucose Point of Care 188 mg/dL (70-110)
[2020-06-01] MEDS: FUROsemide 40 mg Tablet PO (07:37)
[2020-06-01] MEDS: fluconazole 100 mg Tablet 400 MG PO (08:29)
[2020-06-01] MEDS: aspirin 81 mg EC Tablet PO (08:29)
[2020-06-01] MEDS: divalproex DR 500 mg Tablet PO ×2 (08:29→18:01)
[2020-06-01] MEDS: loratadine 10 mg Tablet PO (08:30)
[2020-06-01] MEDS: nystatin 100,000 unit/mL UDC 5 mL 400000 UNIT PO ×4 (08:30→20:40)
[2020-06-01] MEDS: tamsulosin 0.4 mg Capsule PO ×2 (08:30→18:01)
[2020-06-01] MEDS: docusate sodium 100 mg Capsule PO (08:30)
[2020-06-01] MEDS: pantoprazole DR 40 mg Tablet PO (08:30)
[2020-06-01] MEDS: potassium chloride ER 20 mEq Tablet PO (08:30)
[2020-06-01] MEDS: dexamethasone 4 mg Tablet 1 MG PO (08:31)
[2020-06-01 11:06] LABS: Glucose Point of Care 174 mg/dL (70-110)
--- NOTE | 2020-06-01 13:07 | P.PN_ITS ---
Subjective Subjective: Interval history: Levophed turned off this morning. Currently hemodynamically stable. Heart rate ranging at around 60 bpm, no further Afib. 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 Urinary Catheter Management^: Alaniz: Cath Placed During This Visit: yes Reason for Continuing Indwelling Catheter: Accurate Measurement of Urinary Output in Critically Ill Patients Urinary Catheter Date of Insertion: 05/22/20 Urinary Catheter Time of Insertion: 14:45 Data : 05/31/20 10:45 06/01/20 06:40 A&P Assessment and plan (1) SIRS (systemic inflammatory response syndrome): Status: Acute (2) Tongue leukoplakia: Status: Acute (3) Odynophagia: Status: Acute (4) Hyponatremia: Status: Acute Additional A&P Information Admitted on 05/21 with chief complaint of tongue swelling x 2 weeks,odynophagia and dysphagia. On exam noted to have leukoplakia. Hospital course notable for development of fever. Met SIRS criteria with fever and tachycardia. # A fib with RVR with hemodynamic compromise on 05/31 Now resolved, currently in sinus rhythm, rate controlled at 60bpm Converted to sinus rhythm with Cardizem pushes on 05/31 Further cardizem held due to bradycardia #SIRS, resolved: Evaluation for sepsis thus far with negative urine and blood cultures. UA unremarkable. Chest x-ray without gross consolidation. There are areas of skin excoriation, however no gross signs of infection noted at this present time. He has received a course of levofloxacin empirically for 9 days. # Tongue swelling, leuokoplakia, dysphagia : Noted to have multiple oral ulcerations on exam that are now resolved States today that he may have discontinued his medications, he is uncertain as home health has been setting up his medications Initially concern for esophageal candidiasis, patient received treatment with F luconazole 400mg. He will likely remain on lifelong maintainence of fluconazole for maintaince rx for cryptococcal meningitis. As he reports that he has been off steroids for 2 months, and and given improvement with p.o. fluconazole, less likely to be CMV esophagitis, however cannot be completely excluded. He defers endoscopic intervention for now. Would not treat with valganciclovir empirically as risks do not outweigh the benefits at this time due to risk of toxicity from medication without a conclusive diagnosis . Noninfectious differentials include flare of underlying pemphigus, uncertain how this diagnosis was originally made vs drug reaction from Depakote, however does not appear to have had any recent changes in his dosage and appears to have been tolerating it since January 2020. Unable to complete a Gastrografin study for evaluation of dysphagia and any masses. CT of the chest and neck was performed instead and did not show any gross lesions. #Pemphigus : patient reports today that he stopped taking dexamethasone 2 months ago. His last dose was dexamethasone 1 mg p.o. daily. Dexamethasone has now been resumed due to worsening exfoliative rash that was noted during this admission. He should follow-up as outpatient with dermatology. He does not recall how he was diagnosed with pemphigus initially. States that this was likely diagnosed by his infectious disease doctor in [place] several years ago. 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
--- NOTE | 2020-06-01 15:10 | PC.OT ---
OT discussed with nursing if patient could be resumed for occupational therapy and if goals were still appropriate. She indicated yes, and we planned to see him this afternoon. However, we noted that his blood presdure was quite low at midday and that his heart rate had dropped when physical therapy got him up this afternoon. We decided to wait and see how he was doing, and hold off O.T. intervention until tomorrow.
[2020-06-01 17:13] LABS: Glucose Point of Care 193 mg/dL (70-110)
[2020-06-01] MEDS: enoxaparin 40 mg/0.4 mL Syringe SUBCUT (20:40)
[2020-06-01 20:52] LABS: Glucose Point of Care 180 mg/dL (70-110)
[2020-06-01] MEDS: oxyCODONE 5 mg IR Tab/Cap 10 MG PO (21:39)
[2020-06-02] VITALS (7 sets, daily range): BP systolic 91–104; BP diastolic 61–68; PULSE 56–65; RESP 16–18; TEMP 35.9–36.5; O2SAT 92–95
--- NOTE | 2020-06-02 04:27 | PC.NURSE ---
Bladder scanned 88ml found
[2020-06-02 06:32] LABS: Basophils % 0.1 %; Hematocrit 30.8 % (42.0-52.0); Hemoglobin 10.1 g/dL (11.7-16.6); Lymphocytes # 1.8 10^3/uL (0.8-4.8); Lymphocytes % 12.3 %; Mean Corpuscular HGB Conc 32.8 g/dL (30.0-36.0); Mean Corpuscular Hemoglobin 28.7 pg (28.0-34.0); Mean Corpuscular Volume 87.5 fL (80-94); Mean Platelet Volume 11.2 fL (7.4-10.4); Monocytes # 0.9 10^3/uL (0.2-0.9); Monocytes % 5.9 %; Neutrophils # 7.04 10^3/uL (1.8-7.7); Neutrophils % 48.4 %; Nucleated Red Blood Cells % 0 %; Platelet Count 132 10^3/cmm (130-400); Red Blood Count 3.52 10^6/uL (4.1-5.3); Red Cell Distribution Width 16.4 % (12.1-15.1); White Blood Count 14.5 10^3/uL (4.0-10.0)
[2020-06-02 06:45] LABS: Glucose Point of Care 149 mg/dL (70-110)
[2020-06-02 08:07] LABS: Alanine Aminotransferase < 5 U/L (0-41); Albumin Level 2.2 g/dL (3.5-5.2); Alkaline Phosphatase 58 IU/L (40-130); Aspartate Amino Transferase 11 U/L (0-40); Blood Urea Nitrogen 17 mg/dL (8-23); Calcium 7.9 mg/dL (8.5-10.5); Carbon Dioxide 31 mmol/L (22-29); Chloride 90 mmol/L (98-107); Globulin 2.7 g/dL (1.3-4.6); Glomerular Filtration Rate 136.5 mL/min (90-130); Glucose 141 mg/dL (65-115); Osmolality Calculated 274 mOsm/kg (285-295); Sodium 130 mmol/L (136-145); Total Bilirubin 0.2 mg/dL (0.15-1.2); Total Protein 4.9 g/dL (6.6-8.7)
[2020-06-02 08:31] LABS: Slide Review Slide Review Perform
[2020-06-02] MEDS: FUROsemide 20 mg Tablet PO (08:59)
[2020-06-02] MEDS: potassium chloride ER 20 mEq Tablet PO (09:02)
[2020-06-02] MEDS: loratadine 10 mg Tablet PO (09:02)
[2020-06-02] MEDS: divalproex DR 500 mg Tablet PO (09:03)
[2020-06-02] MEDS: pantoprazole DR 40 mg Tablet PO (09:03)
[2020-06-02] MEDS: aspirin 81 mg EC Tablet PO (09:03)
[2020-06-02] MEDS: dexamethasone 4 mg Tablet 1 MG PO (09:04)
[2020-06-02] MEDS: tamsulosin 0.4 mg Capsule PO (09:04)
[2020-06-02] MEDS: fluconazole 100 mg Tablet 400 MG PO (09:04)
[2020-06-02] MEDS: docusate sodium 100 mg Capsule PO (09:04)
[2020-06-02] MEDS: nystatin 100,000 unit/mL UDC 5 mL 400000 UNIT PO ×2 (09:05→13:22)
--- NOTE | 2020-06-02 11:54 | PM.DCS ---
Discharge Providers Date of Admission: 05/22/20 14:36 Date of Discharge: June 02, 2020 Attending Provider at Admission: Brent Little MD Attending Provider at Discharge: Nhung Perez MD Primary Care Provider: FÁTIMA Dugan Diagnoses at Discharge Discharge Diagnosis (1) SIRS (systemic inflammatory response syndrome): Status: Acute (2) Tongue leukoplakia: Status: Acute (3) Odynophagia: Status: Acute (4) Hyponatremia: Status: Acute Reason for Visit Reason for Visit: FEVER, WEAKNESS, N/V/D X 1 WEEK Hospital Course Hospital Course 64 year old male who has multiple comorbid conditions as outlined in H&P, admitted on 05/21 with chief complaint of tongue swelling x 2 weeks,odynophagia and dysphagia. On exam noted to have leukoplakia. Hospital course notable for development of fever. Met SIRS criteria with fever and tachycardia on admission, now resolved. # A fib with RVR with hemodynamic compromise on 05/31 Now resolved, currently in sinus rhythm, rate controlled at 60bpm Converted to sinus rhythm with Cardizem pushes on 05/31, has been in sinus rhythm since then. Further cardizem held due to bradycardia #SIRS, resolved: Evaluation for sepsis thus far with negative urine and blood cultures. UA unremarkable. Chest x-ray without gross consolidation. There are areas of skin excoriation, however no gross signs of infection noted at this present time. He has received a course of levofloxacin empirically for 9 days. # Tongue swelling, leuokoplakia, dysphagia : Noted to have multiple oral ulcerations and tongue swelling on admission on exam that are now resolved States today that he may have discontinued his medications, he is uncertain as home health has been setting up his medications Initially concern for esophageal candidiasis, patient received treatment with Fluconazole 400mg. He will likely remain on lifelong maintainence of fluconazole for maintaince rx for cryptococcal meningitis. As he reports that he has been off steroids for 2 months, and and given improvement with p.o. fluconazole, less likely to be CMV esophagitis, however cannot be completely excluded. He defers endoscopic intervention for now. Would not treat with valganciclovir empirically as risks do not outweigh the benefits at this time due to risk of toxicity from medication without a conclusive diagnosis . Noninfectious differentials include flare of underlying pemphigus, uncertain how this diagnosis was originally made vs drug reaction from Depakote, however does not appear to have had any recent changes in his dosage and appears to have been tolerating it since January 2020. Unable to complete a Gastrografin study for evaluation of dysphagia and any masses. CT of the chest and neck was performed instead and did not show any gross lesions. If persisting dysphia, will need outpatient EGD #Pemphigus : patient reports that he stopped taking dexamethasone 2 months ago. His last dose was dexamethasone 1 mg p.o. daily. Dexamethasone 1mg po daily has now been resumed due to worsening exfoliative rash that was noted during this admission. He should follow-up as outpatient with dermatology. He does not recall how he was diagnosed with pemphigus initially. States that this was likely diagnosed by his infectious disease doctor in [place] several years ago. # Hypoglycemia: stopped Lantus, continue mild sliding scale while patient remains on steroids, HbA1c 5.2 , will discontinue long standing insulin at discharge. # h/o seizure disorder: currently on Depakote since 01/2020 # h/o cryptococcal meningitis 2011 : on fluconazole maintainence, no active issues # CHF: Reduce lasix to 20mg po daily, LE swelling improving Dispo: SNF given significant deconditioining, [facility] DNR/DNI Physical Exam Narrative: EXAM NARRATIVE: GEN: Awake, alert and oriented, no acute distress CVS: S1S2 N RS: CTA B/L Abd: Soft, nt/nd , bs+ RIVER RAT: no focal neuro deficits Urinary Catheter Management^: Alaniz: Cath Placed During This Visit: yes, but has since been removed by the nurse Reason for Continuing Indwelling Catheter: Accurate Measurement of Urinary Output in Critically Ill Patients Urinary Catheter Date of Insertion: 05/22/20 Urinary Catheter Time of Insertion: 14:45 Date Urinary Catheter Removed: 06/01/20 Time Urinary Catheter Discontinued: 14:00 Discharge Data Data Completed and Pending: Completed Studies During Hospitalization Category Date Time Status CT chest w con* 7 [id number] Routine Cat Scan 05/29/20 12:[address] neck w con* 70 [id number] Routine Cat Scan 05/29/20 12:45 Completed XR chest 1V sebastian ble [id number] Routine Exams 05/23/20 12:11 Completed XR chest 1V sebastian ble [id number] Stat Exams 05/21/20 14:09 Completed Pending at discharge Category Date Time Status SARS Covid-2 Anti gen Routine Lab 05/31/20 09:10 Uncollected Labs from last 24 hours 06/02/20 06/02/20 06/02/20 06:41 05:40 05:40 WBC 14.5 H RBC 3.52 L Hgb 10.1 L Hct 30.8 L MCV 87.5 MCH 28.7 MCHC 32.8 RDW 16.4 H Plt Count 132 MPV 11.2 H Neut % (Auto) 48.4 Lymph % (Auto) 12.3 [place] % (Auto) 5.9 Eos % (Auto) 0.0 Baso % (Auto) 0.1 Neut # (Auto) 7.04 Lymph # (Auto) 1.8 [place] # (Auto) 0.9 Eos # (Auto) 0.0 Baso # (Auto) 0.0 Nucleated RBC % (a uto) 0 Nucleated RBCs # 0.0 Sodium 130 L Potassium 4.0 Chloride 90 L Carbon Dioxide 31 H Anion Gap 13.0 BUN 17 Creatinine 0.6 L GFR Calculation 136.5 H Glucose 141 H POC Glucose 149 H Calculated Osmolal ity 274 L Calcium 7.9 L Total Bilirubin 0.2 AST 11 ALT < 5 Alkaline Phosphata se 58 Total Protein 4.9 L Albumin 2.2 L Globulin 2.7 06/01/20 06/01/20 20:40 16:58 WBC RBC Hgb Hct MCV MCH MCHC RDW Plt Count MPV Neut % (Auto) Lymph % (Auto) [place] % (Auto) Eos % (Auto) Baso % (Auto) Neut # (Auto) Lymph # (Auto) [place] # (Auto) Eos # (Auto) Baso # (Auto) Nucleated RBC % (a uto) Nucleated RBCs # Sodium Potassium Chloride Carbon Dioxide Anion Gap BUN Creatinine GFR Calculation Glucose POC Glucose 180 H 193 H Calculated Osmolal ity Calcium Total Bilirubin AST ALT Alkaline Phosphata se Total Protein Albumin Globulin Addt'l Data from Hospital Stay: Microbiology 05/28/20 04:30 Blood Blood Culture - Final NO GROWTH AFTER 5 DAYS 05/28/20 04:26 Blood Blood Culture - Final NO GROWTH AFTER 5 DAYS 05/22/20 09:50 Blood Blood Culture - Final NO GROWTH AFTER 5 DAYS 05/22/20 09:50 Blood Blood Culture - Final NO GROWTH AFTER 5 DAYS 05/22/20 13:36 Urine,Voided Urine Culture - Final 05/22/20 14:44 Sputum - Expectorated Sputum Sputum Culture - Final 05/21/20 14:08 Mouth RACHEAL Preparation - Final Vitals: Last Vital Signs Temp 97.6 F 06/02/20 11:00 Pulse 57 L 06/02/20 11:00 Resp 16 06/02/20 11:00 BP 97/63 06/02/20 11:00 Pulse Ox 95 06/02/20 11:00 Discharge Plan Discharge Patient Disposition: Home Condition: Stable Prescriptions: New pantoprazole 40 mg Tablet,Delayed Release (Dr/Ec) 40 mg PO DAILY 30 Days Qty: 30 RF: 0 Continued fluconazole 100 mg tablet 400 mg PO DAILY RF: 0 loratadine [Claritin] 10 mg tablet 10 mg PO DAILY RF: 0 divalproex [Depakote] 500 mg tablet,delayed release (DR/EC) 500 mg PO BID Qty: 60 RF: 3 tamsulosin 0.4 mg capsule 0.4 mg PO BID Qty: 60 RF: 5 methenamine hippurate 1 gram tablet 1 g PO BID Qty: 60 RF: 12 potassium chloride 10 mEq Tablet Extended Release 20 meq PO DAILY Qty: 30 RF: 0 tramadol 50 mg Tablet 50 mg PO Q4H PRN (Reason: Mild To Moderate Pain) Qty: 10 RF: 0 trazodone 100 mg Tablet 100 mg PO BEDTIME PRN (Reason: Sleep) Qty: 10 RF: 0 dexamethasone 4 mg Tablet 1 mg PO DAILY Qty: 30 RF: 0 furosemide 20 mg Tablet 20 mg PO DAILY@0800 Qty: 30 RF: 0 fluoxetine 20 mg Capsule 20 mg PO QAM Qty: 30 RF: 0 magnesium citrate Solution 150 ml PO BID PRN (Reason: constipation) Qty: 296 RF: 0 aspirin 81 mg Tablet,Delayed Release (Dr/Ec) 81 mg PO DAILY RF: 0 oxycodone 10 mg tablet 10 mg PO Q8H PRN (Reason: pain) 7 Days Qty: 21 RF: 0 Probiotic 1 cap PO DAILY RF: 0 ascorbic acid (vitamin C) [Vitamin C] 500 mg tablet extended release 1,000 mg PO DAILY RF: 0 Discontinued (DME) insulin syringe-needle U-100 [Easy Comfort Insulin Syringe] 0.5 mL 31 gauge x 5/16 syringe See Rx Instructions .ROUTE .MEDSUPPLY Qty: 100 RF: 5 magnesium oxide 400 mg magnesium tablet 400 mg PO BID Qty: 60 RF: 5 gabapentin 300 mg capsule 600 mg PO BID Qty: 120 RF: 5 (DME) blood-glucose meter [OneTouch Ultra2 Meter] Kit See Rx Instructions .ROUTE .MEDSUPPLY Qty: 1 RF: 0 (DME) OneTouch Ultra Blue Test Strip Strip See Rx Instructions .ROUTE .MEDSUPPLY Qty: 50 RF: 5 (DME) lancets [OneTouch Delica Plus Lancet] 33 gauge misc See Rx Instructions .ROUTE .MEDSUPPLY Qty: 100 RF: 5 Lantus U-100 Insulin 100 unit/mL solution 25 unit SUBCUT DAILY Qty: 10 RF: 0 doxepin 10 mg Capsule 10 mg PO BEDTIME Qty: 30 RF: 0 doxycycline monohydrate 100 mg Tablet 100 mg PO BID Qty: 5 RF: 0 cephalexin 500 mg Capsule 500 mg PO BID Qty: 5 RF: 0 Discharge Attestations Time Spent in Discharge Care*: greater than 30 min Status at Discharge: Cognitive status at discharge: cognitively intact, Behavioral status at discharge: cooperative, Quality Metrics Clinical Quality Measures During this hospital stay, did patient experience: None Coding Level of Care Code Acute Discharge Rn for g Fwd Diagnoses SIRS (systemic inflammatory response syndrome) R65.10 Tongue leukoplakia K13.21 Odynophagia R13.10 Hyponatremia E87.1
[2020-06-02 13:49] LABS: SARS Covid-2 Antigen Negative (Negative)
[2020-06-02 16:44] LABS: Glucose Point of Care 149 mg/dL (70-110)
== END 2020-06-02 16:30 | disposition skilled nursing facility (03) | DRG 158 ==
LOC: ER 16:49 → MEDSURG 18:47 → ICU 05-31 13:12 → MEDSURG 06-01 16:30
PROVIDERS: Internal Medicine; Admitting Provider Internal Medicine; Emergency Provider Family Medicine; PCP Nurse Practitioner; Visit Provider Student in an Organized Health Care Education/Training Program
DX: K13.21 Leukoplakia of oral mucosa, including tongue (principal); L12.0 Bullous pemphigoid; E87.1 Hypo-osmolality and hyponatremia; N13.8 Other obstructive and reflux uropathy; R65.10 Systemic inflammatory response syndrome (SIRS) of non-infectious origin without acute organ dysfunction; R13.10 Dysphagia, unspecified; Z79.52 Long term (current) use of systemic steroids; E11.649 Type 2 diabetes mellitus with hypoglycemia without coma; G40.909 Epilepsy, unspecified, not intractable, without status epilepticus; Z79.899 Other long term (current) drug therapy; E87.6 Hypokalemia; R91.8 Other nonspecific abnormal finding of lung field; F41.9 Anxiety disorder, unspecified; N40.1 Benign prostatic hyperplasia with lower urinary tract symptoms; R39.14 Feeling of incomplete bladder emptying; M19.90 Unspecified osteoarthritis, unspecified site; F51.04 Psychophysiologic insomnia; I11.0 Hypertensive heart disease with heart failure; I50.9 Heart failure, unspecified; E78.5 Hyperlipidemia, unspecified; K21.9 Gastro-esophageal reflux disease without esophagitis; Z79.891 Long term (current) use of opiate analgesic; Z79.82 Long term (current) use of aspirin; Z66 Do not resuscitate; I95.9 Hypotension, unspecified; I48.91 Unspecified atrial fibrillation; E04.1 Nontoxic single thyroid nodule; R21 Rash and other nonspecific skin eruption; Z87.891 Personal history of nicotine dependence; E55.9 Vitamin D deficiency, unspecified; F32.9 Major depressive disorder, single episode, unspecified; Z86.14 Personal history of Methicillin resistant Staphylococcus aureus infection
CPT/HCPCS: 36415; 36416; 36592; 51702; 70491; 71045; 71260; 80048; 80053; 81001; 82962; 83036; 83605; 83690; 83735; 83880; 84145; 84484; 85007; 85025; 87040; 87070; 87086; 87210; 87426; 87806; 93005; 96372; 96374; 97110; 97116; 97161; 97165; 97530; 97535; 99285; A4930; C1751; G0378; J1450; J1650; J1815 ×2; J1940; J1956; J2405; J3475; J3480; J3490; J7030; J7799; J8540; Q9967

== ENCOUNTER → 2020-08-21 11:18 | Outpatient (BNVA) | payer MEDICAID, SELFPAY | PROVIDERS: PCP Nurse Practitioner; Visit Provider Nurse Practitioner | DX: E11.9 Type 2 diabetes mellitus without complications (principal); I10 Essential (primary) hypertension | CPT/HCPCS: 80053; 80061; 83036; 83735 ==

== ENCOUNTER → 2020-10-15 10:58 | Outpatient (BNVA) | payer MEDICAID, SELFPAY | PROVIDERS: PCP Nurse Practitioner; Visit Provider Nurse Practitioner Family | DX: N40.0 Benign prostatic hyperplasia without lower urinary tract symptoms (principal); R33.9 Retention of urine, unspecified; R39.9 Unspecified symptoms and signs involving the genitourinary system | CPT/HCPCS: 81003 ==

== ENCOUNTER → 2020-11-21 16:28 | Outpatient (BNVA) | payer MEDICAID, SELFPAY | PROVIDERS: PCP Nurse Practitioner; Visit Provider Nurse Practitioner | DX: I10 Essential (primary) hypertension (principal); J30.9 Allergic rhinitis, unspecified; E11.9 Type 2 diabetes mellitus without complications; L10.0 Pemphigus vulgaris; Z86.61 Personal history of infections of the central nervous system | CPT/HCPCS: 80053; 80164; 83036; 85025 ==

== ENCOUNTER 2021-03-26 12:04 | Inpatient (IN) | payer MEDICAID, SELFPAY ==
[2021-03-26 12:06] VITALS: BP 129/89; PULSE 129; RESP 24; TEMP 37.3; O2SAT 96; BMI 29.1
--- NOTE | 2021-03-26 12:07 | ED_ITS ---
HPI - Fall General: Chief Complaint: Fall Stated Complaint: FALL/ PAIN ALL OVER Time Seen by Provider: 03/26/21 12:06 History of Present Illness: HPI Narrative: Mr. German is a 65-year-old gentleman with history of seizures, hypertension, diabetes who presents to the emergency department due to fall. He reports falling on Wednesday evening sometime. He believes that his feet got caught under him and denies specific lightheadedness, dizziness, chest pain, or shortness of breath preceding the event. He spent approximately 8 hours on the ground. He reports primarily falling on his right side. He did have head strike but does not think loss of consciousness. He currently complains of pelvis and bilateral hip pain as well as headache and right sided anterior rib pain. Overall the course of symptoms has been worsening. Intensity was moderate to severe. 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 Review of Systems General: Reports: 10 or more systems reviewed and unremarkable except in HPI and below PFSH ED PFSH: Medical History Abdominal wall hernia Allergic rhinitis Anxiety disorder Avascular necrosis of left femoral head Bimalleolar fracture of right ankle Bladder outlet obstruction BPH (benign prostatic hyperplasia) Chronic arthritis Chronic insomnia Closed displaced fracture of right acromial process Closed fracture of glenoid cavity of right scapula Closed pilon fracture of right tibia Controlled diabetes mellitus Dyslipidemia Essential (primary) hypertension GERD (gastroesophageal reflux disease) History of cryptococcal meningitis History of MRSA infection History of seizures Incomplete emptying of bladder Lower urinary tract symptoms (LUTS) Major depressive disorder Pemphigus vulgaris of gingival mucosa Pneumonia Suicidal ideation Superficial laceration of skin Tongue leukoplakia Vitamin D deficiency Surgical History History of hip surgery right History of inguinal herniorrhaphy right History of vasectomy Family History Grandmother Diabetes Father CAD (coronary artery disease) Denies family history of Bleeding disorder Social History Second hand smoke exposure: No Smoking risk assessment/counseling performed?: No Alcohol intake: never Desire information about alcohol rehabilitation?: No Counseling given: No Desire information about substance/drug rehabilitation?: No Counseling given: No Adopted: No Lives independently: Yes Household members: other Housing: House Marital status: Single service: No Current occupational status: disabled History of recent travel: No Current gender identity: Male Physical Exam Narrative: EXAM NARRATIVE: GENERAL/CONSTITUTIONAL -uncomfortable and chronically ill appearing. Eyes - PERRL, no conjunctival injection ENMT - Atraumatic external nose and ears. Moist mucous membranes NECK - supple. trachea midline CARDIOVASCULAR -chest wall tenderness palpation on the right side. Regular rate and rhythm. Peripheral pulses 2+ and equal RESPIRATORY -clear to auscultation bilaterally. No retractions or accessory muscle use. ABDOMEN/GI -abdominal generalized tenderness palpation without evidence of peritonitis. MSK -T and L tenderness to palpation. Extremities without obvious deformity however there is tenderness palpation of knee and ankle SKIN - Warm, Dry NEURO - alert and appropriately oriented. Moves all extremities equally. Course ED course: - Patient was seen and evaluated by me at bedside - Patient placed on cardiac monitors, IV access obtained - Initial evaluation notable for exam as above. ?Symptom treatment ordered - Labs notable for unremarkable hematologic panel. Metabolic panel notable for hypokalemia, hyperchloremia, decreased bicarb and increased anion gap. Negative delta troponin. CK elevated. Urinalysis without evidence of urinary tract infection - Imaging notable for no acute intracranial hemorrhage, no acute changes on cervical spine CT. CT chest abdomen pelvis notable for rib fracture no other acute traumatic injuries identified. - Upon serial reexamination after treatment the patient was minimally improved. Tachycardia persists despite fluids. - Based on patient history, evaluation, labs, and imaging as interpreted the most likely cause of the patient's condition is a fracture secondary to fall with rhabdomyolysis and acute metabolic derangement of somewhat unclear etiology - The results of ED evaluation were discussed with the patient including plan for admission due to requirement for level of care not available if discharged to prevent significant worsening/deterioration. -Hospitalist service contacted and agreed admit the patient. - Patient was admitted without further deterioration or significant events. Vital Signs: Vital signs: Vital Signs Temperature 98.5 F 03/30/21 13:09 Pulse Rate 64 03/30/21 13:09 Respiratory Rate 17 03/30/21 13:09 Blood Pressure 113/65 03/30/21 13:09 Pulse Oximetry 94 03/30/21 13:09 MDM - Fall Medical Records: Attestation: I reviewed the patient's medical records. Lab Data: Attestation: I reviewed the patient's lab results. Labs: Lab Results 03/26/21 03/26/21 03/26/21 13:32 13:32 13:32 WBC 7.3 10^3/uL 10^3/ uL (4.0-10.0) RBC 4.79 10^6/uL 10^6 /uL (4.1-5.3) Hgb 14.9 g/dL g/dL (11.7-16.6) Hct 44.6 % % (42.0-52.0) MCV 93.1 fl fl (80-94) MCH 31.1 pg pg (28.0-34.0) MCHC 33.4 g/dL g/dL (30.0-36.0) RDW 12.8 % % (12.1-15.1) Plt Count 176 10^3/cmm 10^3 /cmm (130-400) MPV 9.7 fL fL (7.4-10.4) Neut % (Auto) 70.5 % % Lymph % (Auto) 19.4 % % Dale % (Auto) 8.1 % % Eos % (Auto) 0.7 % % Baso % (Auto) 0.6 % % Neut # (Auto) 5.13 10^3/uL 10^3 /uL (1.8-7.7) Lymph # (Auto) 1.4 10^3/uL 10^3/ uL (0.8-4.8) Dale # (Auto) 0.6 10^3/uL 10^3/ uL (0.2-0.9) Eos # (Auto) 0.1 10^3/uL 10^3/ uL (0.0-0.8) Baso # (Auto) 0.0 10^3/uL 10^3/ uL (0.0-0.1) Nucleated RBC % (a uto) 0 % % Nucleated RBCs # 0.0 /100WBC /100W BC Specimen Type Sample Site Gael Test VBG pH VBG pCO2 VBG pO2 VBG HCO3 VBG Base Excess VBG Hematocrit O2 Delivery Device Stove Carriage Operator ID Sodium 136 mmol/L mmol/L (136-145) Potassium 3.3 mmol/L L mmol /L (3.5-5.1) Chloride 96 mmol/L L mmol/ L (98-107) Carbon Dioxide 14 mmol/L L mmol/ L (22-29) Anion Gap 29.3 H (5-19) BUN 16 mg/dL mg/dL (8-23) Creatinine 0.5 mg/dL L mg/dL (0.7-1.2) GFR Calculation 167.9 mL/min H mL /min (90-130) Glucose 111 mg/dL mg/dL (65-115) POC Glucose Calculated Osmolal ity 284 mOsm/kg L mOs m/kg (285-295) Calcium 8.5 mg/dL mg/dL (8.5-10.5) Total Bilirubin 0.8 mg/dL mg/dL (0.15-1.2) AST 20 U/L U/L (0-40) ALT 13 U/L U/L (0-41) Alkaline Phosphata se 56 IU/L IU/L (40-130) Creatine Kinase 1500 U/L H* U/L (39-308) Troponin T Baselin e 19 ng/L H ng/L (0-15) Troponin T 120 Min jena Delta Troponin T Troponin T Hi Sens 6Hr Troponin T Hi Sens 6Hr Delta NT-Pro-B Natriuret Pep 195 pg/mL H pg/mL (0-125) Total Protein 6.6 g/dL g/dL (6.6-8.7) Albumin 3.8 g/dL g/dL (3.5-5.2) Globulin 2.8 g/dL g/dL (1.3-4.6) Lipase Urine Color Urine Appearance Urine pH Ur Specific Gravit y Urine Protein Urine Glucose (UA) Urine Ketones Urine Blood Urine Nitrate Urine Bilirubin Urine Urobilinogen Ur Leukocyte Claudia ase Urine RBC Urine WBC Ur Squamous Epith Cells Amorphous Sediment Urine Bacteria Hyaline Casts Urine Mucus Valproic Acid 03/26/21 03/26/21 03/26/21 13:32 13:32 13:52 WBC RBC Hgb Hct MCV MCH MCHC RDW Plt Count MPV Neut % (Auto) Lymph % (Auto) Dale % (Auto) Eos % (Auto) Baso % (Auto) Neut # (Auto) Lymph # (Auto) Dale # (Auto) Eos # (Auto) Baso # (Auto) Nucleated RBC % (a uto) Nucleated RBCs # Specimen Type Sample Site Gael Test VBG pH VBG pCO2 VBG pO2 VBG HCO3 VBG Base Excess VBG Hematocrit O2 Delivery Device Stove Carriage Operator ID Sodium Potassium Chloride Carbon Dioxide Anion Gap BUN Creatinine GFR Calculation Glucose POC Glucose Calculated Osmolal ity Calcium Total Bilirubin AST ALT Alkaline Phosphata se Creatine Kinase Troponin T Baselin e Troponin T 120 Min jena Delta Troponin T Troponin T Hi Sens 6Hr Troponin T Hi Sens 6Hr Delta NT-Pro-B Natriuret Pep Total Protein Albumin Globulin Lipase 10 U/L L U/L (13-60) Urine Color Yellow (Yellow) Urine Appearance Clear (CLEAR) Urine pH 5 (5-7) Ur Specific Gravit y 1.020 (1.005-1.030) Urine Protein Neg (Negative) Urine Glucose (UA) Norm (Normal) Urine Ketones 2+ H (Negative) Urine Blood Neg (Negative) Urine Nitrate Negative (Negative) Urine Bilirubin 1+ H (Negative) Urine Urobilinogen 4 mg/dL H mg/dL (Negative) Ur Leukocyte Claudia ase Negative (Negative) Urine RBC 0-4 /hpf H /hpf (0-2) Urine WBC 0-4 /hpf H /hpf (0-5) Ur Squamous Epith Cells None /hpf /hpf (0-5) Amorphous Sediment Not Reportable Urine Bacteria None /hpf /hpf (NONE) Hyaline Casts 0-4 /lpf H /lpf Urine Mucus 3+ /hpf /hpf Valproic Acid 2.8 ug/mL L ug/mL (50-100) 03/26/21 03/26/21 03/26/21 16:00 19:49 19:49 WBC RBC Hgb Hct MCV MCH MCHC RDW Plt Count MPV Neut % (Auto) Lymph % (Auto) Dale % (Auto) Eos % (Auto) Baso % (Auto) Neut # (Auto) Lymph # (Auto) Dale # (Auto) Eos # (Auto) Baso # (Auto) Nucleated RBC % (a uto) Nucleated RBCs # Specimen Type Venous Sample Site Not Reportable Gael Test Pos VBG pH 7.23 L (7.32-7.42) VBG pCO2 33.3 mmHg L mmHg (41-51) VBG pO2 80.6 mmHg H mmHg (25-40) VBG HCO3 14.0 mmol/L L mmo l/L (24-28) VBG Base Excess -12.4 mmol/L L mm ol/L (-3.0-3.0) VBG Hematocrit 47.1 % % (42-52) O2 Delivery Device Not Reportable Stove Carriage Operator ID Na Sodium Potassium Chloride Carbon Dioxide Anion Gap BUN Creatinine GFR Calculation Glucose POC Glucose Calculated Osmolal ity Calcium Total Bilirubin AST ALT Alkaline Phosphata se Creatine Kinase Troponin T Baselin e Troponin T 120 Min jena 17.34 ng/L H ng/L (0-15) Delta Troponin T -1.66 ABS# L ABS# (0-10) Troponin T Hi Sens 6Hr 19.58 ng/L H ng/L (0-15) Troponin T Hi Sens 6Hr Delta 0.58 ng/L ng/L (0-12) NT-Pro-B Natriuret Pep Total Protein Albumin Globulin Lipase Urine Color Urine Appearance Urine pH Ur Specific Gravit y Urine Protein Urine Glucose (UA) Urine Ketones Urine Blood Urine Nitrate Urine Bilirubin Urine Urobilinogen Ur Leukocyte Claudia ase Urine RBC Urine WBC Ur Squamous Epith Cells Amorphous Sediment Urine Bacteria Hyaline Casts Urine Mucus Valproic Acid 03/26/21 03/27/21 03/27/21 20:04 04:34 04:34 WBC 6.8 10^3/uL 10^3/ uL (4.0-10.0) RBC 3.95 10^6/uL L 10 ^6/uL (4.1-5.3) Hgb 12.3 g/dL g/dL (11.7-16.6) Hct 36.9 % L % (42.0-52.0) MCV 93.4 fl fl (80-94) MCH 31.1 pg pg (28.0-34.0) MCHC 33.3 g/dL g/dL (30.0-36.0) RDW 12.8 % % (12.1-15.1) Plt Count 189 10^3/cmm 10^3 /cmm (130-400) MPV 9.7 fL fL (7.4-10.4) Neut % (Auto) 60.2 % % Lymph % (Auto) 27.8 % % Dale % (Auto) 10.0 % % Eos % (Auto) 0.9 % % Baso % (Auto) 0.4 % % Neut # (Auto) 4.07 10^3/uL 10^3 /uL (1.8-7.7) Lymph # (Auto) 1.9 10^3/uL 10^3/ uL (0.8-4.8) Dale # (Auto) 0.7 10^3/uL 10^3/ uL (0.2-0.9) Eos # (Auto) 0.1 10^3/uL 10^3/ uL (0.0-0.8) Baso # (Auto) 0.0 10^3/uL 10^3/ uL (0.0-0.1) Nucleated RBC % (a uto) 0 % % Nucleated RBCs # 0.0 /100WBC /100W BC Specimen Type Sample Site Gael Test VBG pH VBG pCO2 VBG pO2 VBG HCO3 VBG Base Excess VBG Hematocrit O2 Delivery Device Stove Carriage Operator ID Sodium 135 mmol/L L mmol /L (136-145) Potassium 3.5 mmol/L mmol/L (3.5-5.1) Chloride 101 mmol/L mmol/L (98-107) Carbon Dioxide 15 mmol/L L mmol/ L (22-29) Anion Gap 22.5 H (5-19) BUN 9 mg/dL mg/dL (8-23) Creatinine 0.5 mg/dL L mg/dL (0.7-1.2) GFR Calculation 167.9 mL/min H mL /min (90-130) Glucose 113 mg/dL mg/dL (65-115) POC Glucose 120 mg/dL H mg/dL (70-110) Calculated Osmolal ity 279 mOsm/kg L mOs m/kg (285-295) Calcium 8.0 mg/dL L mg/dL (8.5-10.5) Total Bilirubin 0.6 mg/dL mg/dL (0.15-1.2) AST 17 U/L U/L (0-40) ALT 10 U/L U/L (0-41) Alkaline Phosphata se 47 IU/L IU/L (40-130) Creatine Kinase Troponin T Baselin e Troponin T 120 Min jena Delta Troponin T Troponin T Hi Sens 6Hr Troponin T Hi Sens 6Hr Delta NT-Pro-B Natriuret Pep Total Protein 6.0 g/dL L g/dL (6.6-8.7) Albumin 3.1 g/dL L g/dL (3.5-5.2) Globulin 2.9 g/dL g/dL (1.3-4.6) Lipase Urine Color Urine Appearance Urine pH Ur Specific Gravit y Urine Protein Urine Glucose (UA) Urine Ketones Urine Blood Urine Nitrate Urine Bilirubin Urine Urobilinogen Ur Leukocyte Claudia ase Urine RBC Urine WBC Ur Squamous Epith Cells Amorphous Sediment Urine Bacteria Hyaline Casts Urine Mucus Valproic Acid 03/27/21 03/27/21 03/27/21 04:34 06:41 10:50 WBC RBC Hgb Hct MCV MCH MCHC RDW Plt Count MPV Neut % (Auto) Lymph % (Auto) Dale % (Auto) Eos % (Auto) Baso % (Auto) Neut # (Auto) Lymph # (Auto) Dale # (Auto) Eos # (Auto) Baso # (Auto) Nucleated RBC % (a uto) Nucleated RBCs # Specimen Type Sample Site Gael Test VBG pH VBG pCO2 VBG pO2 VBG HCO3 VBG Base Excess VBG Hematocrit O2 Delivery Device Stove Carriage Operator ID Sodium Potassium Chloride Carbon Dioxide Anion Gap BUN Creatinine GFR Calculation Glucose POC Glucose 131 mg/dL H mg/dL 140 mg/dL H mg/dL (70-110) (70-110) Calculated Osmolal ity Calcium Total Bilirubin AST ALT Alkaline Phosphata se Creatine Kinase 1544 U/L H* U/L (39-308) Troponin T Baselin e Troponin T 120 Min jena Delta Troponin T Troponin T Hi Sens 6Hr Troponin T Hi Sens 6Hr Delta NT-Pro-B Natriuret Pep Total Protein Albumin Globulin Lipase Urine Color Urine Appearance Urine pH Ur Specific Gravit y Urine Protein Urine Glucose (UA) Urine Ketones Urine Blood Urine Nitrate Urine Bilirubin Urine Urobilinogen Ur Leukocyte Claudia ase Urine RBC Urine WBC Ur Squamous Epith Cells Amorphous Sediment Urine Bacteria Hyaline Casts Urine Mucus Valproic Acid EKG Data^: EKG 1: Attestation: I personally reviewed and interpreted this EKG as follows: EKG interpretation date: 03/26/21 EKG interpretation time: 13:04 Interpretation: Twelve-lead EKG shows a regular rhythm at a rate of 112. GA interval 178, QRS duration 146, QTc 414. Left axis deviation. Interpretation: Sinus tachycardia with right bundle branch block. EKG 2: Attestation: I personally reviewed and interpreted this EKG as follows: EKG interpretation date: 03/26/21 EKG interpretation time: 14:18 Interpretation: Twelve-lead EKG shows a regular rhythm at a rate of 112. GA interval 168, QRS duration 139, QTc 401. Left axis deviation. Interpretation: Sinus tachycardia with right bundle branch block. Discharge Plan Discharge Patient Disposition: Placed in Observation Admit Provider: James Lozada Clinical Impression: Fall, Closed rib fracture, Rhabdomyolysis Discharge Diet: Cardiac and Diabetic Discharge Activity: Increase activity as tolerated and As per PT/OT instructions Coding Level of Care Code ED Shoe Stitcher for Imelda Rojas
--- NOTE | 2021-03-26 12:26 | CT_ITS ---
WS: [id number] CT CERVICAL SPINE HISTORY: fall TECHNIQUE: Contiguous 2.5 mm axial imaging performed through the entire cervical spine. Sagittal and coronal reformats also performed. All CT scans at [facility] use at least one of these dose o ptimization techniques: automated exposure control; mA and/or kV adjustment per patient size (include s targeted exams where dose is matched to clinical indication); or iterative reconstruction. DLP: 829.55 mGy.cm COMPARISON: None available. Straightening and RIGHT curvature of the lower cervical spine. Craniocervical junction is normally al igned. Facet joints are moderately narrowed. Alignment at the facet joints remains normal. Disc space s are narrowed. C3 anterolisthesis by 5 mm. Severe disc space narrowing at C5-6 and C6-7. Lateral mas ses are aligned odontoid is intact. C2-C3: Small central protrusion. No high-grade stenosis. C3-C4: Osteophytic ridging with moderate RIGHT foraminal stenosis. C4-C5: Osteophytic ridging with moderate RIGHT foraminal stenosis. C5-C6: Osteophytic ridging with central and bilateral foraminal stenosis. C6-C7: Mild central and severe foraminal stenosis with moderate facet arthritis. C7-T1: Mild foraminal stenosis. RIGHT thyroid nodule measures [address]/CT cervical spin wo con* [id number] IMPRESSION: 1. Advanced degenerative disc disease and spondylosis. 2. No cervical spine fractures.
--- NOTE | 2021-03-26 12:26 | CT_ITS ---
WS: [id number] CT HEAD NONCONTRAST HISTORY: fall, head strike, headache TECHNIQUE: Contiguous axial imaging performed through the brain in 2.5 mm imaging. Bone and soft tiss ue windows. Sagittal and coronal reformats reviewed. All CT scans at [facility] use at least one of these dose optimization techniques: automated exposure control; mA and/or kV adjustment per pa tient size (includes targeted exams where dose is matched to clinical indication); or iterative recon struction. DLP: 1829.99 mGy.cm COMPARISON: 01/10/2020 No acute intracranial hemorrhage, midline shift or mass effect. Moderate atrophy is symmetric bilaterally with moderate chronic microvascular ischemic disease. Bilat eral lacunar infarcts in the external capsules and insular ribbons. No large territory infarct. Ventricles: Mild central and peripheral atrophy resulting in mild dilatation of the ventricles and e xtra-axial spaces. No inferior displacement of cerebellar tonsils. Paranasal sinuses: Air-fluid level in the RIGHT sphenoid sinus. Otherwise sinuses are clear. Mastoid air cells: Well pneumatized. Calvarium and scalp: Skull is intact with no soft tissue edema or swelling. CT/CT head wo con* [id number] IMPRESSION: 1. No acute intracranial hemorrhage or edema. 2. Moderate symmetric atrophy with numerous small lacunar infarcts as describe d above. No acute infarct.
--- NOTE | 2021-03-26 12:26 | CTR_ITS ---
PROCEDURE INFORMATION: Exam: CT Chest With Contrast; Diagnostic Exam date and time: 03/26/2021 12:26 PM Age: 65 years old Clinical indication: Injury or trauma; Fall; Generalized; Blunt trauma (contusions or hematomas); Prior surgery; Additional info: Fall, pelvis and rib pain, tachycardia TECHNIQUE: Imaging protocol: Diagnostic computed tomography of the chest with contrast. Radiation optimization: All CT scans at this facility use at least one of these dose optimization techniques: automated exposure control; mA and/or kV adjustment per patient size (includes targeted exams where dose is matched to clinical indication); or iterative reconstruction. Contrast material: OMNI 300; Contrast volume: 95 ml; Contrast route: INTRAVENOUS (IV); COMPARISON: 1. CT chest w con* [id number] 05/29/2020 2:[address] chest abd pel w con* 7:04 PM 3. Written report CT chest 11/22/2018 (images would not load). RADIATION DOSE METRICS: Total DLP (mGy-cm): 2346.62 FINDINGS: Thyroid: 15 mm right thyroid hypodensity, stable. No specific follow-up imaging is recommended. Lungs: 15.7 mm noncalcified right upper lobe posterior segment nodule, stable (remeasured on prior study); this appears to have been described 09/10/2015 with similar dimensions. Spiculated 12 mm nodule lateral right upper lobe (LOC -85.75); this appears to have previously been described with similar dimensions 09/10/2015. Right lower lung zone calcified pulmonary parenchymal granuloma (197 Hounsfield units). Pleural spaces: No pneumothorax identified. No pleural effusion demonstrated. Heart: Moderate aortic valvular calcification is present. Mild proximal LAD coronary artery calcifications. Mediastinal space: No mediastinal hematoma identified. Aorta: There is no evidence of aortic pseudoaneurysm or traumatic dissection. Lymph nodes: Right hilar granulomatous estephania calcifications are present. Bones/joints: Severe right glenohumeral joint primary osteoarthritis. Healed posterior and posterolateral right 10th rib fractures. Diffuse osteopenia. No acute thoracic spine or sternal fracture identified. Mild right thoracic spinal curvature. Mild chronic T5 vertebral body compression deformity. Chronic healed anterolateral right 7th and lateral 9th rib fractures. Mildly displaced lateral right 8th acute rib fracture. Healed posterior left 12th rib fracture. Healed anterolateral left 4th and 5th rib fractures. Soft tissues: Unremarkable. Other findings: Streak artifact is present from the patient's arms at the side. COMMENTS: Consistent with the [employer]'s Incidental Findings Committee white paper (J Am Jae Radiol 2015): In patients aged 35 years and older with an incidental thyroid nodule equal to or greater than 1.[address], MRI or extrathyroidal US, further evaluation with dedicated thyroid US is recommended for patients with normal life expectancy and without comorbidities. For smaller nodules without suspicious features, no further evaluation or follow up is recommended. PROCEDURE INFORMATION: Exam: CT Abdomen And Pelvis With Contrast Exam date and time: 03/26/2021 12:26 PM Age: 65 years old Clinical indication: Injury or trauma; Fall; Generalized; Blunt trauma (contusions or hematomas); Prior surgery; Additional info: Fall, pelvis and rib pain, tachycardia TECHNIQUE: Imaging protocol: Computed tomography of the abdomen and pelvis with contrast. Radiation optimization: All CT scans at this facility use at least one of these dose optimization techniques: automated exposure control; mA and/or kV adjustment per patient size (includes targeted exams where dose is matched to clinical indication); or iterative reconstruction. Contrast material: OMNI 300; Contrast volume: 95 ml; Contrast route: INTRAVENOUS (IV); COMPARISON: CT abdomen pelvis w con* [id number] 1:13 PM RADIATION DOSE METRICS: Total DLP (mGy-cm): 2346.62 FINDINGS: Liver: Normal. No mass. Gallbladder and bile ducts: Normal. No calcified stones. No ductal dilation. Pancreas: Moderate pancreatic atrophy. Spleen: A small medial splenule is present. Adrenal glands: Normal. No mass. Kidneys and ureters: Bilateral renal probable benign cysts, largest on the right measuring 11.6 cm. Left renal anterior lower pole 1.6 mm calyceal calculus. No hydronephrosis/obstructive uropathy. Stomach and bowel: Unremarkable. No obstruction. No mucosal thickening. Appendix: No evidence of appendicitis. Intraperitoneal space: No free air. No significant fluid collection. Vasculature: Mild aortic atherosclerotic calcification without aneurysm. The left iliac arteries show mild atherosclerotic calcifications without evidence of aneurysm. Diminutive right iliac arteries. Lymph nodes: No enlarged lymph nodes. Urinary bladder: Unremarkable as visualized. Reproductive: Unremarkable as visualized. Bones/joints: Bilateral lower lumbar facet primary osteoarthritis. Diffuse osteopenia. Chronic healed bilateral inferior pubic ramus fractures. Chronic healed anterior left acetabular fracture. Chronic healed right iliac wing fracture. Chronic healed left lateral upper sacral fracture. Right hip prosthesis with partially imaged long femoral medullary stem. Proximal right femoral cerclage wires. Mild right per true 0 acetabular lead. Soft tissues: A small paraumbilical hernia containing only abdominal fat is noted. Other findings: Streak artifact is present from the patient's arms at the side. CT/CT chest abd pel w con* IMPRESSION: 1. Mildly displaced lateral right 8th acute rib fracture. 2. Right-sided noncalcified pulmonary nodules, stable at least to 01/10/2020. Direct comparison with older studies recommended, when available. Fleischner Society recommendations withheld pending review of older prior studies. 3. Coronary atherosclerosis. 4. Please see the abdomen/pelvis CT report of the same date for additional findings. IMPRESSION: 1. No acute injury identified. 2. Bilateral renal probable benign cysts. No follow-up imaging is recommended. 3. Left renal calyceal lithiasis. 4. Diminutive right iliac arteries. COMMENTS: Consistent with the [employer]'s Incidental Findings Committee white paper (J Am Jae Radiol 2018): Any incidental renal lesion less than 1 cm or classified as too small to characterize, or any incidental cystic renal lesion characterized as simple-appearing, is likely benign. No follow-up imaging is recommended for these lesions per consensus recommendations based on imaging criteria.
--- NOTE | 2021-03-26 12:27 | ECG_ITS ---
[facility] Test Date: 2021-03-26 Pat Name: Randy German Department: Room: Gender: Male Enterprise Project Manager: : 1955 Requested By: Mega Cline Order Number: [id number] Mata MD: Darinel Ma M.D. Measurements Intervals [place] Rate: 112 P: 51 ME: 178 QRS: -73 QRSD: 146 T: 17 QT: 348 QTc: 477 Interpretive Statements SINUS TACHYCARDIA RIGHT BUNDLE BRANCH BLOCK [120+ ms QRS DURATION, UPRIGHT V1, 40+ ms S IN I/aVL/V4/V5/V6] LEFT ANTERIOR FASCICULAR BLOCK [QRS AXIS <= -45, QR IN I, RS IN II] Compared to ECG 05/31/2020 16:46:03 Left anterior fascicular block now present Sinus rhythm no longer present Left-axis deviation no longer present Electronically Signed On 03-27-2021 8:49:39 AIR ROUTE CONTROLLER by Darinel aM M.D. [id number]
[2021-03-26 13:38] LABS: Basophils % 0.6 %; Eosinophils # 0.1 10^3/uL (0.0-0.8); Eosinophils % 0.7 %; Hematocrit 44.6 % (42.0-52.0); Hemoglobin 14.9 g/dL (11.7-16.6); Lymphocytes # 1.4 10^3/uL (0.8-4.8); Lymphocytes % 19.4 %; Mean Corpuscular HGB Conc 33.4 g/dL (30.0-36.0); Mean Corpuscular Hemoglobin 31.1 pg (28.0-34.0); Mean Corpuscular Volume 93.1 fl (80-94); Mean Platelet Volume 9.7 fL (7.4-10.4); Monocytes # 0.6 10^3/uL (0.2-0.9); Monocytes % 8.1 %; Neutrophils # 5.13 10^3/uL (1.8-7.7); Neutrophils % 70.5 %; Nucleated Red Blood Cells % 0 %; Platelet Count 176 10^3/cmm (130-400); Red Blood Count 4.79 10^6/uL (4.1-5.3); Red Cell Distribution Width 12.8 % (12.1-15.1); White Blood Count 7.3 10^3/uL (4.0-10.0)
[2021-03-26 13:55] LABS: Troponin(5th) Baseline 19 ng/L (0-15)
[2021-03-26 14:11] LABS: Alanine Aminotransferase 13 U/L (0-41); Albumin Level 3.8 g/dL (3.5-5.2); Alkaline Phosphatase 56 IU/L (40-130); Blood Urea Nitrogen 16 mg/dL (8-23); Calcium 8.5 mg/dL (8.5-10.5); Carbon Dioxide 14 mmol/L (22-29); Chloride 96 mmol/L (98-107); Globulin 2.8 g/dL (1.3-4.6); Glomerular Filtration Rate 167.9 mL/min (90-130); Glucose 111 mg/dL (65-115); NT Pro B Type Natriuretic Pept 195 pg/mL (0-125); Osmolality Calculated 284 mOsm/kg (285-295); Sodium 136 mmol/L (136-145); Total Bilirubin 0.8 mg/dL (0.15-1.2); Total Protein 6.6 g/dL (6.6-8.7)
[2021-03-26 14:12] LABS: Anion Gap 29.3 (5-19); Aspartate Amino Transferase 20 U/L (0-40); Potassium 3.3 mmol/L (3.5-5.1)
[2021-03-26 14:13] LABS: Creatine Phosphokinase 1500 U/L (39-308)
[2021-03-26 14:17] LABS: Add Urine Microscopic? YES; Bilirubin Urine 1+ (Negative); Blood Urine Neg (Negative); Glucose Urine UA Norm (Normal); Ketones Urine 2+ (Negative); Leukocyte Esterase Urine Negative (Negative); Nitrate Urine Negative (Negative); Protein Urine Neg (Negative); RBC Urine 0-4 /hpf (0-2); Urine Appearance Clear (CLEAR); Urine Color Yellow (Yellow); Urobilinogen Urine 4 mg/dL (Negative); WBC Urine 0-4 /hpf (0-5); pH Urine 5 (5-7)
[2021-03-26 14:18] LABS: Add Urine Culture? No; Hyaline Casts Urine 0-4 /lpf; Mucus Urine 3+ /hpf
--- NOTE | 2021-03-26 14:27 | ECG_ITS ---
[facility] Test Date: 2021-03-26 Pat Name: Randy German Department: Room: Gender: Male Counter Roller: : 1955 Requested By: Mega Cline Order Number: [id number] Mata MD: Darinel Ma M.D. Measurements Intervals [place] Rate: 112 P: 44 WI: 168 QRS: -73 QRSD: 139 T: 20 QT: 335 QTc: 459 Interpretive Statements SINUS TACHYCARDIA RIGHT BUNDLE BRANCH BLOCK [120+ ms QRS DURATION, UPRIGHT V1, 40+ ms S IN I/aVL/V4/V5/V6] LEFT ANTERIOR FASCICULAR BLOCK [QRS AXIS <= -45, QR IN I, RS IN II] POSSIBLE SEPTAL MYOCARDIAL INFARCTION , PROBABLY OLD [30 ms Q WAVE IN V1/V2] Compared to ECG 03/26/2021 13:01:37 Myocardial infarct finding now present Electronically Signed On 03-27-2021 9:16:59 COUNTY AUDITOR by Darinel Ma M.D. [id number]
--- NOTE | 2021-03-26 14:57 | PC.PHAR ---
pt states he takes care of his own medications-notes are made in the pharmacy comments
[2021-03-26] MEDS: iohexol 300 mg/mL 100 mL Btl IV (15:00)
[2021-03-26] MEDS: sodium chloride 0.9% 1,000 ML 999 ML IV (15:21)
[2021-03-26 15:47] VITALS: BP 142/97; PULSE 118; RESP 26; O2SAT 95
[2021-03-26 16:39] LABS: Troponin 5 2HR 17.34 ng/L (0-15)
[2021-03-26 16:42] LABS: Troponin 5 2HR Delta -1.66 ABS# (0-10)
[2021-03-26] MEDS: morphine 4 mg/mL SDV 1 mL IVP (17:01)
[2021-03-26] MEDS: potassium chloride ER 20 mEq Tablet 40 MEQ PO (17:01)
[2021-03-26 17:16] LABS: Lipase 10 U/L (13-60)
[2021-03-26 17:40] VITALS: BMI 29.1
[2021-03-26 17:41] VITALS: BP 140/82; PULSE 117; RESP 22; O2SAT 94
--- NOTE | 2021-03-26 18:13 | PM.CONSULT ---
Providers/Reason For Consult Consulting Physician/Specialty*: Urology/Stewart Reason for Consult*: Retention with inability to pass catheter Attending Physician: James Lozada Primary Care Provider: FÁTIMA Dugan History of Present Illness History of Present Illness Randy German is a 65 year old male who I have followed off and on my clinic since approximately 2014 for history of urinary retention and chronic incomplete emptying of the bladder. Initial cystoscopy was performed in November 2015 showing no gross urethra or bladder pathology. Patient was trained on SCIC and did well. Over time less than compliant with recommendations for routine catheterization on a schedule to maintain adequate emptying of the bladder. Multiple occasions of >1000 cc PVR is on Alaniz catheter placement. Was maintained on tamsulosin as well as METHENAMINE HIPPURATE with attempts at improving voiding and infection prevention respectively. Was last seen by me in January 2020 with a 6-month follow-up visit scheduled after that. At the time of last visit he was voiding pretty much at baseline not requiring self-catheterization and PVR in the bladder was good. Last office visit with Tammy Tapia was 10/15/2020. PVR was about 217 cc. Symptom score was low. He was without recurrent symptomatic UTI on METHENAMINE and he was encouraged to stay on DOUBLE TAMSULOSIN. Appointment was scheduled approximately October 2021 as part of his routine follow-up. I was consulted this hospital stay for catheter placement. Multiple attempts have been made by the nursing staff unsuccessfully and the patient was complaining of feeling full. He had been able to void somewhat but did not satisfy the sensation of retention. Evaluation: Suprapubic area is tender with some bladder distention. Normal genitourinary exam. Urethral meatus has small amount of blood at the meatus but not significant. No bruising etc. of the perineum phallus scrotum etc. Recommended cystoscopy for catheter placement. PROCEDURE: Flexible bedside cystoscopy with difficult catheter placement. Prepped and draped in the usual sterile fashion. 2% lidocaine jelly was utilized for anesthesia. Flexible Olympus cystoscope was advanced to the urethral meatus into the urethra. At the bulbar membranous junction there was a false passage extending posteriorly with the true lumen was easily identified. The scope was deflected anteriorly and advanced into the bladder. The bladder was quite distended. No significant bleeding within the bladder. A flexible tip guidewire was then passed through the scope and curled into the bladder. The scope was removed and a 16 Sinhala solomon tip catheter was advanced over the guidewire and manipulated beyond the false passage into the bladder. There was some clots occluding the catheter and these were irrigated and the catheter function was great at that point. 10 cc were placed in the balloon and about 1000 cc of yellow urine drained. He felt immediate relief with bladder decompression. Bag was secured to the side of the bed and bed railing elevated. Turned back over to the nursing staff. Review of Systems Const: Reports: malaise; Denies: fever(s) Eyes: Denies: eye discharge ENMT: Denies: hoarseness Card: Denies: palpitations Resp: Denies: productive cough GI: Reports: abdominal pain; Denies: hematemesis : Reports: urinary dribbling, hematuria and genital pain Musc: Reports: extremity pain and extremity swelling Skin/Breast: Reports: other (Multiple bruises.); Denies: jaundice Neuro: Denies: confusion or Slurred speech present Psych: Denies: hopelessness or irritability Endo: Denies: flushing Marco/Lymph: Reports: easy bruising and easy bleeding All/Imm: Denies: urticaria Meds/Allergies Home Medications and Allergies Home Medications Medication Instructions Recorded Confirmed Last Taken Type ascorbic acid (vitamin C) 500 mg 1,000 mg PO DAILY tab 09/25/19 03/26/21 Unknown History tablet,extended release tamsulosin 0.4 mg capsule 0.4 mg PO BID #60 cap 10/15/20 03/26/21 Unknown Rx blood sugar diagnostic #50 ea 12/13/20 03/26/21 Unknown Rx aspirin 81 mg tablet,delayed 81 mg PO DAILY #30 tab 12/17/20 03/26/21 Unknown Rx release dexamethasone 1 mg tablet 1 mg PO DAILY #30 tab 03/15/21 03/26/21 Unknown Rx divalproex 500 mg tablet,delayed 500 mg PO BID #60 tab 03/15/21 03/26/21 Unknown Rx release magnesium oxide 400 mg PO BID #60 tab 03/15/21 03/26/21 Unknown Rx metformin 500 mg tablet,extended 500 mg PO BID #60 tab 03/15/21 03/26/21 03/23/21 Rx release 24 hr trazodone 100 mg tablet 100 mg PO BEDTIME #30 tab 03/15/21 03/26/21 Unknown Rx Claritin 10 mg PO DAILY PRN 03/26/21 03/26/21 Unknown History Flonase Allergy Relief 2 spray INTRANASAL DAILY PRN 03/26/21 03/26/21 Unknown History fluconazole 400 mg PO DAILY 03/26/21 03/26/21 Unknown History methenamine hippurate 1 g PO DAILY 03/26/21 03/26/21 Unknown History Allergies Allergy/AdvReac Type Severity Reaction Status Date / Time hydromorphone [From Dilaudid] Allergy ADR-Confusi Verified 03/26/21 14:43 on Penicillins Allergy ALGY-Rash Verified 03/26/21 14:43 codeine AdvReac ADR-Nausea Verified 03/26/21 14:43 Current Medications Current Medications Generic Name Dose Route Start Last Admin Trade Name Freq PRN Reason Stop Dose Admin Morphine Sulfate 4 mg 03/26/21 16:14 03/26/21 17:01 Morphine 4 Mg/Ml Sdv 1 Ml IVP 4 mg Q1H PRN Administration pain PFSH Acute PFSH: Medical History Abdominal wall hernia Allergic rhinitis Anxiety disorder Avascular necrosis of left femoral head Bimalleolar fracture of right ankle Bladder outlet obstruction BPH (benign prostatic hyperplasia) Chronic arthritis Chronic insomnia Closed displaced fracture of right acromial process Closed fracture of glenoid cavity of right scapula Closed pilon fracture of right tibia Controlled diabetes mellitus Dyslipidemia Essential (primary) hypertension GERD (gastroesophageal reflux disease) History of cryptococcal meningitis History of MRSA infection History of seizures Incomplete emptying of bladder Lower urinary tract symptoms (LUTS) Major depressive disorder Pemphigus vulgaris of gingival mucosa Pneumonia Suicidal ideation Superficial laceration of skin Tongue leukoplakia Vitamin D deficiency Surgical History History of hip surgery right History of inguinal herniorrhaphy right History of vasectomy Family History Grandmother Diabetes Father CAD (coronary artery disease) Denies family history of Bleeding disorder Social History Second hand smoke exposure: No Smoking risk assessment/counseling performed?: No Alcohol intake: never Desire information about alcohol rehabilitation?: No Counseling given: No Desire information about substance/drug rehabilitation?: No Counseling given: No Adopted: No Lives independently: Yes Household members: other Housing: House Marital status: Single service: No Current occupational status: disabled History of recent travel: No Current gender identity: Male Vitals/I&O/Wt Last Vital Signs Temp 99.1 F 03/26/21 12:06 Pulse 117 H 03/26/21 17:41 Resp 22 H 03/26/21 17:41 BP 140/82 03/26/21 17:41 Pulse Ox 94 03/26/21 17:41 03/26/21 03/26/21 03/26/21 06:59 14:59 22:59 Intake Total 1000 / 1000 Balance 1000 / 1000 Weight last 48 hrs Weight 215 lb Weight 215 lb Physical Exam Const: COMMON NORMALS: no acute distress, alert and well nourished GENERAL APPEARANCE: well kempt and well developed ORIENTATION/CONSCIOUSNESS: not confused HENMT: COMMON NORMALS: normocephalic and atraumatic HEAD & SCALP: normocephalic and atraumatic Eye: COMMON NORMALS: conjunctivae normal and no scleral icterus CONJUNCTIVA: Yes conjunctivae normal Neck/C-Spine: COMMON NORMALS: full ROM GENERAL: Yes normal visual inspection Lymph: LYMPHATIC: no lymphadenopathy noted and no lymphedema noted Chest: OTHER: Unlabored. Normal movements Resp: COMMON NORMALS: normal respiratory effort EFFORT & INSPECTION: No labored and No Actively coughing Cardio: COMMON NORMALS: regular rate RATE: regular rate GI: COMMON NORMALS: Soft to palpation PALPATION: Yes Soft to palpation, Yes Tenderness to palpation present (GI) and Yes Guarding due to palpation present (GI) : COMMON NORMALS: Yes no CVA tenderness and Yes scrotum normal BLADDER/KIDNEY EXAM: Yes no CVA tenderness PENIS: normal penis and circumcised MEATUS: meatus normal SCROTUM: Yes testes descended bilaterally Back/Pelvis: COMMON NORMALS: no CVA tenderness Extremity: OTHER: Multiple bruises. Neuro: COMMON NORMALS: no focal motor deficits SENSORIUM/ORIENTATION: Yes alert Psych: COMMON NORMALS: mental status grossly normal APPEARANCE: Yes grossly normal and Yes well kempt ATTITUDE: Yes calm and Yes engaged Skin: COMMON NORMALS: no rashes or lesions noted and no jaundice GENERAL SKIN EXAM: no rashes or lesions noted A&P Assessment and plan (1) Urinary retention: Acute urinary retention. Etiology unclear but he does have a baseline dysfunctional voiding for many years. Status: Acute (2) Lower urinary tract symptoms (LUTS): Status: Acute (3) Urethral false passage: Posterior extending just below the membranous urethra. Status: Acute Consult Attestations Time Spent in Patient Care: Greater than 35 minutes Coding Level of Care Code Acute Client Service Representative for [facility] Bob Diagnoses Urinary retention R33.9 Lower urinary tract symptoms (LUTS) R39.9 Urethral false passage N36.5
--- NOTE | 2021-03-26 18:27 | ECG_ITS ---
[facility] Test Date: 2021-03-26 Pat Name: Randy German Department: Room: 253 Gender: Male Supervisor Lens Generating: : 1955 Requested By: Mega Cline Order Number: [id number] Mata MD: Darinel Ma M.D. Measurements Intervals [place] Rate: 118 P: 0 UT: 169 QRS: -61 QRSD: 147 T: 3 QT: 338 QTc: 475 Interpretive Statements SINUS TACHYCARDIA WITH OCCASIONAL VENTRICULAR PREMATURE COMPLEXES RIGHT BUNDLE BRANCH BLOCK [120+ ms QRS DURATION, UPRIGHT V1, 40+ ms S IN I/aVL/V4/V5/V6] LEFT ANTERIOR FASCICULAR BLOCK [QRS AXIS <= -45, QR IN I, RS IN II] SEPTAL MYOCARDIAL INFARCTION , PROBABLY OLD [40+ ms Q WAVE IN V1/V2] Compared to ECG 03/26/2021 14:09:43 Ventricular premature complex(es) now present Myocardial infarct finding still present Electronically Signed On 03-27-2021 9:07:45 VACUUM CONDITIONER OPERATOR by Darinel Ma M.D. [id number]
--- NOTE | 2021-03-26 18:37 | P.HP_ITS ---
Providers/Chief Complaint Admitting Physician: James Lozada Primary Care Provider: Adela Alaniz, AIRCRAFT LIFE SUPPORT FITTER-C Chief Complaint: FALL/ PAIN ALL OVER History of Present Illness Pleasant 65-year-old gentleman with history of extensive trauma multiple fractures and surgeries on the right side of his body including arm, forearm, hip and femur, ankle, for a while using a walker to ambulate is not exactly sure but believes he tripped and fell on Wednesday, subsequently being unable to get up for about 12 hours staying on the floor, with severe pain in the right side of his chest, pain in his pelvis, right knee. In ER underwent extensive imaging including his head which showed no acute intracranial hemorrhage or edema, moderate symmetric atrophy with numerous small lacunar infarcts as described in full report, CT C-spine with advanced degenerative disc disease and spondylosis, no cervical spine fracture. And CT chest abdomen pelvis with finding of mildly displaced lateral right eighth acute rib fracture, right-sided noncalcified pulmonary nodules, stable at least 05 January 2020, direct comparison with older studies recommended when available. Coronary atherosclerosis. No acute abdominal process, bilateral renal probable benign cyst, lateral renal calyceal lithiasis, diminutive right iliac arteries. He states he is not eaten almost anything since Wednesday, has not taken his medications. Sodium is 136, potassium 3.3, HCO3 14, anion gap 29.3, creatinine 0.9, BUN 16, liver parameters unremarkable, creatinine kinase 1500, troponin XIX-17.34. NT proBNP 195. Lipase 10. Albumin 3.8. Total protein 6.6. Urinalysis with 2+ ketones, 1+ bilirubin, 4 urobilinogen, 0-4 RBC, 0-4 WBC. Hyaline cast. In ER several failed attempts made at placement of urinary catheter, mulligan bsequently unable to void with urethral bloody discharge. He denies otherwise any recent new issues with his health, but does state had run out of his fluconazole and has not been taking it for a while. Denies headache. With regards to CODE STATUS he would not want attempted any sort of resuscita tion in case of cardiopulmonary arrest and instead wanting to be kept comfortable and allow nature take its course in such an event. Review of Systems Const: Denies: fever(s), chills or malaise Eyes: Denies: change in vision or eye redness ENMT: Denies: throat pain, oral sores or ear or mastoid pain Card: Denies: chest pain, edema, pre-syncope or dyspnea on exertion Resp: Denies: dyspnea, productive cough, change in phlegm color or hemoptysis GI: Denies: abdominal pain, nausea, vomiting, diarrhea, constipation, marco tochezia or melena : Denies: flank pain, difficulty urinating, urinary frequency or hematuria Musc: Reports: extremity pain and other (Rib pain); Denies: joint swelling or joint redness Skin/Breast: Denies: rash, sores or new lesions Neuro: Denies: headache(s), numbness in extremities, weakness in extremities, dizziness, confusion or seizure-like activity Endo: Denies: polyuria or polydipsia Marco/Lymph: Denies: easy bleeding or purpura All/Imm: Denies: urticaria, throat swelling or tongue swelling Medications/Allergies Home Medications Medication Instructions Recorded Confirmed Last Taken Type ascorbic acid (vitamin C) 500 mg 1,000 mg PO DAILY tab 09/25/19 03/26/21 Unknown History tablet,extended release tamsulosin 0.4 mg capsule 0.4 mg PO BID #60 cap 10/15/20 03/26/21 Unknown Rx blood sugar diagnostic #50 ea 12/13/20 03/26/21 Unknown Rx aspirin 81 mg tablet,delayed 81 mg PO DAILY #30 tab 12/17/20 03/26/21 Unknown Rx release dexamethasone 1 mg tablet 1 mg PO DAILY #30 tab 03/15/21 03/26/21 Unknown Rx divalproex 500 mg tablet,delayed 500 mg PO BID #60 tab 03/15/21 03/26/21 Unknown Rx release magnesium oxide 400 mg PO BID #60 tab 03/15/21 03/26/21 Unknown Rx metformin 500 mg tablet,extended 500 mg PO BID #60 tab 03/15/21 03/26/21 03/23/21 Rx release 24 hr trazodone 100 mg tablet 100 mg PO BEDTIME #30 tab 03/15/21 03/26/21 Unknown Rx Claritin 10 mg PO DAILY PRN 03/26/21 03/26/21 Unknown History Flonase Allergy Relief 2 spray INTRANASAL DAILY PRN 03/26/21 03/26/21 Unknown History fluconazole 400 mg PO DAILY 03/26/21 03/26/21 Unknown History methenamine hippurate 1 g PO DAILY 03/26/21 03/26/21 Unknown History Allergies Allergy/AdvReac Type Severity Reaction Status Date / Time hydromorphone [From Dilaudid] Allergy ADR-Confusi Verified 03/26/21 14:43 on Penicillins Allergy ALGY-Rash Verified 03/26/21 14:43 codeine AdvReac ADR-Nausea Verified 03/26/21 14:43 PFSH Acute PFSH: Medical History Abdominal wall hernia Allergic rhinitis Anxiety disorder Avascular necrosis of left femoral head Bimalleolar fracture of right ankle Bladder outlet obstruction BPH (benign prostatic hyperplasia) Chronic arthritis Chronic insomnia Closed displaced fracture of right acromial process Closed fracture of glenoid cavity of right scapula Closed pilon fracture of right tibia Controlled diabetes mellitus Dyslipidemia Essential (primary) hypertension GERD (gastroesophageal reflux disease) History of cryptococcal meningitis History of MRSA infection History of seizures Incomplete emptying of bladder Lower urinary tract symptoms (LUTS) Major depressive disorder Pemphigus vulgaris of gingival mucosa Pneumonia Suicidal ideation Superficial laceration of skin Tongue leukoplakia Vitamin D deficiency Surgical History History of hip surgery right History of inguinal herniorrhaphy right History of vasectomy Family History Grandmother Diabetes Father CAD (coronary artery disease) Denies family history of Bleeding disorder Social History Second hand smoke exposure: No Smoking risk assessment/counseling performed?: No Alcohol intake: never Desire information about alcohol rehabilitation?: No Counseling given: No Desire information about substance/drug rehabilitation?: No Counseling given: No Adopted: No Lives independently: Yes Household members: other Housing: House Marital status: Single service: No Current occupational status: disabled History of recent travel: No Current gender identity: Male Vitals/I&O/Wt Last Vital Signs Temp 99.1 F 03/26/21 12:06 Pulse 117 H 03/26/21 17:41 Resp 22 H 03/26/21 17:41 BP 140/82 03/26/21 17:41 Pulse Ox 94 03/26/21 17:41 03/26/21 03/26/21 03/26/21 06:59 14:59 22:59 Intake Total 1000 / 1000 Balance 1000 / 1000 Weight last 48 hrs Weight 97.522 kg Weight 97.522 kg Physical Exam Const: COMMON NORMALS: patient oriented x3 and alert GENERAL APPEARANCE: cooperative and frail appearing; not comfortable (pain) ORIENTATION/CONSCIOUSNESS: Yes awake HENMT: COMMON NORMALS: oropharynx normal Neck/C-Spine: COMMON NORMALS: no JVD Chest: OTHER: Tenderness on palpation right side rib cage Resp: COMMON NORMALS: normal respiratory effort and clear to auscultation bilaterally AUSCULTATION: clear to auscultation bilaterally Cardio: COMMON NORMALS: no JVD, regular rhythm, S1 normal heart sound present, S2 normal heart sound present and No murmurs present (Cardio) RHYTHM: regular rhythm HEART SOUNDS: S1 normal heart sound present and S2 normal heart sound present GI: COMMON NORMALS: Normal to inspection, nondistended, normoactive bowel sounds present, Soft to palpation and non-tender PALPATION: Yes Soft to palpation Extremity: COMMON NORMALS: no joint enlargement and no pedal edema Neuro: COMMON NORMALS: patient oriented x3 and moves all extremities Skin: COMMON NORMALS: no rashes or lesions noted GENERAL SKIN EXAM: ecchymosis (Multiple ecchymosis however his arms, legs, chest) OTHER: Thin fr agile skin Data : 03/26/21 13:32 03/26/21 13:32 A&P Assessment and plan (1) Closed rib fracture: Severe pain, right-sided chest, mildly displaced lateral right eighth acute rib fracture. He hurts on inspiration, cough, movement. Discussed with him risk of pneumonia. Pain control with hydrocodone, as he states morphine did not do anything for him in ER. States has had hydrocodone before despite co deine allergy listed. Lidocaine patch. Incentive spirometer. Status: Acute (2) Fall: Not entirely clear etiology of fall, but thinks he had tripped. Does not remember losing consciousness, but simply does not remember. Unclear if may have had a seizure. Will check valproic acid level. Had not eaten or taken any of his medications since Wednesday. Resume oral diet. Gentle IV hydration due to dehydration. PT, OT evaluation. Status: Acute (3) Rhabdomyolysis: CK 1500. Recheck level. Status: Acute (4) Incomplete emptying of bladder: Unable to void. In ER several times to pass urinary catheter unsuccessful. Bloody discharge from urethra, possible urethral injury. Appreciate urology consultation. UA not suggestive of UTI. Status: Acute (5) BPH (benign prostatic hyperplasia): Status: Chronic (6) Lower urinary tract symptoms (LUTS): Status: Acute (7) Pemphigus vulgaris of gingival mucosa: Continue Decadron. Status: Chronic (8) History of cryptococcal meningitis: Continue fluconazole. Status: Chronic (9) Starvation ketoacidosis: Reports remote history of heavy alcohol consumption, has since quit years ago, however, is not aware of being diagnosed with any sort of chronic liver disease. Appears is having starvation ketosis with metabolic acidosis, ketones in urine. Glucose is not elevated. Will obtain VBG. Resume oral diet. Gentle IV hydration. Status: Acute Additional A&P Information DM2: Sliding scale insulin, SSI. Multiple other chronic medical problems noted. Attestations Medical Necessity Statement*: Place in observation for assessment management following a fall, with acute mildly displaced rib fracture, starvation ketosis, rhabdomyolysis, inability to void and urinary bladder and gentleman with multiple underlying chronic comorbidities as above. Coding Level of Care Code Acute Shipping Clerk/Admin for g Fwd Diagnoses Closed rib fracture S22.39XA Fall W19.XXXA Rhabdomyolysis M62.82 Incomplete emptying of bladder R33.9 BPH (benign prostatic hyperplasia) N40.0 Lower urinary tract symptoms (LUTS) R39.9 Pemphigus vulgaris of gingival mucosa L10.0 History of cryptococcal meningitis Z86.61 Starvation ketoacidosis E87.2
[2021-03-26 18:47] VITALS: BP 109/78; PULSE 114; RESP 23; TEMP 37.2; O2SAT 94
--- NOTE | 2021-03-26 18:50 | XRR_ITS ---
PROCEDURE INFORMATION: Exam: XR Right Knee Exam date and time: 03/26/2021 6:50 PM Age: 65 years old Clinical indication: Pain and injury or trauma; Fall; Blunt trauma; Knee; Right; Prior surgery; Additional info: Fall, pain TECHNIQUE: Imaging protocol: XR Right knee. Views: 3 views. COMPARISON: None FINDINGS: Bones/joints: Osteopenia and degenerative change. No acute bony injury or malalignment in the visualized right knee. Incompletely visualized surgical hardware in the right femoral diaphysis. Soft tissues: Unremarkable. Vasculature: Vascular calcification. XR/XR knee RT 3V* [id number] IMPRESSION: No acute bony injury or malalignment in the visualized right knee.
--- NOTE | 2021-03-26 18:50 | XRR_ITS ---
PROCEDURE INFORMATION: Exam: XR Right Ankle Exam date and time: 03/26/2021 6:50 PM Age: 65 years old Clinical indication: Pain and injury or trauma; Fall; Blunt trauma; Ankle; Right; Prior surgery; Additional info: Fall, pain TECHNIQUE: Imaging protocol: XR Right ankle. Views: 3 or more views. COMPARISON: CR XR ankle RT min 3V* [id number] 03/20/2020 1:30 PM FINDINGS: Bones/joints: Osteopenia. Status post ORIF of old distal tibial and fibular fractures. Soft tissues: Mild soft tissue calcification. Vasculature: Vascular calcification. XR/XR ankle RT min 3V* [id number] IMPRESSION: Osteopenia and ORIF of old distal tibial and fibular fractures.
[2021-03-26 19:20] LABS: Valproic Acid Level 2.8 ug/mL (50-100)
[2021-03-26 20:00] VITALS: BP 96/60; PULSE 89; RESP 18; TEMP 37.3; O2SAT 91
[2021-03-26 20:15] LABS: Glucose Point of Care 120 mg/dL (70-110)
[2021-03-26] MEDS: HYDROcodone-acetaminophen 5-325 mg Tablet 1 TAB PO (20:19)
[2021-03-26 20:25] LABS: Troponin 5 6HR 19.58 ng/L (0-15); Troponin 5 6HR Delta 0.58 ng/L (0-12)
[2021-03-26 20:44] LABS: Base Excess VBG -12.4 mmol/L (-3.0-3.0); Blood Gas Allen Test Pos; PCO2 VBG 33.3 mmHg (41-51); PO2 VBG 80.6 mmHg (25-40); Venous Blood Gas Hematocrit 47.1 % (42-52); pH VBG 7.23 (7.32-7.42)
[2021-03-26] MEDS: D5-NS 0.45% + KCL 20 mEq 20 MEQ/1,000 ML BAG 75 MEQ IV (21:33)
[2021-03-26] MEDS: trazodone 100 mg Tablet PO (21:33)
[2021-03-26] MEDS: acetaminophen 325 mg Tablet 650 MG PO (22:32)
[2021-03-27] VITALS: BP 119/75; PULSE 100; RESP 19; TEMP 37.2; O2SAT 92
[2021-03-27] MEDS: HYDROcodone-acetaminophen 5-325 mg Tablet 1 TAB PO ×4 (01:09→20:14)
[2021-03-27 03:57] VITALS: BP 114/79; PULSE 85; RESP 18; TEMP 36.6; O2SAT 94
[2021-03-27] MEDS: acetaminophen 325 mg Tablet 650 MG PO (04:13)
[2021-03-27 05:24] LABS: Basophils % 0.4 %; Eosinophils # 0.1 10^3/uL (0.0-0.8); Eosinophils % 0.9 %; Hematocrit 36.9 % (42.0-52.0); Hemoglobin 12.3 g/dL (11.7-16.6); Lymphocytes # 1.9 10^3/uL (0.8-4.8); Lymphocytes % 27.8 %; Mean Corpuscular HGB Conc 33.3 g/dL (30.0-36.0); Mean Corpuscular Hemoglobin 31.1 pg (28.0-34.0); Mean Corpuscular Volume 93.4 fl (80-94); Mean Platelet Volume 9.7 fL (7.4-10.4); Monocytes # 0.7 10^3/uL (0.2-0.9); Neutrophils # 4.07 10^3/uL (1.8-7.7); Neutrophils % 60.2 %; Nucleated Red Blood Cells % 0 %; Platelet Count 189 10^3/cmm (130-400); Red Blood Count 3.95 10^6/uL (4.1-5.3); Red Cell Distribution Width 12.8 % (12.1-15.1); White Blood Count 6.8 10^3/uL (4.0-10.0)
[2021-03-27 05:45] LABS: Alanine Aminotransferase 10 U/L (0-41); Albumin Level 3.1 g/dL (3.5-5.2); Alkaline Phosphatase 47 IU/L (40-130); Anion Gap 22.5 (5-19); Aspartate Amino Transferase 17 U/L (0-40); Blood Urea Nitrogen 9 mg/dL (8-23); Carbon Dioxide 15 mmol/L (22-29); Chloride 101 mmol/L (98-107); Globulin 2.9 g/dL (1.3-4.6); Glomerular Filtration Rate 167.9 mL/min (90-130); Glucose 113 mg/dL (65-115); Osmolality Calculated 279 mOsm/kg (285-295); Potassium 3.5 mmol/L (3.5-5.1); Sodium 135 mmol/L (136-145); Total Bilirubin 0.6 mg/dL (0.15-1.2)
[2021-03-27 06:45] LABS: Glucose Point of Care 131 mg/dL (70-110)
[2021-03-27 07:14] VITALS: BP 101/65; PULSE 84; RESP 18; TEMP 36.6; O2SAT 93
[2021-03-27] MEDS: metformin XR 500 MG Tablet PO ×2 (08:23→18:29)
[2021-03-27] MEDS: aspirin 81 mg EC Tablet PO (08:23)
[2021-03-27] MEDS: magnesium oxide 400 mg tablet PO ×2 (08:23→18:29)
[2021-03-27] MEDS: fluticasone nasal spray 16gm Btl 2 SPRAY INTRANASAL (08:23)
[2021-03-27] MEDS: dexamethasone 4 mg Tablet 1 MG PO (08:24)
[2021-03-27] MEDS: divalproex DR 500 mg Tablet PO ×2 (08:24→20:14)
[2021-03-27] MEDS: fluconazole 100 mg Tablet 400 MG PO (08:24)
[2021-03-27] MEDS: tamsulosin 0.4 mg Capsule PO ×2 (08:24→18:32)
[2021-03-27] MEDS: D5-NS 0.45% + KCL 20 mEq 20 MEQ/1,000 ML BAG 75 MEQ IV (08:33)
[2021-03-27 08:50] LABS: Creatine Phosphokinase 1544 U/L (39-308)
[2021-03-27 11:07] LABS: Glucose Point of Care 140 mg/dL (70-110)
[2021-03-27] MEDS: lidocaine 5% Patch 1 PATCH TOPICAL ×2 (11:20→20:15)
[2021-03-27 11:23] VITALS: BP 119/79; PULSE 97; RESP 18; TEMP 36.3; O2SAT 96
--- NOTE | 2021-03-27 11:30 | PC.NURSE ---
AT APPROX. 1120 RN WENT INTO PTS ROOM TO APPLY HIS LIDOCAINE PATCH. PT ASKED FOR MORE PAIN MEDICATIONS, RN EDUCATED THAT IT HAD ONLY BEEN ABOUT 1HR 20MINS. HE THEN STATES, WELL CAN YOU JUST GET ME SOME HEROIN. RN EDUCATED HIM THAT ASKING FOR THAT WAS NOT APPROPRIATE. HE THEN APOLOGIZED. RN WAS APPLYING THE LIDOCAINE PATCH, HE ASKED, IS THAT A FENTANYL PATCH? RN EDUC HIM THAT IT WAS A LIDOCAINE PATCH AND NOT FENTANYL. HE THEN STATED, I SHOULDN'T HAVE FENTANYL PATCHES, THEY GAVE ME 1 BEFORE AND I BROKE IT APART AND ALMOST OD'D ON FENTANYL. I DIDN'T KNOW YOU WEREN'T SUPPOSE TO BREAK IT APART. NOTIFIED
--- NOTE | 2021-03-27 11:39 | PC.CHAP ---
Pastoral Care Encounter/Spiritual Assessment Type of Contact [] Declined social sciences chair visit [] Patient/Family/Request visit [] Outpatient visit [] Follow-up visit [] Physician referral [] Code/Alert [x] Routine visit [] Staff referral [] Actively dying [] Patient sleeping [] Family support [] [] Out of room [] Palliative care [] [x] Receiving care in room [] Pre-surgical visit [] Trauma [x] Long length of stay [] ICU visit [] Other: Relational/Emotional Strength [] Patient feels connected with others/family/visitors/staff [x] Distress [] Loneliness/isolation [] Abandonment Spirituality of Patient [x] Person of Marva [] Attends Mormon of their Marva [x] Believes in Prayer [] Reads Bible or Latter-Day materials [] There are Spiritual issues to be addressed Fire Extinguisher Technician Interventions [x] Prayer [x] Active listening [x] Non-anxious presence [x] Spiritual/emotional support [] Crisis/trauma care [x] Spiritual counseling [] Bereavement support [] Provided bereavement packet [] Provided Bible/devotional materials [] Provided toy/stuffed animal, coloring book to patient or family member [] Provided Communion [] Anointing/[place] [] Salvation [x] Completed spiritual assessment [] Other: Impact on Illness or Injury [] Angry [x] Fearful [] Anxious [] Often cries [] Exhaustion [x] Unable to work [] Unable to attend congregational [] Unable to walk/stand [] Unable to read [] Unable to drive [] Unable to eat/drink [] Unable to sleep [] Unable to be with family [] Patient intubated [] Other: Summary waiting on doctors report in some pain doesn't feel good has a negative attitude will go home at some point Time spent with patient 10 mins
[2021-03-27 13:33] LABS: Blood Gas Sample Type VENOUS
--- NOTE | 2021-03-27 14:20 | PM.PN ---
Subjective Subjective: Interval history: Some pain of the left knee. Right knee feels better. Pain in the right side of the rib cage. Prevents him from taking deep breaths, however, he is trying/starting to work with incentive spirometry. Not much appetite, but trying to eat. Try to work with PT. Vitals/I&O/Wt Last Vital Signs Temp 97.4 F L 03/27/21 11:23 Pulse 97 03/27/21 11:23 Resp 18 03/27/21 11:23 BP 119/79 03/27/21 11:23 Pulse Ox 96 03/27/21 11:23 03/26/21 03/27/21 03/27/21 22:59 06:59 14:59 Intake Total 1460 / 1460 640 / 2100 1425 / 1425 Output Total 850 / 850 Balance 610 / 610 640 / 1250 1425 / 1425 Weight last 48 hrs Weight 100.108 kg Weight 97.522 kg Weight 97.522 kg Physical Exam Const: COMMON NORMALS: patient oriented x3 and alert GENERAL APPEARANCE: cooperative and frail appearing; not comfortable (pain) ORIENTATION/CONSCIOUSNESS: Yes awake HENMT: COMMON NORMALS: oropharynx normal Neck/C-Spine: COMMON NORMALS: no JVD Chest: OTHER: Tenderness on palpation right side rib cage Resp: COMMON NORMALS: normal respiratory effort and clear to auscultation bilaterally AUSCULTATION: clear to auscultation bilaterally Cardio: COMMON NORMALS: no JVD, regular rhythm, S1 normal heart sound present, S2 normal heart sound present and No murmurs present (Cardio) RHYTHM: regular rhythm HEART SOUNDS: S1 normal heart sound present and S2 normal heart sound present GI: COMMON NORMALS: Normal to inspection, nondistended, normoactive bowel sounds present, Soft to palpation and non-tender PALPATION: Yes Soft to palpation Extremity: COMMON NORMALS: no joint enlargement and no pedal edema OTHER: Good passive ROM right knee. No erythema, swelling. No erythema, swelling of the right ankle. Neuro: COMMON NORMALS: patient oriented x3 and moves all extremities SENSORIUM/ORIENTATION: Yes alert Skin: COMMON NORMALS: no rashes or lesions noted GENERAL SKIN EXAM: no rashes or lesions noted and ecchymosis (Multiple ecchymosis however his arms, legs, chest) OTHER: Thin fragile skin Data : 03/27/21 04:34 03/27/21 04:34 A&P Assessment and plan (1) Metabolic acidosis: Starvation ketosis as well as hypercapnic respiratory acidosis. Showing gradual improvement, slight improvement in carbon oxide up to 15, anion gap slightly improved to 22.5. He is not having very good appetite, but is trying to eat. Continue sliding scale insulin. Pain control for rib fracture, encourage breathing exercises to help prevent worsening hypercapnia. VBG 7.23/33.3/80.6 Status: Acute (2) Closed rib fracture: Discussed with him noted hypercapnia on ABG. Discussed concern he is not taking deep breaths with the rib fracture. He is starting to work with incentive spirometry. Encouraged him to continue. Continue lidocaine patch. Hydrocodone as needed for breakthrough. Status: Acute (3) Fall: Not entirely clear etiology of fall, but thinks he had tripped. Does not remember losing consciousness, but simply does not remember. Unclear if may have had a seizure. Will check valproic acid level. Had not eaten or taken any of his medications since Wednesday. Resume oral diet. Gentle IV hydration due to dehydration. PT, OT -decreased endurance, strength moderate to max assist. Status: Acute (4) Rhabdomyolysis: Slight worsening of CK despite gentle IV hydration, 1544. Recheck level. Status: Acute (5) Incomplete emptying of bladder: Required urology consultation and bedside procedure for catheter placement. Noted false lumen. Maintain catheter. Follow-up with urology in office. UA not suggestive of UTI. 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 Appears is having starvation ketosis with metabolic acidosis, ketones in urine. Glucose is not elevated. Will obtain VBG. Resume oral diet. Gentle IV hydration. Status: Acute Additional A&P Information DM2: Sliding scale insulin, SSI. Consistent carb diet. History of seizure: Noted low valproic acid level. Likely not taking his medicines alongside others. Depakote resumed. Multiple other chronic medical problems noted. Attestations Medical Necessity Statement*: Admission of over 2 midnights is needed for assessment management of metabolic acidosis, starvation ketosis, hypercapnia and gentleman with rib fractures after fall, and improving rhabdomyolysis, functional assessment, disposition planning. Coding Level of Care Code Acute Steam Drier Tender for [facility] Fwd Diagnoses Metabolic acidosis E87.2 Closed rib fracture S22.39XA Fall W19.XXXA Rhabdomyolysis M62.82 Incomplete emptying of bladder R33.9 BPH (benign prostatic hyperplasia) N40.0 Lower urinary tract symptoms (LUTS) R39.9 Pemphigus vulgaris of gingival mucosa L10.0 History of cryptococcal meningitis Z86.61 Starvation ketoacidosis E87.2
[2021-03-27 15:19] VITALS: BP 119/84; PULSE 84; RESP 18; TEMP 36.6; O2SAT 97
[2021-03-27 17:10] LABS: Glucose Point of Care 181 mg/dL (70-110)
[2021-03-27 19:15] VITALS: BP 124/89; PULSE 92; RESP 18; TEMP 36.8; O2SAT 98
[2021-03-27] MEDS: trazodone 100 mg Tablet PO (20:14)
[2021-03-27 21:07] LABS: Glucose Point of Care 126 mg/dL (70-110)
[2021-03-27] MEDS: fixodent 39 gm Tube 1 APPLIC DENTAL (21:32)
[2021-03-28] VITALS: BP 120/81; PULSE 88; RESP 16; TEMP 36.8; O2SAT 96
[2021-03-28] MEDS: HYDROcodone-acetaminophen 5-325 mg Tablet 1 TAB PO ×6 (00:40→23:12)
[2021-03-28 04:00] VITALS: BP 118/79; PULSE 80; RESP 16; TEMP 36.7; O2SAT 95
[2021-03-28 05:41] LABS: Basophils % 0.2 %; Hematocrit 33.6 % (42.0-52.0); Hemoglobin 11.6 g/dL (11.7-16.6); Lymphocytes % 18.5 %; Mean Corpuscular HGB Conc 34.5 g/dL (30.0-36.0); Mean Corpuscular Volume 89.8 fl (80-94); Mean Platelet Volume 10.5 fL (7.4-10.4); Monocytes # 0.4 10^3/uL (0.2-0.9); Monocytes % 6.5 %; Neutrophils # 4.01 10^3/uL (1.8-7.7); Neutrophils % 74.2 %; Nucleated Red Blood Cells % 0 %; Platelet Count 185 10^3/cmm (130-400); Red Blood Count 3.74 10^6/uL (4.1-5.3); Red Cell Distribution Width 12.5 % (12.1-15.1); White Blood Count 5.4 10^3/uL (4.0-10.0)
[2021-03-28 05:59] LABS: Creatine Phosphokinase 1347 U/L (39-308)
[2021-03-28 06:00] LABS: Alanine Aminotransferase 11 U/L (0-41); Alkaline Phosphatase 43 IU/L (40-130); Anion Gap 20.5 (5-19); Aspartate Amino Transferase 19 U/L (0-40); Blood Urea Nitrogen 8 mg/dL (8-23); Calcium 8.2 mg/dL (8.5-10.5); Carbon Dioxide 18 mmol/L (22-29); Chloride 100 mmol/L (98-107); Globulin 2.8 g/dL (1.3-4.6); Glomerular Filtration Rate 302.8 mL/min (90-130); Glucose 106 mg/dL (65-115); Osmolality Calculated 277 mOsm/kg (285-295); Potassium 4.5 mmol/L (3.5-5.1); Sodium 134 mmol/L (136-145); Total Bilirubin 0.4 mg/dL (0.15-1.2); Total Protein 5.8 g/dL (6.6-8.7)
[2021-03-28 06:47] LABS: Glucose Point of Care 118 mg/dL (70-110)
[2021-03-28 07:36] VITALS: BP 120/78; PULSE 66; RESP 16; TEMP 36.9; O2SAT 95
[2021-03-28] MEDS: fluconazole 100 mg Tablet 400 MG PO (07:58)
[2021-03-28] MEDS: aspirin 81 mg EC Tablet PO (07:59)
[2021-03-28] MEDS: dexamethasone 4 mg Tablet 1 MG PO (07:59)
[2021-03-28] MEDS: metformin XR 500 MG Tablet PO ×2 (07:59→17:56)
[2021-03-28] MEDS: tamsulosin 0.4 mg Capsule PO ×2 (07:59→17:56)
[2021-03-28] MEDS: magnesium oxide 400 mg tablet PO ×2 (07:59→17:56)
[2021-03-28] MEDS: divalproex DR 500 mg Tablet PO ×2 (08:03→20:16)
[2021-03-28] MEDS: lidocaine 5% Patch 1 PATCH TOPICAL ×2 (08:10→20:16)
--- NOTE | 2021-03-28 10:30 | PM.PN ---
Subjective Subjective: Interval history: Urology follow-up: He feels better today. The catheter is functioning well with no difficulty. He says he still a little bit sore from the trauma related to catheter placement. He does have a longstanding history of poor bladder function with incomplete emptying. He has been trained in the past to perform SCIC and has had to do it a couple times at home. Given the recent injury to the urethra I think he will need to be retrained to confirm that the catheter could easily get past the area of trauma. For that reason I would leave the catheter in a discharge and follow-up roughly a week or so after his admission date in order to do a voiding trial in the clinic and probably flexible cystoscopy to confirm adequate healing before SCIC reconstruction. Vitals/I&O/Wt Last Vital Signs Temp 98.4 F 03/28/21 07:36 Pulse 66 03/28/21 07:36 Resp 16 03/28/21 07:36 BP 120/78 03/28/21 07:36 Pulse Ox 95 03/28/21 07:36 03/27/21 03/28/21 03/28/21 22:59 06:59 14:59 Intake Total 960 / 2385 480 / 2865 360 / 360 Output Total 700 / 700 980 / 1680 Balance 260 / 1685 -500 / 1185 360 / 360 Weight last 48 hrs Weight 226 lb 7 oz Weight 220 lb 11.2 oz Weight 215 lb Weight 215 lb Physical Exam Const: COMMON NORMALS: no acute distress, alert and well nourished GENERAL APPEARANCE: well kempt and well developed ORIENTATION/CONSCIOUSNESS: not confused HENMT: COMMON NORMALS: normocephalic and atraumatic HEAD & SCALP: normocephalic and atraumatic Eye: COMMON NORMALS: conjunctivae normal CONJUNCTIVA: Yes conjunctivae normal Resp: COMMON NORMALS: normal respiratory effort EFFORT & INSPECTION: No labored and No Actively coughing Neuro: SENSORIUM/ORIENTATION: Yes alert Psych: COMMON NORMALS: mental status grossly normal APPEARANCE: Yes grossly normal and Yes well kempt ATTITUDE: Yes calm and Yes engaged Data : 03/28/21 04:33 03/28/21 04:33 A&P Assessment and plan (1) Urethral false passage: Should heal well. Maintaining Alaniz catheter for about a week total should allow passage of self-catheterization if he needs to for his longstanding chronic poor bladder function. We will keep the Alaniz catheter in and follow-up for voiding trial SCIC reconstruction and likely flexible cystoscopy. Status: Acute (2) Urinary retention: History of recurrent urinary retention and chronic inability to completely empty the bladder. I do not anticipate any change from his baseline in the long run but he did have a significantly distended bladder which may create a temporary stretch injury and decreased contractile function. Status: Acute Attestations Medical Necessity Statement*: See attending Coding Level of Care Code Acute Manager User Interface for [facility] Diagnoses Urethral false passage N36.5 Urinary retention R33.9
[2021-03-28 11:22] VITALS: BP 121/85; PULSE 84; RESP 16; TEMP 36.6; O2SAT 96
--- NOTE | 2021-03-28 11:58 | PC.CHAP ---
Pastoral Care Encounter/Spiritual Assessment Type of Contact [] Declined senior compensation analyst visit [] Patient/Family/Request visit [] Outpatient visit [] Follow-up visit [] Physician referral [] Code/Alert [] Routine visit [] Staff referral [] Actively dying [] Patient sleeping [] Family support [] [] Out of room [] Palliative care [] [xx] Receiving care in room [] Pre-surgical visit [] Trauma [] Long length of stay [] ICU visit [] Other: Relational/Emotional Strength [] Patient feels connected with others/family/visitors/staff [] Distress [] Loneliness/isolation [] Abandonment Spirituality of Patient [] Person of Marva [] Attends Episcopal of their Marva [] Believes in Prayer [] Reads Bible or Presybeterian materials [] There are Spiritual issues to be addressed Deckhand Shrimp Boat Interventions [] Prayer [] Active listening [] Non-anxious presence [] Spiritual/emotional support [] Crisis/trauma care [] Spiritual counseling [] Bereavement support [] Provided bereavement packet [] Provided Bible/devotional materials [] Provided toy/stuffed animal, coloring book to patient or family member [] Provided Communion [] Anointing/[place] [] Salvation [] Completed spiritual assessment [] Other: Impact on Illness or Injury [] Angry [] Fearful [] Anxious [] Often cries [] Exhaustion [] Unable to work [] Unable to attend sabianist [] Unable to walk/stand [] Unable to read [] Unable to drive [] Unable to eat/drink [] Unable to sleep [] Unable to be with family [] Patient intubated [] Other: Summary Follow up needed. Time spent with patient
[2021-03-28 12:27] LABS: Glucose Point of Care 118 mg/dL (70-110)
--- NOTE | 2021-03-28 12:38 | PM.PN ---
Subjective Subjective: Interval history: She is feeling slightly better. He feels he is getting up more. He is adamant about trying to work on getting home. Required assistance history of to get up from a chair in the shower. Denies chest pain or pressure. Still pain the right side of the rib cage, but not as severe. Vitals/I&O/Wt Last Vital Signs Temp 97.9 F 03/28/21 11:22 Pulse 84 03/28/21 11:22 Resp 16 03/28/21 11:22 BP 121/85 03/28/21 11:22 Pulse Ox 96 03/28/21 11:22 03/27/21 03/28/21 03/28/21 22:59 06:59 14:59 Intake Total 960 / 2385 480 / 2865 360 / 360 Output Total 700 / 700 980 / 1680 Balance 260 / 1685 -500 / 1185 360 / 360 Weight last 48 hrs Weight 102.71 kg Weight 100.108 kg Weight 97.522 kg Physical Exam Const: COMMON NORMALS: patient oriented x3 and alert GENERAL APPEARANCE: cooperative and frail appearing; not comfortable (pain) ORIENTATION/CONSCIOUSNESS: Yes awake HENMT: COMMON NORMALS: oropharynx normal Neck/C-Spine: COMMON NORMALS: no JVD Chest: OTHER: Tenderness on palpation right side rib cage Resp: COMMON NORMALS: normal respiratory effort and clear to auscultation bilaterally AUSCULTATION: clear to auscultation bilaterally Cardio: COMMON NORMALS: no JVD, regular rhythm, S1 normal heart sound present, S2 normal heart sound present and No murmurs present (Cardio) RHYTHM: regular rhythm HEART SOUNDS: S1 normal heart sound present and S2 normal heart sound present GI: COMMON NORMALS: Normal to inspection, nondistended, normoactive bowel sounds present, Soft to palpation and non-tender PALPATION: Yes Soft to palpation Extremity: COMMON NORMALS: no joint enlargement and no pedal edema OTHER: Good passive ROM right knee. No erythema, swelling. No erythema, swelling of the right ankle. Neuro: COMMON NORMALS: patient oriented x3 and moves all extremities SENSORIUM/ORIENTATION: Yes alert Skin: COMMON NORMALS: no rashes or lesions noted GENERAL SKIN EXAM: no rashes or lesions noted and ecchymosis (Multiple ecchymosis however his arms, legs, chest) OTHER: Thin fragile skin Data : 03/28/21 04:33 03/28/21 04:33 A&P Assessment and plan (1) Metabolic acidosis: Metabolic acidosis showing gradual improvement. Carbon oxide up to 18, anion gap down to 20.5. His appetite is not the best but he is trying to eat. Continue to encourage oral intake. Continue sliding scale insulin. Reassess chemistries. Metabolic acidosis complicated by respiratory acidosis with hypercapnia. Continue to encourage incentive spirometry. Rib pain is not as severe. Status: Acute (2) Closed rib fracture: Complicated by hypercapnia. Continue lidocaine patch. Hydrocodone as needed for breakthrough. Incentive spirometry. Continue to mobilize. Status: Acute (3) Fall: Not entirely clear etiology of fall, but thinks he had tripped. Does not remember losing consciousness, but simply does not remember. Unclear if may have had a seizure. Low valproic acid level. Medications resumed. Had not eaten or taken any of his medications since Wednesday. Status: Acute (4) Rhabdomyolysis: Now gradually improving. IVF discontinued. Recheck level. Status: Acute (5) Incomplete emptying of bladder: Maintain Alaniz for 1 week. Follow-up with urology for voiding trial. Required urology consultation and bedside procedure for catheter placement. Noted false lumen. UA not suggestive of UTI. Status: Acute (6) BPH (benign prostatic hyperplasia): Continue Flomax. 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 Appears is having starvation ketosis with metabolic acidosis, ketones in urine. Glucose is not elevated. IVF discontinued. P.o. intake as tolerating. Status: Acute Additional A&P Information DM2: Sliding scale insulin, SSI. Consistent carb diet. History of seizure: Noted low valproic acid level. Likely not taking his medicines alongside others. Depakote resumed. Multiple other chronic medical problems noted. Attestations Medical Necessity Statement*: Continue admission for assessment management of metabolic acidosis with starvation ketosis, complicated by hypercapnia and respiratory acidosis following fall, rib fracture in a gentleman with diminished baseline functioning, history of multiple fractures and orthopedic surgeries in the past. Disposition planning. Coding Level of Care Code Acute Drier Take Off Tender for [facility] Fwd Diagnoses Metabolic acidosis E87.2 Closed rib fracture S22.39XA Fall W19.XXXA Rhabdomyolysis M62.82 Incomplete emptying of bladder R33.9 BPH (benign prostatic hyperplasia) N40.0 Lower urinary tract symptoms (LUTS) R39.9 Pemphigus vulgaris of gingival mucosa L10.0 History of cryptococcal meningitis Z86.61 Starvation ketoacidosis E87.2
[2021-03-28] MEDS: ondansetron 2 mg/ML SDV 2 mL 4 MG IVP (14:30)
[2021-03-28 16:00] VITALS: BP 118/70; PULSE 75; RESP 16; TEMP 36.6; O2SAT 90
[2021-03-28 17:14] LABS: Glucose Point of Care 139 mg/dL (70-110)
[2021-03-28 20:00] VITALS: BP 122/68; PULSE 75; RESP 16; TEMP 36.7; O2SAT 96
[2021-03-28] MEDS: trazodone 100 mg Tablet PO (20:16)
[2021-03-28] MEDS: acetaminophen 325 mg Tablet 650 MG PO (20:22)
[2021-03-28 21:10] LABS: Glucose Point of Care 117 mg/dL (70-110)
[2021-03-29] VITALS (7 sets, daily range): BP systolic 95–138; BP diastolic 57–88; PULSE 58–91; RESP 16–20; TEMP 36.6–36.7; O2SAT 93–97
[2021-03-29 06:06] LABS: Basophils % 0.4 %; Eosinophils % 0.2 %; Hematocrit 33.2 % (42.0-52.0); Hemoglobin 11.4 g/dL (11.7-16.6); Lymphocytes # 1.4 10^3/uL (0.8-4.8); Lymphocytes % 26.5 %; Mean Corpuscular HGB Conc 34.3 g/dL (30.0-36.0); Mean Corpuscular Hemoglobin 30.6 pg (28.0-34.0); Mean Corpuscular Volume 89.2 fl (80-94); Mean Platelet Volume 10.1 fL (7.4-10.4); Monocytes # 0.3 10^3/uL (0.2-0.9); Monocytes % 5.5 %; Neutrophils % 66.6 %; Nucleated Red Blood Cells % 0 %; Platelet Count 198 10^3/cmm (130-400); Red Blood Count 3.72 10^6/uL (4.1-5.3); Red Cell Distribution Width 12.7 % (12.1-15.1); White Blood Count 5.1 10^3/uL (4.0-10.0)
[2021-03-29 06:21] LABS: Alanine Aminotransferase 12 U/L (0-41); Albumin Level 3.1 g/dL (3.5-5.2); Alkaline Phosphatase 41 IU/L (40-130); Anion Gap 15.9 (5-19); Aspartate Amino Transferase 19 U/L (0-40); Blood Urea Nitrogen 9 mg/dL (8-23); Calcium 8.3 mg/dL (8.5-10.5); Carbon Dioxide 23 mmol/L (22-29); Chloride 100 mmol/L (98-107); Globulin 2.7 g/dL (1.3-4.6); Glomerular Filtration Rate 302.8 mL/min (90-130); Glucose 101 mg/dL (65-115); Osmolality Calculated 279 mOsm/kg (285-295); Potassium 3.9 mmol/L (3.5-5.1); Sodium 135 mmol/L (136-145); Total Bilirubin 0.2 mg/dL (0.15-1.2); Total Protein 5.8 g/dL (6.6-8.7)
[2021-03-29 06:27] LABS: Creatine Phosphokinase 1012 U/L (39-308)
[2021-03-29 06:48] LABS: Glucose Point of Care 138 mg/dL (70-110)
[2021-03-29] MEDS: HYDROcodone-acetaminophen 5-325 mg Tablet 1 TAB PO ×3 (07:49→16:38)
[2021-03-29] MEDS: magnesium oxide 400 mg tablet PO ×2 (07:49→17:11)
[2021-03-29] MEDS: tamsulosin 0.4 mg Capsule PO ×2 (07:50→17:11)
[2021-03-29] MEDS: dexamethasone 4 mg Tablet 1 MG PO (07:50)
[2021-03-29] MEDS: aspirin 81 mg EC Tablet PO (07:51)
[2021-03-29] MEDS: fluconazole 100 mg Tablet 400 MG PO (07:51)
[2021-03-29] MEDS: divalproex DR 500 mg Tablet PO ×2 (07:58→21:07)
[2021-03-29] MEDS: metformin XR 500 MG Tablet PO ×2 (07:58→17:11)
[2021-03-29] MEDS: acetaminophen 325 mg Tablet 650 MG PO (10:04)
[2021-03-29] MEDS: ondansetron 2 mg/ML SDV 2 mL 4 MG IVP (11:29)
[2021-03-29 11:50] LABS: Glucose Point of Care 112 mg/dL (70-110)
--- NOTE | 2021-03-29 14:48 | P.PN_ITS ---
Subjective Subjective: Interval history: Says that he still feels weak in his legs, but has been working with therapy. He does not have a way to and does not want to return home today. States also he is there alone, but declines to consider going to long-term facility. Vitals/I&O/Wt Last Vital Signs Temp 98.1 F 03/29/21 11:20 Pulse 85 03/29/21 11:20 Resp 18 03/29/21 11:20 BP 138/77 03/29/21 11:20 Pulse Ox 95 03/29/21 11:20 03/28/21 03/29/21 03/29/21 22:59 06:59 14:59 Intake Total 480 / 840 480 / 1320 360 / 360 Output Total 900 / 900 1160 / 2060 Balance -420 / -60 -680 / -740 360 / 360 Weight last 48 hrs Weight 102.71 kg Physical Exam Const: COMMON NORMALS: patient oriented x3 and alert GENERAL APPEARANCE: cooperative and frail appearing; not comfortable (pain) ORIENTATION/CONSCIOUSNESS: Yes awake HENMT: COMMON NORMALS: oropharynx normal Neck/C-Spine: COMMON NORMALS: no JVD Resp: COMMON NORMALS: normal respiratory effort and clear to auscultation bilaterally AUSCULTATION: clear to auscultation bilaterally Cardio: COMMON NORMALS: no JVD, regular rhythm, S1 normal heart sound present, S2 normal heart sound present and No murmurs present (Cardio) RHYTHM: regular rhythm HEART SOUNDS: S1 normal heart sound present and S2 normal heart sound present GI: COMMON NORMALS: Normal to inspection, nondistended, normoactive bowel sounds present, Soft to palpation and non-tender PALPATION: Yes Soft to palpation Back/Pelvis: OTHER: 3x10 cm horizontal bruise on lower back Extremity: COMMON NORMALS: no joint enlargement and no pedal edema OTHER: Knees without erythema, swelling. No erythema, swelling of the right ankle. Neuro: COMMON NORMALS: patient oriented x3 and moves all extremities SENS ORIUM/ORIENTATION: Yes alert Skin: COMMON NORMALS: no rashes or lesions noted GENERAL SKIN EXAM: no rashes or lesions noted and ecchymosis (Multiple ecchymosis however his arms, legs, chest) OTHER: Thin fragile skin Data : 03/29/21 05:33 03/29/21 05:33 A&P Assessment and plan (1) Fall: Continue mobilization, he is working well with therapy. Improving, still feels weak in his legs. Does not want to return home yet today's, does not have a ride. Requesting with case management to assist with discharge arrangements. He states will also be reaching out to his son, but he is currently out of town. Discussed with him tentative discharge plans for the morning. Not entirely clear etiology of fall, but thinks he had tripped. Does not remember losing consciousness, but simply does not remember. Unclear if may have had a seizure. Low valproic acid level. Medications resumed. Had not eaten or taken any of his medications since Wednesday. Status: Acute (2) Metabolic acidosis: Discussed with him resolving metabolic acidosis. Bicarb up to 23, anion gap down to 15.9. Appetite is not very good, but he is trying to eat. Continue to encourage oral intake. Continue sliding scale insulin. Metabolic acidosis complicated by respiratory acidosis with hypercapnia. Continue to encourage incentive spirometry. Rib pain is not as severe. Status: Acute (3) Closed rib fracture: Complicated by hypercapnia. Continue lidocaine patch. Hydrocodone as needed for breakthrough. He is making good effort with incentive spirometry. Continue to mobilize. Status: Acute (4) Rhabdomyolysis: Improving, CK down to 1012. Status: Acute (5) Incomplete emptying of bladder: He discussed with the urologist regarding maintaining Alaniz for 1 week. Follow-up with for voiding trial in clinic. Required urology consultation and bedside procedure for catheter placement. Noted false lumen. UA not suggestive of UTI. Status: Acute (6) BPH (benign prostatic hyperplasia): Continue Flomax. 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 Appears is having starvation ketosis with metabolic acidosis, ketones in urine. Glucose is not elevated. IVF discontinued. P.o. intake as tolerating. Status: Acute Additional A&P Information DM2: Sliding scale insulin, SSI. Consistent carb diet. History of seizure: Noted low valproic acid level. Likely not taking his medicines alongside others. Depakote resumed. Multiple other chronic medical problems noted. Attestations Medical Necessity Statement*: Continue discharge arrangements with plan return home tomorrow after fall at home, with weakness, rib fracture, metabolic acidosis, starvation ketosis, hypercapnia, rhabdomyolysis. Coding Level of Care Code Acute Linux Admin for [facility] Fwd Diagnoses Fall W19.XXXA Metabolic acidosis E87.2 Closed rib fracture S22.39XA Rhabdomyolysis M62.82 Incomplete emptying of bladder R33.9 BPH (benign prostatic hyperplasia) N40.0 Lower urinary tract symptoms (LUTS) R39.9 Pemphigus vulgaris of gingival mucosa L10.0 History of cryptococcal meningitis Z86.61 Starvation ketoacidosis E87.2
[2021-03-29 17:12] LABS: Glucose Point of Care 132 mg/dL (70-110)
[2021-03-29 20:05] LABS: Glucose Point of Care 139 mg/dL (70-110)
[2021-03-29] MEDS: trazodone 100 mg Tablet PO (21:07)
[2021-03-29] MEDS: lidocaine 5% Patch 1 PATCH TOPICAL (21:07)
[2021-03-30] MEDS: HYDROcodone-acetaminophen 5-325 mg Tablet 1 TAB PO ×3 (00:57→12:31)
[2021-03-30 04:00] VITALS: BP 124/70; PULSE 59; RESP 19; TEMP 36.7; O2SAT 94
[2021-03-30 04:37] LABS: Basophils % 0.4 %; Eosinophils % 0.4 %; Hematocrit 35.2 % (42.0-52.0); Lymphocytes # 1.9 10^3/uL (0.8-4.8); Lymphocytes % 36.3 %; Mean Corpuscular HGB Conc 34.1 g/dL (30.0-36.0); Mean Corpuscular Hemoglobin 31.5 pg (28.0-34.0); Mean Corpuscular Volume 92.4 fl (80-94); Mean Platelet Volume 10.2 fL (7.4-10.4); Monocytes # 0.4 10^3/uL (0.2-0.9); Monocytes % 7.8 %; Neutrophils % 53.2 %; Nucleated Red Blood Cells % 0 %; Platelet Count 224 10^3/cmm (130-400); Red Blood Count 3.81 10^6/uL (4.1-5.3); Red Cell Distribution Width 12.8 % (12.1-15.1); White Blood Count 5.3 10^3/uL (4.0-10.0)
[2021-03-30 04:53] LABS: Alanine Aminotransferase 14 U/L (0-41); Albumin Level 3.2 g/dL (3.5-5.2); Alkaline Phosphatase 47 IU/L (40-130); Aspartate Amino Transferase 24 U/L (0-40); Blood Urea Nitrogen 10 mg/dL (8-23); Calcium 8.7 mg/dL (8.5-10.5); Carbon Dioxide 28 mmol/L (22-29); Chloride 97 mmol/L (98-107); Globulin 2.6 g/dL (1.3-4.6); Glomerular Filtration Rate 167.9 mL/min (90-130); Glucose 97 mg/dL (65-115); Osmolality Calculated 283 mOsm/kg (285-295); Sodium 137 mmol/L (136-145); Total Bilirubin 0.2 mg/dL (0.15-1.2); Total Protein 5.8 g/dL (6.6-8.7)
[2021-03-30 05:14] LABS: Creatine Phosphokinase 894 U/L (39-308)
[2021-03-30 06:30] LABS: Glucose Point of Care 96 mg/dL (70-110)
[2021-03-30 07:29] LABS: Glucose Point of Care 102 mg/dL (70-110)
[2021-03-30 07:56] VITALS: BP 111/65; PULSE 66; RESP 16; TEMP 37.1; O2SAT 93
[2021-03-30] MEDS: fluconazole 100 mg Tablet 400 MG PO (08:06)
[2021-03-30] MEDS: magnesium oxide 400 mg tablet PO (08:06)
[2021-03-30] MEDS: tamsulosin 0.4 mg Capsule PO (08:06)
[2021-03-30] MEDS: dexamethasone 4 mg Tablet 1 MG PO (08:07)
[2021-03-30] MEDS: aspirin 81 mg EC Tablet PO (08:07)
[2021-03-30] MEDS: metformin XR 500 MG Tablet PO (08:21)
[2021-03-30] MEDS: divalproex DR 500 mg Tablet PO (08:21)
[2021-03-30 11:24] VITALS: BP 113/65; PULSE 64; RESP 17; TEMP 36.9; O2SAT 94
--- NOTE | 2021-03-30 11:28 | P.DS_ITS ---
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 (9) History of cryptococcal meningitis: Status: Chronic (10) Starvation ketoacidosis: Status: Acute Reason for Visit Reason for Visit: FALL/ PAIN ALL OVER Hospital Course Hospital Course 65-year-old gentleman was admitted for assessment management after a fall at home, stay on the floor for about 12 hours, with finding of mild rhabdomyolysis on presentation, Giurgius mildly displaced rib fracture, with pain in the right knee and ankle, without fracture seen on imaging, other imaging including CT head showed no acute finding, chronic finding of small lacunar infarcts described in full report, CT C-spine with advanced degenerative disc disease and spondylosis, no cervical spine fracture. CT abdomen pelvis with stable right- sided noncalcified pulmonary nodules compared to January 2020, direct comparison with older studies recommended. Coronary atherosclerosis, bilateral probably benign renal cysts, left renal calyceal lithiasis, diminutive right iliac arteries. He states he is not eaten almost anything since Wednesday, has not taken his medications. Sodium is 136, potassium 3.3, HCO3 14, anion gap 29.3, creatinine 0.9, BUN 16, liver parameters unremarkable, creatinine kinase 1500, troponin XIX-17.34. NT proBNP 195. Lipase 10. Albumin 3.8. Total protein 6.6. Urinalysis with 2+ ketones, 1+ bilirubin, 4 urobilinogen, 0-4 RBC, 0-4 WBC. Hyaline cast. In ER received IV hydration. Due to difficulties with urinary c atheter required bedside flexible cystoscopy by urology. With identified false urethral passage, Alaniz catheter was placed, and is to remain in place until reassessment at appointment next week with planned voiding trial at that time. Pain after fall, rib fracture treated with lidocaine patch, Tylenol and hydrocodone-acetaminophen as needed. He was assessed by physical therapy and was working well with them. Was working well with [facility] spirom[facility]. Ambulating slowly, but up 120 feet. He is concerned about returning home due to living by himself. Additionally offered placement to [facility] which he declines. Discussed with him consideration of obtaining life alert service at one of the major providers. Verbalized understanding. Discussed with him consideration of moving with his family, he states sister had offered in the past, but when he had asked it did not work out, does state his son offered to move with him as well. Discussed with him to consider this option again for additional support in case not considering going to [facility]. Metabolic acidosis noted on presentation with starvation ketosis resolved question of hydration, resumption of p.o. intake. Mild rhabdomyolysis continues to improve. CK down to 894. Renal function remains stable. Please reassess chemistries after resolution of rhabdomyolysis in office. Physical Exam Narrative: EXAM NARRATIVE: Up to chair. Const: COMMON NORMALS: patient oriented x3 and alert GENERAL APPEARANCE: cooperative and frail appearing; not comfortable (pain) ORIENTATION/CONSCIOUSNESS: Yes awake HENMT: COMMON NORMALS: oropharynx normal Neck/C-Spine: COMMON NORMALS: no JVD Chest: OTHER: Tenderness on palpation right side rib cage Resp: COMMON NORMALS: normal respiratory effort and clear to auscultation bilaterally AUSCULTATION: clear to auscultation bilaterally Cardio: COMMON NORMALS: no JVD, regular rhythm, S1 normal heart sound present, S2 normal heart sound present and No murmurs present (Cardio) RHYTHM: regular rhythm HEART SOUNDS: S1 normal heart sound present and S2 normal heart sound present GI: COMMON NORMALS: Normal to inspection, nondistended, normoactive bowel sounds present, Soft to palpation and non-tender PALPATION: Yes Soft to palpation Extremity: COMMON NORMALS: no joint enlargement and no pedal edema OTHER: No erythema, swelling of the right ankle. Neuro: COMMON NORMALS: patient oriented x3 and moves all extremities SENSORIUM/ORIENTATION: Yes alert Skin: COMMON NORMALS: no rashes or lesions noted GENERAL SKIN EXAM: no rashes or lesions noted and ecchymosis (Multiple ecchymosis however his arms, legs, chest) OTHER: Thin fragile skin Discharge Data Data Completed and Pending: Completed Studies During Hospitalization Category Date Time Status CT cervical spin wo con* [id number] Urge nt Cat Scan 03/26/21 12:[address] chest abd pel w con* Urgent Cat Scan 03/26/21 12:[address] head wo con* 7 [id number] Urgent Cat Scan 03/26/21 12:26 Completed XR ankle RT min 3 V* [id number] Routine Exams 03/26/21 18:50 Completed XR knee RT 3V* 73 [id number] Routine Exams 03/26/21 18:50 Completed Pending at discharge Category Date Time Status Complete Blood Co unt w/Auto AM LABS Lab 03/31/21 04:00 Ordered Complete Blood Co unt w/Auto AM LABS Lab 04/01/21 04:00 Ordered Comprehensive Met abolic Panel AM LA BS Lab 03/31/21 04:00 Ordered Comprehensive Met abolic Panel AM LA BS Lab 04/01/21 04:00 Ordered Labs from last 24 hours 03/30/21 03/30/21 03/30/21 07:24 06:15 02:55 WBC RBC Hgb Hct MCV MCH MCHC RDW Plt Count MPV Neut % (Auto) Lymph % (Auto) [place] % (Auto) Eos % (Auto) Baso % (Auto) Neut # (Auto) Lymph # (Auto) [place] # (Auto) Eos # (Auto) Baso # (Auto) Nucleated RBC % (a uto) Nucleated RBCs # Sodium 137 Potassium 4.0 Chloride 97 L Carbon Dioxide 28 Anion Gap 16.0 BUN 10 Creatinine 0.5 L GFR Calculation 167.9 H Glucose 97 POC Glucose 102 96 Calculated Osmolal ity 283 L Calcium 8.7 Total Bilirubin 0.2 AST 24 ALT 14 Alkaline Phosphata se 47 Creatine Kinase 894 H* Total Protein 5.8 L Albumin 3.2 L Globulin 2.6 03/30/21 03/29/21 03/29/21 02:55 19:49 17:06 WBC 5.3 RBC 3.81 L Hgb 12.0 Hct 35.2 L MCV 92.4 MCH 31.5 MCHC 34.1 RDW 12.8 Plt Count 224 MPV 10.2 Neut % (Auto) 53.2 Lymph % (Auto) 36.3 [place] % (Auto) 7.8 Eos % (Auto) 0.4 Baso % (Auto) 0.4 Neut # (Auto) 2.80 Lymph # (Auto) 1.9 [place] # (Auto) 0.4 Eos # (Auto) 0.0 Baso # (Auto) 0.0 Nucleated RBC % (a uto) 0 Nucleated RBCs # 0.0 Sodium Potassium Chloride Carbon Dioxide Anion Gap BUN Creatinine GFR Calculation Glucose POC Glucose 139 H 132 H Calculated Osmolal ity Calcium Total Bilirubin AST ALT Alkaline Phosphata se Creatine Kinase Total Protein Albumin Globulin 03/29/21 11:22 WBC RBC Hgb Hct MCV MCH MCHC RDW Plt Count MPV Neut % (Auto) Lymph % (Auto) [place] % (Auto) Eos % (Auto) Baso % (Auto) Neut # (Auto) Lymph # (Auto) [place] # (Auto) Eos # (Auto) Baso # (Auto) Nucleated RBC % (a uto) Nucleated RBCs # Sodium Potassium Chloride Carbon Dioxide Anion Gap BUN Creatinine GFR Calculation Glucose POC Glucose 112 H Calculated Osmolal ity Calcium Total Bilirubin AST ALT Alkaline Phosphata se Creatine Kinase Total Protein Albumin Globulin Vitals: Last Vital Signs Temp 98.5 F 03/30/21 11:24 Pulse 64 03/30/21 11:24 Resp 17 03/30/21 11:24 BP 113/65 03/30/21 11:24 Pulse Ox 94 03/30/21 11:24 Discharge Plan Discharge Patient Disposition: Home Condition: Stable Prescriptions: New hydrocodone-acetaminophen 5-325 mg Tablet 1 tab PO Q4H PRN (Reason: Moderate To Severe Pain) Qty: 10 RF: 0 lidocaine 5 % Adhesive Patch,Medicated 1 patch topical [id number] Qty: 5 RF: 0 Continued tamsulosin 0.4 mg capsule 0.4 mg PO BID Qty: 60 RF: 12 (DME) [email or web address] Ultra Test Strip See Rx Instructions .Route Qty: 50 RF: 5 aspirin 81 mg tablet,delayed release (DR/EC) 81 mg PO DAILY Qty: 30 RF: 5 magnesium oxide 400 mg magnesium tablet 400 mg PO BID Qty: 60 RF: 2 trazodone 100 mg tablet 100 mg PO BEDTIME Qty: 30 RF: 2 metformin 500 mg tablet extended release 24 hr 500 mg PO BID Qty: 60 RF: 2 ascorbic acid (vitamin C) [Vitamin C] 500 mg tablet extended release 1,000 mg PO DAILY RF: 0 methenamine hippurate 1 gram tablet 1 g PO DAILY RF: 0 Flonase Allergy Relief 50 mcg/actuation spray,suspension 2 spray intranasal DAILY PRN (Reason: Allergy Symptoms) RF: 0 Claritin 10 mg tablet 10 mg PO DAILY PRN (Reason: Allergy Symptoms) RF: 0 fluconazole 100 mg tablet 400 mg PO DAILY Qty: 90 RF: 0 Depakote 500 mg tablet,delayed release (DR/EC) 500 mg PO BID Qty: 60 RF: 2 dexamethasone 1 mg tablet 1 mg PO DAILY Qty: 30 RF: 2 Discharge Orders: Discharge Order (Routine); Ordered 03/30/21 Ordered By: James Lozada Referrals: [facility] [Other] Adela Alaniz, [employer] [Primary Care Provider] - 4-7 days (Please call on Wednesday to schedule an appointment to be seen in 4-7 days.) Cl Stewart MD [Physician] - 4-7 days (Please call on Wednesday to schedule an appointment to be seen in 4-7 days.) Discharge Diet: Cardiac and Diabetic Discharge Activity: Increase activity as tolerated and As per PT/OT instructions Patient Instructions: Hydrocodone/Acetaminophen (By mouth) (Vicodin, [place], Lortab), Lidocaine Patch (On the skin) (Lidoderm, Novaplus Lidocaine), Rib Fracture (GEN), Rhabdomyolysis (GEN), Fall Prevention (GEN), Opioid Safety Activity Restrictions/Additional Instructions: We will consult wound care at home to prevent pneumonia after rib fracture. Follow-up with your primary doctor for reassessment. Maintain Alaniz catheter in place until you come for reassessment and voiding trial at clinic with Dr. Stewart next week. Please follow-up with your primary doctor for reassessment of blood chemistries and to confirm resolution of rhabdomyolysis. Continue your other regular medications. Consider moving with your son for additional support. Otherwise as per discussion please give thought to [facility] placement. Discharge Attestations Time Spent in Discharge Care*: greater than 30 min Status at Discharge: Cognitive status at discharge: cognitively intact , Behavioral status at discharge: cooperative , Quality Metrics Clinical Quality Measures During this hospital stay, did patient experience: None Coding Level of Care Code Acute Chg FW DC note Exam Comprehensive Diagnoses Fall W19.XXXA Metabolic acidosis E87.2 Closed rib fracture S22.39XA Rhabdomyolysis M62.82 Incomplete emptying of bladder R33.9 BPH (benign prostatic hyperplasia) N40.0 Lower urinary tract symptoms (LUTS) R39.9 Pemphigus vulgaris of gingival mucosa L10.0 History of cryptococcal meningitis Z86.61 Starvation ketoacidosis E87.2
[2021-03-30 11:33] LABS: Glucose Point of Care 118 mg/dL (70-110)
[2021-03-30] MEDS: ondansetron 2 mg/ML SDV 2 mL 4 MG IVP (11:53)
[2021-03-30 13:09] VITALS: BP 113/65; PULSE 64; RESP 17; TEMP 36.9; O2SAT 94
--- NOTE | 2021-03-31 16:00 | PC.SOCIAL ---
[facility] called regarding Lidocaine patches. They have boxes of 30 and don't split the boxes. Dr. Jara ordered #5, he isn't back until next week. Spoke with Dr. Quinn, verbal ok to give #30, called and let [employer] store know to fill #30.
== END 2021-03-30 13:09 | disposition home or self-care (01) | DRG 206 ==
LOC: ER 16:44 → MEDSURG 03-27 11:00
PROVIDERS: Admitting Provider Internal Medicine; Emergency Provider Emergency Medicine; PCP Nurse Practitioner; Visit Provider Internal Medicine
DX: S22.31XA Fracture of one rib, right side, initial encounter for closed fracture (principal); N13.8 Other obstructive and reflux uropathy; M62.82 Rhabdomyolysis; E87.4 Mixed disorder of acid-base balance; L10.0 Pemphigus vulgaris; W01.0XXA Fall on same level from slipping, tripping and stumbling without subsequent striking against object, initial encounter; I10 Essential (primary) hypertension; E11.9 Type 2 diabetes mellitus without complications; N40.1 Benign prostatic hyperplasia with lower urinary tract symptoms; R33.8 Other retention of urine; R39.14 Feeling of incomplete bladder emptying; F51.04 Psychophysiologic insomnia; E78.5 Hyperlipidemia, unspecified; K21.9 Gastro-esophageal reflux disease without esophagitis; Z86.14 Personal history of Methicillin resistant Staphylococcus aureus infection; F32.A Depression, unspecified; Z87.01 Personal history of pneumonia (recurrent); E55.9 Vitamin D deficiency, unspecified; Z79.84 Long term (current) use of oral hypoglycemic drugs; Z79.82 Long term (current) use of aspirin; E88.89 Other specified metabolic disorders; I25.10 Atherosclerotic heart disease of native coronary artery without angina pectoris; R91.8 Other nonspecific abnormal finding of lung field; M50.30 Other cervical disc degeneration, unspecified cervical region; N36.5 Urethral false passage; Z86.61 Personal history of infections of the central nervous system
CPT/HCPCS: 36415; 36416; 70450; 71260; 72125; 73562; 73610; 74177; 80053; 80164; 81001; 82550; 82803; 82962; 83690; 83880; 84484; 85025; 93005; 96361; 96374; 97110; 97116; 97161; 97165; 97530; 97535; 99285; G0378; J2270; J2405; J7030; J8540; Q9967

== ENCOUNTER 2021-04-23 13:24 | Inpatient (IN) | payer MEDICAID, SELFPAY ==
[2021-04-23 13:22] VITALS: BP 111/74; PULSE 106; RESP 16; TEMP 37.4; O2SAT 92; BMI 25.7
--- NOTE | 2021-04-23 13:34 | XR_ITS ---
WS: [id number] Exam: XR chest 1V portable [id number] Date/Time of Exam: 04/23/2021 1:36 PM Reason For Exam: dyspnea/cough Comparison 05/23/2020. The lungs are fully expanded. 1.34 cm nodule seen in the upper lobe of the right lung. 8 mm nodule se en in the right lower lung zone. Chronic blunting of the left costophrenic angle may represent pleura l thickening. Heart size is normal. No infiltrates. The mediastinum is not widened. Several old right rib fractures. Recommendations: If this patient is considered high risk for lung cancer, a nonemergent chest CT scan might be considered for follow-up. XR/XR chest 1V portable [id number] IMPRESSION: 1. No acute infiltrates. 2. 1.34 cm nodule in the right upper lobe showing little change since prior jean claude dy. A second 8 mm nodule seen in the right lower lung zone was not identified o n prior study. 3. Chronically blunted left costophrenic angle may represent pleural thickening .
--- NOTE | 2021-04-23 13:57 | W.ED.NAVMDI ---
Documented by User: Yoan Ramos DO 04/30/21 07:25 HPI - Nausea/Vomiting/Diarrhea General: Chief complaint: ER Hold Stated complaint: n/v, left knee pain, possible sepsis Time Seen by Provider: 04/23/21 13:33 History of Present Illness: HPI Narrative: 62-year-old male presents emergency room complaining nausea and vomiting. Also complaining of left knee pain that occurred after he pivoted and twisted the knee denies falling down he has not had any leg swelling the knee joint itself feels somewhat swollen denies any chest pain or shortness of breath. No hematemesis or coffee-ground emesis. Weightbearing or movement at the left knee worsens his symptoms rest improves. He has not had any medications that help it. No fever. This all began yesterday. MD elicited complaint: nausea and vomiting Onset (ago): day(s) Description of vomiting: food contents and bilious Associated nausea: Yes Associated abdominal pain: No Location of pain: Other (Left knee) Quality: cramping Associated symtoms: Reports nausea; Denies chest pain, dysuria, fatigue or malaise Review of Systems Const: Denies: fever(s), chills, body aches, change in appetite, fatigue or malaise ENMT: Denies: throat pain, ear or mastoid pain, nasal discharge or nasal congestion Card: Denies: chest pain, edema, dyspnea on exertion or orthopnea Resp: Denies: dyspnea, productive cough or non-productive cough GI: Reports: nausea : Denies: flank pain, dysuria, urinary frequency or urinary urgency Skin/Breast: Denies: rash or pruritus PFSH ED PFSH: Medical History Abdominal wall hernia Allergic rhinitis Anxiety disorder Avascular necrosis of left femoral head Bimalleolar fracture of right ankle Bladder outlet obstruction BPH (benign prostatic hyperplasia) Chronic arthritis Chronic insomnia Closed displaced fracture of right acromial process Closed fracture of glenoid cavity of right scapula Closed pilon fracture of right tibia Controlled diabetes mellitus Dyslipidemia Essential (primary) hypertension Fall GERD (gastroesophageal reflux disease) History of cryptococcal meningitis History of MRSA infection History of seizures Incomplete emptying of bladder Lower urinary tract symptoms (LUTS) Major depressive disorder Pemphigus vulgaris of gingival mucosa Pneumonia Rhabdomyolysis Starvation ketoacidosis Suicidal ideation Superficial laceration of skin Tongue leukoplakia Urethral false passage Urinary retention Vitamin D deficiency Surgical History History of hip surgery right. Primary plus revision surgery done at [place] History of inguinal herniorrhaphy right History of vasectomy Family History Grandmother Diabetes Father , at age 69 CAD (coronary artery disease) Mother , at age 58 Brain aneurysm Denies family history of Bleeding disorder Social History Second hand smoke exposure: No Smoking risk assessment/counseling performed?: No Alcohol intake: never Desire information about alcohol rehabilitation?: No Counseling given: No Desire information about substance/drug rehabilitation?: No Counseling given: No Adopted: No Lives independently: Yes Household members: other Housing: House Marital status: service: No Current occupational status: disabled History of recent travel: No Current gender identity: Male Physical Exam Const: COMMON NORMALS: no acute distress GENERAL APPEARANCE: cooperative and comfortable ORIENTATION/CONSCIOUSNESS: Yes awake, Yes oriented to person, Yes oriented to place and Yes oriented to time HENMT: COMMON NORMALS: normocephalic, atraumatic and hearing grossly normal bilaterally HEAD & SCALP: normocephalic and atraumatic Neck/C-Spine: COMMON NORMALS: no JVD Resp: COMMON NORMALS: normal respiratory effort, No retractions, No use of accessory muscles and clear to auscultation bilaterally AUSCULTATION: clear to auscultation bilaterally Cardio: COMMON NORMALS: no JVD, regular rate, regular rhythm and No murmurs present (Cardio) RATE: regular rate RHYTHM: regular rhythm GI: COMMON NORMALS: Soft to palpation and No hepatosplenomegaly present AUSCULTATION: Yes normoactive bowel sounds PALPATION: Yes Soft to palpation, No Tenderness to palpation present (GI), No Guarding due to palpation present (GI) and Yes No hepatosplenomegaly present Extremity: COMMON NORMALS: normal to inspection, capillary refill normal, no clubbing, cyanosis or edema, no calf tenderness and no pedal edema Neuro: SENSORIUM/ORIENTATION: Yes oriented to person, Yes oriented to place and Yes oriented to time Skin: COMMON NORMALS: no rashes or lesions noted GENERAL SKIN EXAM: no rashes or lesions noted Course Vital Signs: Vital signs: Vital Signs Temperature 98.4 F 04/29/21 04:00 Pulse Rate 68 04/29/21 12:55 Respiratory Rate 14 04/29/21 12:55 Blood Pressure 105/67 04/29/21 12:55 Pulse Oximetry 95 04/29/21 12:55 MDM - Nausea/Vomiting/Diarrhea MDM Narrative Medical decision making narrative: Care turned over to Dr. Duckworth at change of shift suspect left knee infection. Labs and imaging pending see his note final diagnosis and disposition Lab Data Result diagrams: 04/27/21 03:22 04/27/21 03:22 Labs: Lab Results 04/23/21 04/23/21 04/23/21 15:41 15:41 15:41 WBC 11.6 10^3/uL H 10^3/uL (4.0-10.0) RBC 4.09 10^6/uL L 10^6/uL (4.1-5.3) Hgb 12.3 g/dL g/dL (11.7-16.6) Hct 38.3 % L % (42.0-52.0) MCV 93.6 fl fl (80-94) MCH 30.1 pg pg (28.0-34.0) MCHC 32.1 g/dL g/dL (30.0-36.0) RDW 13.2 % % (12.1-15.1) Plt Count 253 10^3/cmm 10^3/cmm (130-400) MPV 9.4 fL fL (7.4-10.4) Neut % (Auto) 69.1 % % Lymph % (Auto) 21.9 % % [place] % (Auto) 7.3 % % Eos % (Auto) 0.4 % % Baso % (Auto) 0.3 % % Neut # (Auto) 7.99 10^3/uL H 10^3/uL (1.8-7.7) Lymph # (Auto) 2.5 10^3/uL 10^3/uL (0.8-4.8) [place] # (Auto) 0.9 10^3/uL 10^3/uL (0.2-0.9) Eos # (Auto) 0.1 10^3/uL 10^3/uL (0.0-0.8) Baso # (Auto) 0.0 10^3/uL 10^3/uL (0.0-0.1) Nucleated RBC % (auto) 0 % % Nucleated RBCs # 0.0 /100WBC /100WBC ESR 77 mm/hr H mm/hr (0-10) Sodium 137 mmol/L mmol/L (136-145) Potassium 3.3 mmol/L L mmol/L (3.5-5.1) Chloride 98 mmol/L mmol/L (98-107) Carbon Dioxide 22 mmol/L mmol/L (22-29) Anion Gap 20.3 H (5-19) BUN 13 mg/dL mg/dL (8-23) Creatinine 0.5 mg/dL L mg/dL (0.7-1.2) GFR Calculation 167.9 mL/min H mL/min (90-130) Glucose 88 mg/dL mg/dL (65-115) Calculated Osmolality 284 mOsm/kg L mOsm/kg (285-295) Lactate Calcium 9.2 mg/dL mg/dL (8.5-10.5) Total Bilirubin 0.7 mg/dL mg/dL (0.15-1.2) AST 5 U/L U/L (0-40) ALT < 5 U/L U/L (0-41) Alkaline Phosphatase 62 IU/L IU/L (40-130) C-Reactive Protein Total Protein 6.2 g/dL L g/dL (6.6-8.7) Albumin 3.2 g/dL L g/dL (3.5-5.2) Globulin 3.0 g/dL g/dL (1.3-4.6) Fluid Crystals Synovial Color Synovial Appearance Synovial WBC Synovial RBC Synovial Mononuclear Synov Polynuclear WBCs Synovial Other Cells Synovial Polynuclear % Synovial Mononuclear % Valproic Acid Coronavirus 229E (PCR) SARS-CoV-2 (PCR) SARS-CoV-2 RNA (RT-PCR) Path Cons w/Slide 04/23/21 04/23/21 04/23/21 15:41 15:41 21:03 WBC RBC Hgb Hct MCV MCH MCHC RDW Plt Count MPV Neut % (Auto) Lymph % (Auto) [place] % (Auto) Eos % (Auto) Baso % (Auto) Neut # (Auto) Lymph # (Auto) [place] # (Auto) Eos # (Auto) Baso # (Auto) Nucleated RBC % (auto) Nucleated RBCs # ESR Sodium Potassium Chloride Carbon Dioxide Anion Gap BUN Creatinine GFR Calculation Glucose Calculated Osmolality Lactate 0.9 mmol/L mmol/L (0.5-2.2) Calcium Total Bilirubin AST ALT Alkaline Phosphatase C-Reactive Protein 340.4 mg/L H mg/L (0.0-4.9) Total Protein Albumin Globulin Fluid Crystals Synovial Color Synovial Appearance Synovial WBC Synovial RBC Synovial Mononuclear Synov Polynuclear WBCs Synovial Other Cells Synovial Polynuclear % Synovial Mononuclear % Valproic Acid 21.0 ug/mL L ug/mL (50-100) Coronavirus 229E (PCR) SARS-CoV-2 (PCR) SARS-CoV-2 RNA (RT-PCR) Path Cons w/Slide 04/23/21 04/23/21 04/23/21 21:09 21:09 22:45 WBC RBC Hgb Hct MCV MCH MCHC RDW Plt Count MPV Neut % (Auto) Lymph % (Auto) [place] % (Auto) Eos % (Auto) Baso % (Auto) Neut # (Auto) Lymph # (Auto) [place] # (Auto) Eos # (Auto) Baso # (Auto) Nucleated RBC % (auto) Nucleated RBCs # ESR Sodium Potassium Chloride Carbon Dioxide Anion Gap BUN Creatinine GFR Calculation Glucose Calculated Osmolality Lactate Calcium Total Bilirubin AST ALT Alkaline Phosphatase C-Reactive Protein Total Protein Albumin Globulin Fluid Crystals Synovial Color Yellow (PALE YELLOW) Synovial Appearance Cloudy (CLEAR) Synovial WBC 91975 /uL H /uL (0-150) Synovial RBC 3 10^3/uL H 10^3/uL (0-0) Synovial Mononuclear 0.953 10^3/uL 10^3/uL Synov Polynuclear WBCs 29.324 10^3/uL 10^3/uL Synovial Other Cells Not Reportable Synovial Polynuclear % 96.900 % % Synovial Mononuclear % 3.100 % % Valproic Acid Coronavirus 229E (PCR) Not detected (NOT DETECT) SARS-CoV-2 (PCR) Not detected (NOT DETECT) SARS-CoV-2 RNA (RT-PCR) Cancelled Path Cons w/Slide Yes 04/23/21 22:45 WBC RBC Hgb Hct MCV MCH MCHC RDW Plt Count MPV Neut % (Auto) Lymph % (Auto) [place] % (Auto) Eos % (Auto) Baso % (Auto) Neut # (Auto) Lymph # (Auto) [place] # (Auto) Eos # (Auto) Baso # (Auto) Nucleated RBC % (auto) Nucleated RBCs # ESR Sodium Potassium Chloride Carbon Dioxide Anion Gap BUN Creatinine GFR Calculation Glucose Calculated Osmolality Lactate Calcium Total Bilirubin AST ALT Alkaline Phosphatase C-Reactive Protein Total Protein Albumin Globulin Fluid Crystals Sent to path Synovial Color Synovial Appearance Synovial WBC Synovial RBC Synovial Mononuclear Synov Polynuclear WBCs Synovial Other Cells Synovial Polynuclear % Synovial Mononuclear % Valproic Acid Coronavirus 229E (PCR) SARS-CoV-2 (PCR) SARS-CoV-2 RNA (RT-PCR) Path Cons w/Slide Discharge Plan Discharge Patient Disposition: Admitted As Inpatient Admit Provider: Brent Little Clinical Impression: Septic joint of left knee joint Condition: Stable Discharge Diet: Advance as tolerated Discharge Activity: Resume usual activity Coding Level of Care Code ED Shift Nurse Manager for Chg Fwd Exam Comprehensive Documented by User: Eva Duckworth MD 04/23/21 23:33 HPI - Nausea/Vomiting/Diarrhea General: Chief complaint: ER Hold Stated complaint: n/v, left knee pain, possible sepsis Time Seen by Provider: 04/23/21 13:33 PFSH ED PFSH: Medical History Abdominal wall hernia Allergic rhinitis Anxiety disorder Avascular necrosis of left femoral head Bimalleolar fracture of right ankle Bladder outlet obstruction BPH (benign prostatic hyperplasia) Chronic arthritis Chronic insomnia Closed displaced fracture of right acromial process Closed fracture of glenoid cavity of right scapula Closed pilon fracture of right tibia Controlled diabetes mellitus Dyslipidemia Essential (primary) hypertension [place] GERD (gastroesophageal reflux disease) History of cryptococcal meningitis History of MRSA infection History of seizures Incomplete emptying of bladder Lower urinary tract symptoms (LUTS) Major depressive disorder Pemphigus vulgaris of gingival mucosa Pneumonia Rhabdomyolysis Starvation ketoacidosis Suicidal ideation Superficial laceration of skin Tongue leukoplakia Urethral false passage Urinary retention Vitamin D deficiency Surgical History History of hip surgery right. Primary plus revision surgery done at [place] History of inguinal herniorrhaphy right History of vasectomy Family History Grandmother Diabetes Father , at age 69 CAD (coronary artery disease) Mother , at age 58 Brain aneurysm Denies family history of Bleeding disorder Social History Second hand smoke exposure: No Smoking risk assessment/counseling performed?: No Alcohol intake: never Desire information about alcohol rehabilitation?: No Counseling given: No Desire information about substance/drug rehabilitation?: No Counseling given: No Adopted: No Lives independently: Yes Household members: other Housing: House Marital status: service: No Current occupational status: disabled History of recent travel: No Current gender identity: Male Physical Exam Const: COMMON NORMALS: apparent distress GENERAL APPEARANCE: ill appearing Extremity: OTHER: Warm to touch to left knee with swelling pain with range of motion Procedures Joint Aspiration/Injection Joint Asp./Inject. 1: Time Out Performed: Yes Side of body: left Joint Aspirated: knee Ultrasound Guidance: No Skin Prep: Povidone-Iodine1% Local Anesthetic: lidocaine 1% Amount of anesthesia used (mL): 10 Needle Size Used: 18G Fluid Obtained: clear Total fluid obtained (mL): 60 Patient Tolerated Procedure: well Complications: none Course Vital Signs: Vital signs: Vital Signs Temperature 98.4 F 04/29/21 04:00 Pulse Rate 68 04/29/21 12:55 Respiratory Rate 14 04/29/21 12:55 Blood Pressure 105/67 04/29/21 12:55 Pulse Oximetry 95 04/29/21 12:55 MDM - Nausea/Vomiting/Diarrhea MDM Narrative Medical decision making narrative: Patient presents here with left knee pain low-grade fevers mild hypotensive here. Did an arthrocentesis showed over 30,000 white cells could be a possible septic joint spoke to orthopedist will start IV antibiotics follow cultures along with crystal analysis blood pressures improved with IV fluids spoke to hospitalist and will admit. Lab Data Result diagrams: 04/27/21 03:22 01/23/22 03:22 Labs: Lab Results 04/23/21 04/23/21 04/23/21 15:41 15:41 15:41 WBC 11.6 10^3/uL H 10^3/uL (4.0-10.0) RBC 4.09 10^6/uL L 10^6/uL (4.1-5.3) Hgb 12.3 g/dL g/dL (11.7-16.6) Hct 38.3 % L % (42.0-52.0) MCV 93.6 fl fl (80-94) MCH 30.1 pg pg (28.0-34.0) MCHC 32.1 g/dL g/dL (30.0-36.0) RDW 13.2 % % (12.1-15.1) Plt Count 253 10^3/cmm 10^3/cmm (130-400) MPV 9.4 fL fL (7.4-10.4) Neut % (Auto) 69.1 % % Lymph % (Auto) 21.9 % % [place] % (Auto) 7.3 % % Eos % (Auto) 0.4 % % Baso % (Auto) 0.3 % % Neut # (Auto) 7.99 10^3/uL H 10^3/uL (1.8-7.7) Lymph # (Auto) 2.5 10^3/uL 10^3/uL (0.8-4.8) [place] # (Auto) 0.9 10^3/uL 10^3/uL (0.2-0.9) Eos # (Auto) 0.1 10^3/uL 10^3/uL (0.0-0.8) Baso # (Auto) 0.0 10^3/uL 10^3/uL (0.0-0.1) Nucleated RBC % (auto) 0 % % Nucleated RBCs # 0.0 /100WBC /100WBC ESR 77 mm/hr H mm/hr (0-10) Sodium 137 mmol/L mmol/L (136-145) Potassium 3.3 mmol/L L mmol/L (3.5-5.1) Chloride 98 mmol/L mmol/L (98-107) Carbon Dioxide 22 mmol/L mmol/L (22-29) Anion Gap 20.3 H (5-19) BUN 13 mg/dL mg/dL (8-23) Creatinine 0.5 mg/dL L mg/dL (0.7-1.2) GFR Calculation 167.9 mL/min H mL/min (90-130) Glucose 88 mg/dL mg/dL (65-115) Calculated Osmolality 284 mOsm/kg L mOsm/kg (285-295) Lactate Calcium 9.2 mg/dL mg/dL (8.5-10.5) Total Bilirubin 0.7 mg/dL mg/dL (0.15-1.2) AST 5 U/L U/L (0-40) ALT < 5 U/L U/L (0-41) Alkaline Phosphatase 62 IU/L IU/L (40-130) C-Reactive Protein Total Protein 6.2 g/dL L g/dL (6.6-8.7) Albumin 3.2 g/dL L g/dL (3.5-5.2) Globulin 3.0 g/dL g/dL (1.3-4.6) Fluid Crystals Synovial Color Synovial Appearance Synovial WBC Synovial RBC Synovial Mononuclear Synov Polynuclear WBCs Synovial Other Cells Synovial Polynuclear % Synovial Mononuclear % Valproic Acid Coronavirus 229E (PCR) SARS-CoV-2 (PCR) SARS-CoV-2 RNA (RT-PCR) Path Cons w/Slide 04/23/21 04/23/21 04/23/21 15:41 15:41 21:03 WBC RBC Hgb Hct MCV MCH MCHC RDW Plt Count MPV Neut % (Auto) Lymph % (Auto) [place] % (Auto) Eos % (Auto) Baso % (Auto) Neut # (Auto) Lymph # (Auto) [place] # (Auto) Eos # (Auto) Baso # (Auto) Nucleated RBC % (auto) Nucleated RBCs # ESR Sodium Potassium Chloride Carbon Dioxide Anion Gap BUN Creatinine GFR Calculation Glucose Calculated Osmolality Lactate 0.9 mmol/L mmol/L (0.5-2.2) Calcium Total Bilirubin AST ALT Alkaline Phosphatase C-Reactive Protein 340.4 mg/L H mg/L (0.0-4.9) Total Protein Albumin Globulin Fluid Crystals Synovial Color Synovial Appearance Synovial WBC Synovial RBC Synovial Mononuclear Synov Polynuclear WBCs Synovial Other Cells Synovial Polynuclear % Synovial Mononuclear % Valproic Acid 21.0 ug/mL L ug/mL (50-100) Coronavirus 229E (PCR) SARS-CoV-2 (PCR) SARS-CoV-2 RNA (RT-PCR) Path Cons w/Slide 04/23/21 04/23/21 04/23/21 21:09 21:09 22:45 WBC RBC Hgb Hct MCV MCH MCHC RDW Plt Count MPV Neut % (Auto) Lymph % (Auto) [place] % (Auto) Eos % (Auto) Baso % (Auto) Neut # (Auto) Lymph # (Auto) [place] # (Auto) Eos # (Auto) Baso # (Auto) Nucleated RBC % (auto) Nucleated RBCs # ESR Sodium Potassium Chloride Carbon Dioxide Anion Gap BUN Creatinine GFR Calculation Glucose Calculated Osmolality Lactate Calcium Total Bilirubin AST ALT Alkaline Phosphatase C-Reactive Protein Total Protein Albumin Globulin Fluid Crystals Synovial Color Yellow (PALE YELLOW) Synovial Appearance Cloudy (CLEAR) Synovial WBC 25987 /uL H /uL (0-150) Synovial RBC 3 10^3/uL H 10^3/uL (0-0) Synovial Mononuclear 0.953 10^3/uL 10^3/uL Synov Polynuclear WBCs 29.324 10^3/uL 10^3/uL Synovial Other Cells Not Reportable Synovial Polynuclear % 96.900 % % Synovial Mononuclear % 3.100 % % Valproic Acid Coronavirus 229E (PCR) Not detected (NOT DETECT) SARS-CoV-2 (PCR) Not detected (NOT DETECT) SARS-CoV-2 RNA (RT-PCR) Cancelled Path Cons w/Slide Yes 04/23/21 22:45 WBC RBC Hgb Hct MCV MCH MCHC RDW Plt Count MPV Neut % (Auto) Lymph % (Auto) [place] % (Auto) Eos % (Auto) Baso % (Auto) Neut # (Auto) Lymph # (Auto) [place] # (Auto) Eos # (Auto) Baso # (Auto) Nucleated RBC % (auto) Nucleated RBCs # ESR Sodium Potassium Chloride Carbon Dioxide Anion Gap BUN Creatinine GFR Calculation Glucose Calculated Osmolality Lactate Calcium Total Bilirubin AST ALT Alkaline Phosphatase C-Reactive Protein Total Protein Albumin Globulin Fluid Crystals Sent to path Synovial Color Synovial Appearance Synovial WBC Synovial RBC Synovial Mononuclear Synov Polynuclear WBCs Synovial Other Cells Synovial Polynuclear % Synovial Mononuclear % Valproic Acid Coronavirus 229E (PCR) SARS-CoV-2 (PCR) SARS-CoV-2 RNA (RT-PCR) Path Cons w/Slide Discharge Plan Discharge Patient Disposition: Admitted As Inpatient Admit Provider: Brent Little Clinical Impression: Septic joint of left knee joint Condition: Stable Discharge Diet: Advance as tolerated Discharge Activity: Resume usual activity Coding Level of Care Code ED Shift Nurse Manager for Chg Fwd Exam Comprehensive
[2021-04-23 15:50] LABS: Basophils % 0.3 %; Eosinophils # 0.1 10^3/uL (0.0-0.8); Eosinophils % 0.4 %; Hematocrit 38.3 % (42.0-52.0); Hemoglobin 12.3 g/dL (11.7-16.6); Lymphocytes # 2.5 10^3/uL (0.8-4.8); Lymphocytes % 21.9 %; Mean Corpuscular HGB Conc 32.1 g/dL (30.0-36.0); Mean Corpuscular Hemoglobin 30.1 pg (28.0-34.0); Mean Corpuscular Volume 93.6 fl (80-94); Mean Platelet Volume 9.4 fL (7.4-10.4); Monocytes # 0.9 10^3/uL (0.2-0.9); Monocytes % 7.3 %; Neutrophils # 7.99 10^3/uL (1.8-7.7); Neutrophils % 69.1 %; Nucleated Red Blood Cells % 0 %; Platelet Count 253 10^3/cmm (130-400); Red Blood Count 4.09 10^6/uL (4.1-5.3); Red Cell Distribution Width 13.2 % (12.1-15.1); White Blood Count 11.6 10^3/uL (4.0-10.0)
[2021-04-23 16:08] LABS: Alanine Aminotransferase < 5 U/L (0-41); Albumin Level 3.2 g/dL (3.5-5.2); Alkaline Phosphatase 62 IU/L (40-130); Anion Gap 20.3 (5-19); Aspartate Amino Transferase 5 U/L (0-40); Blood Urea Nitrogen 13 mg/dL (8-23); Calcium 9.2 mg/dL (8.5-10.5); Carbon Dioxide 22 mmol/L (22-29); Chloride 98 mmol/L (98-107); Glomerular Filtration Rate 167.9 mL/min (90-130); Glucose 88 mg/dL (65-115); Osmolality Calculated 284 mOsm/kg (285-295); Potassium 3.3 mmol/L (3.5-5.1); Sodium 137 mmol/L (136-145); Total Bilirubin 0.7 mg/dL (0.15-1.2); Total Protein 6.2 g/dL (6.6-8.7)
--- NOTE | 2021-04-23 16:37 | XRR_ITS ---
PROCEDURE INFORMATION: Exam: XR Left Knee Exam date and time: 04/23/2021 4:37 PM Age: 65 years old Clinical indication: Pain; Knee; Left TECHNIQUE: Imaging protocol: XR Left knee. Views: 3 views. COMPARISON: No relevant prior studies available. FINDINGS: Bones/joints: Moderate suprapatellar joint effusion of the knee. Moderate to severe osteoarthritis of the knee. Soft tissues: Normal. Vasculature: Scattered vascular calcifications. XR/XR knee LT 3V* [id number] IMPRESSION: 1. Moderate suprapatellar joint effusion of the knee. 2. Scattered vascular calcifications. 3. Moderate to severe osteoarthritis of the knee.
[2021-04-23] MEDS: sodium chloride 0.9% 1,000 ML 999 ML IV ×2 (17:39→23:58)
[2021-04-23] MEDS: acetaminophen 325 mg Tablet 650 MG PO (17:42)
[2021-04-23] MEDS: ondansetron 2 mg/ML SDV 2 mL 4 MG IVP ×2 (17:43→23:57)
[2021-04-23 21:06] VITALS: BP 101/65; PULSE 89; RESP 18; TEMP 36.6; O2SAT 97
[2021-04-23 22:28] VITALS: BP 80/48; PULSE 97; RESP 18; O2SAT 96
[2021-04-23 22:54] LABS: Lactate (Lactic Acid level) 0.9 mmol/L (0.5-2.2)
[2021-04-23 22:55] LABS: RBC Synovial Fluid 3 10^3/uL (0-0); Synovial Fluid Mononuclear # 0.953 10^3/uL
[2021-04-23 23:03] LABS: Appearance Synovial Fluid CLOUDY (CLEAR); Color Synovial Fluid YELLOW (PALE YELLOW); PATH Referal YES
[2021-04-23 23:10] LABS: Crystals, Fluid SENT TO PATH
[2021-04-23 23:29] LABS: C Reactive Protein 340.4 mg/L (0.0-4.9)
[2021-04-23 23:41] LABS: Erythrocyte Sedimentation Rate 77 mm/hr (0-10)
[2021-04-23] MEDS: levofloxacin-dextrose 5 % 750 MG/150 ML PREMIX 100 MG IV (23:52)
--- NOTE | 2021-04-24 00:23 | P.HP_ITS ---
Providers/Chief Complaint Admitting Physician: Brent Little MD Primary Care Provider: NOVA DuganP-C Chief Complaint: n/v, left knee pain, possible sepsis History of Present Illness Randy German is a 65 year old male with past medical history of hypertension ,diabetes , heart failure with reduced ejection fraction, seizure disorder, history of cryptococcal meningitis, came in with chief complaint of worsening left knee pain, swelling, it started a week back after he accidentally twisted his left knee, since then it has progressively worsened, he was also complaining of fever at home, along with nausea vomiting and diarrhea, going on for the last 2 days. He denies any chest pain, shortness of breath, headache , cough. Upon arrival in the ER he was worked up for above-mentioned complaint. Pertinent imaging studies: X-ray of the left knee:Moderate suprapatellar joint effusion of the knee.Moderate to severe osteoarthritis of the knee. X-ray chest: No acute findings Pertinent labs: WBC 11.6 H&H 12.3 / 38.3 , plt : 253 , serum sodium 137 serum potassium 3.3, BUN and serum creatinine 13/0.5 ESR: 77 , CRP: 340 , In the ER: Patient had arthrocentesis of left knee: Synovial fluid was cloudy in appearance: Synovial fluid WBC: 36735 , synovial fluid RBC: 3 H , Patient was given 1 dose of IV levofloxacin Review of Systems Const: Denies: chills or body aches Card: Denies: palpitations, edema, swelling of feet/ankles, dyspnea on exertion, orthopnea or leg pain with exertion Resp: Denies: dyspnea, productive cough, wheezing or pain on inspiration GI: Denies: constipation : Denies: flank pain or difficulty urinating Musc: Denies: back pain Neuro: Denies: headache(s) or confusion Medications/Allergies Home Medications Medication Instructions Recorded Confirmed Last Taken Type ascorbic acid (vitamin C) 500 mg 1,000 mg PO DAILY tab 09/25/19 04/14/21 Unknown History tablet,extended release tamsulosin 0.4 mg capsule 0.4 mg PO BID #60 cap 10/15/20 04/14/21 Unknown Rx blood sugar diagnostic #50 ea 12/13/20 04/14/21 Unknown Rx aspirin 81 mg tablet,delayed 81 mg PO DAILY #30 tab 12/17/20 04/14/21 Unknown Rx release magnesium oxide 400 mg PO BID #60 tab 03/15/21 04/14/21 Unknown Rx metformin 500 mg tablet,extended 500 mg PO BID #60 tab 03/15/21 04/14/21 03/23/21 Rx release 24 hr trazodone 100 mg tablet 100 mg PO BEDTIME #30 tab 03/15/21 04/14/21 Unknown Rx Claritin 10 mg PO DAILY PRN 03/26/21 04/14/21 Unknown History methenamine hippurate 1 g PO DAILY 03/26/21 04/14/21 Unknown History dexamethasone 1 mg PO DAILY #30 tab 03/30/21 04/14/21 Unknown Rx divalproex [Depakote] 500 mg PO BID #60 tab 03/30/21 04/14/21 Unknown Rx hydrocodone-acetaminophen 1 tab PO Q4H PRN #10 tab 03/30/21 04/14/21 Unknown Rx lidocaine 1 patch TOPICAL [id number] #5 ea 03/30/21 04/14/21 Unknown Rx fluconazole 100 mg tablet 400 mg PO DAILY #90 tab 04/17/21 Unknown Rx ondansetron 4 mg PO Q6H PRN #14 tab 04/23/21 Unknown Rx Allergies Allergy/AdvReac Type Severity Reaction Status Date / Time hydromorphone [From Dilaudid] Allergy ADR-Confusi Verified 04/14/21 16:09 on Penicillins Allergy ALGY-Rash Verified 04/14/21 16:09 codeine AdvReac ADR-Nausea Verified 04/14/21 16:09 PFSH Acute PFSH: Medical History Abdominal wall hernia Allergic rhinitis Anxiety disorder Avascular necrosis of left femoral head Bimalleolar fracture of right ankle Bladder outlet obstruction BPH (benign prostatic hyperplasia) Chronic arthritis Chronic insomnia Closed displaced fracture of right acromial process Closed fracture of glenoid cavity of right scapula Closed pilon fracture of right tibia Controlled diabetes mellitus Dyslipidemia Essential (primary) hypertension Fall GERD (gastroesophageal reflux disease) History of cryptococcal meningitis History of MRSA infection History of seizures Incomplete emptying of bladder Lower urinary tract symptoms (LUTS) Major depressive disorder Pemphigus vulgaris of gingival mucosa Pneumonia Rhabdomyolysis Starvation ketoacidosis Suicidal ideation Superficial laceration of skin Tongue leukoplakia Urethral false passage Urinary retention Vitamin D deficiency Surgical History History of hip surgery right History of inguinal herniorrhaphy right History of vasectomy Family History Grandmother Diabetes Father , at age 69 CAD (coronary artery disease) Mother , at age 58 Brain aneurysm Denies family history of Bleeding disorder Social History Second hand smoke exposure: No Smoking risk assessment/counseling performed?: No Alcohol intake: never Desire information about alcohol rehabilitation?: No Counseling given: No Desire information about substance/drug rehabilitation?: No Counseling given: No Adopted: No Lives independently: Yes Household members: other Housing: House Marital status: service: No Current occupational status: disabled History of recent travel: No Current gender identity: Male Vitals/I&O/Wt Last Vital Signs Temp 98 F 04/23/21 21:06 Pulse 97 04/23/21 22:28 Resp 18 04/23/21 22:28 BP 80/48 04/23/21 22:28 Pulse Ox 96 04/23/21 22:28 Weight last 48 hrs Weight 86.183 kg Physical Exam Const: COMMON NORMALS: patient oriented x3 HENMT: COMMON NORMALS: normocephalic and atraumatic HEAD & SCALP: normoc ephalic and atraumatic Eye: COMMON NORMALS: no scleral icterus Resp: COMMON NORMALS: clear to auscultation bilaterally EFFORT & INSPECTION: Yes symmetric chest movement AUSCULTATION: clear to auscultation bilaterally Cardio: COMMON NORMALS: regular rate, regular rhythm, S1 normal heart sound present, S2 normal heart sound present, No gallops present (Cardio), No murmurs present (Cardio), No rub (Cardio) and Peripheral pulses 2+ throughout RATE: regular rate RHYTHM: regular rhythm HEART SOUNDS: S1 normal heart sound present and S2 normal heart sound present PERIPHERAL PULSES: Peripheral pulses 2+ throughout GI: COMMON NORMALS: Normal to inspection, nondistended, normoactive bowel sounds present, Soft to palpation, non-tender, No hepatosplenomegaly present and no masses AUSCULTATION: Yes normoactive bowel sounds PALPATION: Yes Soft to palpation and Yes No hepatosplenomegaly present RECTAL EXAM: Yes deferred Extremity: NARRATIVE EXTREMITY EXAM: lt knee erythema, swelling and tenderness present , limited ROM due to pain Neuro: COMMON NORMALS: patient oriented x3 Data : 04/23/21 15:41 04/23/21 15:41 A&P Assessment and plan (1) Septic joint of left knee joint: Status: Acute (2) Essential (primary) hypertension: Status: Chronic (3) Controlled diabetes mellitus: Status: Chronic Qualifiers: Diabetes mellitus type: type 2 Diabetes mellitus fpc insulin use: 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 He denies any chest pain, shortness of breath, headache , cough. #Possible septic arthritis of left knee: Synovial fluid WBC: 59991 , synovial fluid RBC: 3 H Follow synovial fluid culture, crystal analysis Follow blood culture Urine culture Patient has been empirically started on Vanco and Zosyn given his immunocompr omise status Orthopedic surgery was consulted by the ER for any possible intervention. N.p.o. #Diabetes: Sliding scale insulin, carb consistent diet, monitor fingerstick glucose # HFrEF : Currently compensated Monitor intake output charting Daily weight K>4, MG >2 #Hypertension: Currently hypotensive Monitor blood pressure #History of seizure: Serum valproic acid is : 21 Continue Depakote #CODE STATUS: AND #DVT prophylaxis: On Lovenox Attestations Medical Necessity Statement*: Patient needs to be in hospital for management of possible left knee septic arthritis. Need for IV antibiotics, and possible surgical intervention. Anticipated length of stay greater than 2 midnights. 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
--- NOTE | 2021-04-24 00:43 | PC.PHAR ---
Vancomycin is dosed at 1250mg IVPB every 8 hours to produce a predicted trough level of 15.16 (population based pharmacokinetic analysis). A trough level has been ordered from the lab to be obtained before the fourth dose to confirm and adjust if needed.
--- NOTE | 2021-04-24 03:16 | PC.NURSE ---
repositioned for comfort, respirations even equal and unlabored. NAD
[2021-04-24] MEDS: vancomycin 1,250 MG/250 ML PIGGYBACK 250 MG IV ×3 (03:19→16:12)
[2021-04-24] MEDS: sodium chloride 0.9% 1,000 ML 75 ML IV ×2 (03:22→10:18)
[2021-04-24 03:56] LABS: Basophils % 0.5 %; Eosinophils # 0.1 10^3/uL (0.0-0.8); Eosinophils % 0.8 %; Hematocrit 32.5 % (42.0-52.0); Hemoglobin 10.3 g/dL (11.7-16.6); Lymphocytes # 1.9 10^3/uL (0.8-4.8); Lymphocytes % 22.7 %; Mean Corpuscular HGB Conc 31.7 g/dL (30.0-36.0); Mean Corpuscular Hemoglobin 29.9 pg (28.0-34.0); Mean Corpuscular Volume 94.2 fl (80-94); Mean Platelet Volume 9.1 fL (7.4-10.4); Monocytes # 0.7 10^3/uL (0.2-0.9); Neutrophils # 5.68 10^3/uL (1.8-7.7); Neutrophils % 67.3 %; Nucleated Red Blood Cells % 0 %; Platelet Count 200 10^3/cmm (130-400); Red Blood Count 3.45 10^6/uL (4.1-5.3); Red Cell Distribution Width 13.2 % (12.1-15.1); White Blood Count 8.5 10^3/uL (4.0-10.0)
[2021-04-24] MEDS: ondansetron 2 mg/ML SDV 2 mL 4 MG IVP ×2 (04:02→10:19)
[2021-04-24 04:15] LABS: Anion Gap 18.2 (5-19); Blood Urea Nitrogen 12 mg/dL (8-23); Calcium 8.3 mg/dL (8.5-10.5); Carbon Dioxide 20 mmol/L (22-29); Chloride 101 mmol/L (98-107); Glomerular Filtration Rate 217.3 mL/min (90-130); Glucose 71 mg/dL (65-115); Osmolality Calculated 280 mOsm/kg (285-295); Potassium 3.2 mmol/L (3.5-5.1); Sodium 136 mmol/L (136-145)
[2021-04-24 04:29] LABS: Adenovirus Not Detected (NOT DETECT); Chlamydia Pneumoniae Not Detected (NOT DETECT); Coronavirus 229E,HKU1,NL63,OC4 Not Detected (NOT DETECT); Human Metapneumovirus Not Detected (NOT DETECT); Human Rhinovirus/Enterovirus Not Detected (NOT DETECT); Influenza A Not Detected (NOT DETECT); Influenza A H1 Not Detected (NOT DETECT); Influenza A H1-2009 Not Detected (NOT DETECT); Influenza A H3 Not Detected (NOT DETECT); Influenza B Not Detected (NOT DETECT); Mycoplasma Pneumoniae Not Detected (NOT DETECT); Parainfluenza Virus Type 1 Not Detected (NOT DETECT); Parainfluenza Virus Type 2 Not Detected (NOT DETECT); Parainfluenza Virus Type 3 Not Detected (NOT DETECT); Parainfluenza Virus Type 4 Not Detected (NOT DETECT); Respiratory Syncytial Virus A Not Detected (NOT DETECT); Respiratory Syncytial Virus B Not Detected (NOT DETECT); SARS-COV-2 Not Detected (NOT DETECT)
[2021-04-24] MEDS: enoxaparin 40 mg/0.4 mL Syringe SUBCUT (04:34)
[2021-04-24 05:16] LABS: Add Urine Culture? Yes; Add Urine Microscopic? YES; Bacteria Urine 4+ /hpf; Bilirubin Urine 1+ (Negative); Blood Urine 2+ (Negative); Glucose Urine UA Norm (Normal); Ketones Urine 2+ (Negative); Leukocyte Esterase Urine 2+ (Negative); Mucus Urine TRACE /hpf; Nitrate Urine Positive (Negative); Protein Urine Neg (Negative); RBC Urine 0-4 /hpf (0-2); Squamous Epithelial Cell Urine 0-4 /hpf (0-5); Urine Appearance Hazy (CLEAR); Urine Color Yellow (Yellow); Urobilinogen Urine 4 mg/dL (Negative); WBC Urine >100 /hpf (0-5); pH Urine 5 (5-7)
[2021-04-24] MEDS: potassium chloride ER 20 mEq Tablet 40 MEQ PO (06:21)
--- NOTE | 2021-04-24 07:12 | PC.NURSE ---
pt helped with positioning in bed head of bed elevated and blankets put on pt per pt request.
--- NOTE | 2021-04-24 07:20 | PC.NURSE ---
pt adjusted from back to left side per pt request. pt assisted with blankets and lights turned off.
--- NOTE | 2021-04-24 07:25 | PC.NURSE ---
pt head of bed adjusted per pt request. pt is in nad.
--- NOTE | 2021-04-24 07:59 | PC.NURSE ---
REPORT GIVEN TO CHRISTIAN PENN.
[2021-04-24 08:00] VITALS: BP 125/76; PULSE 94; RESP 18; TEMP 38.1; O2SAT 91
[2021-04-24 08:23] LABS: Glucose Point of Care 81 mg/dL (70-110)
[2021-04-24 08:25] VITALS: BP 99/65; PULSE 92; RESP 19; O2SAT 92
[2021-04-24] MEDS: aspirin 81 mg EC Tablet PO (10:15)
[2021-04-24] MEDS: divalproex ER 500 mg Tablet (24H) PO ×2 (10:15→16:12)
[2021-04-24] MEDS: tamsulosin 0.4 mg Capsule PO (10:16)
--- NOTE | 2021-04-24 10:16 | PM.PN ---
Subjective Subjective: Interval history: Patient's left knee slightly better orthopedics to see patient today ESR 77, afebrile no leukocytosis, hypokalemia 3.2 Vitals/I&O/Wt Last Vital Signs Temp 100.5 F H 04/24/21 08:00 Pulse 92 04/24/21 08:25 Resp 19 H 04/24/21 08:25 BP 99/65 04/24/21 08:25 Pulse Ox 92 04/24/21 08:25 04/23/21 04/24/21 04/24/21 22:59 06:59 14:59 Intake Total 2500 / 2500 Balance 2500 / 2500 Weight last 48 hrs Weight 86.183 kg Physical Exam Narrative: EXAM NARRATIVE: Patient resting comfortably in his bed With his blankets Hyperemia and redness noted of left knee Patient is stating he is feeling better Nonfocal neuro exam Limited range of motion of left leg S1, S2 Euvolemic Saturating well on room air Data : 04/24/21 03:45 04/24/21 03:45 Micro: Microbiology 04/23/21 22:45 Gram Stain - Final Synovial Fluid 04/24/21 03:45 Blood Culture - Preliminary Blood SPECIMEN COLLECTED 04/24/21 03:45 Blood Culture - Preliminary Blood SPECIMEN COLLECTED A&P Assessment and plan (1) Septic joint of left knee joint: Status: Acute Additional A&P Information Septic arthritis of left knee Continue broad-spectrum antibiotics Follow-up with orthopedic recommendations Patient is currently n.p.o. Continue Vanco Zosyn Afebrile no leukocytosis Patient will need consistent carb diet if no plan for intervention today Currently compensated for reduced action fraction heart failure Soft blood pressure History of seizure continue Depakote DNR/DNI CODE STATUS Hold Lovenox in case he goes for any intervention Attestations Medical Necessity Statement*: Awaiting orthopedic consultation Time Spent in Patient Care: less than 15 minutes Coding Level of Care Code Acute Civil Rights Investigator for Imelda Rojas Diagnoses Septic joint of left knee joint M00.9
[2021-04-24 11:45] LABS: Glucose Point of Care 75 mg/dL (70-110)
[2021-04-24 11:46] VITALS: BP 99/65; PULSE 100; RESP 18; TEMP 37.6; O2SAT 92
[2021-04-24] MEDS: sodium chloride 0.9% 250 ML IV (12:27)
[2021-04-24] MEDS: hydrocortisone 100 mg/2 mL SDV IVP ×2 (12:39→23:17)
[2021-04-24] MEDS: nystatin 100,000 unit/mL UDC 5 mL 500000 UNIT PO ×2 (13:02→20:32)
--- NOTE | 2021-04-24 13:23 | PM.CONSULT ---
Providers/Reason For Consult Consulting Physician/Specialty*: Dr. Sera New - Orthopedics Reason for Consult*: Knee swelling and pain Requesting Physician: Dr. Eva Duckworth Attending Physician: Alexia Quinn MD Primary Care Provider: Adela Alaniz, PIT SHOVEL OPERATOR-C History of Present Illness History of Present Illness Randy German is a 65 year old male who is known to me from prior ankle fracture which occurred in January 2020. The patient presented to the emergency room last evening with complaints of left knee pain. Reportedly, the knee was very swollen and somewhat warm to the touch. The patient described a history of twisting injury to the knee. Additionally, the patient presented with complaints of nausea and vomiting. Today, he notes that he also has right hip pain, but he has had this for quite a while secondary to complex hip revision which was undertaken at [place]. The patient queries whether or not he would need to return to [facility] for further hip issues, and after reviewing his past x-rays here, I have advised him that he would. With regard to the knee, aspiration was obtained for [address] Duckworth in the emergency department last night. This morning, there were no studies available with regard to microbiology, but I called the lab and indeed there were no organisms and few white cells seen on gram stain. Crystals were still pending. And there was approximately 30,000 white count. The patient's systemic white count had diminished overnight as well upon review of the labs. Review of Systems Const: Reports: fever(s) (The patient states he has had fevers, but this is not documented.); Denies: chills, body aches, change in appetite, fatigue or malaise Eyes: Denies: photophobia ENMT: Denies: throat pain, enlarged tonsils, ear or mastoid pain, nasal discharge or nasal congestion Card: Denies: chest pain, palpitations, edema, swelling of feet/ankles, dyspnea on exertion, orthopnea or leg pain with exertion Resp: Denies: dyspnea, productive cough, non-productive cough, wheezing or pain on inspiration GI: Reports: nausea; Denies: constipation : Denies: flank pain, difficulty urinating, dysuria, urinary frequency or urinary urgency Musc: Denies: back pain or joint warmth Skin/Breast: Denies: rash or pruritus Neuro: Denies: headache(s) or confusion Medications/Allergies Home Medications Medication Instructions Recorded Confirmed Last Taken Type ascorbic acid (vitamin C) 500 mg 1,000 mg PO DAILY tab 09/25/19 04/14/21 Unknown History tablet,extended release tamsulosin 0.4 mg capsule 0.4 mg PO BID #60 cap 10/15/20 04/14/21 Unknown Rx blood sugar diagnostic #50 ea 12/13/20 04/14/21 Unknown Rx aspirin 81 mg tablet,delayed 81 mg PO DAILY #30 tab 12/17/20 04/14/21 Unknown Rx release magnesium oxide 400 mg PO BID #60 tab 03/15/21 04/14/21 Unknown Rx metformin 500 mg tablet,extended 500 mg PO BID #60 tab 03/15/21 04/14/21 03/23/21 Rx release 24 hr trazodone 100 mg tablet 100 mg PO BEDTIME #30 tab 03/15/21 04/14/21 Unknown Rx Claritin 10 mg PO DAILY PRN 03/26/21 04/14/21 Unknown History methenamine hippurate 1 g PO DAILY 03/26/21 04/14/21 Unknown History dexamethasone 1 mg PO DAILY #30 tab 03/30/21 04/14/21 Unknown Rx divalproex [Depakote] 500 mg PO BID #60 tab 03/30/21 04/14/21 Unknown Rx hydrocodone-acetaminophen 1 tab PO Q4H PRN #10 tab 03/30/21 04/14/21 Unknown Rx lidocaine 1 patch TOPICAL [id number] #5 ea 03/30/21 04/14/21 Unknown Rx fluconazole 100 mg tablet 400 mg PO DAILY #90 tab 04/17/21 Unknown Rx ondansetron 4 mg PO Q6H PRN #14 tab 04/23/21 Unknown Rx Allergies Allergy/AdvReac Type Severity Reaction Status Date / Time hydromorphone [From Dilaudid] Allergy ADR-Confusi Verified 04/14/21 16:09 on Penicillins Allergy ALGY-Rash Verified 04/14/21 16:09 codeine AdvReac ADR-Nausea Verified 04/14/21 16:09 Current Medications Generic Name Dose Route Start Last Admin Trade Name Freq PRN Reason Stop Dose Admin Aspirin 81 mg 04/24/21 09:00 04/24/21 10:15 Aspirin 81 Mg Ec Tablet PO 81 mg DAILY JESUS Administration Divalproex Sodium 500 mg 04/24/21 09:00 04/24/21 10:15 Divalproex Er 500 Mg Tablet (24h) PO 500 mg BID JESUS Administration Enoxaparin Sodium 40 mg 04/24/21 04:45 04/24/21 04:34 Enoxaparin 40 Mg/0.4 Ml Syringe SUBCUT 40 mg Q24H JESUS Administration Hydrocortisone Sodium Succinate 100 mg 04/24/21 10:25 04/24/21 12:39 Hydrocortisone 100 Mg/2 Ml Sdv IVP 04/26/21 07:00 100 mg Q12H JESUS Administration Sodium Chloride 1,000 mls @ 75 mls/hr 04/24/21 00:15 04/24/21 10:18 Sodium Chloride 0.9% IV 75 mls/hr .[id number] JESUS Administration Imipenem/Cilastatin Sodium 500 100 mls @ 200 mls/hr 04/24/21 00:30 04/24/21 12:40 mg/ Sodium Chloride IV Not Given Q6H [facility] Protocol Vancomycin/PEG/NADA/Lysine/Water 1,250 mg in 250 mls @ 250 mls/hr 04/24/21 01:00 04/24/21 10:16 Vancocin IV 250 mls/hr Q8H JESUS Administration Insulin Human Lispro 0 unit 04/24/21 08:00 04/24/21 11:30 Insulin Lispro 100 Unit/1 Ml SUBCUT Not Given TIDWM [facility] Protocol Nystatin 500,000 unit 04/24/21 13:00 04/24/21 13:02 Nystatin 100,000 Unit/Ml Udc 5 Ml PO 500,000 unit QID JESUS Administration Ondansetron HCl 4 mg 04/24/21 00:23 04/24/21 10:19 Ondansetron 2 Mg/Ml Sdv 2 Ml IVP 4 mg Q6H PRN Administration NAUSEA AND VOMITING Tamsulosin HCl 0.4 mg 04/24/21 09:00 04/24/21 10:16 Tamsulosin 0.4 Mg Capsule PO 0.4 mg DAILY JESUS Administration PFSH Acute PFSH: Medical History Abdominal wall hernia Allergic rhinitis Anxiety disorder Avascular necrosis of left femoral head Bimalleolar fracture of right ankle Bladder outlet obstruction BPH (benign prostatic hyperplasia) Chronic arthritis Chronic insomnia Closed displaced fracture of right acromial process Closed fracture of glenoid cavity of right scapula Closed pilon fracture of right tibia Controlled diabetes mellitus Dyslipidemia Essential (primary) hypertension Fall GERD (gastroesophageal reflux disease) History of cryptococcal meningitis History of MRSA infection History of seizures Incomplete emptying of bladder Lower urinary tract symptoms (LUTS) Major depressive disorder Pemphigus vulgaris of gingival mucosa Pneumonia Rhabdomyolysis Starvation ketoacidosis Suicidal ideation Superficial laceration of skin Tongue leukoplakia Urethral false passage Urinary retention Vitamin D deficiency Surgical History History of hip surgery right. Primary plus revision surgery done at [facility] History of inguinal herniorrhaphy right History of vasectomy Family History Grandmother Diabetes Father , at age 69 CAD (coronary artery disease) Mother , at age 58 Brain aneurysm Denies family history of Bleeding disorder Social History Second hand smoke exposure: No Smoking risk assessment/counseling performed?: No Alcohol intake: never Desire information about alcohol rehabilitation?: No Counseling given: No Desire information about substance/drug rehabilitation?: No Counseling given: No Adopted: No Lives independently: Yes Household members: other Housing: House Marital status: service: No Current occupational status: disabled History of recent travel: No Current gender identity: Male Dietary Habits: Current diet type/program: regular Caffeine: Yes Exercise: What type of physical activity do you participate in?: walking Safety: Seatbelt use: always Helmet use: No Drive intoxicated or ride with intoxicated wrecking car driver?: never Vitals/I&O/Wt Last Vital Signs Temp 99.7 F H 04/24/21 11:46 Pulse 100 04/24/21 11:46 Resp 18 04/24/21 11:46 BP 99/65 04/24/21 11:46 Pulse Ox 92 04/24/21 11:46 04/23/21 04/24/21 04/24/21 22:59 06:59 14:59 Intake Total 2500 / 2500 520 / 520 Balance 2500 / 2500 520 / 520 Weight last 48 hrs Weight 190 lb Physical Exam Narrative: EXAM NARRATIVE: The patient is seen in his room, and he states that his ankle that was treated by me occasionally causes some discomfort but is doing well. From a mental status perspective, he asked me about his hip, and states that I have previously evaluated this. To the best of my recollection and documentation, I have not seen him for this problem. This was treated at [place]. He does know that it was treated at [facility] as well. Const: COMMON NORMALS: no acute distress, average body habitus, patient oriented x3 and alert GENERAL APPEARANCE: cooperative and comfortable ORIENTATION/CONSCIOUSNESS: Yes awake HENMT: COMMON NORMALS: normocephalic and atraumatic HEAD & SCALP: normocephalic and atraumatic Eye: GENERAL EYE: appearance normal, both eyes and all related structures Chest: COMMONS NORMALS: normal inspection of the chest Resp: COMMON NORMALS: normal respiratory effort EFFORT & INSPECTION: Yes able to speak in complete sentences and Yes symmetric chest movement Extremity: LEFT LOWER EXTREMITY: Yes knee joint (Slight erythema and palpable swelling.) Left knee: Yes inspection (No skin breakdown.), Yes palpation (Tender), Yes ROM (Not evaluated) and Yes neurovascular exam (Intact) Neuro: COMMON NORMALS: patient oriented x3 SENSORIUM/ORIENTATION: Yes alert Psych: APPEARANCE: Yes grossly normal ATTITUDE: Yes calm and Yes engaged ATTENTION/CONCENTRATION: Yes attention grossly intact Skin: COMMON NORMALS: no rashes or lesions noted GENERAL SKIN EXAM: no rashes or lesions noted Data Micro: Micro: Microbiology 04/23/21 22:45 Gram Stain - Final Synovial Fluid 04/24/21 03:45 Blood Culture - Pr eliminary Blood SPECIMEN [facility] 04/24/21 03:45 Blood Culture - Pr eliminary Blood SPECIMEN [facility] Imaging^: Xray Ortho: I personally reviewed and interpreted this imaging study as follows: My impression: Patient has significant degenerative osteoarthritis of the left knee. There is no evidence of acute fracture. Effusion is visualized as well. A&P Assessment and plan (1) Effusion, left knee: This 65-year-old gentleman presented through the emergency department with complaints of nausea vomiting and history of a recent knee injury with a twisting to the knee. He stated that he was unable to weight-bear on the knee without significant discomfort. The knee was evaluated in the emergency department and was aspirated by the emergency room physician. Findings upon the fluid obtained include a 30,000 white count with approximately 97% polys. Gram stain demonstrated no organisms seen and few white blood cells. Pathology is still pending with regards to crystals. The patient's systemic white count has decreased since his admission to the hospital. The knee is slightly erythematous but is not appearing to be septic at this time. He was seen and evaluated and found to have a swollen knee with not significant erythema. He was neurologically intact. He had not been up and ambulating. At the time of my visit, he queried regarding his right hip, but I have not previously seen him for this. I did look at the x-rays and he was advised that he would need to follow-up with the revision surgeon in [place] as this is a very complex revision which is in place. The patient stated that he was previously told that he would need to be seen at [place]. At this point, cultures are pending on the patient's aspirate. Systemic white count has normalized. Crystals are still pending. No surgical intervention is indicated or planned at this time. Status: Acute Consult Attestations Medical Necessity Statement: Patient requires ongoing admission for IV antibiotic therapies and physical therapy. Further work-up per medicine. Coding Level of Care Code Acute Leather Scraper for Imelda Rojas Diagnoses Effusion, left knee M25.462
[2021-04-24 15:43] VITALS: BP 107/69; PULSE 86; RESP 17; TEMP 38; O2SAT 91
[2021-04-24] MEDS: oxyCODONE 5 mg IR Tab/Cap PO ×2 (17:14→22:16)
[2021-04-24 17:57] LABS: Glucose Point of Care 121 mg/dL (70-110)
[2021-04-24 20:00] VITALS: BP 108/67; PULSE 82; RESP 20; TEMP 36.4; O2SAT 92
[2021-04-24] MEDS: ibuprofen 200 mg Tablet 400 MG PO (20:33)
[2021-04-24] MEDS: trazodone 100 mg Tablet PO (20:33)
[2021-04-24 21:22] LABS: Glucose Point of Care 129 mg/dL (70-110)
[2021-04-24 21:22] LABS: Glucose Point of Care 126 mg/dL (70-110)
[2021-04-24 22:16] VITALS: RESP 18; O2SAT 96
[2021-04-25] VITALS (7 sets, daily range): BP systolic 99–115; BP diastolic 64–80; PULSE 59–80; RESP 18–20; TEMP 36.4–36.8; O2SAT 90–94
[2021-04-25] MEDS: vancomycin 1,250 MG/250 ML PIGGYBACK 250 MG IV ×3 (01:09→17:02)
[2021-04-25] MEDS: sodium chloride 0.9% 1,000 ML 75 ML IV (01:24)
[2021-04-25 06:02] LABS: Basophils % 0.1 %; Hematocrit 31.2 % (42.0-52.0); Hemoglobin 10.1 g/dL (11.7-16.6); Lymphocytes # 0.6 10^3/uL (0.8-4.8); Lymphocytes % 9.6 %; Mean Corpuscular HGB Conc 32.4 g/dL (30.0-36.0); Mean Corpuscular Hemoglobin 30.3 pg (28.0-34.0); Mean Corpuscular Volume 93.7 fl (80-94); Mean Platelet Volume 9.5 fL (7.4-10.4); Monocytes # 0.2 10^3/uL (0.2-0.9); Monocytes % 2.5 %; Neutrophils % 86.9 %; Nucleated Red Blood Cells % 0 %; Platelet Count 198 10^3/cmm (130-400); Red Blood Count 3.33 10^6/uL (4.1-5.3); Red Cell Distribution Width 12.8 % (12.1-15.1); White Blood Count 6.7 10^3/uL (4.0-10.0)
[2021-04-25 06:17] LABS: Anion Gap 17.4 (5-19); Blood Urea Nitrogen 10 mg/dL (8-23); Calcium 8.3 mg/dL (8.5-10.5); Carbon Dioxide 21 mmol/L (22-29); Chloride 101 mmol/L (98-107); Glomerular Filtration Rate 302.8 mL/min (90-130); Glucose 127 mg/dL (65-115); Osmolality Calculated 283 mOsm/kg (285-295); Potassium 3.4 mmol/L (3.5-5.1); Sodium 136 mmol/L (136-145)
[2021-04-25 06:48] LABS: Glucose Point of Care 131 mg/dL (70-110)
[2021-04-25] MEDS: nystatin 100,000 unit/mL UDC 5 mL 500000 UNIT PO (08:31)
[2021-04-25] MEDS: tamsulosin 0.4 mg Capsule PO (08:32)
[2021-04-25] MEDS: aspirin 81 mg EC Tablet PO (08:32)
[2021-04-25] MEDS: oxyCODONE 5 mg IR Tab/Cap PO ×3 (08:32→20:19)
[2021-04-25] MEDS: divalproex ER 500 mg Tablet (24H) PO ×2 (08:32→17:03)
--- NOTE | 2021-04-25 09:05 | P.PN_ITS ---
Subjective Subjective: Interval history: Patient stating that his knee pain is better, he is feeling better today, he was able to get up and go to the bathroom He wants to work more with PT Currently awaiting detention placement No severe worsening of leukocytosis, low-grade fever noted yesterday Vitals/I&O/Wt Last Vital Signs Temp 97.6 F 04/25/21 04:00 Pulse 64 04/25/21 04:00 Resp 18 04/25/21 04:00 BP 105/73 04/25/21 04:00 Pulse Ox 93 04/25/21 04:00 04/24/21 04/25/21 04/25/21 22:59 06:59 14:59 Intake Total 900 / 1770 1450 / 3220 100 / 100 Output Total 750 / 750 150 / 900 Balance 150 / 1020 1300 / 2320 100 / 100 Weight last 48 hrs Weight 86.183 kg Physical Exam Narrative: EXAM NARRATIVE: Patient is laying comfortably in his bed Knee is not tender, hyperemia is improving Normal temperature S1, S2 Euvolemic Awake and alert Doing well on room air Nonfocal neuro exam EOMI, PERRLA Data : 04/25/21 05:27 04/25/21 05:27 Micro: Microbiology 04/24/21 03:45 Blood Culture - Preliminary Blood NEGATIVE TO DATE 04/24/21 03:45 Blood Culture - Preliminary Blood NEGATIVE TO DATE 04/23/21 22:45 Gram Stain - Final Synovial Fluid A&P Assessment and plan (1) Effusion, left knee: Status: Acute (2) Constipation, slow transit: Status: Chronic (3) Anxiety disorder: Status: Chronic (4) Chronic insomnia: Status: Chronic (5) Essential (primary) hypertension: Status: Chronic (6) Closed rib fracture: Status: Acute (7) Oral thrush: Status: Acute Additional A&P Information Left knee effusion Cultures negative to date, Orthopedics recommendations appreciated, Septic joint unlikely We are waiting on synovial crystal results I will get uric acid level Discontinue imipenem, continue vancomycin for now 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 for quite some time his blood pressure improved with stress dose steroids I would start prednisone 10 mg from today Oral thrush: Continue nystatin DVT prophylaxis: Lovenox Consistent carb diet Awaiting detention placement Discontinue IV fluids Will need outpatient dermatology appointment Attestations Medical Necessity Statement*: Awaiting placement Time Spent in Patient Care: 16 - 35 minutes Coding Level of Care Code Acute Training And Development Coordinator for Chg Fwd Diagnoses Effusion, left knee M25.462 Constipation, slow transit K59.01 Anxiety disorder F41.9 Chronic insomnia F51.04 Essential (primary) hypertension I10 Closed rib fracture S22.39XA Oral thrush B37.0
[2021-04-25 10:12] LABS: Uric Acid 5.6 mg/dL (3.4-7.0)
[2021-04-25] MEDS: potassium chloride ER 20 mEq Tablet 40 MEQ PO (12:38)
[2021-04-25] MEDS: predniSONE 10 mg Tablet PO (12:44)
[2021-04-25 13:56] LABS: Glucose Point of Care 122 mg/dL (70-110)
--- NOTE | 2021-04-25 15:24 | PC.CHAP ---
Pastoral Care Encounter/Spiritual Assessment Type of Contact [] Declined hand twister visit [] Patient/Family/Request visit [] Outpatient visit [] Follow-up visit [] Physician referral [] Code/Alert [xx] Routine visit [] Staff referral [] Actively dying [] Patient sleeping [] Family support [] [] Out of room [] Palliative care [] [] Receiving care in room [] Pre-surgical visit [] Trauma [] Long length of stay [] ICU visit [] Other: Relational/Emotional Strength [xx] Patient feels connected with others/family/visitors/staff [] Distress [] Loneliness/isolation [] Abandonment Spirituality of Patient [xx] Person of Marva [] Attends Mormonism of their Marva [xx] Believes in Prayer [xx] Reads Bible or Congregational materials [] There are Spiritual issues to be addressed Director Economic Interventions [xx] Prayer [xx] Active listening [xx] Non-anxious presence [] Spiritual/emotional support [] Crisis/trauma care [] Spiritual counseling [] Bereavement support [] Provided bereavement packet [] Provided Bible/devotional materials [] Provided toy/stuffed animal, coloring book to patient or family member [] Provided Communion [] Anointing/[place] [] Salvation [xx] Completed spiritual assessment [] Other: Impact on Illness or Injury [] Angry [] Fearful [] Anxious [] Often cries [] Exhaustion [] Unable to work [] Unable to attend anabaptism [] Unable to walk/stand [] Unable to read [] Unable to drive [] Unable to eat/drink [] Unable to sleep [] Unable to be with family [] Patient intubated [] Other: Summary Patient goes by his middle name of Brandon. Patient has decided it's time to enter a fpc as he has worn out his body and has had numerous accidents and surgeries during his life. He has lived a full, physically active life per his statement. He spoke of some of those activities and situations. He has numerous relatives who are scattered over several states. His recently son and [id number] have suggested he move to [place] to live with them. Patient does not want to live with them as it would be a burden to newly weds. He would like to be in a fpc near enough for them to visit frequently but far enough away that they will not feel obligated to too frequent visits. (close but distant) His sister has POA for him. She lives/works near his current residence and is getting fpc info for him. She will make the arrangements locally for now and possibly his move to [place] later. Patient is concerned about disposal of all unnecessary personal goods he can't take to fpc and fears sister will be too eager to get rid of too much. Time spent with patient 15 minutes
[2021-04-25 16:30] LABS: Vancomycin Trough 17.6 ug/mL (10-15)
[2021-04-25] MEDS: trazodone 100 mg Tablet PO (20:19)
[2021-04-25] MEDS: bisacodyl 5 mg Tablet 10 MG PO (20:20)
[2021-04-25 23:04] LABS: Glucose Point of Care 165 mg/dL (70-110)
[2021-04-25 23:04] LABS: Glucose Point of Care 139 mg/dL (70-110)
[2021-04-26] VITALS (8 sets, daily range): BP systolic 91–118; BP diastolic 49–74; PULSE 56–82; RESP 16–18; TEMP 36.4–36.7; O2SAT 90–95
[2021-04-26] MEDS: vancomycin 1,250 MG/250 ML PIGGYBACK 250 MG IV ×2 (01:00→08:24)
[2021-04-26] MEDS: oxyCODONE 5 mg IR Tab/Cap PO ×5 (01:00→22:21)
[2021-04-26] MEDS: enoxaparin 40 mg/0.4 mL Syringe SUBCUT (04:01)
[2021-04-26 04:47] LABS: Basophils % 0.3 %; Hematocrit 30.9 % (42.0-52.0); Hemoglobin 9.9 g/dL (11.7-16.6); Lymphocytes # 1.3 10^3/uL (0.8-4.8); Lymphocytes % 19.5 %; Mean Corpuscular Hemoglobin 29.7 pg (28.0-34.0); Mean Corpuscular Volume 92.8 fl (80-94); Mean Platelet Volume 9.5 fL (7.4-10.4); Monocytes # 0.3 10^3/uL (0.2-0.9); Monocytes % 4.8 %; Neutrophils # 5.02 10^3/uL (1.8-7.7); Neutrophils % 74.8 %; Nucleated Red Blood Cells % 0 %; Platelet Count 200 10^3/cmm (130-400); Red Blood Count 3.33 10^6/uL (4.1-5.3); Red Cell Distribution Width 12.7 % (12.1-15.1); White Blood Count 6.7 10^3/uL (4.0-10.0)
[2021-04-26 05:37] LABS: Anion Gap 13.6 (5-19); Blood Urea Nitrogen 12 mg/dL (8-23); Calcium 8.3 mg/dL (8.5-10.5); Carbon Dioxide 23 mmol/L (22-29); Chloride 106 mmol/L (98-107); Glomerular Filtration Rate 302.8 mL/min (90-130); Glucose 114 mg/dL (65-115); Osmolality Calculated 289 mOsm/kg (285-295); Potassium 3.6 mmol/L (3.5-5.1); Sodium 139 mmol/L (136-145)
[2021-04-26 06:50] LABS: Glucose Point of Care 101 mg/dL (70-110)
[2021-04-26] MEDS: tamsulosin 0.4 mg Capsule PO (08:24)
[2021-04-26] MEDS: aspirin 81 mg EC Tablet PO (08:24)
[2021-04-26] MEDS: predniSONE 10 mg Tablet PO (08:24)
[2021-04-26] MEDS: divalproex ER 500 mg Tablet (24H) PO ×2 (08:24→17:15)
--- NOTE | 2021-04-26 10:01 | PM.PN ---
Subjective Subjective: Interval history: Patient is doing well awaiting placement he was able to move around and go to the bathroom as well No signs of gout or septic joint Vitals/I&O/Wt Last Vital Signs Temp 97.5 F L 04/26/21 09:12 Pulse 82 04/26/21 09:12 Resp 17 04/26/21 09:12 BP 111/73 04/26/21 09:12 Pulse Ox 95 04/26/21 09:12 04/25/21 04/26/21 04/26/21 22:59 06:59 14:59 Intake Total 350 / 700 350 / 1050 Output Total 550 / 1300 450 / 1750 Balance -200 / -600 -100 / -700 Physical Exam Narrative: EXAM NARRATIVE: Patient is doing well S1, S2 Abdomen soft Doing well on room air Left knee slightly tender left lateral border otherwise no active signs of cellulitis, does not feel warm No signs of edema Appropriate mood and affect Euvolemic Does complain of right hip pain ambulation Data : 04/26/21 04:39 04/26/21 04:39 Micro: Microbiology 04/24/21 04:45 Urine Culture - Preliminary Urine,Clean Catch Gram Negative Rods 04/23/21 22:45 Gram Stain - Final Synovial Fluid Body Fluid Culture - Preliminary A&P Assessment and plan (1) Oral thrush: Status: Acute (2) Effusion, left knee: Status: Acute (3) Anxiety disorder: Status: Chronic (4) Essential (primary) hypertension: Status: Chronic Additional A&P Information Left knee effusion Septic joint ruled out Inflammatory joint, no signs of gout, uric acid unremarkable, no crystal identified Cultures negative We will treat with anti-inflammatory for now and steroids Discontinue antibiotics No fever or leukocytosis Awaiting placement Consistent carb diet For his right hip pain he was asked to follow-up with orthopedics at [facility] DNR/DNI Awaiting placement Attestations Medical Necessity Statement*: Continue medical management Time Spent in Patient Care: less than 15 minutes Coding Level of Care Code Acute Behavioral Modification Assistant for Imelda Fwmallika Diagnoses Oral thrush B37.0 Effusion, left knee M25.462 Anxiety disorder F41.9 Essential (primary) hypertension I10
[2021-04-26] MEDS: ibuprofen 200 mg Tablet 400 MG PO ×2 (10:45→17:14)
[2021-04-26 12:35] LABS: Glucose Point of Care 139 mg/dL (70-110)
--- NOTE | 2021-04-26 17:00 | PM.MISC ---
Miscellaneous Note Purpose of Documentation: Follow-up on laboratory studies Note: Patient has improved with regard to functionality of the knee. He is able to get up and ambulate. Cultures are negative, and no crystals were visualized.
[2021-04-26] MEDS: trazodone 100 mg Tablet PO (20:38)
[2021-04-26] MEDS: acetaminophen 325 mg Tablet 650 MG PO (20:43)
[2021-04-26 21:32] LABS: Glucose Point of Care 143 mg/dL (70-110)
[2021-04-27] VITALS (9 sets, daily range): BP systolic 92–109; BP diastolic 52–68; PULSE 60–73; RESP 16–18; TEMP 36.3–36.9; O2SAT 92–95
[2021-04-27] MEDS: oxyCODONE 5 mg IR Tab/Cap PO ×5 (02:15→22:59)
[2021-04-27 03:59] LABS: Basophils % 0.5 %; Eosinophils % 0.5 %; Hematocrit 28.8 % (42.0-52.0); Hemoglobin 9.4 g/dL (11.7-16.6); Lymphocytes % 34.8 %; Mean Corpuscular HGB Conc 32.6 g/dL (30.0-36.0); Mean Corpuscular Hemoglobin 30.4 pg (28.0-34.0); Mean Corpuscular Volume 93.2 fl (80-94); Mean Platelet Volume 9.6 fL (7.4-10.4); Monocytes # 0.5 10^3/uL (0.2-0.9); Monocytes % 7.7 %; Neutrophils # 3.24 10^3/uL (1.8-7.7); Neutrophils % 55.3 %; Nucleated Red Blood Cells % 0 %; Platelet Count 182 10^3/cmm (130-400); Red Blood Count 3.09 10^6/uL (4.1-5.3); White Blood Count 5.9 10^3/uL (4.0-10.0)
[2021-04-27] MEDS: enoxaparin 40 mg/0.4 mL Syringe SUBCUT (04:18)
[2021-04-27] MEDS: acetaminophen 325 mg Tablet 650 MG PO (04:21)
[2021-04-27 04:25] LABS: Anion Gap 14.3 (5-19); Blood Urea Nitrogen 14 mg/dL (8-23); Calcium 8.2 mg/dL (8.5-10.5); Carbon Dioxide 24 mmol/L (22-29); Chloride 103 mmol/L (98-107); Glomerular Filtration Rate 217.3 mL/min (90-130); Glucose 118 mg/dL (65-115); Osmolality Calculated 288 mOsm/kg (285-295); Potassium 3.3 mmol/L (3.5-5.1); Sodium 138 mmol/L (136-145)
--- NOTE | 2021-04-27 05:08 | PC.NURSE ---
SHIFT SUMMARY Has been awake much of the night. Says sometimes he has nights like that. Is pleasant. Has received po pain meds for left knee pain and this morning c/o shoulders hurting.Says left knee is feeling much better. Is tender to touch but is not warm or reddened. Says does hurt still with wt bearing. Says awaiting SNF placement for rehab
[2021-04-27 07:54] LABS: Glucose Point of Care 101 mg/dL (70-110)
[2021-04-27] MEDS: divalproex ER 500 mg Tablet (24H) PO ×2 (09:18→16:59)
[2021-04-27] MEDS: predniSONE 10 mg Tablet PO (09:18)
[2021-04-27] MEDS: tamsulosin 0.4 mg Capsule PO (09:18)
[2021-04-27] MEDS: aspirin 81 mg EC Tablet PO (09:18)
--- NOTE | 2021-04-27 10:01 | P.PN_ITS ---
Subjective Subjective: Interval history: Patient is feeling better, no knee pain Endorsing constipation Vitals/I&O/Wt Last Vital Signs Temp 97.4 F L 04/27/21 08:00 Pulse 73 04/27/21 08:00 Resp 16 04/27/21 08:00 BP 109/68 04/27/21 08:00 Pulse Ox 95 04/27/21 08:00 04/26/21 04/27/21 04/27/21 22:59 06:59 14:59 Intake Total 600 / 1090 600 / 1690 360 / 360 Output Total 200 / 200 430 / 630 125 / 125 Balance 400 / 890 170 / 1060 235 / 235 Physical Exam Narrative: EXAM NARRATIVE: Patient laying comfortably in his bed Saturating well on room air Abdomen soft Euvolemic Edema, PERRLA Saturating well on room air No acute respite distress Appropriate mood and affect Left knee looks less swollen and less hyperemic Data : 04/27/21 03:22 04/27/21 03:22 Micro: Microbiology 04/23/21 22:45 Gram Stain - Final Synovial Fluid Body Fluid Culture - Preliminary 04/24/21 04:45 Urine Culture - Final Urine,Clean Catch Klebsiella oxytoca A&P Assessment and plan (1) Oral thrush: Status: Acute (2) Effusion, left knee: Status: Acute (3) Anxiety disorder: Status: Chronic (4) Chronic insomnia: Status: Chronic (5) Essential (primary) hypertension: Status: Chronic (6) Controlled diabetes mellitus: Status: Chronic Qualifiers: Diabetes mellitus type: type 2 Diabetes mellitus [facility] insulin use: without intermission coordinator use Additional A&P Information Oral thrush: Continue nystatin Left knee effusion inflammatory discontinued antibiotics no signs of bowel, continue NSAIDs Essential hypertension Currently doing well on room air Consistent carb diet Euglycemic Constipation: We will add bowel regimen Seizure disorder continue Depakote DVT prophylaxis on board Patient Prednisone 10 mg voice-activated vulgaris history and left knee effusion will need dermatology follow-up Attestations Medical Necessity Statement*: Discharge tomorrow Time Spent in Patient Care: less than 15 minutes Coding Level of Care Code Acute Jail Officer for Chg Fwd Diagnoses Oral thrush B37.0 Effusion, left knee M25.462 Anxiety disorder F41.9 Chronic insomnia F51.04 Essential (primary) hypertension I10 Controlled diabetes mellitus E11.9 Diabetes mellitus type: type 2 Diabetes mellitus intermission coordinator insulin use: without intermission coordinator use
[2021-04-27] MEDS: sennosides-docusate Tablet 1 TAB PO (10:35)
[2021-04-27] MEDS: polyethylene glycol 3350 Pkt 17 gm PO (10:36)
[2021-04-27 12:56] LABS: Glucose Point of Care 114 mg/dL (70-110)
[2021-04-27] MEDS: ibuprofen 200 mg Tablet 400 MG PO ×2 (13:36→20:13)
[2021-04-27] MEDS: trazodone 100 mg Tablet PO (20:13)
[2021-04-27 20:51] LABS: Glucose Point of Care 117 mg/dL (70-110)
[2021-04-27] MEDS: lanolin oint 7 gm 1 APPLIC TOPICAL (21:26)
[2021-04-28] VITALS (9 sets, daily range): BP systolic 92–121; BP diastolic 52–69; PULSE 60–81; RESP 14–22; TEMP 36.4–36.9; O2SAT 90–96
[2021-04-28] MEDS: oxyCODONE 5 mg IR Tab/Cap PO ×2 (04:11→08:28)
[2021-04-28] MEDS: enoxaparin 40 mg/0.4 mL Syringe SUBCUT (04:11)
[2021-04-28 06:26] LABS: Glucose Point of Care 97 mg/dL (70-110)
[2021-04-28] MEDS: sennosides-docusate Tablet 1 TAB PO (08:29)
[2021-04-28] MEDS: tamsulosin 0.4 mg Capsule PO (08:30)
[2021-04-28] MEDS: aspirin 81 mg EC Tablet PO (08:33)
[2021-04-28] MEDS: divalproex ER 500 mg Tablet (24H) PO ×2 (08:33→17:53)
[2021-04-28] MEDS: polyethylene glycol 3350 Pkt 17 gm PO (08:33)
[2021-04-28] MEDS: predniSONE 10 mg Tablet PO (08:34)
--- NOTE | 2021-04-28 08:53 | PM.MISC ---
Miscellaneous Note Purpose of Documentation: Follow-up on labs Note: Cultures are final and remain negative. No further orthopedic input at this time.
--- NOTE | 2021-04-28 08:56 | PC.NURSE ---
Patient refused Nystatin. Dr Quinn notified
[2021-04-28 12:30] LABS: Glucose Point of Care 108 mg/dL (70-110)
--- NOTE | 2021-04-28 12:52 | PM.PN ---
Subjective Subjective: Interval history: Patient is doing well No overnight events Awaiting placement He is stable to as per discharge planners which might take longer to get accepted to a fci, meanwhile if he is able to bear weight on his legs and wants to go home I will be able to discharge him as well Vitals/I&O/Wt Last Vital Signs Temp 97.7 F 04/28/21 10:52 Pulse 70 04/28/21 10:52 Resp 16 04/28/21 10:52 BP 98/68 04/28/21 10:52 Pulse Ox 91 04/28/21 10:52 04/27/21 04/28/21 04/28/21 22:59 06:59 14:59 Intake Total 480 / 480 Output Total 435 / 960 350 / 350 Balance -435 / -600 130 / 130 Physical Exam Narrative: EXAM NARRATIVE: Patient resting comfortably No overnight events S1, S2 Euvolemic Nonfocal neuro exam No active knee pain, swelling has reduced hyperemia resolved Nonfocal neuro exam No audible stridor or wheezing Data : 04/27/21 03:22 04/27/21 03:22 Micro: Microbiology 04/23/21 22:45 Gram Stain - Final Synovial Fluid Body Fluid Culture - Final A&P Assessment and plan (1) Effusion, left knee: Status: Acute (2) Oral thrush: Status: Acute (3) Seizure: Status: Acute Additional A&P Information Left knee effusion Inflammatory Discontinue antibiotics Responding well to anti-inflammatory medications Awaiting placement DVT prophylaxis on board Consistent carb diet Euglycemic Oral thrush nystatin Pemphigoid vulgaris Requires dermatology follow-up outpatient Attestations Medical Necessity Statement*: Awaiting placement Time Spent in Patient Care: less than 15 minutes Coding Level of Care Code Acute Instructor Weaving for Chg Fwd Diagnoses Effusion, left knee M25.462 Oral thrush B37.0 Seizure R56.9
[2021-04-28] MEDS: TRAMadol 50 mg Tablet PO (14:29)
[2021-04-28] MEDS: ketorolac 30 mg/mL INJ 15 MG IVP ×2 (14:29→21:17)
[2021-04-28 18:29] LABS: Glucose Point of Care 108 mg/dL (70-110)
[2021-04-28] MEDS: nystatin 100,000 unit/mL UDC 5 mL 500000 UNIT PO (21:17)
[2021-04-28] MEDS: trazodone 100 mg Tablet PO (21:17)
[2021-04-28 21:33] LABS: Glucose Point of Care 104 mg/dL (70-110)
--- NOTE | 2021-04-29 00:39 | PC.NURSE ---
2000 Awake in bed watching tv. Requests pain med for hip and knee pain. Will give as ordered.
--- NOTE | 2021-04-29 00:39 | PC.NURSE ---
2200 resting in bed. Easily awakens. Fresh ice water given.
--- NOTE | 2021-04-29 00:40 | PC.NURSE ---
0015 Resting in bed. No distress.
[2021-04-29] MEDS: ketorolac 30 mg/mL INJ 15 MG IVP ×2 (02:05→08:21)
--- NOTE | 2021-04-29 02:25 | PC.NURSE ---
0200 Awake in bed on left side. Reports pain to hips and knees 7:10. toradol given as ordered. Reports nasal congestion.
[2021-04-29 04:00] VITALS: BP 110/64; PULSE 56; RESP 17; TEMP 36.9; O2SAT 91
[2021-04-29] MEDS: enoxaparin 40 mg/0.4 mL Syringe SUBCUT (05:24)
--- NOTE | 2021-04-29 05:49 | PC.NURSE ---
0400 Resting in bed. Awakens easily. No requests.
--- NOTE | 2021-04-29 05:50 | PC.NURSE ---
0530 Resting on left side. Abd round, soft. Passes flatus. Reports he feels needs to have BM.
--- NOTE | 2021-04-29 05:55 | PC.NURSE ---
i reported low pulse 56 to nurse
--- NOTE | 2021-04-29 06:23 | PM.PN ---
Subjective Subjective: Interval history: No overnight events, Vitals/I&O/Wt Last Vital Signs Temp 98.4 F 04/29/21 04:00 Pulse 56 L 04/29/21 04:00 Resp 17 04/29/21 04:00 BP 110/64 04/29/21 04:00 Pulse Ox 91 04/29/21 04:00 04/28/21 04/28/21 04/29/21 14:59 22:59 06:59 Intake Total 960 / 960 480 / 1440 Output Total 350 / 350 180 / 530 Balance 610 / 610 480 / 1090 -180 / 910 Physical Exam Narrative: EXAM NARRATIVE: Patient resting comfortably On room air Nonfocal neuro exam Abdomen soft S1, S2 Nonlabored breathing No audible stridor or wheezing Left knee swelling and hyperemia improved Data : 04/27/21 03:22 04/27/21 03:22 Micro: Microbiology 04/24/21 03:45 Blood Culture - Final Blood NO GROWTH AFTER 5 DAYS 04/24/21 03:45 Blood Culture - Final Blood NO GROWTH AFTER 5 DAYS A&P Assessment and plan (1) Oral thrush: Status: Resolved (2) Effusion, left knee: Status: Resolved Plan Left knee effusion improved Responds well to NSAIDs and opioids Oral thrush: Nystatin Pemphigoid vulgaris: Low-dose steroids Consistent carb diet Attestations Medical Necessity Statement*: Awaiting disposition Coding Level of Care Code Acute Wind Tunnel Technician for Imelda Rojas Medical Decision Making Straight Forward Diagnoses Oral thrush B37.0 Effusion, left knee M25.462 Time Spent (min) 15
[2021-04-29 06:38] LABS: Glucose Point of Care 104 mg/dL (70-110)
[2021-04-29 08:00] VITALS: BP 105/67; PULSE 68; RESP 14; O2SAT 95
[2021-04-29] MEDS: divalproex ER 500 mg Tablet (24H) PO (08:21)
[2021-04-29] MEDS: sennosides-docusate Tablet 1 TAB PO (08:21)
[2021-04-29] MEDS: predniSONE 10 mg Tablet PO (08:21)
[2021-04-29] MEDS: tamsulosin 0.4 mg Capsule PO (08:21)
[2021-04-29] MEDS: aspirin 81 mg EC Tablet PO (08:21)
--- NOTE | 2021-04-29 11:41 | P.DS_ITS ---
Discharge Providers Date of Admission: 04/23/21 23:29 Date of Discharge: April 29, 2021 Attending Provider at Admission: Brent Little MD Attending Provider at Discharge: Alexia Quinn MD Primary Care Provider: FÁTIMA Dugan Diagnoses at Discharge Discharge Diagnosis (1) Oral thrush: Status: Resolved (2) Effusion, left knee: Status: Resolved Reason for Visit Reason for Visit: n/v, left knee pain, possible sepsis Hospital Course Hospital Course History of Present Illness per Dr. Little Randy German is a 65 year old male with past medical history of hypertension ,diabetes , heart failure with reduced ejection fraction, seizure disorder, history of cryptococcal meningitis, came in with chief complaint of worsening left knee pain, swelling, it started a week back after he accidentally twisted his left knee, since then it has progressively worsened, he was also complaining of fever at home, along with nausea vomiting and diarrhea, going on for the last 2 days.? He denies any chest pain, shortness of breath, headache , cough. Upon arrival in the ER he was worked up for above-mentioned complaint. Pertinent imaging studies: X-ray of the left knee:Moderate suprapatellar joint effusion of the knee.Moderate to severe osteoarthritis of the knee. ? X-ray chest: No acute findings Pertinent labs: WBC 11.6 H&H 12.3 /? 38.3 , plt : 253 , serum sodium 137 serum potassium 3.3, BUN and serum creatinine 13/0.5 ESR: 77 , CRP: 340 , In the ER: Patient had arthrocentesis of left knee: Synovial fluid was cloudy in appearance: Synovial fluid WBC: 60991 , synovial fluid RBC: 3 H , Patient was given 1 dose of IV levofloxacin Hospital course Patient was admitted for possibility of septic joint. His left knee was tapped in the ER which showed inflammatory changes, cultures negative, crystals negative no signs of acute gout. He was kept on vancomycin. His antibiotics were discontinued after final lab report. Patient remained afebrile no severe leukocytosis. He was able to walk on his own without much assistance. Initially patient was reluctant to go home because of his knee pain that delayed his early discharge from the hospital however on 04/29 he change his mind and agreed to go home. He is level 2 as per case management that delayed his placement into a care home He responds very well to ibuprofen and Tylenol I would avoid giving opioids at the time of discharge. Physical Exam Narrative: EXAM NARRATIVE: Patient resting comfortably On room air Nonfocal neuro exam Abdomen soft S1, S2 Nonlabored breathing No audible stridor or wheezing Left knee swelling and hyperemia improved Discharge Data Studies Completed and Pending Completed Studies During Hospitalization Category Date Time Status XR chest 1V portable [id number] Stat Exams 04/23/21 13:34 Completed XR knee LT 3V* [id number] Stat Exams 04/23/21 16:37 Completed Radiology Impressions Chest X-Ray 04/23/21 13:34 IMPRESSION: 1. No acute infiltrates. 2. 1.34 cm nodule in the right upper lobe showing little change since prior study. A second 8 mm nodule seen in the right lower lung zone was not identified on prior study. 3. Chronically blunted left costophrenic angle may represent pleural thickening. Knee X-Ray 04/23/21 16:37 IMPRESSION: 1. Moderate suprapatellar joint effusion of the knee. 2. Scattered vascular calcifications. 3. Moderate to severe osteoarthritis of the knee. Laboratory Results WBC 5.9 10^3/uL (4.0-10.0) 04/27/21 03:22 RBC 3.09 10^6/uL (4.1-5.3) L 04/27/21 03:22 Hgb 9.4 g/dL (11.7-16.6) L 04/27/21 03:22 Hct 28.8 % (42.0-52.0) L 04/27/21 03:22 MCV 93.2 fl (80-94) 04/27/21 03:22 MCH 30.4 pg (28.0-34.0) 04/27/21 03:22 MCHC 32.6 g/dL (30.0-36.0) 04/27/21 03:22 RDW 13.0 % (12.1-15.1) 04/27/21 03:22 Plt Count 182 10^3/cmm (130-400) 04/27/21 03:22 MPV 9.6 fL (7.4-10.4) 04/27/21 03:22 Neut % (Auto) 55.3 % 04/27/21 03:22 Lymph % (Auto) 34.8 % 04/27/21 03:22 Trinity % (Auto) 7.7 % 04/27/21 03:22 Eos % (Auto) 0.5 % 04/27/21 03:22 Baso % (Auto) 0.5 % 04/27/21 03:22 Neut # (Auto) 3.24 10^3/uL (1.8-7.7) 04/27/21 03:22 Lymph # (Auto) 2.0 10^3/uL (0.8-4.8) 04/27/21 03:22 Trinity # (Auto) 0.5 10^3/uL (0.2-0.9) 04/27/21 03:22 Eos # (Auto) 0.0 10^3/uL (0.0-0.8) 04/27/21 03:22 Baso # (Auto) 0.0 10^3/uL (0.0-0.1) 04/27/21 03:22 Nucleated RBC % (auto) 0 % 04/27/21 03:22 Nucleated RBCs # 0.0 /100WBC 04/27/21 03:22 ESR 77 mm/hr (0-10) H 04/23/21 15:41 Sodium 138 mmol/L (136-145) 04/27/21 03:22 Potassium 3.3 mmol/L (3.5-5.1) L 04/27/21 03:22 Chloride 103 mmol/L (98-107) 04/27/21 03:22 Carbon Dioxide 24 mmol/L (22-29) 04/27/21 03:22 Anion Gap 14.3 (5-19) 04/27/21 03:22 BUN 14 mg/dL (8-23) 04/27/21 03:22 Creatinine 0.4 mg/dL (0.7-1.2) L 04/27/21 03:22 GFR Calculation 217.3 mL/min (90-130) H 04/27/21 03:22 Glucose 118 mg/dL (65-115) H 04/27/21 03:22 POC Glucose 104 mg/dL (70-110) 04/29/21 06:22 Calculated Osmolality 288 mOsm/kg (285-295) 04/27/21 03:22 Lactate 0.9 mmol/L (0.5-2.2) 04/23/21 21:03 Uric Acid 5.6 mg/dL (3.4-7.0) 04/25/21 05:27 Calcium 8.2 mg/dL (8.5-10.5) L 04/27/21 03:22 Total Bilirubin 0.7 mg/dL (0.15-1.2) 04/23/21 15:41 AST 5 U/L (0-40) 04/23/21 15:41 ALT < 5 U/L (0-41) 04/23/21 15:41 Alkaline Phosphatase 62 IU/L (40-130) 04/23/21 15:41 C-Reactive Protein 340.4 mg/L (0.0-4.9) H 04/23/21 15:41 Total Protein 6.2 g/dL (6.6-8.7) L 04/23/21 15:41 Albumin 3.2 g/dL (3.5-5.2) L 04/23/21 15:41 Globulin 3.0 g/dL (1.3-4.6) 04/23/21 15:41 Procalcitonin 0.10 ng/mL (0-0.5) 04/25/21 05:27 Urine Color Yellow (Yellow) 04/24/21 04:45 Urine Appearance Hazy (CLEAR) A 04/24/21 04:45 Urine pH 5 (5-7) 04/24/21 04:45 Ur Specific [place] 1.020 (1.005-1.030) 04/24/21 04:45 Urine Protein Neg (Negative) 04/24/21 04:45 Urine Glucose (UA) Norm (Normal) 04/24/21 04:45 Urine Ketones 2+ (Negative) H 04/24/21 04:45 Urine Blood 2+ (Negative) H 04/24/21 04:45 Urine Nitrate Positive (Negative) H 04/24/21 04:45 Urine Bilirubin 1+ (Negative) H 04/24/21 04:45 Urine Urobilinogen 4 mg/dL (Negative) H 04/24/21 04:45 Ur Leukocyte Esterase 2+ (Negative) H 04/24/21 04:45 Urine RBC 0-4 /hpf (0-2) H 04/24/21 04:45 Urine WBC >100 /hpf (0-5) H 04/24/21 04:45 Ur Squamous Epith Cells 0-4 /hpf (0-5) H 04/24/21 04:45 Amorphous Sediment Not Reportable 04/24/21 04:45 Urine Bacteria 4+ /hpf (NONE) H 04/24/21 04:45 Urine Mucus Trace /hpf 04/24/21 04:45 Fluid Crystals Sent to path 04/23/21 22:45 Synovial Color Yellow (PALE YELLOW) 04/23/21 22:45 Synovial Appearance Cloudy (CLEAR) 04/23/21 22:45 Synovial WBC 91598 /uL (0-150) H 04/23/21 22:45 Synovial RBC 3 10^3/uL (0-0) H 04/23/21 22:45 Synovial Mononuclear 0.953 10^3/uL 04/23/21 22:45 Synov Polynuclear WBCs 29.324 10^3/uL 04/23/21 22:45 Synovial Other Cells Not Reportable 04/23/21 22:45 Synovial Polynuclear % 96.900 % 04/23/21 22:45 Synovial Mononuclear % 3.100 % 04/23/21 22:45 Vancomycin Trough 17.6 ug/mL (10-15) H 04/25/21 16:00 Valproic Acid 21.0 ug/mL (50-100) L 04/23/21 15:41 Coronavirus 229E (PCR) Not detected (NOT DETECT) 04/23/21 21:09 SARS-CoV-2 (PCR) Not detected (NOT DETECT) 04/23/21 21:09 SARS-CoV-2 RNA (RT-PCR) Cancelled 04/23/21 21:09 Path Cons w/Slide Yes 04/23/21 22:45 Vitals Last Vital Signs Temp 98.4 F 04/29/21 04:00 Pulse 68 04/29/21 08:00 Resp 14 04/29/21 08:00 BP 105/67 04/29/21 08:00 Pulse Ox 95 04/29/21 08:00 Discharge Plan Discharge Patient Disposition: Home Condition: Stable Prescriptions: New ondansetron 4 mg tablet,disintegrating 4 mg PO Q6H PRN (Reason: nausea and vomiting) Qty: 14 0RF Continued tamsulosin 0.4 mg capsule 0.4 mg PO BID Qty: 60 12RF (DME) OneTouch Ultra Test Strip See Rx Instructions .Route Qty: 50 5RF Rx Instructions: one strip daily aspirin 81 mg tablet,delayed release (DR/EC) 81 mg PO DAILY Qty: 30 5RF magnesium oxide 400 mg magnesium tablet 400 mg PO BID Qty: 60 2RF trazodone 100 mg tablet 100 mg PO BEDTIME Qty: 30 2RF metformin 500 mg tablet extended release 24 hr 500 mg PO BID Qty: 60 2RF fluconazole 100 mg tablet 400 mg PO DAILY Qty: 90 0RF Depakote 500 mg tablet,delayed release (DR/EC) 500 mg PO BID 0RF ascorbic acid (vitamin C) [Vitamin C] 500 mg tablet extended release 1,000 mg PO DAILY 0RF Rx Instructions: W/METHENAMINE methenamine hippurate 1 gram tablet 1 g PO DAILY 0RF loratadine [Claritin] 10 mg tablet 10 mg PO DAILY PRN (Reason: Allergy Symptoms) 0RF dexamethasone 1 mg tablet 1 mg PO DAILY Qty: 30 2RF Discharge Orders: Discharge Order (Routine); Ordered 04/29/21 Ordered By: Alexia Quinn Referrals: Adela Alaniz, TIPPLE SUPERVISOR-C [Primary Care Provider] - 05/01/21 9:40 am Sera New MD [Physician] - 05/14/21 9:30 am Discharge Diet: Advance as tolerated Discharge Activity: Resume usual activity Patient Instructions: Ondansetron (By mouth), Acute Nausea and Vomiting (ED), Swollen Knee Joint (GEN), Opioid Safety Discharge Attestations Time Spent in Discharge Care*: other Status at Discharge: Cognitive status at discharge: cognitively intact , Behavioral status at discharge: cooperative , Quality Metrics Clinical Quality Measures [ No reported AMI, CVA or VTE this stay] Coding Level of Care Code Acute Chg FW DC note Diagnoses Oral thrush B37.0 Effusion, left knee M25.462
[2021-04-29 12:04] LABS: Glucose Point of Care 109 mg/dL (70-110)
--- NOTE | 2021-04-29 12:49 | PC.NURSE ---
discharge instructions given to patient and friend. both verbalized understanding of instructions. patient taken to private vehicle via wheelchair by staff.
[2021-04-29 12:55] VITALS: BP 105/67; PULSE 68; RESP 14; O2SAT 95
[2021-05-06 15:43] LABS: Glucose Point of Care 125 mg/dL (70-110)
== END 2021-04-29 12:55 | disposition home or self-care (01) | DRG 565 ==
LOC: ER 23:31 → ER IP 23:37 → MEDSURG 04-24 07:39
PROVIDERS: Family Medicine; Admitting Provider Internal Medicine; Emergency Provider Emergency Medicine; PCP Nurse Practitioner; Visit Provider Internal Medicine
DX: M25.462 Effusion, left knee (principal); N13.8 Other obstructive and reflux uropathy; I50.22 Chronic systolic (congestive) heart failure; L12.9 Pemphigoid, unspecified; B37.0 Candidal stomatitis; T84.84XA Pain due to internal orthopedic prosthetic devices, implants and grafts, initial encounter; F41.9 Anxiety disorder, unspecified; N40.1 Benign prostatic hyperplasia with lower urinary tract symptoms; R33.8 Other retention of urine; R39.14 Feeling of incomplete bladder emptying; E11.9 Type 2 diabetes mellitus without complications; E78.5 Hyperlipidemia, unspecified; I11.0 Hypertensive heart disease with heart failure; K21.9 Gastro-esophageal reflux disease without esophagitis; Z86.14 Personal history of Methicillin resistant Staphylococcus aureus infection; F32.9 Major depressive disorder, single episode, unspecified; Z87.01 Personal history of pneumonia (recurrent); I95.9 Hypotension, unspecified; G40.909 Epilepsy, unspecified, not intractable, without status epilepticus; Z79.84 Long term (current) use of oral hypoglycemic drugs; Z79.82 Long term (current) use of aspirin; F51.04 Psychophysiologic insomnia; K59.01 Slow transit constipation; Z96.641 Presence of right artificial hip joint; Z66 Do not resuscitate; M17.12 Unilateral primary osteoarthritis, left knee
CPT/HCPCS: 20610; 36415; 36416; 71045; 73562; 80048; 80053; 80164; 80202; 80500; 81001; 82962; 83605; 84145; 84550; 85025; 85651; 86140; 87040; 87070; 87075; 87077; 87086; 87186; 87205; 87635; 89050; 96365; 96367; 96372; 96375; 96376; 97110; 97116; 97162; 97530; 99285; J0743; J1650; J1720; J1885; J1956; J2405; J3370; J7030; J7050; J7512

== ENCOUNTER → 2021-05-01 10:30 | Outpatient (BNVA) | payer MEDICAID, SELFPAY | PROVIDERS: PCP Nurse Practitioner; Visit Provider Nurse Practitioner | DX: M19.011 Primary osteoarthritis, right shoulder (principal); K59.01 Slow transit constipation | CPT/HCPCS: 81000 ==